=== PATIENT | male | born 1945 | race Caucasian/White ===

== ENCOUNTER → 2017-12-03 17:25 | Outpatient (CLI) | payer MEDICARE, MEDICAID, SELFPAY ==
[2017-12-03 18:01] LABS: Absolute Lymphocyte Count 3.08 X10^3/ul (0.83-4.51); Absolute Neutrophil Count 6.2 X10^3/uL (2.0-7.7); Basophil# 0.03 X10^3/uL; Basophil% 0.3 % (0-1); Eosinophil# 0.33 X10^3/uL; Eosinophils% 3.1 % (0-5); Lymphocyte # 3.08 X10^3/ul (4.0); Lymphocyte % 28.9 % (19-41); Mean Corp Hgb Conc 32.5 g/gl (32-36); Mean Corpuscular Hgb 29.1 pg (27.0-32.0); Mean Corpuscular Volume 89.5 fL (80-94); Mean Platelet Vol. 8.9 fl (6.2-12.0); Monocyte# 0.99 X10^3/uL; Monocyte% 9.3 % (0-10); Neutrophil # 6.19 X10^3/uL (2.7-7.7); Neutrophil % 58.1 % (47-70); Platelet Count 232 K/mm3 (150-450); RBC Distribution Width CV 13.5 % (11.6-14.6); RBC Distribution Width SD 44.1 fl (35.1-43.9); Red Blood Count 4.47 M/mm3 (4.6-6.2); White Blood Count 10.7 K/mm3 (4.4-11.0)
[2017-12-03 18:02] LABS: POSITIVE COUNT NO; POSITIVE DIFFERENTIAL NO; POSITIVE MORPHOLOGY NO
[2017-12-03 18:20] LABS: AST(SGOT) 22 U/L (15-37); Alanine Aminotransfer ALT/SGPT 26 U/L (16-61); Albumin, Serum 3.4 g/dL (3.2-5.0); Alkaline Phosphatase 98 U/L (45-117); Bilirubin, Direct 0.08 mg/dL (0.00-0.30); Globulin 4.1 g/dL (2.2-4.2); Protein, Total 7.5 g/dL (6.4-8.2)
[2017-12-07 03:07] LABS: QNTFERON TB Ag Minus Nil Value 0.02 IU/mL (.); QNTFERON TB Ag Value 0.11 IU/mL (.); QNTFERON TB Mitogen Value > 10.00 IU/mL (.); QNTFERON TB Nil Value 0.09 IU/mL (.)
[2017-12-09 12:16] LABS: QNTIFERON TB Gold Negative (Negative)
== END ==
PROVIDERS: Family Provider Family Medicine; PCP Family Medicine; Visit Provider Dermatology
DX: Z79.899 Other long term (current) drug therapy (principal)
CPT/HCPCS: 36415; 80076; 85025; 86480

== ENCOUNTER → 2018-02-25 11:15 | Outpatient (CLI) | payer MEDICARE, MEDICAID, SELFPAY ==
[2018-02-25 16:02] LABS: Microalbumin,Random Urine 90.1 mg/L (NO RANGE EST.); Microalbumin:Creatinine Ratio 53.3 mg/g CRE (<30 mg/g CRE)
[2018-02-25 16:45] LABS: ALB/GLOB Ratio 0.9 RATIO (0.9-2.4); AST(SGOT) 21 U/L (15-37); Alanine Aminotransfer ALT/SGPT 30 U/L (16-61); Albumin, Serum 3.9 g/dL (3.2-5.0); Alkaline Phosphatase 89 U/L (45-117); Anion Gap 7 (5-15); BUN 17 mg/dL (7-18); BUN/Creat Ratio 11.3 RATIO (10-20); Calcium,Total 9.1 mg/dL (8.5-10.1); Chloride 100 mmol/L (98-107); Cholesterol 135 mg/dL (200); Creatinine, Serum 1.51 mg/dL (0.70-1.30); EST Glomerular Filtration Rate 49 mL/min (>60); Est Glom Filt Rate - Afr Amer 59 mL/min (>60); Globulin 4.4 g/dL (2.2-4.2); Glucose 111 mg/dL (74-106); High Density Lipoprotein 40 mg/dL; Potassium 4.2 mmol/L (3.5-5.1); Protein, Total 8.3 g/dL (6.4-8.2); Sodium Level 138 mmol/L (136-145); Triglycerides 283 mg/dL; Very Low Density Lipoprotein 57 mg/dL (5-40)
== END ==
PROVIDERS: Family Provider Family Medicine; PCP Family Medicine; Visit Provider Family Medicine
DX: E11.9 Type 2 diabetes mellitus without complications (principal)
CPT/HCPCS: 36415; 80053; 80061; 82043; 82570; J7040

== ENCOUNTER 2018-03-25 18:00 | Outpatient (RCR) | payer MEDICARE, MEDICAID, SELFPAY ==
--- NOTE | 2018-03-13 11:22 | HP.PTEVAL_ITS ---
Patient's Visit Information MARYAM GARCIA is a 72 year old M referred to Physical Therapy by Delaney Amaya MD with a diagnosis of thoracic and lumbar spine pain, with need for stretching. Date of Evaluation: 03/07/18 Physical Therapist: Ashkan Parks - Visit Plan Frequency: 2x /Week Duration: 4 Weeks Plan: Start with thoracic mobility, scapular strengthening, HS stretching core stability exercises. May use some manual techniques to reduce muscle tension. - Subjective Subjective: Pt. is here today for his initial evaluation with diagnosis of thoracic and lumbar spine pain, with need for stretching. Pt. reports having increasd thoracic pain after falling a few months ago. Pt. reports nt having an xray at this point in time. Pt. reports increased pain with sitting for too long , extending his back, getting up and down. Pt. reports no radiating pain in all extremities. Pt. denies N/T. Pt. reports changing postions in the only way to alleviate pain. Pt. reports having leg weakness with occassioanl giving out, but has been happening for some time. Pt. lives alone and has stairs to enter home. Pt. reports no issues with entering. Pt. still drives. Pt. is able to sleep with minimal issues. He is hopeful to increase ROM and decrease pain allowing him to complete all household activities without limitatons. - Pain Thoracic spine Pain Intensity (Out of 10): 2 Pain Intensity Range: 1, 4 - Objective POSTURE: Pt. has increased thoracic kyphosis, increased FH posture. Pt. reports increased difficulty correcting posture. Pt. has decreased lumbar lordosis as well. PALPATION: Pt. has increased tenderness throughout scapular region bilaterally, thoracic erector spinea. No pain throughout lumbar spine. No UT pain. NEUROLOGICAL: All intact no issues. Normal sensation. ROM: Thoracic spine- flexion nil loss, ext mod loss increase NW, rotation mod loss bilat NE, LUmbar spine- flexion min loss NE, ext mod loss NE, SB mod loss bilat NE. Shoulder mobility tight with all over head motions. MMT: Pt. has decreased scapular strength, mid trap- 4/5, rhomboids 4/5, lats 4/5, core strength- poor. - Goals Goal 1:: Pt. to be I with HEP. Goal Time Frame: 4-6 Weeks Goal 2:: Pt. to have improved thoracic posture by 25% of motion reducing stress applied to scapular and thoracic musculature. Goal Time Frame: 4-6 Weeks Goal 3:: Pt. to have increased HS length by 25% bilaterally allowing for improved pelvic positioning improving posture. Goal Time Frame: 4-6 Weeks Goal 4:: Pt. to have increased scpaular strength by 1/2 grade throughout allowing for increased postural stability. Goal Time Frame: 4-6 Weeks - Rehabilitation Potential Physical Therapy Diagnosis: Pt. has signs and symptoms of thoracic spine pain, most likely due to chronic improper posture. Pt. would benefit from PT to increase thoracic ROM, postural stability strengthening and general stretching allowing for proper posture wtih all positioning. Rehabilitation Potential: Good - Anticipated Interventions Patient/Client Instruction: Educate patient on: Condition, Plan of Care, Risk Factors, Benefits of Fitness Program For the Purpose of:: To improve safety, To improve health and function, To foster healthy habits, To improve decision making, To facilitate caregiver knowledge, To improve self management, To prevent re-injury, To improve ability to perform tasks related to life management Therapeutic Exercise to Include: Strength training, Power training, Body mechanics, Postural training, Flexibilty training, Passive ROM, Active ROM, Dynamic Lumbar Stabilization, Massiel Exercises, Scapular Strength/ Stabilization For the Purpose of:: To decrease pain, To increase ROM, To improve nutrient delivery to tissue, To increase oxygenation perfusion, To improve muscle performance and motor function, To improve ability to perform ADL's, To increase tolerance to activity/condition/position, To decrease soft tissue restriction, To increase flexibility/ROM Manual Therapy Techniques to Include: Trigger point massage, Mobilization, Functional dry needling, Soft tissue mobilization For the Purpose of:: To decrease pain, To increase ROM, To improve nutrient delivery to tissue, To improve muscle performance and motor function, To improve health of tissue, To decrease soft tissue restriction, To increase flexibility/ROM Thank you for the opportunity to evaluate your patient. For Medicare and Medicare HMO plans, please review the plan of care and approve it. It will need to be FAXED BACK to us at [phone] for Medicare purposes. Please let me know if there are questions or concerns regarding this plan of care. Physician Signature: Date:
--- NOTE | 2018-05-22 11:24 | HP.PT.NRP ---
HP - Discharge Summary (1) - Patient Information MARYAM GARCIA was seen in my office for initial evaluation on 03/07/18. The following Plan of Care was established for this patient: Initial Frequency: 2x /Week Initial Duration: 4 Weeks - Anticipated Interventions Patient/Client Instruction: Educate patient on: Condition, Plan of Care, Risk Factors, Benefits of Fitness Program For the Purpose of:: To improve safety, To improve health and function, To foster healthy habits, To improve decision making, To facilitate caregiver knowledge, To improve self management, To prevent re-injury, To improve ability to perform tasks related to life management Therapeutic Exercise to Include: Strength training, Power training, Body mechanics, Postural training, Flexibilty training, Passive ROM, Active ROM, Dynamic Lumbar Stabilization, Massiel Exercises, Scapular Strength/Stabilization For the Purpose of:: To decrease pain, To increase ROM, To improve nutrient delivery to tissue, To increase oxygenation perfusion, To improve muscle performance and motor function, To improve ability to perform ADL's, To increase tolerance to activity/condition/position, To decrease soft tissue restriction, To increase flexibility/ROM Manual Therapy Techniques to Include: Trigger point massage, Mobilization, Functional dry needling, Soft tissue mobilization For the Purpose of:: To decrease pain, To increase ROM, To improve nutrient delivery to tissue, To improve muscle performance and motor function, To improve health of tissue, To decrease soft tissue restriction, To increase flexibility/ROM This patient was last seen in our office 03/25/18. Pertinent comments regarding their Physical therapy will appear below: Pt. was treated for her thoracic spine pain and hypombility. He was treated with modalities and stretching. Pt. came for 3 visits, but did not attend subsequent visits. He has not been seen in ~ 2 months and will be DC from PT at this point in time. At this point I will be discontinuing this patient from physical therapy. I would be happy to see this patient again in the future if found appropriate by the physician. Thank you! Ashkan Parks
== END 2018-03-25 19:00 | disposition home or self-care (01) ==
LOC: PT 18:00
PROVIDERS: Family Provider Family Medicine; PCP Family Medicine; Visit Provider Family Medicine
DX: M54.6 Pain in thoracic spine (principal)
CPT/HCPCS: 97110; 97162

== ENCOUNTER → 2018-03-28 06:15 | Outpatient (CLI) | payer MEDICARE, MEDICAID, SELFPAY ==
[2018-03-28 13:00] LABS: Hematocrit 42.6 % (40-54); Hemoglobin 13.6 g/dl (13.0-16.5); Mean Corp Hgb Conc 31.9 g/gl (32-36); Mean Corpuscular Hgb 28.8 pg (27.0-32.0); Mean Corpuscular Volume 90.3 fL (80-94); Mean Platelet Vol. 8.8 fl (6.2-12.0); Platelet Count 210 K/mm3 (150-450); RBC Distribution Width CV 13.7 % (11.6-14.6); RBC Distribution Width SD 44.7 fl (35.1-43.9); Red Blood Count 4.72 M/mm3 (4.6-6.2); White Blood Count 11.4 K/mm3 (4.4-11.0)
[2018-03-28 13:01] LABS: Scan Indicated on CBC? Y/N NO
[2018-03-28 14:01] LABS: Anion Gap 4 (5-15); BUN 16 mg/dL (7-18); BUN/Creat Ratio 11.5 RATIO (10-20); Calcium,Total 8.9 mg/dL (8.5-10.1); Chloride 104 mmol/L (98-107); Creatinine, Serum 1.39 mg/dL (0.70-1.30); EST Glomerular Filtration Rate 53 mL/min (>60); Est Glom Filt Rate - Afr Amer 65 mL/min (>60); Glucose 160 mg/dL (74-106); Potassium 4.1 mmol/L (3.5-5.1); Sodium Level 140 mmol/L (136-145)
--- NOTE | 2018-03-28 18:24 | STRESSREP ---
Stress Test Report Pharmacologic myocardial perfusion stress test. 72-year-old man with a history of syncope. Stress protocol: Resting EKG demonstrates normal sinus rhythm with a rate of 77 bpm normal intervals and noted resting blood pressure is 138/90 mmHg. 0.4 mg of regadenoson was infused per usual protocol followed by Intravenous saline flush injection continuous EKG monitoring was performed. The maximum heart rate was 100 bpm which was 67% of maximum predicted heart rate the maximum workload was 1 metabolic equivalent. At rest there were no ST or T-wave changes noted suggest abnormal flow reserve at peak infusion no ST or T-wave changes were noted suggest abnormal flow reserve. Resting blood pressure was 138/90 mmHg with a final blood pressure 130/84 mmHg. Myocardial perfusion protocol. 14.6 mCi of technetium 99m sestamibi was injected at rest. 0.4 mg of regadenoson was infused per usual protocol peak infusion 44.5 mCi of technetium 99m sestamibi was injected stress images were obtained stress and rest images were reconstructed and compared in the short axis vertical long and horizontal long axis. Gated images were also obtained. Perfusion SPECT analysis: Review of the stress images demonstrate normal uptake of tracer noted in the septum anterior wall and lateral wall. There is mildly reduced perfusion noted in the inferior wall. The stress and resting images appear to demonstrate a similar patent and no significant changes are noted to suggest ischemia. No previous infarct is noted. Gated SPECT analysis: The gated ejection fraction is noted to be 49%. Conclusion: Pharmacologic myocardial perfusion stress test with no obvious areas of ischemia. Low normal ejection fraction.
== END ==
PROVIDERS: Family Provider Family Medicine; PCP Family Medicine; Visit Provider Internal Medicine Cardiovascular Disease
DX: I50.32 Chronic diastolic (congestive) heart failure (principal); R55 Syncope and collapse; R29.6 Repeated falls; R42 Dizziness and giddiness; I10 Essential (primary) hypertension; Z98.890 Other specified postprocedural states; Z86.79 Personal history of other diseases of the circulatory system; Z95.828 Presence of other vascular implants and grafts
CPT/HCPCS: 36415; 76706; 78452; 80048; 85027; 93017; 93306; A9500; Q9957; A4216; C8929; J2785

== ENCOUNTER 2018-03-31 07:05 | Day surgery (SDC) | payer MEDICARE, MEDICAID, SELFPAY ==
[2018-03-28 13:24] VITALS: BMI 31.7
== END 2018-03-31 09:38 ==
LOC: CLSP 07:06
PROVIDERS: Family Provider Family Medicine; PCP Family Medicine; Visit Provider Internal Medicine Cardiovascular Disease
DX: R55 Syncope and collapse (principal); I13.0 Hypertensive heart and chronic kidney disease with heart failure and stage 1 through stage 4 chronic kidney disease, or unspecified chronic kidney disease; I50.32 Chronic diastolic (congestive) heart failure; N18.3 Chronic kidney disease, stage 3 (moderate); E78.00 Pure hypercholesterolemia, unspecified; Z86.711 Personal history of pulmonary embolism; Z86.79 Personal history of other diseases of the circulatory system; Z98.890 Other specified postprocedural states; E66.9 Obesity, unspecified; Z68.31 Body mass index [BMI] 31.0-31.9, adult; M32.9 Systemic lupus erythematosus, unspecified; F31.9 Bipolar disorder, unspecified; M10.9 Gout, unspecified; Z86.718 Personal history of other venous thrombosis and embolism; Z79.01 Long term (current) use of anticoagulants; Z79.899 Other long term (current) drug therapy
CPT/HCPCS: 33282; 99152; 99153; J7040

== ENCOUNTER 2018-11-14 14:40 | Emergency (ER) | payer MEDICARE, MEDICAID, SELFPAY ==
[2018-11-14 14:42] VITALS: BP 180/74; PULSE 84; RESP 18; TEMP 36.9; O2SAT 98; BMI 32.5
[2018-11-14 14:49] VITALS: O2SAT 97
--- NOTE | 2018-11-14 14:50 | CT_ITS ---
STUDY: CT BRAIN WITHOUT CONTRAST REASON FOR EXAM: Male, 73 years old. History of fall. History of aneurysm. RADIATION DOSAGE (If Supplied By Facility): CTDIvol = ( 44.99 ) mGy, DLP = ( 745.49 ) mGycm TECHNIQUE: Transaxial CT imaging of the brain was performed without administration of intravenous contrast material. Individualized dose optimization techniques were used for this CT. COMPARISON: Comparison is made with prior study dated October 27, 2013. FINDINGS: Normal soft tissue structures. Normal calvarium. There is mild cerebral atrophy with widening of the extra-axial spaces and ventricular dilatation. There are areas of decreased attenuation within the white matter tracts of the supratentorial brain, consistent with microvascular disease changes. Normal basal ganglia and thalami. Normal brainstem. Normal cerebellum. There is no intracranial hemorrhage. There are no findings of an acute ischemic infarction. Atherosclerotic calcification of the cavernous portions of the internal carotid arteries bilaterally. Mucosal thickening of the maxillary sinuses bilaterally. CT/Brain/Head without Contrast IMPRESSION: Chronic involutional changes of the brain. Electronically Signed: Ward Sauer, at 15:42 EDT , Service support ,
--- NOTE | 2018-11-14 14:51 | CT_ITS ---
STUDY: CT CERVICAL SPINE WITHOUT CONTRAST REASON FOR EXAM: Male, 73 years old. History of fall. RADIATION DOSAGE (If Supplied By Facility): CTDIvol = ( 15.16 ) mGy, DLP = ( 296.58 ) mGycm TECHNIQUE: High resolution transaxial imaging was performed without contrast material. Sagittal and coronal images were reconstructed. Individualized dose optimization techniques were used for this CT. COMPARISON: Comparison is made with prior examination dated October 27, 2013. FINDINGS: Normal craniovertebral junction. There are degenerative changes of the anterior atlantoaxial articulation. Normal odontoid process. There is straightening of the normal cervical lordosis. Normal vertebral bodies and posterior osseous elements. C2-3: Normal endplates. Normal disc height and morphology. Normal central canal and intervertebral neuroforamina. C3-4: Anterior spondylosis. Uncovertebral arthrosis. Bilateral neural foraminal stenosis due to hypertrophy of the facet joints. C4-5: Minimal stable anterolisthesis of C4 on C5 most likely secondary to the facet joint osteoarthritis. Anterior spondylosis. C5-6: Mild degree of this space narrowing with anterior spondylosis. This is worse on the right side. No significant stenosis is seen. C6-7: Moderate degree of disc space narrowing with anterior spondylosis. No significant stenosis is seen. Normal visualized soft tissue structures. CT/Spine Cervical without Contras IMPRESSION: Multilevel degenerative changes, as described above. Electronically Signed: Ward Sauer, at 15:45 EDT , Service support ,
--- NOTE | 2018-11-14 14:51 | CT_ITS ---
STUDY: CT LUMBAR SPINE WITHOUT CONTRAST REASON FOR EXAM: Male, 73 years old. Low back pain. RADIATION DOSAGE (If Supplied By Facility): CTDIvol = ( 31.23 ) mGy, DLP = ( 962.24 ) mGycm TECHNIQUE: The patient was scanned in a multi detector CT scanner. High resolution transaxial imaging was performed. Images were obtained from L1 to S1 level. Sagittal and coronal images were reconstructed. Individualized dose optimization techniques were used for this CT. COMPARISON: None FINDINGS: Normal lumbar lordosis. There is no substantial scoliosis. Normal vertebrae of the lumbar spine. L1-2: Marked degree of anterior spondylosis worse on the right side. No significant stenosis is seen. L2-3: Mild degree of disc space narrowing. Anterior spondylosis. Mild degree of diffuse posterior disc bulge. Mild degree of bilateral neural foraminal stenosis. L3-4: Mild degree of disc space narrowing with anterior spondylosis worse on the left side. Facet joint osteoarthritis and hypertrophy causing bilateral neural foraminal stenosis. L4-5: Moderate degree of disc space narrowing and spondylosis. Facet joint osteoarthritis and hypertrophy. Bilateral neural foraminal stenosis worse on the right side. L5-S1: Normal endplates. Normal disc height and morphology. Normal bilateral facet joints. Normal central canal and bilateral lateral recesses. Normal bilateral intervertebral neural foramina. Normal visualized paraspinous soft tissue structures. CT/Spine Lumbar without Contrast IMPRESSION: Multilevel degenerative changes, as described above. Bilateral neural foraminal stenosis at the L2-L3, L3-L4 and L4-L5 levels. Electronically Signed: Ward Sauer, at 15:41 EDT , Service support ,
--- NOTE | 2018-11-14 15:05 | ED.VISSUMM ---
- ER Visit Summary Date of Service: 11/14/18 Chief Complaint: Mechanical fall History of Present Illness: The patient is a 73 M presents to the emergency department after mechanical fall. Patient states normally, he will ambulate with a cane. He has chronic gait instability and has for the past 4 years. States he was carrying boxes and was unable to use his cane. He came down his concrete stairs on his porch. On the last stair, he lost his balance and fell. He landed on the ground and struck his head. He thinks he may have lost consciousness. The patient is on Xarelto. He suffered a skin abrasion to his elbow. He is also had some pain in his back, but states this is chronic. He denies any other symptoms. He is otherwise been in his normal state of health. Physical Examination: Vital signs reviewed General: Well-nourished, well-developed Head: Normocephalic, superficial contusion over the left parietal area Eyes: Pupils equal and reactive, extraocular muscles intact Neck, supple, no lymphadenopathy Heart: Regular rate and rhythm Respiratory: No distress, clear bilaterally Abdomen: Soft, nontender, nondistended, no peritoneal signs Back: Mild tenderness along the lumbar spine without step-off or deformity Dale Extremities: Nontender, no edema, no cords Skin: Normal color no rash Neuro: Alert and oriented, no focal or lateralizing deficits Test Results: [] Emergency Department Course and Treatment: The patient presents after mechanical fall. He does have a slight skin tear over the left elbow but has full range of motion and no tenderness to palpation. He is also on Xarelto and did strike his head. Head CT was obtained. This is unremarkable. CT of the C-spine shows chronic change, but no acute ab normality. X-ray of the chest, pelvis, and hip are unremarkable. CT of the lumbar spine is also unremarkable. There is significant chronic change, but no acute issues. The patient declined any analgesics. He was ambulated through the emergency department and was steady on his feet. At this time, I do feel it is safe for outpatient therapy. He will be discharged home. Treatment Plan: [] Disposition: Discharge Impression: 1. Mechanical fall 2. Scalp contusion 3. Left elbow skin abrasion 4. Lumbar strain This note was generated with [employer] software. It may contain incorrect words, spelling, and punctuation that were not noted in review of the chart prior to signing ED Disposition - Plan for ED Patient: Instructions: ED Mechanical Fall, ED [facility] Referrals: Delaney Amaya MD [Primary Care Provider] -
--- NOTE | 2018-11-14 15:12 | RAD_ITS ---
STUDY: X-RAY CHEST REASON FOR EXAM: Male, 73 years old. History of fall. TECHNIQUE: Single AP portable view of the chest. COMPARISON: Comparison is made with prior study dated May 17, 2015. FINDINGS: EKG electrodes are seen. A loop recorder device is seen overlying the left lower hemithorax. The lungs are clear and expanded. There is no demonstrated pleural abnormality. Normal size heart. Normal mediastinum and glenna. Normal visualized pulmonary arteries. There is atherosclerotic tortuosity of the aortic arch and descending thoracic aorta. There are diffuse degenerative changes of the visualized thoracic spine. Healed left rib fractures. There is no demonstrated abnormality of the visualized soft tissue structures of the upper abdomen. RAD/Chest 1 View (Portable) IMPRESSION: No acute abnormality is seen. Electronically Signed: Ward Sauer, at 15:46 EDT , Service support ,
--- NOTE | 2018-11-14 15:12 | RAD_ITS ---
STUDY: X-RAY - PELVIS AND RIGHT HIP REASON FOR EXAM: Pain, fall. TECHNIQUE: 2 views of the pelvis and hip. COMPARISON: Radiographs 12/01/2014. FINDINGS: There are pelvic phleboliths. There is vascular calcification. Normal bilateral iliac wings, sacroiliac joints and visualized sacrum. Normal bilateral superior and inferior pubic rami. Normal pubic symphysis. There is mild enthesopathy of the bilateral ischial tuberosities. Normal visualized femoral head. Normal acetabulum. There are small marginal osteophytes and mild joint space narrowing of the right hip joint. RAD/HIP, UNI W/ Pelvis 2-3 Views IMPRESSION: Mild right hip arthrosis. No demonstrated right hip fracture. Electronically Signed: Feng Iglesias MD at 15:48 EDT Tel , Service support ,
[2018-11-14 17:07] VITALS: BP 150/111; PULSE 87; RESP 18; O2SAT 97
--- NOTE | 2018-11-14 17:16 | ED.RN ---
pt calling for taxi. denied wanting beverage at ok.
== END 2018-11-14 17:17 | disposition home or self-care (01) ==
PROVIDERS: Emergency Provider Emergency Medicine; Family Provider Family Medicine; PCP Family Medicine
DX: S00.03XA Contusion of scalp, initial encounter (principal); S39.012A Strain of muscle, fascia and tendon of lower back, initial encounter; S50.312A Abrasion of left elbow, initial encounter; W10.8XXA Fall (on) (from) other stairs and steps, initial encounter; Y93.89 Activity, other specified; Y92.008 Other place in unspecified non-institutional (private) residence as the place of occurrence of the external cause; R26.89 Other abnormalities of gait and mobility; I10 Essential (primary) hypertension; Z79.01 Long term (current) use of anticoagulants; Z79.899 Other long term (current) drug therapy
CPT/HCPCS: 70450; 71045; 72125; 72131; 73502; 99284

== ENCOUNTER → 2019-03-19 11:36 | Outpatient (CLI) | payer MEDICARE, MEDICAID, SELFPAY ==
[2019-03-19 12:50] LABS: Absolute Lymphocyte Count 2.42 X10^3/uL (0.83-4.51); Absolute Neutrophil Count 6.7 X10^3/uL (2.0-7.7); Basophil# 0.06 X10^3/uL; Basophil% 0.6 % (0-1); Eosinophil# 0.27 X10^3/uL; Eosinophils% 2.7 % (0-5); Hematocrit 41.1 % (40-54); Hemoglobin 13.2 g/dL (13.0-16.5); Lymphocyte # 2.42 X10^3/ul (4.0); Lymphocyte % 23.8 % (19-41); Mean Corp Hgb Conc 32.1 g/dL (32-36); Mean Corpuscular Hgb 28.9 pg (27.0-32.0); Mean Corpuscular Volume 90.1 fL (80-94); Mean Platelet Vol. 9.3 fl (6.2-12.0); Monocyte# 0.63 X10^3/uL; Monocyte% 6.2 % (0-10); NRBC Flagged by Analyzer 0 % (0-5); Neutrophil # 6.72 X10^3/uL (2.7-7.7); Neutrophil % 66.2 % (47-70); Platelet Count 217 K/mm3 (150-450); RBC Distribution Width CV 13.1 % (11.6-14.6); RBC Distribution Width SD 42.4 fl (35.1-43.9); Red Blood Count 4.56 M/mm3 (4.6-6.2); White Blood Count 10.2 K/mm3 (4.4-11.0)
[2019-03-19 13:16] LABS: AST(SGOT) 13 U/L (15-37); Alanine Aminotransfer ALT/SGPT 21 U/L (16-61); Albumin, Serum 3.4 g/dL (3.2-5.0); Alkaline Phosphatase 120 U/L (45-117); Bilirubin, Direct 0.09 mg/dL (0.00-0.30); Globulin 4.6 g/dL (2.2-4.2)
[2019-03-24 06:07] LABS: QNTFERON TB Mitogen Value > 10.00 IU/mL (.); QNTFERON TB Nil Value 0.19 IU/mL (.); QNTFERON TB1+ Ag Value 0.13 IU/mL (.); QNTFERON TB2+ Ag Value 0.11 IU/mL (.)
[2019-03-24 08:40] LABS: QNTIFERON TB Positive Criteria Negative (Negative)
== END ==
PROVIDERS: Family Provider Family Medicine; PCP Family Medicine; Referring Provider Dermatology; Visit Provider Dermatology
DX: Z79.899 Other long term (current) drug therapy (principal); L40.8 Other psoriasis; L29.8 Other pruritus
CPT/HCPCS: 36415; 80076; 85025; 86480

== ENCOUNTER → 2019-11-05 12:07 | Outpatient (CLI) | payer MEDICARE, MEDICAID, SELFPAY ==
[2019-06-18 10:13] VITALS: BMI 32.0
[2019-11-05 13:07] LABS: PSA,Total - Annual Screen 0.26 ng/mL (0.00-4.00)
== END ==
PROVIDERS: PCP Family Medicine; Referring Provider Urology; Visit Provider Urology
DX: R35.1 Nocturia (principal)
CPT/HCPCS: 36415; 84153; G0103

== ENCOUNTER 2019-11-10 06:49 | Inpatient (IN) | payer MEDICARE, MEDICAID, SELFPAY ==
[2019-06-18 10:13] VITALS: BMI 32.0
[2019-11-10] VITALS (23 sets, daily range): BP systolic 93–165; BP diastolic 59–95; PULSE 94–136; RESP 16–38; TEMP 37.4–39.8; O2SAT 2–99; BMI 32.3; BMI 32.4
--- NOTE | 2019-11-10 07:16 | RAD_ITS ---
STUDY: X-RAY CHEST REASON FOR EXAM: Male, 74 years old. SOB TECHNIQUE: Single AP portable view of the chest. COMPARISON: Comparison is made with prior examination dated November 14, 2018. FINDINGS: EKG electrodes are seen. A small loop recorder device is seen in the lower left hemithorax. Infiltration in the right lung base. Stable mild increased markings at the left lung base suggestive of scarring. There is no demonstrated pleural abnormality. Normal size heart. Normal mediastinum and glenna. Normal visualized pulmonary arteries. There is atherosclerotic tortuosity of the aortic arch and descending thoracic aorta. There are diffuse degenerative changes of the visualized thoracic spine. Normal visualized ribs, clavicles, and shoulders. There is no demonstrated abnormality of the visualized soft tissue structures of the upper abdomen. RAD/Chest 1 View (Portable) IMPRESSION: Right basilar infiltrate. Stable increased markings at the left lung base suggests scarring. Electronically Signed: Ward Sauer, at 8:48 EDT , Service support ,
--- NOTE | 2019-11-10 07:16 | EKG12_ITS ---
Test Reason : GENERAL ILLNESS Blood Pressure : / mmHG Vent. Rate : 132 BPM Atrial Rate : 132 BPM P-R Int : 126 ms QRS Dur : 116 ms QT Int : 340 ms P-R-T Axes : -16 013 044 degrees QTc Int : 503 ms Sinus tachycardia Nonspecific ST and T wave abnormality Abnormal ECG Confirmed by NOEMI LUND, ROSY ([id number]), assistant film editor CLAUDY THOMAS ([id number] on 11/17/2019 1:57:07 PM Referred By: Sukhi Acevedo Confirmed By:QUAN FRANKLIN MD
--- NOTE | 2019-11-10 07:17 | RAD_ITS ---
STUDY: X-RAY - PELVIS AND LEFT HIP REASON FOR EXAM: Male, 74 years old. FELL X 2 DAYS. PAIN LEFT HIP TECHNIQUE: 3 views of the pelvis and hip. COMPARISON: None. FINDINGS: There is a non-specific bowel gas pattern. Catheter is seen in the pelvis. Normal bilateral iliac wings, sacroiliac joints and visualized sacrum. Normal bilateral superior and inferior pubic rami. Normal pubic symphysis. Normal bilateral ischial tuberosities. Normal visualized femoral head. There is osteoarthritic spur formation of the acetabular rim. There is moderate articular joint space narrowing of the hip. RAD/HIP, UNI W/ Pelvis 2-3 Views IMPRESSION: Degenerative changes. No fracture or dislocation is seen. Electronically Signed: Ward Sauer, at 9:45 EDT , Service support ,
--- NOTE | 2019-11-10 07:18 | ED.DCSUM_ITS ---
History of Present Illness Chief Complaint: General Illness Narrative: Patient is a 74-year-old male who presents due to left hip pain after a fall. History is limited as the patient is a poor informant. He fell 1 week ago getting out of bed. This was due to generalized weakness. He has had left hip pain since that time and called EMS today. Of note he was found to be hypoxic tachypneic and tachycardic. When asked if he has recently been ill he states that he has been sick and does not feel well but is really unable to provide any further specific symptoms. When asked what symptoms he has been having he states I do not know doc. However he denies shortness of breath fever congestion rhinorrhea sore throat. He denies history of underlying lung disease. Past Medical History - Allergies and Home Meds Allergies/Adverse Reactions: Allergies No Known Allergies Allergy (Verified 06/18/19 10:14) Primary Care Physician: Delaney Amaya MD [Primary Care Provider] - Past Medical History: - - Hypertension, hyperlipidemia, gout Surgical History: - - AAA Smoking Status: Former smoker Review of Systems All systems negative except as indicated General: Denies: Fever Eyes: Denies: Visual changes - bilaterally ENT: Denies: Bilateral ear pain Cardiovascular: Denies: Chest pain Respiratory: Denies: Dyspnea, Cough, Sputum Gastrointestinal: Denies: Abdominal pain, Nausea, Vomiting, Diarrhea Musculoskeletal: Reports: Extremity Pain. Denies: Myalgias, Arthralgias Skin: Denies: Rash Neurological: Denies: Headache Physical Exam Vital Signs/Narrative: Vital Signs Temp Pulse Resp BP Pulse Ox 11/10/19 07:01 136 H 38 H 135/78 H 90 11/10/19 06:58 91 11/10/19 06:55 88 11/10/19 06:50 99.5 F H 135 H 26 H 165/95 H 93 Inital Vital Signs reviewed: Yes General: Obese, Acute Distress - Patient is in moderate respiratory distress with increased work of breathing speaking short sentences Head: Normocephalic Eyes: EOMI ENT: Moist mucous membranes Neck: Supple Cardiovascular: - - Heart is regular tachycardia I do not appreciate murmur, gallop, rub Respiratory: - - Tachypnea and patient appears dyspneic, diminished air exchange diffusely, rales on the right Abdomen: Soft, Nontender Back: Nontender Extremities: - - Active full range of motion x4 extremities, patient does have ecchymosis along the left hip and lateral thigh and tenderness of the left hip Skin: Normal color Neurological: Alert Psychological: Normal affect Diagnostic/Tx/Re-eval Impressions Chest X-Ray 11/10/19 07:16 IMPRESSION: Right basilar infiltrate. Stable increased markings at the left lung base suggests scarring. Electronically Signed: Ward Sauer, at 8:48 EDT , Service support , 11/10/19 07:16 Chest 1 View (Portable) [RAD] Stat 11/10/19 07:17 HIP, UNI W/ Pelvis 2-3 Views [RAD] Stat 11/10/19 07:25 Mucosa - Nose Rapid RSV (DFA) - Final 11/10/19 07:25 Mucosa - Nose Influenza Types A,B Direct FA (SONIYA) - Final Laboratory Results 11/10/19 11/10/19 11/10/19 07:00 07:00 07:00 WBC RBC Hgb Hct MCV MCH MCHC RDW Std Deviation RDW Coeff of Luca Plt Count MPV Immature Gran % (Auto) Neut % (Auto) Lymph % (Auto) [place] % (Auto) Eos % (Auto) Baso % (Auto) Absolute Neuts (auto) Absolute Lymphs (auto) Nucleated RBC % PT INR Specimen Type Sample Site pH Bicarbonate Actual POC Total CO2 Base Excess O2 Saturation ABG pCO2 ABG pO2 Alex Test O2 Delivery Device Liter Flow Blood Gas Notified Whom Blood Gas Notified Time Sodium 137 Potassium 3.7 Chloride 101 Carbon Dioxide 25.0 Anion Gap 11 BUN 17 Creatinine 1.56 H Estim Creat Clear Calc 46.29 Est GFR (MDRD) Af Amer 56 L Est GFR (MDRD) Non-Af 47 L BUN/Creatinine Ratio 10.9 Glucose 240 H Lactic Acid 5.3 H* Calcium 8.9 Total Bilirubin 0.50 AST 16 ALT 19 Alkaline Phosphatase 96 Troponin I < 0.015 B-Natriuretic Peptide 58.5 Total Protein 8.1 Albumin 3.6 Globulin 4.5 H Albumin/Globulin Ratio 0.8 L Urine Color Urine Clarity Urine pH Ur Specific [place] Urine Protein Urine Glucose (UA) Urine Ketones Urine Occult Blood Urine Nitrite Urine Bilirubin Urine Urobilinogen Ur Leukocyte Esterase Urine RBC Urine WBC Ur Squamous Epith Cells Urine Bacteria Urine Mucus 11/10/19 11/10/19 11/10/19 07:00 07:00 07:50 WBC 14.1 H RBC 4.31 L Hgb 13.0 Hct 39.9 L MCV 92.6 MCH 30.2 MCHC 32.6 RDW Std Deviation 48.5 H RDW Coeff of Luca 14.9 H Plt Count 234 MPV 8.8 Immature Gran % (Auto) 0.500 Neut % (Auto) 80.8 H Lymph % (Auto) 13.6 L [place] % (Auto) 4.0 Eos % (Auto) 0.8 Baso % (Auto) 0.3 Absolute Neuts (auto) 11.4 H Absolute Lymphs (auto) 1.91 Nucleated RBC % 0 PT 16.8 H INR 1.4 Specimen Type ART Sample Site R Radial pH 7.46 H Bicarbonate Actual 23.9 POC Total CO2 25 Base Excess 0 O2 Saturation 92 L ABG pCO2 33.6 L ABG pO2 59 L Alex Test POS O2 Delivery Device Nasal Can Liter Flow 5.0 Blood Gas Notified Whom ED MD Blood Gas Notified Time 745 Sodium Potassium Chloride Carbon Dioxide Anion Gap BUN Creatinine Estim Creat Clear Calc Est GFR (MDRD) Af Amer Est GFR (MDRD) Non-Af BUN/Creatinine Ratio Glucose Lactic Acid Calcium Total Bilirubin AST ALT Alkaline Phosphatase Troponin I B-Natriuretic Peptide Total Protein Albumin Globulin Albumin/Globulin Ratio Urine Color Urine Clarity Urine pH Ur Specific [place] Urine Protein Urine Glucose (UA) Urine Ketones Urine Occult Blood Urine Nitrite Urine Bilirubin Urine Urobilinogen Ur Leukocyte Esterase Urine RBC Urine WBC Ur Squamous Epith Cells Urine Bacteria Urine Mucus 11/10/19 07:55 WBC RBC Hgb Hct MCV MCH MCHC RDW Std Deviation RDW Coeff of Luca Plt Count MPV Immature Gran % (Auto) Neut % (Auto) Lymph % (Auto) [place] % (Auto) Eos % (Auto) Baso % (Auto) Absolute Neuts (auto) Absolute Lymphs (auto) Nucleated RBC % PT INR Specimen Type Sample Site pH Bicarbonate Actual POC Total CO2 Base Excess O2 Saturation ABG pCO2 ABG pO2 Alex Test O2 Delivery Device Liter Flow Blood Gas Notified Whom Blood Gas Notified Time Sodium Potassium Chloride Carbon Dioxide Anion Gap BUN Creatinine Estim Creat Clear Calc Est GFR (MDRD) Af Amer Est GFR (MDRD) Non-Af BUN/Creatinine Ratio Glucose Lactic Acid Calcium Total Bilirubin AST ALT Alkaline Phosphatase Troponin I B-Natriuretic Peptide Total Protein Albumin Globulin Albumin/Globulin Ratio Urine Color Yellow Urine Clarity Sl. Cloudy Urine pH 6.0 Ur Specific [place] 1.015 Urine Protein 30 H Urine Glucose (UA) 250 H Urine Ketones Negative Urine Occult Blood Negative Urine Nitrite Negative Urine Bilirubin Negative Urine Urobilinogen Normal Ur Leukocyte Esterase Negative Urine RBC 0 SEEN Urine WBC 0 SEEN Ur Squamous Epith Cells 0-5 SEEN Urine Bacteria 0 SEEN Urine Mucus 0 SEEN - Medical Decision Making Although patient does not complain of dyspnea he does appear to be in moderate respiratory distress with increased work of breathing and hypoxia. He was placed on oxygen by nasal cannula. Chest x-ray shows right-sided infiltrate as well as increased markings on the left which likely relates to scarring per radiology. Laboratory studies notable for leukocytosis with a white count of 14,000 and lactic acid is elevated at 5.3. ABG shows normal pH although PO2 is only 59. On reevaluation patient's oxygen saturation is 95 to 96% on 4 L nasal cannula. Urinalysis is normal. Repeat temperature here was 103.6. Patient was given Tylenol. He was treated with IV fluids as well as Rocephin and a zithromycin. Patient does not have a known exposure to coronavirus however his presentation could be consistent with COVID-19. Given that in this disease process aggressive fluid resuscitation may conservative fluid resuscitation is recommended. Given that the patient's blood pressure is stable we deferred on aggressive fluid resuscitation with 30 cc/kg IV fluid bolus. I spoke to Dr. Goodrich who is in agreement with this plan and recommends admission to the intensive care unit with airborne precautions. Patient will be discussed with the hospitalist and admitted. ED Disposition - Plan for ED Patient: Disposition: Acute Care Hospital [facility] Diagnosis: Community acquired pneumonia, Suspected 2019 novel coronavirus infection Referrals: Delaney Amaya MD [Primary Care Provider] -
[2019-11-10 07:22] LABS: Absolute Lymphocyte Count 1.91 X10^3/uL (0.83-4.51); Absolute Neutrophil Count 11.4 X10^3/uL (2.0-7.7); Basophil# 0.04 X10^3/uL; Basophil% 0.3 % (0-1); Eosinophil# 0.11 X10^3/uL; Eosinophils% 0.8 % (0-5); Hematocrit 39.9 % (40-54); Lymphocyte # 1.91 X10^3/ul (4.0); Lymphocyte % 13.6 % (19-41); Mean Corp Hgb Conc 32.6 g/dL (32-36); Mean Corpuscular Hgb 30.2 pg (27.0-32.0); Mean Corpuscular Volume 92.6 fL (80-94); Mean Platelet Vol. 8.8 fl (6.2-12.0); Monocyte# 0.56 X10^3/uL; NRBC Flagged by Analyzer 0 % (0-5); Neutrophil # 11.36 X10^3/uL (2.7-7.7); Neutrophil % 80.8 % (47-70); Platelet Count 234 K/mm3 (150-450); RBC Distribution Width CV 14.9 % (11.6-14.6); RBC Distribution Width SD 48.5 fl (35.1-43.9); Red Blood Count 4.31 M/mm3 (4.6-6.2); White Blood Count 14.1 K/mm3 (4.4-11.0)
[2019-11-10 07:26] LABS: International Normalized Ratio 1.4; Prothrombin Time (Protime)PT. 16.8 SECONDS (11.7-14.9)
[2019-11-10 07:38] LABS: ALB/GLOB Ratio 0.8 RATIO (0.9-2.4); AST(SGOT) 16 U/L (15-37); Alanine Aminotransfer ALT/SGPT 19 U/L (16-61); Albumin, Serum 3.6 g/dL (3.2-5.0); Alkaline Phosphatase 96 U/L (45-117); Anion Gap 11 (5-15); BUN 17 mg/dL (7-18); BUN/Creat Ratio 10.9 RATIO (10-20); Calcium,Total 8.9 mg/dL (8.5-10.1); Chloride 101 mmol/L (98-107); Creatinine, Serum 1.56 mg/dL (0.70-1.30); EST Glomerular Filtration Rate 47 mL/min (>60); Est Glom Filt Rate - Afr Amer 56 mL/min (>60); Estimated Creatinine Clearance 46.29 ml/min; Globulin 4.5 g/dL (2.2-4.2); Glucose 240 mg/dL (74-106); Potassium 3.7 mmol/L (3.5-5.1); Protein, Total 8.1 g/dL (6.4-8.2); Sodium Level 137 mmol/L (136-145)
[2019-11-10 07:41] LABS: BNP,B-Type NATRIURETIC PEPTIDE 58.5 pg/mL (0-100)
[2019-11-10 07:44] LABS: Lactic Acid 5.3 mmol/L (0.4-1.9)
[2019-11-10 07:55] LABS: Allen Test POS; Base Excess 0 mmol/L (-2 to +2); Bicarbonate 23.9 mmol/L (22-26); Blood Gas Specimen Type ART; O2 Delivery Device Nasal Can; PO2 59 mmHG (75-100); SITE R Radial; SO2 92 % (95-99); Time Given 745; Total Carbon Dioxide 25 mmol/L; pCO2 33.6 mmHg (35-45); pH 7.46 (7.35-7.45)
[2019-11-10 08:06] LABS: Bacteria 0 SEEN /hpf (None Seen); Mucous, Urine 0 SEEN /hpf (<or=2+); Red Blood Cells-Urine 0 SEEN /hpf (0-5); White Blood Cells 0 SEEN /hpf (0-5)
[2019-11-10 08:07] LABS: Color, Urine Yellow (Yellow); Glucose, Dipstick 250 mg/dl (Normal); Ketone-Dipstick Negative (Negative); Leukocyte Esterase-Dipstick Negative /ul (Negative); Nitrite-Dipstick Negative (Negative); Occult Blood-Urine Negative /ul (Negative); Protein-Dipstick 30 mg/dl (Negative); Specific Gravity, Urine 1.015 (1.002-1.030); Urine Bilirubin Dipstick Negative (Negative); Urine Clarity Sl. Cloudy (Clear); Urine Urobilinogen Normal (Normal)
[2019-11-10 08:13] LABS: Squamous Epithelial Cells - UA 0-5 SEEN /hpf (0-5)
[2019-11-10] MEDS: Ondansetron 4 MG/2 ML Vial IV ×2 (08:28→17:23)
[2019-11-10] MEDS: Ceftriaxone 1 GM/50 ML BAG IV (08:28)
[2019-11-10] MEDS: 0.9% Normal Saline 1,000 ML 999 ML IV ×2 (08:28→09:09)
[2019-11-10] MEDS: Acetaminophen 500 MG Tablet 1000 MG PO (08:28)
--- NOTE | 2019-11-10 09:08 | NURSING ---
ICU PNEUMONIA, ACUTE HYPOXIC RESP FAILURE, POSSIBLE COVID 19 ASHELFAH
--- NOTE | 2019-11-10 09:17 | NURSING ---
ICU 4
--- NOTE | 2019-11-10 09:27 | HP.PCM_ITS ---
Problem List (1) Septic shock Status: Acute (2) Community acquired pneumonia Status: Acute (3) Abdominal aortic aneurysm (AAA) Status: Chronic Comment: AAA repair (4) Essential (primary) hypertension Status: Chronic (5) Hyperlipidemia Status: Chronic Qualifiers: Hyperlipidemia type: pure hypercholesterolemia Qualified Code(s): E78.00 - Pure hypercholesterolemia, unspecified; E78.0 - Pure hypercholesterolemia (6) History of pulmonary embolism Status: Chronic History of Present Illness Date of Admission: 11/10/19 Chief Complaint: Fall, left hip pain. The patient is a 74 year old M with past medical history as mentioned above presented to the emergency room because of fall and left hip pain. Patient is poor informant and was not able to provide consistent detailed history. He stated that he came in today because he had a fall this morning and he started having left hip pain. Pain is not so severe and he was able to ambulate afterwards. Also, he complained of generalized weakness and fatigue that has been going on for almost 1 week. Upon arrival of the EMS, patient was found to be dyspneic, tachypneic, tachycardic and hypoxic. On further questioning, patient did mention that he had some mild shortness of breath. He denied cough, sputum production, fever or chills. He denied sinus or nasal congestion. For me, patient was alert and treated x3. He lives alone and he stated that he had no sick contacts over the last 2 weeks and no recent travel over the last 14 days. He had a history of pulmonary embolism and he has been on Xarelto. He had a history of benign prostatic hypertrophy and has been on Flomax. He had a history of abdominal aortic aneurysm status post repair and he has been stable. In the emergency department, patient was febrile, tachycardic, dyspneic, tachypneic and hypoxic, pulse ox was 88% on room air which improved to 95% on 4 L. Routine blood work was remarkable for leukocytosis and neutrophilia, creati nine 1.56, blood glucose of 240. Lactic acid was 5.3. LFT was unremarkable. EKG revealed sinus tachycardia, no acute segment changes. Troponin and BNP were normal. Urinalysis revealed cloudy urine, negative for nitrite and leukocyte esterase, no WBCs and no bacteria seen. Chest x-ray revealed right basilar infiltrate. Patient is being admitted for septic shock secondary to right lower lobe community-acquired pneumonia which was complicated by acute hypoxic respiratory failure and also found to have hyperglycemia without history of diabetes. Past Medical History Past Medical History (Chronic Problems): Chronic Problems (Last Updated 11/10/19 @ 09:[address] Sukhi Acevedo MD) Stage III chronic kidney disease (Chronic) History of loop recorder (Chronic) Chronic diastolic (congestive) heart failure (Chronic) Abdominal aortic aneurysm (AAA) (Chronic) AAA repair Essential (primary) hypertension (Chronic) Hyperlipidemia (Chronic) History of pulmonary embolism (Chronic) Medical History: Medical History (Last Updated 11/10/19 @ 09:[address] 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 Z95.828 Systemic lupus erythematosus M32.9 Ventral hernia K43.9 Allergies No Known Allergies Allergy (Verified 06/18/19 10:14) Home Medications: Ambulatory Orders Medication Instructions Recorded Folic Acid 1 mg PO DAILY@0800 12/18/15 Venlafaxine XR [Effexor Xr] 150 mg PO DAILY 12/18/15 quetiapine 300 mg tablet 300 mg PO QHS tab 02/26/18 simvastatin 40 mg tablet 40 mg PO QPM 02/26/18 mirabegron 25 mg tablet,extended 25 mg PO Q24H 03/12/18 release 24 hr Febuxostat [Uloric] 40 mg PO DAILY 11/10/19 Rivaroxaban [Xarelto] 20 mg PO DAILY@0600 11/10/19 Tamsulosin HCl [Flomax] 0.4 mg PO DAILY@1730 11/10/19 Surgical History: Surgical History (Last Reviewed 11/10/19 @ 09:[address] Sukhi Acevedo MD) History of loop recorder (Chronic) Z98.890 History of AAA (abdominal aortic aneurysm) repair Onset Date: 1988 Z98.890 History of cataract surgery Z98.49 History of tonsillectomy Z90.89 History of total left knee replacement Z96.652 Hx of cholecystectomy Z90.49 Surgical History: - - AAA Psychiatric History: Bipolar Lives: Alone Smoking Status: Former smoker Tobacco Use: Cigarettes Alcohol: None Drugs: None - *Family History Maternal Family History: Family History (Last Reviewed 11/10/19 @ 09:[address] Sukhi Acevedo MD) Brother Myocardial infarction Father Sudden cardiac Paternal Family History: Family History (Last Reviewed 11/10/19 @ 09:[address] Sukhi Acevedo MD) Brother Myocardial infarction Father Sudden cardiac Offspring Family History: Family History (Last Reviewed 11/10/19 @ 09:[address] Sukhi Acevedo MD) Brother Myocardial infarction Father Sudden cardiac History Items: - - He has 2 children and they have both been diagnosed with bipolar disorder. Review of Systems Constitutional: Reports: Weakness, Fatigue. Denies: Anorexia, Chills, Fever Eyes: Denies: Blurred vision, Double vision, Drainage, Redness HEENT: Denies: Difficulty Hearing, Ear Pain, Eye Pain, Nasal Congestion, Sore Throat Cardiovascular: Denies: Chest Pain, Chest Pressure, Chest Tightness, Heaviness, Light Headedness, Palpitations, Paroxysmal Noc. Dyspnea, Syncope Respiratory: Reports: Shortness of Breath. Denies: Cough, Pleuritic Pain, Sputum production, Wheezing Gastrointestinal: Reports: Nausea. Denies: Abdominal Pain, Constipation, Diarrhea, Vomiting Genitourinary: Denies: Dysuria, Frequency, Hematuria Musculoskeletal: Reports: Joint Pain. Denies: Arm Pain, Back Pain, Foot Pain Skin: Denies: Dryness, Rash Neurological: Denies: Balance problems, Double vision, Change in Speech, Slurred speech, Confusion, Headaches, Incoordination, Numbness, Tingling Psychiatric: Denies: Anxiety, Depression Endocrine: Denies: Change in Body Habitus, Polydipsia, Polyuria VTE Information - Inpt Only VTE Present on Admission: No VTE Mechan Device Prophylaxis: None VTE Pharm Prophylaxis ordered?: No Patient Problems: Active and Suspected Problems (Last Updated 11/10/19 @ 09:[address] Sukhi Acevedo MD) Septic shock (Acute) Community acquired pneumonia (Acute) - Physical Exam Vitals/I&O's: Vital Signs Temp Pulse Resp BP Pulse Ox 102.5 F H 111 H 20 H 127/79 H 95 11/10/19 09:26 11/10/19 09:26 11/10/19 09:26 11/10/19 09:26 11/10/19 09:26 Oxygen Flow Rate (L/min) 4 Oxygen Delivery Method Nasal Cannula Weight: 238 lb 14.4 oz Body Mass Index (BMI) 32.3 Intake and Output for Last 24 Hours 11/08/19 11/09/19 11/10/19 23:59 23:59 23:59 Intake Total 1999 Balance 1999 General: Alert, Oriented x3, Cooperative, - - Minimally short of breath. HEENT: Atraumatic, PERRLA, EOMI, Normocephalic Oral: Moist Mucosa, No Gingival or Mucosal Lesions/ Ulcerations Neck: Supple, No JVD, Negative Carotid Bruits, Trachea Midline, Thyroid Normal Size and Texture Lungs: No rhonchi, No wheeze, Diminished, Rales, Short of Breath, - - Coarse crackles on the right base. Cardiovascular: Regular rate, Regular Rhythm, Normal S1, Normal S2, PMI Normal, Tachycardic Abdomen: Bowel Sounds Present, Soft, Non Tender, Non-Distended, No Hepato- splenomegaly Extremities: No clubbing, No cyanosis, No edema Skin: No rashes, No breakdown Lymphatic: No Cervical, Supraclavicular, or Inguinal Adenopathy Neurological: Cranial nerves II-XII grossly intact, Motor Exam 5/5 strength throughout Psych/Mental Status: Normal Affect, Appropriate, Alert and oriented to time, place, person, mood and affect Microbiology Past 72 Hours 11/10/19 07:25 Mucosa - Nose Rapid RSV (DFA) - Final 11/10/19 07:25 Mucosa - Nose Influenza Types A,B Direct FA (SONIYA) - Final Laboratory Results 11/10/19 07:00: Sodium 137, Potassium 3.7, Chloride 101, Carbon Dioxide 25.0, Anion Gap 11, BUN 17, Creatinine 1.56 H, Estim Creat Clear Calc 46.29, Est GFR (MDRD) Af Amer 56 L, Est GFR (MDRD) Non-Af 47 L, BUN/Creatinine Ratio 10.9, Glucose 240 H, Calcium 8.9, Total Bilirubin 0.50, AST 16, ALT 19, Alkaline Phosphatase 96, Troponin I < 0.015, Total Protein 8.1, Albumin 3.6, Globulin 4.5 H, Albumin/Globulin Ratio 0.8 L 11/10/19 07:00: Lactic Acid 5.3 H* 11/10/19 07:00: B-Natriuretic Peptide 58.5 11/10/19 07:00: WBC 14.1 H, RBC 4.31 L, Hgb 13.0, Hct 39.9 L, MCV 92.6, MCH 30.2, MCHC 32.6, RDW Std Deviation 48.5 H, RDW Coeff of Luca 14.9 H, Plt Count 234, MPV 8.8, Immature Gran % (Auto) 0.500, Neut % (Auto) 80.8 H, Lymph % (Auto) 13.6 L, [place] % (Auto) 4.0, Eos % (Auto) 0.8, Baso % (Auto) 0.3, Absolute Neuts (auto) 11.4 H, Absolute Lymphs (auto) 1.91, Nucleated RBC % 0 11/10/19 07:00: PT 16.8 H, INR 1.4 11/10/19 07:50: Specimen Type ART, Sample Site R Radial, pH 7.46 H, Bicarbonate Actual 23.9, POC Total CO2 25, Base Excess 0, O2 Saturation 92 L, ABG pCO2 33.6 L, ABG pO2 59 L, Alex Test POS, O2 Delivery Device Nasal Can, Liter Flow 5.0, Blood Gas Notified Whom ED , Blood Gas Notified Time 672 11/10/19 07:55: Urine Color Yellow, Urine Clarity Sl. Cloudy, Urine pH 6.0, Ur Specific [place] 1.015, Urine Protein 30 H, Urine Glucose (UA) 250 H, Urine Ketones Negative, Urine Occult Blood Negative, Urine Nitrite Negative, Urine Bilirubin Negative, Urine Urobilinogen Normal, Ur Leukocyte Esterase Negative, Urine RBC 0 SEEN, Urine WBC 0 SEEN, Ur Squamous Epith Cells 0-5 SEEN, Urine Bacteria 0 SEEN, Urine Mucus 0 SEEN Clinical Impression(s) from Imaging Studies Chest X-Ray 11/10/19 07:16 IMPRESSION: Right basilar infiltrate. Stable increased markings at the left lung base suggests scarring. Electronically Signed: Ward Sauer, at 8:48 EDT , Service support , Current Medications Sodium Chloride () 1,000 mls @ 999 mls/hr IV .Q1H1M ONE Stop: 11/10/19 09:42 Last Infusion: 11/10/19 09:11 Dose: Infused Documented by: Assessment/Plan All Active Problems (Last Updated 11/10/19 @ 09:[address] Sukhi Acevedo MD) Septic shock (Acute) Community acquired pneumonia (Acute) This is a 74 years old male patient presented to the emergency room because of fall and left hip pain, squad noted that the patient was dyspneic, tachypneic, febrile and tachycardic and he was found to have right lower lobe infiltrate with lactic acid of 5.3 consistent with septic shock secondary to right lower lobe community-acquired pneumonia complicated by acute hypoxic respiratory failure and also found to have hypoglycemia. #1 septic shock/right lower lobe community-acquired pneumonia: Chest x-ray reviewed as above. Patient is febrile, tachypneic, tachycardic, blood pressure is 110. His lactic acid is 5.3. He denied any recent sick contacts or recent travel. Nasal swab for flu as a and B was negative. Rapid RSV was negative. Patient received total of 2 L of IV fluids in the emergency department. Based on current recommendations related to COVID-19, conservative IV fluid resuscitation recommended. Plan: Admit to ICU, complete bedrest, blood culture, sputum culture, start IV Rocephin and Zithromax, albuterol nebulizer PRN, no more IV fluids for now, Tylenol PRN, chest physiotherapy, incentive spirometer, critical care consult, repeat CBC and BMP tomorrow morning, repeat lactic acid in 3 hours, PT OT evaluation and treatment when appropriate. #2 acute hypoxic respiratory failure: Secondary to #1. Patient was dyspneic, tachypneic and pulse ox was 88% on room air. Pulse ox improved with oxygen and it has been 95% on 4 L. ABG revealed pH of 7.46, PCO2 of 33 and PO2 of 59. Patient never been on oxygen at home. Plan for IV antibiotics, bronchodilators, chest physiotherapy, incentive spirometer. #3 hyperglycemia: Without history of diabetes. Blood glucose is 240 mg/dL. Plan: Accu-Cheks every 6 hours, insulin sliding scale, check hemoglobin A1c. #4 mechanical fall/generalized weakness: Patient complained of left hip pain. X-ray of the left hip done, reviewed, no acute fractures. Official report is pending. Plan for Tylenol PRN for pain. #5 stage III chronic kidney disease: Baseline creatinine has been around 1.2 to 1.5 mg/dL. Admission creatinine is 1.56, stable at baseline. Plan to monitor. #6 history of pulmonary embolism: Continue Xarelto. #7 hypertension: Blood pressure stable, he is not on any antihypertensive medication at this time. #8 hyperlipidemia: Continue statins. #9 bipolar disorder: Stable, continue quetiapine and Effexor. #10 CODE STATUS: DNR CCA, no intubation. I asked the patient about his wishes in case of his condition deteriorated, has cardiac or respiratory arrest and he clearly mentioned that he does not want any type of life-sustaining measures, no CPR, no chest compressions, no intubation and mechanical ventilation. I repe ated my questions to the patient more than twice and clearly he was understanding and competent to take his decision. He agreed to DNR CCA, no intubation. #11 DVT prophylaxis: Continue Xarelto. This note was generated with [employer] dictation software. It may contain incorrect words, spelling, and punctuation that were not noted in checking the note before signing. Inpatient E&M: 30886 Init Hosp L3
[2019-11-10] MEDS: Acetaminophen 325 MG Tablet 650 MG PO ×2 (11:04→17:25)
[2019-11-10] MEDS: Senna/Docusate Sodium 1 Tablet 2 TABLET PO (11:04)
[2019-11-10 11:18] LABS: Reflex Lactate? Y
[2019-11-10] MEDS: Febuxostat 40 MG TABLET PO (12:04)
[2019-11-10] MEDS: Venlafaxine XR 150 MG Capsule PO (12:05)
[2019-11-10] MEDS: Mirabegron 25 MG TAB.ER.24H PO (12:05)
[2019-11-10] MEDS: guaiFENesin 1,200 MG Tablet 1200 MG PO ×2 (12:05→21:22)
[2019-11-10] MEDS: Famotidine 20 MG Tablet PO ×2 (12:06→21:23)
[2019-11-10] MEDS: Insulin Lispro 100 UNIT/ML INSULN.PEN SC ×2 (12:11→17:26)
[2019-11-10 12:20] LABS: Bedside Glucose 252 mg/dL (70-110)
[2019-11-10 12:24] LABS: Hemoglobin A1c 7.1 % (4.2-6.3)
[2019-11-10 12:35] LABS: Lactic Acid 3.5 mmol/L (0.4-1.9)
--- NOTE | 2019-11-10 12:47 | CON.PCM_ITS ---
Problem List (1) Stage III chronic kidney disease Status: Chronic (2) Septic shock Status: Acute (3) Community acquired pneumonia Status: Acute Qualifiers: Laterality: right Lung location: lower lobe of lung Qualified Code(s): J18.9 - Pneumonia, unspecified organism (4) Chronic diastolic (congestive) heart failure Status: Chronic (5) Abdominal aortic aneurysm (AAA) Status: Chronic Comment: AAA repair (6) Essential (primary) hypertension Status: Chronic (7) Hyperlipidemia Status: Chronic Qualifiers: Hyperlipidemia type: pure hypercholesterolemia Qualified Code(s): E78.00 - Pure hypercholesterolemia, unspecified; E78.0 - Pure hypercholesterolemia (8) History of pulmonary embolism Status: Chronic Reason for Consult Date of Consultation: 11/10/19 Reason for Consultation: Septic shock History of Present Illness: The patient is a 74 year old M, with past medical history listed below, who presented to [facility] on 11/10/2019 secondary to left hip pain after a fall. Patient is a poor historian unable to provide a detailed history. Patient reportedly has had generalized weakness after a fall approximately a week ago from the bed. Given continued left hip pain, patient called EMS. On arrival, patient was hypoxic, tachypneic and tachycardic. Patient had denied any shortness of breath, fever, congestion, rhinorrhea or sore throat. Patient does not believe he has underlying lung disease, but does report a history of smoking. In the ER, patient appeared to be in moderate respiratory distress and hypoxic. Patient does not use oxygen at baseline, but was requiring 4 L to maintain appropriate saturations. Patient was also noted to have leukocytosis and elevated lactate. ABG showed significantly worsening AA gradient. UA was unremarkable, but repeat temperature was 103.6 ?F. Patient reports that he lives in an assisted living type of community, but otherwise has not had any significant exposures to others. Patient was given conservative fluid resuscitation and admitted to the intensive care unit for further evaluation. Since being in the intensive care unit, patient reports significant improvement in symptomatology. Patient is a poor historian and is unable to give an onset of symptoms. Patient denies any cyanosis. Patient does have a cardiac history pacemaker, but denies any other cardiac pathology. Patient is unclear if he has had a cough. Patient does know he carries a diagnosis of diabetes, but has not checked his blood sugar recently that I can tell. Limited review of systems secondary to poor historian. Past Medical History Past Medical History (Chronic Problems): Chronic Problems (Last Updated 11/10/19 @ 09:[address] Sukhi Acevedo MD) Stage III chronic kidney disease (Chronic) History of loop recorder (Chronic) Chronic diastolic (congestive) heart failure (Chronic) Abdominal aortic aneurysm (AAA) (Chronic) AAA repair Essential (primary) hypertension (Chronic) Hyperlipidemia (Chronic) History of pulmonary embolism (Chronic) Medical History: Medical History (Last Updated 11/10/19 @ 09:[address] 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 Z95.828 Systemic lupus erythematosus M32.9 Ventral hernia K43.9 Allergies No Known Allergies Allergy (Verified 06/18/19 10:14) Home Medications: Ambulatory Orders Medication Instructions Recorded Folic Acid 1 mg PO DAILY@0800 12/18/15 Venlafaxine XR [Effexor Xr] 150 mg PO DAILY 12/18/15 quetiapine 300 mg tablet 300 mg PO QHS tab 02/26/18 simvastatin 40 mg tablet 40 mg PO QPM 02/26/18 mirabegron 25 mg tablet,extended 25 mg PO Q24H 03/12/18 release 24 hr Febuxostat [Uloric] 40 mg PO DAILY 11/10/19 Rivaroxaban [Xarelto] 20 mg PO DAILY@0600 11/10/19 Tamsulosin HCl [Flomax] 0.4 mg PO DAILY@1730 11/10/19 Surgical History: Surgical History (Last Reviewed 11/10/19 @ 09:[address] Sukhi Acevedo MD) History of loop recorder (Chronic) Z98.890 History of AAA (abdominal aortic aneurysm) repair Onset Date: 1988 Z98.890 History of cataract surgery Z98.49 History of tonsillectomy Z90.89 History of total left knee replacement Z96.652 Hx of cholecystectomy Z90.49 Surgical History: - - AAA Psychiatric History: Bipolar Lives: Alone Smoking Status: Former smoker Tobacco Use: Cigarettes Alcohol: None Drugs: None - *Family History Offspring Family History: Family History (Last Reviewed 11/10/19 @ 09:[address] Sukhi Acevedo MD) Brother Myocardial infarction Father Sudden cardiac History Items: - - He has 2 children and they have both been diagnosed with bipolar disorder. Maternal Family History: Family History (Last Reviewed 11/10/19 @ 09:[address] Sukhi Acevedo MD) Brother Myocardial infarction Father Sudden cardiac History Items: No pertinent history Paternal Family History: Family History (Last Reviewed 11/10/19 @ 09:[address] Sukhi Acevedo MD) Brother Myocardial infarction Father Sudden cardiac Review of Systems Comment: See HPI Patient Problems: Active and Suspected Problems (Last Updated 11/10/19 @ 09:[address] Sukhi Acevedo MD) Suspected 2019 novel coronavirus infection (Acute) Septic shock (Acute) Community acquired pneumonia (Acute) Objective: Chest x-ray shows a right lower lobe infiltrate. Patient's last echocardiogram on 03/28/2018 showed an EF of 50% with stage I diastolic dysfunction, but no significant valvular abnormalities. No pulmonary function tests have been obtained. - Physical Exam Vitals/I&O's: Vital Signs Temp Pulse Resp BP Pulse Ox 38.8 C H 111 H 25 H 97/59 L 94 11/10/19 10:13 11/10/19 10:28 11/10/19 10:13 11/10/19 10:13 11/10/19 10:13 Oxygen Flow Rate (L/min) 4 Oxygen Delivery Method Nasal Cannula Weight: 108.5 kg Body Mass Index (BMI) 32.4 Intake and Output for Last 24 Hours 11/08/19 11/09/19 11/10/19 23:59 23:59 23:59 Intake Total 1999 Balance 1999 General: Alert, Oriented x3, Cooperative, - - Mild conversational dyspnea. Obese. Appears older than stated age. HEENT: Atraumatic, PERRLA, EOMI, Normocephalic, - - No scleral icterus or injection noted Oral: Moist Mucosa, No Gingival or Mucosal Lesions/ Ulcerations Neck: Supple, No JVD, No Nodes, Trachea Midline Lungs: No wheeze, No rales, Diminished, Rhonchi - Right base, - - Symmetric expansion. No dullness to percussion. Cardiovascular: Regular Rhythm, Normal S1, Normal S2, No murmurs, No rub noted, No Gallop, Tachycardic Abdomen: Bowel Sounds Present, Soft, Non Tender, Non-Distended, Obese Extremities: No clubbing, No cyanosis, No edema Skin: - - Dermal atrophy with multiple bruises at various stages of healing Musculoskeletal: No Tenderness to Palpation of Joints or Extremities Lymphatic: No Cervical, Supraclavicular, or Inguinal Adenopathy Neurological: Cranial nerves II-XII grossly intact, Neuro grossly intact, Motor Exam 5/5 strength throughout Psych/Mental Status: Alert and oriented to time, place, person, mood and affect Microbiology Past 72 Hours 11/10/19 07:25 Mucosa - Nose Rapid RSV (DFA) - Final 11/10/19 07:25 Mucosa - Nose Influenza Types A,B Direct FA (SONIYA) - Final Laboratory Results 11/10/19 07:00: Sodium 137, Potassium 3.7, Chloride 101, Carbon Dioxide 25.0, Anion Gap 11, BUN 17, Creatinine 1.56 H, Estim Creat Clear Calc 46.29, Est GFR (MDRD) Af Amer 56 L, Est GFR (MDRD) Non-Af 47 L, BUN/Creatinine Ratio 10.9, Glucose 240 H, Calcium 8.9, Total Bilirubin 0.50, AST 16, ALT 19, Alkaline Phosphatase 96, Troponin I < 0.015, Total Protein 8.1, Albumin 3.6, Globulin 4.5 H, Albumin/Globulin Ratio 0.8 L 11/10/19 07:00: Lactic Acid 5.3 H* 11/10/19 07:00: B-Natriuretic Peptide 58.5 11/10/19 07:00: WBC 14.1 H, RBC 4.31 L, Hgb 13.0, Hct 39.9 L, MCV 92.6, MCH 30.2, MCHC 32.6, RDW Std Deviation 48.5 H, RDW Coeff of Luca 14.9 H, Plt Count 234, MPV 8.8, Immature Gran % (Auto) 0.500, Neut % (Auto) 80.8 H, Lymph % (Auto) 13.6 L, [place] % (Auto) 4.0, Eos % (Auto) 0.8, Baso % (Auto) 0.3, Absolute Neuts (auto) 11.4 H, Absolute Lymphs (auto) 1.91, Nucleated RBC % 0 11/10/19 07:00: PT 16.8 H, INR 1.4 11/10/19 07:50: Specimen Type ART, Sample Site R Radial, pH 7.46 H, Bicarbonate Actual 23.9, POC Total CO2 25, Base Excess 0, O2 Saturation 92 L, ABG pCO2 33.6 L, ABG pO2 59 L, Alex Test POS, O2 Delivery Device Nasal Can, Liter Flow 5.0, Blood Gas Notified Whom ED MD, Blood Gas Notified Time 745 11/10/19 07:55: Urine Color Yellow, Urine Clarity Sl. Cloudy, Urine pH 6.0, Ur Specific [place] 1.015, Urine Protein 30 H, Urine Glucose (UA) 250 H, Urine Ketones Negative, Urine Occult Blood Negative, Urine Nitrite Negative, Urine Bilirubin Negative, Urine Urobilinogen Normal, Ur Leukocyte Esterase Negative, Urine RBC 0 SEEN, Urine WBC 0 SEEN, Ur Squamous Epith Cells 0-5 SEEN, Urine Bacteria 0 SEEN, Urine Mucus 0 SEEN 11/10/19 10:30: MRSA (PCR) Pending 11/10/19 11:50: Hemoglobin A1c 7.1 H 11/10/19 11:50: Lactic Acid 3.5 H* 11/10/19 12:02: POC Glucose 252 H Current Medications Acetaminophen (Tylenol) 650 mg PO Q6H PRN PRN PRN Reason: Pain Score 1-10/Temp > 100.7 F Last Admin: 11/10/19 11:04 Dose: 650 mg Documented by: Albuterol Sulfate (Ventolin Aerosols) 2.5 mg INHALATION Q4H PRN PRN PRN Reason: SOB/Wheezing Atorvastatin Calcium (Lipitor) 20 mg PO QHS [facility] Famotidine (Pepcid) 20 mg PO BID [facility] Last Admin: 11/10/19 12:06 Dose: 20 mg Documented by: Febuxostat (Uloric) 40 mg PO DAILY [facility] Last Admin: 11/10/19 12:04 Dose: 40 mg Documented by: Folic Acid (Folic Acid) 1 mg PO DAILY@0800 [facility] Guaifenesin (Mucinex) 1,200 mg PO BID [facility] Last Admin: 11/10/19 12:05 Dose: 1,200 mg Documented by: Azithromycin 500 mg/ Dextrose 255 mls @ 250 mls/hr IV Q24 [facility] Stop: 11/15/19 10:01 Ceftriaxone Sodium 2 gm/ (Sodium Chloride) 50 mls @ 100 mls/hr IV Q24 [facility] Stop: 11/17/19 10:01 Sodium Chloride () 250 mls @ 15 mls/hr IV .[id number] PRN PRN Reason: Saline Flush Sodium Chloride () 250 mls @ 15 mls/hr IV .[id number] PRN PRN Reason: Additional IVPB Infusion Insulin Human Lispro (Humalog Kwikpen (Bkc)) 0 unit SC Q6 [facility]; Protocol Last Admin: 11/10/19 12:11 Dose: 3 u Documented by: Mirabegron (Myrbetriq) 25 mg PO DAILY [facility] Last Admin: 11/10/19 12:05 Dose: 25 mg Documented by: Non-Formulary Medication (Quetiapine Fumarate [Seroquel]) 300 mg PO QHS [facility] Ondansetron HCl (Zofran) 4 mg IV Q8H PRN PRN PRN Reason: NAUSEA/VOMITING Rivaroxaban (Xarelto) 20 mg PO DAILY@1700 [facility] Senna/Docusate Sodium (Senokot-S, Leigh-Colace) 2 tablet PO BID PRN PRN PRN Reason: Constipation Last Admin: 11/10/19 11:04 Dose: 2 tablet Documented by: Sodium Chloride () 10 - 40 ml IV UD PRN PRN Reason: SALINE FLUSH Tamsulosin HCl (Flomax) 0.4 mg PO DAILY@1730 [facility] Venlafaxine HCl (Effexor Xr) 150 mg PO DAILY [facility] Last Admin: 11/10/19 12:05 Dose: 150 mg Documented by: Zolpidem Tartrate (Ambien (Generic)) 5 mg PO QHS PRN PRN PRN Reason: INSOMNIA Clinical Impression(s) from Imaging Studies Chest X-Ray 11/10/19 07:16 IMPRESSION: Right basilar infiltrate. Stable increased markings at the left lung base suggests scarring. Electronically Signed: Ward Sauer, at 8:48 EDT , Service support , Hip/Pelvis X-Ray 11/10/19 07:17 IMPRESSION: Degenerative changes. No fracture or dislocation is seen. Electronically Signed: Ward Sauer, at 9:45 EDT , Service support , Assessment/Plan Active and Suspected Problems (Last Updated 11/10/19 @ 09:[address] Sukhi Acevedo MD) Suspected 2019 novel coronavirus infection (Acute) Septic shock (Acute) Community acquired pneumonia (Acute) RECOMMENDATIONS: 1. Obtain a respiratory viral panel 2. Continue advance contact precautions, N95 or equivalent likely not necessary unless aerosolize generating procedures 3. Wean oxygen as tolerated 4. Agree with empiric antibiotics, obtain sputum culture if possible. Send antigens. 5. Agree with conservative fluids. 6. Okay to continue baseline psychiatric medications and Xarelto IMPRESSIONS: 1. Acute hypoxic respiratory failure secondary to right lower lobe pneumonia Patient with significant AA gradient on presentation with right lower lobe pneumonia. Unfortunately, it is unclear how long he was hypoxic, but this may have led to the elevated lactate. Patient is on appropriate antibiotics at this time. No history of obstructive lung disease or wheezing on exam, so would h old on steroids for now. Agree with bronchodilators and pulmonary toileting. We will send a respiratory viral panel. Hold on COVID testing for now. 2. Septic shock secondary to right lower lobe pneumonia Patient is technically septic shock secondary to elevated lactate on presentation. That being said, elevated lactate may also be due to prolonged hypoxemia related to his pneumonia. Given the potential of viral etiology, holding on fluid resuscitation is likely reasonable given adequate blood pressures. No indication for pressor requirements at this time, so likely okay to continue with baseline Xarelto therapy. Presence of Xarelto makes pulmonary embolism unlikely, despite history. 3. Mechanical fall with left hip pain No fracture was noted on x-ray. Clinical suspicion for weakness secondary to hypoxia, but this cannot be confirmed. 4. History of PE/CKD stage III/hypertension/hyperlipidemia/bipolar Complicates care, management, recovery and prognosis. Likely okay to continue with baseline psychiatric medications. Would hold antihypertensives. Will need to watch blood sugars closely given acute infection. Inpatient E&M: 31796 Init Hosp L3
[2019-11-10 14:26] LABS: M R Staph aureus DNA By PCR Negative (Negative); Probe Check PASS; Specimen Processing Control PASS
[2019-11-10 16:30] LABS: Bedside Glucose 184 mg/dL (70-110)
[2019-11-10] MEDS: Tamsulosin HCl 0.4 MG Capsule PO (17:26)
[2019-11-10] MEDS: Rivaroxaban 20 MG Tablet PO (17:26)
[2019-11-10] MEDS: Atorvastatin Calcium 20 MG Tablet PO (21:22)
[2019-11-11] VITALS (19 sets, daily range): BP systolic 104–157; BP diastolic 65–97; PULSE 87–105; RESP 16–24; TEMP 37.2–37.8; O2SAT 93–100
[2019-11-11 00:26] LABS: Bedside Glucose 128 mg/dL (70-110)
[2019-11-11 04:22] LABS: Absolute Lymphocyte Count 1.49 X10^3/uL (0.83-4.51); Absolute Neutrophil Count 21.6 X10^3/uL (2.0-7.7); Basophil# 0.07 X10^3/uL; Basophil% 0.3 % (0-1); Eosinophil# 0.12 X10^3/uL; Eosinophils% 0.5 % (0-5); Hemoglobin 10.8 g/dL (13.0-16.5); Lymphocyte # 1.49 X10^3/ul (4.0); Lymphocyte % 5.9 % (19-41); Mean Corp Hgb Conc 31.8 g/dL (32-36); Mean Corpuscular Hgb 29.4 pg (27.0-32.0); Mean Corpuscular Volume 92.6 fL (80-94); Mean Platelet Vol. 8.8 fl (6.2-12.0); Monocyte# 1.56 X10^3/uL; Monocyte% 6.1 % (0-10); NRBC Flagged by Analyzer 0 % (0-5); Neutrophil # 21.58 X10^3/uL (2.7-7.7); POSITIVE DIFFERENTIAL YES; Platelet Count 214 K/mm3 (150-450); RBC Distribution Width CV 14.7 % (11.6-14.6); RBC Distribution Width SD 49.2 fl (35.1-43.9); Red Blood Count 3.67 M/mm3 (4.6-6.2); White Blood Count 25.4 K/mm3 (4.4-11.0)
[2019-11-11 04:28] LABS: Differential Indicated SCAN CRITERIA MET
[2019-11-11 04:37] LABS: Anion Gap 4 (5-15); BUN 16 mg/dL (7-18); BUN/Creat Ratio 14.2 RATIO (10-20); Chloride 102 mmol/L (98-107); Creatinine, Serum 1.13 mg/dL (0.70-1.30); EST Glomerular Filtration Rate 68 mL/min (>60); Est Glom Filt Rate - Afr Amer 82 mL/min (>60); Glucose 138 mg/dL (74-106); Potassium 4.1 mmol/L (3.5-5.1); Sodium Level 136 mmol/L (136-145)
[2019-11-11 04:52] LABS: Differential Comment SCANNED
[2019-11-11] MEDS: guaiFENesin 1,200 MG Tablet 1200 MG PO ×2 (08:14→21:13)
[2019-11-11] MEDS: Venlafaxine XR 150 MG Capsule PO (08:15)
[2019-11-11] MEDS: Febuxostat 40 MG TABLET PO (08:15)
[2019-11-11] MEDS: Famotidine 20 MG Tablet PO ×2 (08:15→21:12)
[2019-11-11] MEDS: Folic Acid 1 MG Tablet PO (08:15)
[2019-11-11] MEDS: Mirabegron 25 MG TAB.ER.24H PO (08:15)
[2019-11-11] MEDS: Acetaminophen 325 MG Tablet 650 MG PO (08:16)
--- NOTE | 2019-11-11 08:49 | PN_ITS ---
Patient Problems: Active and Suspected Problems (Last Updated 11/10/19 @ 09:[address] Sukhi Acevedo MD) Suspected 2019 novel coronavirus infection (Acute) Septic shock (Acute) Community acquired pneumonia (Acute) Subjective: Chief complaint: Follow-up after admission for septic shock, right lower lobe community-acquired pneumonia, acute hypoxic respiratory failure and suspected COVID- 19. Patient seen and examined. No acute events overnight. Today, he complained of cough with clear sputum, mild shortness of breath. Although he was oriented x3, he mentioned that nobody told him that he has pneumonia yesterday which I did. He has been afebrile, blood pressure and heart rate are stable, pulse ox is 96% on 2 L. - Physical Exam Vitals/I&O's: Vital Signs Temp Pulse Resp BP Pulse Ox 99.3 F H 95 18 155/94 H 96 11/11/19 07:00 11/11/19 07:00 11/11/19 07:00 11/11/19 07:00 11/11/19 07:00 Oxygen Flow Rate (L/min) 2 Oxygen Delivery Method Nasal Cannula Weight: 236 lb 15.951 oz Body Mass Index (BMI) 32.4 Intake and Output for Last 24 Hours 11/09/19 11/10/19 11/11/19 23:59 23:59 23:59 Intake Total 2200 / 2200 480 / 480 Output Total 800 / 1800 2400 / 2400 Balance 1400 / 400 -1920 / -1920 General: Alert, Oriented x3, Cooperative, - - Minimally short of breath. HEENT: Atraumatic, PERRLA, EOMI, Normocephalic Oral: Moist Mucosa, No Gingival or Mucosal Lesions/ Ulcerations Neck: Supple, No JVD, Negative Carotid Bruits, Trachea Midline, Thyroid Normal Size and Texture Lungs: No rhonchi, No wheeze, Diminished, Rales, - - Decreased breath sounds at the right base, coarse crackles at the right base. Cardiovascular: Regular rate, Regular Rhythm, Normal S1, Normal S2, PMI Normal Abdomen: Bowel Sounds Present, Soft, Non Tender, Non-Distended, No Hepato- splenomegaly Extremities: No clubbing, No cyanosis, No edema Skin: No rashes, No breakdown Lymphatic: No Cervical, Supraclavicular, or Inguinal Adenopathy Neurological: Cranial nerves II-XII grossly intact, Neuro grossly intact Psych/Mental Status: Normal Affect, Appropriate, Alert and oriented to time, place, person, mood and affect Microbiology Past 72 Hours 11/10/19 12:40 Mucosa - Nasopharyngeal Respiratory Panel (PCR) - Final 11/10/19 07:55 Urine Catheter - [place] Streptococcus pneumoniae Antigen (M - Final 11/10/19 07:55 Urine Catheter - [place] Legionella Antigen - Final 11/10/19 07:25 Mucosa - Nose Rapid RSV (DFA) - Final 11/10/19 07:25 Mucosa - Nose Influenza Types A,B Direct FA (SONIYA) - Final Laboratory Results 11/10/19 10:30: MRSA (PCR) Negative 11/10/19 11:50: Hemoglobin A1c 7.1 H 11/10/19 11:50: Lactic Acid 3.5 H* 11/10/19 12:02: POC Glucose 252 H 11/10/19 16:23: POC Glucose 184 H 11/10/19 23:55: POC Glucose 128 H 11/11/19 04:10: WBC 25.4 H, RBC 3.67 L, Hgb 10.8 L, Hct 34.0 L, MCV 92.6, MCH 29.4, MCHC 31.8 L, RDW Std Deviation 49.2 H, RDW Coeff of Luca 14.7 H, Plt Count 214, MPV 8.8, Immature Gran % (Auto) 2.200 H, Neut % (Auto) 85.0 H, Lymph % (Auto) 5.9 L, [place] % (Auto) 6.1, Eos % (Auto) 0.5, Baso % (Auto) 0.3, Absolute Neuts (auto) 21.6 H, Absolute Lymphs (auto) 1.49, Nucleated RBC % 0, Differential Comment SCANNED, Diff Path Review December11/11/19 04:10: Sodium 136, Potassium 4.1, Chloride 102, Carbon Dioxide 30.0, Anion Gap 4 L, BUN 16, Creatinine 1.13, Estim Creat Clear Calc 63.90, Est GFR (MDRD) Af Amer 82, Est GFR (MDRD) Non-Af 68, BUN/Creatinine Ratio 14.2, Glucose 138 H, Calcium 8.0 L Current Medications Acetaminophen (Tylenol) 650 mg PO Q6H PRN PRN PRN Reason: Pain Score 1-10/Temp > 100.7 F Last Admin: 11/11/19 08:16 Dose: 650 mg Documented by: Albuterol Sulfate (Ventolin Aerosols) 2.5 mg INHALATION Q4H PRN PRN PRN Reason: SOB/Wheezing Atorvastatin Calcium (Lipitor) 20 mg PO QHS [facility] Last Admin: 11/10/19 21:22 Dose: 20 mg Documented by: Famotidine (Pepcid) 20 mg PO BID [facility] Last Admin: 11/11/19 08:15 Dose: 20 mg Documented by: Febuxostat (Uloric) 40 mg PO DAILY [facility] Last Admin: 11/11/19 08:15 Dose: 40 mg Documented by: Folic Acid (Folic Acid) 1 mg PO DAILY@0800 [facility] Last Admin: 11/11/19 08:15 Dose: 1 mg Documented by: Guaifenesin (Mucinex) 1,200 mg PO BID [facility] Last Admin: 11/11/19 08:14 Dose: 1,200 mg Documented by: Azithromycin 500 mg/ Dextrose 255 mls @ 250 mls/hr IV Q24 [facility] Stop: 11/15/19 10:01 Ceftriaxone Sodium 2 gm/ (Sodium Chloride) 50 mls @ 100 mls/hr IV Q24 [facility] Stop: 11/17/19 10:01 Last Admin: 11/11/19 08:12 Dose: 100 mls/hr Documented by: Sodium Chloride () 250 mls @ 15 mls/hr IV .[id number] PRN PRN Reason: Saline Flush Sodium Chloride () 250 mls @ 15 mls/hr IV .[id number] PRN PRN Reason: Additional IVPB Infusion Insulin Human Lispro (Humalog Kwikpen (Bkc)) 0 unit SC Q6 [facility]; Protocol Last Admin: 11/11/19 08:12 Dose: Not Given Documented by: Mirabegron (Myrbetriq) 25 mg PO DAILY [facility] Last Admin: 11/11/19 08:15 Dose: 25 mg Documented by: Non-Formulary Medication (Quetiapine Fumarate [Seroquel]) 300 mg PO QHS [facility] Ondansetron HCl (Zofran) 4 mg IV Q8H PRN PRN PRN Reason: NAUSEA/VOMITING Last Admin: 11/10/19 17:23 Dose: 4 mg Documented by: Rivaroxaban (Xarelto) 20 mg PO DAILY@1700 [facility] Last Admin: 11/10/19 17:26 Dose: 20 mg Documented by: Senna/Docusate Sodium (Senokot-S, Leigh-Colace) 2 tablet PO BID PRN PRN PRN Reason: Constipation Last Admin: 11/10/19 11:04 Dose: 2 tablet Documented by: Sodium Chloride () 10 - 40 ml IV UD PRN PRN Reason: SALINE FLUSH Tamsulosin HCl (Flomax) 0.4 mg PO DAILY@1730 [facility] Last Admin: 11/10/19 17:26 Dose: 0.4 mg Documented by: Venlafaxine HCl (Effexor Xr) 150 mg PO DAILY [facility] Last Admin: 11/11/19 08:15 Dose: 150 mg Documented by: Zolpidem Tartrate (Ambien (Generic)) 5 mg PO QHS PRN PRN PRN Reason: INSOMNIA Medical Necessity - Tobacco Use Smoking Status: Former smoker Tobacco Use: Cigarettes Assessment/Plan All Active Problems (Last Updated 11/10/19 @ 09:[address] Sukhi Acevedo MD) Suspected 2019 novel coronavirus infection (Acute) Septic shock (Acute) Community acquired pneumonia (Acute) This is a 74 years old male patient presented to the emergency room because of fall and left hip pain, squad noted that the patient was dyspneic, tachypneic, f ebrile and tachycardic and he was found to have right lower lobe infiltrate with lactic acid of 5.3 consistent with septic shock secondary to right lower lobe community-acquired pneumonia complicated by acute hypoxic respiratory failure and also found to have hypoglycemia. #1 septic shock/right lower lobe community-acquired pneumonia: With suspected COVID 19 infection. Patient is on IV Rocephin and Zithromax. His vital signs are stable, afebrile, requiring 2 L of oxygen. WBC is trending up. Lactic acid came down to 3.5. Nasal swab for flu as a and B was negative. Rapid RSV was negative. Pneumococcal and Legionella antigen were negative. Blood cultures pending. Critical care on the case. Plan to continue same treatment, will send testing for COVID 19. #2 acute hypoxic respiratory failure: Secondary to #1. Patient reported minimal improvement of his symptoms, pulse ox is 96% on 2 L. Patient does not look to be dyspneic or tachypneic anymore. ABG revealed pH of 7.46, PCO2 of 33 and PO2 of 59. Plan to continue same treatment as above. #3 Newly diagnosed type 2 diabetes mellitus: Hemoglobin A1c was 7.1%. Blood sugar has been in the range of around 200s. He is on sliding scale, continue Accu-Cheks. #4 mechanical fall/generalized weakness: Patient complained of left hip pain. X-ray of the left hip done, reviewed, no acute fractures. Continue Tylenol PRN for pain. #5 stage III chronic kidney disease: Baseline creatinine has been around 1.2 to 1.5 mg/dL. Admission creatinine is 1.56, today's creatinine is 1.13, stable at baseline. #6 history of pulmonary embolism: Continue Xarelto. #7 hypertension: Blood pressure stable, he is not on any antihypertensive medication at this time. #8 hyperlipidemia: Continue statins. #9 bipolar disorder: Stable, continue quetiapine and Effexor. #10 CODE STATUS: DNR CCA, no intubation. #11 DVT prophylaxis: Continue Xarelto. This note was generated with [employer] dictation software. It may contain incorrect words, spelling, and punctuation that were not noted in checking the note before signing. Inpatient E&M: 01405 Subs Hosp L2
--- NOTE | 2019-11-11 09:55 | CASEMGMT ---
Addendum entered by Surinder Mata 11/11/19 13:11: Respiratory panel is negative. COVID 19 suspected. Test sent. Addendum entered by Surinder Mata 11/11/19 10:37: Called to pt's room again at this time. Pt agreeable to talking with RN MARCUS to complete assessment. PCP: Dr Delaney Amaya Specialists: Dr Lugo-cardiology, Sees a urologist and neurologist in [place] but does not remember their names. [facility] CM is Cisco Spears. GISELA, Christal Powell, made aware. Preferred Pharmacy: [facility] Insurance: [employer], [employer] Prescription Benefit: Yes Living Will/HPOA: States thinks he has completed these, but is not sure and does not know who his POA would be. He was made aware copies of these are not on file @ [facility]. LNOK: As stated previously, states he does have family but does not claim them and does not want anyone listed on demographics Living Arrangements: Lives alone in a handicap-accessible apartment. Has [employer] services and [facility] aide services through [facility] [facility] come one day a week to assist with cleaning and bathing if needed. Pt states he is usually independent in the home otherwise. States since his fall last week, it has been more difficult to get around but that he is doing better now. States receives home delivered meals one time a week in which he receives 5-7 meals at a time. Transportation: Pt states drives self and states no transportation concerns at this time. States Cisco Spears from [facility] could assist him with finding transportation if needed. DME: States has the following DME: quad cane, rollator, tub bench/shower chair, rails/grab bars, hand held shower, Medical Alert button. Pt states no need for further DME at this time. Does not wear Home O2. States does not have preference of HHC/SNF: Hx of TCU in 2014 after total knee and then sent home w/[facility]. States does not remember if he has had other HHC since then. Has been to [facility] in the past as well. Discussed discharge planning with pt at this time. Pt wishes to return home and states has no concerns with going home at time of discharge. Pt does not think he will need HHC for nursing or PT/OT at discharge but is not certain. RN MARCUS informed pt PT/OT would be evaluating him and RN CM will continue to follow his progress and assist with any discharge planning needs as they arise. CM to follow for home oxygen needs and any further discharge planning/needs. Pt voices no further concerns/needs at this time. Advised pt to ask for CM if any further questions/concerns/needs arise. Voices understanding. PLAN: Anticipate home w/continuation of Passport services/aides through [place]. May need C. PT/OT evals pending. Original Note: RN MARCUS ASSESSMENT Pt in contact/resp precautions. RN MARCUS placed phone call to pt's room to do assessment via phone. Introduced self and role of ROSA VELAZQUEZ. Pt agreeable to assessment/talking with ROSA VELAZQUEZ via phone. Pt able to confirm correct address . No contact info on demographics or emergency contact info. Pt states he does not want anyone listed on his contact list and does not want anyone to know he is at the hospital . Asked pt, in the event of an emergency, who he would want contacted. Pt stated he does not want anyone contacted even in the event of an emergency, twice stating, I want the doctors to make those decisions. Pt states he thinks he has completed a Healthcare POA, but I don't know who it would be. Pt stated, I live in a very dysfunctional family and there is no one that I claim. That is why things are the way they are. Things are just fine at home as long as I stay in my apartment. Noted that pt has been in TCU in 2013 and discharged home with [facility]. Also noted pt had Passport services and CM was Helena Alvarez. Asked pt if he is still receiving Passport services and if he has aides coming into the home. Pt initially stated he does not have anyone helping him and that Helena is not his CM and that he does not remember her name. Pt then stated he does have someone coming to help him in the home, but would not elaborate any further. Pt then received a call on his cell phone which he answered and then asked ROSA VELAZQUEZ to call him back later. Christal HIGGINS, made aware of above information re: Passport and CM. Will attempt to contact pt later to complete assessment. Aroldo SARAH RN, CM
--- NOTE | 2019-11-11 10:14 | PCM.PN.PUL ---
Patient Problems: Active and Suspected Problems (Last Updated 11/10/19 @ 09:[address] Sukhi Acevedo MD) Suspected 2019 novel coronavirus infection (Acute) Septic shock (Acute) Community acquired pneumonia (Acute) Subjective: Patient did well overnight. No acute issues were reported. Patient has had significant temperatures, but remained hemodynamically stable. Patient reports subjective improvement in breathing. - Physical Exam Vitals/I&O's: Vital Signs Temp Pulse Resp BP Pulse Ox 37.4 C H 95 18 155/94 H 96 11/11/19 07:00 11/11/19 07:00 11/11/19 07:00 11/11/19 07:00 11/11/19 07:00 Oxygen Flow Rate (L/min) 2 Oxygen Delivery Method Nasal Cannula Weight: 107.5 kg Body Mass Index (BMI) 32.4 Intake and Output for Last 24 Hours 11/09/19 11/10/19 11/11/19 23:59 23:59 23:59 Intake Total 2200 / 2200 480 / 480 Output Total 800 / 1800 2400 / 2400 Balance 1400 / 400 -1920 / -1920 General: Alert, Oriented x3, Cooperative, No apparent distress, - - Speaking in full sentences. Odd affect. HEENT: Atraumatic, PERRLA, EOMI, Normocephalic, - - Slight scleral injection without icterus Oral: Moist Mucosa, No Gingival or Mucosal Lesions/ Ulcerations Neck: Supple, No JVD, No Nodes, Trachea Midline Lungs: No wheeze, No rales, Diminished, Rhonchi - Right base, - - Symmetric expansion. No dullness to percussion. Cardiovascular: Normal S1, Normal S2, No murmurs, No rub noted, No Gallop, Tachycardic Abdomen: Bowel Sounds Present, Soft, Non Tender, Non-Distended, Obese Extremities: No clubbing, No cyanosis, No edema, Capillary Refill Less than 3 Seconds Skin: - - No change compared to previous Musculoskeletal: No Tenderness to Palpation of Joints or Extremities Lymphatic: No Cervical, Supraclavicular, or Inguinal Adenopathy Neurological: Cranial nerves II-XII grossly intact, Neuro grossly intact, Motor Exam 5/5 strength throughout Psych/Mental Status: Flat Affect Microbiology Past 72 Hours 11/10/19 12:40 Mucosa - Nasopharyngeal Respiratory Panel (PCR) - Final 11/10/19 07:55 Urine Catheter - Britton Streptococcus pneumoniae Antigen (M - Final 11/10/19 07:55 Urine Catheter - Britton Legionella Antigen - Final 11/10/19 07:25 Mucosa - Nose Rapid RSV (DFA) - Final 11/10/19 07:25 Mucosa - Nose Influenza Types A,B Direct FA (SONIYA) - Final Laboratory Results 11/10/19 10:30: MRSA (PCR) Negative 11/10/19 11:50: Hemoglobin A1c 7.1 H 11/10/19 11:50: Lactic Acid 3.5 H* 11/10/19 12:02: POC Glucose 252 H 11/10/19 16:23: POC Glucose 184 H 11/10/19 23:55: POC Glucose 128 H 11/11/19 04:10: WBC 25.4 H, RBC 3.67 L, Hgb 10.8 L, Hct 34.0 L, MCV 92.6, MCH 29.4, MCHC 31.8 L, RDW Std Deviation 49.2 H, RDW Coeff of Luca 14.7 H, Plt Count 214, MPV 8.8, Immature Gran % (Auto) 2.200 H, Neut % (Auto) 85.0 H, Lymph % (Auto) 5.9 L, Cottle % (Auto) 6.1, Eos % (Auto) 0.5, Baso % (Auto) 0.3, Absolute Neuts (auto) 21.6 H, Absolute Lymphs (auto) 1.49, Nucleated RBC % 0, Differential Comment SCANNED, Diff Path Review December foll 11/11/19 04:10: Sodium 136, Potassium 4.1, Chloride 102, Carbon Dioxide 30.0, Anion Gap 4 L, BUN 16, Creatinine 1.13, Estim Creat Clear Calc 63.90, Est GFR (MDRD) Af Amer 82, Est GFR (MDRD) Non-Af 68, BUN/Creatinine Ratio 14.2, Glucose 138 H, Calcium 8.0 L 11/11/19 09:01: COVID-19 (PETRONA) Pending Current Medications Acetaminophen (Tylenol) 650 mg PO Q6H PRN PRN PRN Reason: Pain Score 1-10/Temp > 100.7 F Last Admin: 11/11/19 08:16 Dose: 650 mg Documented by: Albuterol Sulfate (Ventolin Aerosols) 2.5 mg INHALATION Q4H PRN PRN PRN Reason: SOB/Wheezing Atorvastatin Calcium (Lipitor) 20 mg PO QHS [facility] Last Admin: 11/10/19 21:22 Dose: 20 mg Documented by: Famotidine (Pepcid) 20 mg PO BID [facility] Last Admin: 11/11/19 08:15 Dose: 20 mg Documented by: Febuxostat (Uloric) 40 mg PO DAILY [facility] Last Admin: 11/11/19 08:15 Dose: 40 mg Documented by: Folic Acid (Folic Acid) 1 mg PO DAILY@0800 [facility] Last Admin: 11/11/19 08:15 Dose: 1 mg Documented by: Guaifenesin (Mucinex) 1,200 mg PO BID [facility] Last Admin: 11/11/19 08:14 Dose: 1,200 mg Documented by: Azithromycin 500 mg/ Dextrose 255 mls @ 250 mls/hr IV Q24 [facility] Stop: 11/15/19 10:01 Ceftriaxone Sodium 2 gm/ (Sodium Chloride) 50 mls @ 100 mls/hr IV Q24 [facility] Stop: 11/17/19 10:01 Last Admin: 11/11/19 08:12 Dose: 100 mls/hr Documented by: Sodium Chloride () 250 mls @ 15 mls/hr IV .[id number] PRN PRN Reason: Saline Flush Sodium Chloride () 250 mls @ 15 mls/hr IV .[id number] PRN PRN Reason: Additional IVPB Infusion Insulin Human Lispro (Humalog Kwikpen (Bkc)) 0 unit SC Q6 [facility]; Protocol Last Admin: 11/11/19 08:12 Dose: Not Given Documented by: Mirabegron (Myrbetriq) 25 mg PO DAILY [facility] Last Admin: 11/11/19 08:15 Dose: 25 mg Documented by: Non-Formulary Medication (Quetiapine Fumarate [Seroquel]) 300 mg PO QHS [facility] Ondansetron HCl (Zofran) 4 mg IV Q8H PRN PRN PRN Reason: NAUSEA/VOMITING Last Admin: 11/10/19 17:23 Dose: 4 mg Documented by: Rivaroxaban (Xarelto) 20 mg PO DAILY@1700 [facility] Last Admin: 11/10/19 17:26 Dose: 20 mg Documented by: Senna/Docusate Sodium (Senokot-S, Leigh-Colace) 2 tablet PO BID PRN PRN PRN Reason: Constipation Last Admin: 11/10/19 11:04 Dose: 2 tablet Documented by: Sodium Chloride () 10 - 40 ml IV UD PRN PRN Reason: SALINE FLUSH Tamsulosin HCl (Flomax) 0.4 mg PO DAILY@1730 [facility] Last Admin: 11/10/19 17:26 Dose: 0.4 mg Documented by: Venlafaxine HCl (Effexor Xr) 150 mg PO DAILY [facility] Last Admin: 11/11/19 08:15 Dose: 150 mg Documented by: Zolpidem Tartrate (Ambien (Generic)) 5 mg PO QHS PRN PRN PRN Reason: INSOMNIA Medical Necessity - Tobacco Use Smoking Status: Former smoker Tobacco Use: Cigarettes Assessment/Plan All Active Problems (Last Updated 11/10/19 @ 09:[address] Sukhi Acevedo MD) Suspected 2019 novel coronavirus infection (Acute) Septic shock (Acute) Community acquired pneumonia (Acute) RECOMMENDATIONS: 1. Await COVID testing per hospitalist 2. Continue advance contact precautions, N95 or equivalent likely not necessary unless aerosolize generating procedures 3. Wean oxygen as tolerated 4. Agree with empiric antibiotics, obtain sputum culture if possible. Send antigens. 5. Agree with conservative fluids. 6. Okay to continue baseline psychiatric medications and Xarelto IMPRESSIONS: 1. Acute hypoxic respiratory failure secondary to right lower lobe pneumonia Patient with significant AA gradient on presentation with right lower lobe pneumonia. Unfortunately, it is unclear how long he was hypoxic, but this may have led to the elevated lactate. Patient is on appropriate antibiotics at this time. No history of obstructive lung disease or wheezing on exam, so would hold on steroids for now. Agree with bronchodilators PRN and pulmonary toileting. Respiratory viral panel was negative. COVID testing sent by hospitalist. 2. Septic shock secondary to right lower lobe pneumonia Patient is technically septic shock secondary to elevated lactate on presentation, but has remained hemodynamically stable while in the intensive care unit. This would be suggestive of protracted hypoxia as the cause of elevated lactate. Given the potential of viral etiology, holding on fluid resuscitation is likely reasonable given adequate blood pressures. No indication for pressor requirements at this time, so likely okay to continue with baseline Xarelto therapy. Presence of Xarelto makes pulmonary embolism unlikely, despite history. 3. Mechanical fall with left hip pain No fracture was noted on x-ray. Pain is controlled at this time. Clinical suspicion for weakness secondary to hypoxia, but this cannot be confirmed. 4. History of PE/CKD stage III/hypertension/hyperlipidemia/bipolar Complicates care, management, recovery and prognosis. Likely okay to continue with baseline psychiatric medications. Would hold antihypertensives. Will need to watch blood sugars closely given acute infection. Inpatient E&M: 15419 [facility] Hosp L3
--- NOTE | 2019-11-11 10:26 | CASEMGMT ---
Social Work Note Per previous visits, pt had CM Helena Guzman Antonio through [facility]. SW placed a call to Helena. Helena states she is no longer pt's CM but pt's CM is Bridgette Chu. SW left message for Bridgette asking what services pt currently has and informing Bridgette that pt is currently at [facility]. SW waiting for call back. Christal Gomez LAUNDRY ATTENDANT, PIPE CLEANING MACHINE OPERATOR
[2019-11-11 11:05] LABS: Bedside Glucose 145 mg/dL (70-110)
[2019-11-11 12:12] LABS: Pathologist Review Reviewed
[2019-11-11] MEDS: Allopurinol 300 MG Tablet PO (12:12)
[2019-11-11] MEDS: lamoTRIgine 100 MG Tablet 200 MG PO ×2 (12:12→21:12)
[2019-11-11] MEDS: QUEtiapine 100 MG Tablet 200 MG PO ×2 (12:12→21:12)
--- NOTE | 2019-11-11 13:31 | NURSING ---
report called to med-surg for transfer to room 206
[2019-11-11] MEDS: 0.9% Saline Lock 10 ML Syringe IV (14:16)
--- NOTE | 2019-11-11 14:37 | NURSING ---
call placed to [facility] to verify home medication list
--- NOTE | 2019-11-11 15:20 | CASEMGMT ---
Social Work Note SW received message from pt's MARCUS Angeles. Bridgette henson pt has emergency response button, [facility] a week) and has 3 hours of aide services every Saturday through [facility]. Bridgette henson pt has requested more days and times for aides but at this time time [facility] doesn't have the staffing for more aides. Christal Gomez DECK MATE, [employer]
[2019-11-11] MEDS: Dicyclomine 10 MG Capsule PO ×2 (17:15→23:22)
[2019-11-11] MEDS: Rivaroxaban 20 MG Tablet PO (17:16)
[2019-11-11] MEDS: Tamsulosin HCl 0.4 MG Capsule PO (17:16)
[2019-11-11 17:41] LABS: Bedside Glucose 145 mg/dL (70-110)
[2019-11-11] MEDS: Atorvastatin Calcium 20 MG Tablet PO (21:12)
[2019-11-11] MEDS: Insulin Lispro 100 UNIT/ML INSULN.PEN SC (21:20)
[2019-11-11 21:31] LABS: Bedside Glucose 161 mg/dL (70-110)
[2019-11-11] MEDS: Albuterol 2.5 MG/3 ML VIAL.NEB. INHALATION (23:50)
[2019-11-12] VITALS (10 sets, daily range): BP systolic 125–137; BP diastolic 68–83; PULSE 91–105; RESP 16–18; TEMP 36.4–38.7; O2SAT 92–95
[2019-11-12] MEDS: Insulin Lispro 100 UNIT/ML INSULN.PEN SC ×3 (06:45→23:13)
[2019-11-12] MEDS: Dicyclomine 10 MG Capsule PO ×3 (06:50→23:13)
[2019-11-12 07:48] LABS: Bedside Glucose 173 mg/dL (70-110)
[2019-11-12] MEDS: Venlafaxine XR 150 MG Capsule PO (09:07)
[2019-11-12] MEDS: Famotidine 20 MG Tablet PO ×2 (09:07→21:10)
[2019-11-12] MEDS: Folic Acid 1 MG Tablet PO (09:07)
[2019-11-12] MEDS: Allopurinol 300 MG Tablet PO (09:07)
[2019-11-12] MEDS: Mirabegron 25 MG TAB.ER.24H PO (09:07)
[2019-11-12] MEDS: lamoTRIgine 100 MG Tablet 200 MG PO ×2 (09:07→21:10)
[2019-11-12] MEDS: QUEtiapine 100 MG Tablet 200 MG PO ×2 (09:07→21:10)
[2019-11-12] MEDS: Tolterodine Tartrate 2 MG CAP.SA PO (09:07)
[2019-11-12] MEDS: guaiFENesin 1,200 MG Tablet 1200 MG PO ×2 (09:08→21:10)
--- NOTE | 2019-11-12 09:40 | NURSING ---
RECHECKED BLOOD SUGAR PRIOR TO EATING BREAKFAST DUE TO BEING DROWSY-
[2019-11-12 09:51] LABS: Bedside Glucose 164 mg/dL (70-110)
[2019-11-12] MEDS: 0.9% Saline Lock 10 ML Syringe IV ×3 (09:58→21:10)
--- NOTE | 2019-11-12 09:59 | PN_ITS ---
Patient Problems: Active and Suspected Problems (Last Updated 11/10/19 @ 09:[address] Sukhi Acevedo MD) Suspected 2019 novel coronavirus infection (Acute) Septic shock (Acute) Community acquired pneumonia (Acute) Subjective: Chief complaint: Follow-up after admission for septic shock, right lower lobe community-acquired pneumonia, acute hypoxic respiratory failure and suspected COVID- 19. Patient seen and examined. No acute events overnight. Shortness of breath continued to improve, still having mild cough, no sputum production. He had a spike of low-grade fever last night, has been afebrile since then, requiring 1 L of oxygen, other vital signs are stable. - Physical Exam Vitals/I&O's: Vital Signs Temp Pulse Resp BP Pulse Ox 97.6 F L 92 16 137/80 H 92 11/12/19 09:10 11/12/19 09:10 11/12/19 09:10 11/12/19 09:10 11/12/19 09:37 Oxygen Flow Rate (L/min) 1 Oxygen Delivery Method Nasal Cannula Weight: 231 lb 0.711 oz Body Mass Index (BMI) 32.4 Intake and Output for Last 24 Hours 11/10/19 11/11/19 11/12/19 23:59 23:59 23:59 Intake Total 2200 / 2200 1750 / 2250 500 / 500 Output Total 800 / 1800 3000 / 3000 Balance 1400 / 400 -1250 / -750 500 / 500 General: Alert, Oriented x3, Cooperative, No apparent distress HEENT: Atraumatic, PERRLA, EOMI, Normocephalic Oral: Moist Mucosa, No Gingival or Mucosal Lesions/ Ulcerations Neck: Supple, No JVD, Negative Carotid Bruits, Trachea Midline, Thyroid Normal Size and Texture Lungs: No rhonchi, No wheeze, Diminished, Rales, - - Decreased breath sounds bilateral, crackles at the right base. Cardiovascular: Regular rate, Regular Rhythm, Normal S1, Normal S2, PMI Normal Abdomen: Bowel Sounds Present, Soft, Non Tender, Non-Distended, No Hepato- splenomegaly Extremities: No clubbing, No cyanosis, No edema Skin: No rashes, No breakdown Lymphatic: No Cervical, Supraclavicular, or Inguinal Adenopathy Neurological: Cranial nerves II-XII grossly intact, Neuro grossly intact Psych/Mental Status: Normal Affect, Appropriate Microbiology Past 72 Hours 11/10/19 07:00 Blood Culture (Wb) - Venous Blood Culture - Preliminary No growth in 48 hours. 11/10/19 07:55 Blood Culture (Wb) - Anticubital Left Blood Culture - Preliminary No growth in 48 hours. 11/10/19 12:40 Mucosa - Nasopharyngeal Respiratory Panel (PCR) - Final 11/10/19 07:55 Urine Catheter - Britton Streptococcus pneumoniae Antigen (M - Final 11/10/19 07:55 Urine Catheter - Britton Legionella Antigen - Final 11/10/19 07:25 Mucosa - Nose Rapid RSV (DFA) - Final 11/10/19 07:25 Mucosa - Nose Influenza Types A,B Direct FA (SONIYA) - Final Laboratory Results 11/11/19 04:10: Diff Path Review Reviewed 11/11/19 09:01: COVID-19 (PETRONA) Pending 11/11/19 10:49: POC Glucose 145 H 11/11/19 17:15: POC Glucose 145 H 11/11/19 21:07: POC Glucose 161 H 11/12/19 05:18: WBC Pending, RBC Pending, Hgb Pending, Hct Pending, MCV Pending, MCH Pending, MCHC Pending, RDW Std Deviation Pending, RDW Coeff of Luca Pending, Plt Count Pending, Neut % (Auto) Pending, Absolute Neuts (auto) Pending 11/12/19 06:41: POC Glucose 173 H 11/12/19 09:02: POC Glucose 164 H Current Medications Acetaminophen (Tylenol) 650 mg PO Q6H PRN PRN PRN Reason: Pain Score 1-10/Temp > 100.7 F Last Admin: 11/11/19 08:16 Dose: 650 mg Documented by: Albuterol Sulfate (Ventolin Aerosols) 2.5 mg INHALATION Q4H PRN PRN PRN Reason: SOB/Wheezing Last Admin: 11/11/19 23:50 Dose: 2.5 mg Documented by: Allopurinol (Zyloprim) 300 mg PO DAILY [facility] Last Admin: 11/12/19 09:07 Dose: 300 mg Documented by: Atorvastatin Calcium (Lipitor) 20 mg PO QHS [facility] Last Admin: 11/11/19 21:12 Dose: 20 mg Documented by: Clonazepam (Klonopin) 0.5 mg PO BID PRN PRN Reason: ANXIETY Dicyclomine HCl (Bentyl) 10 mg PO Q6 [facility] Last Admin: 11/12/19 06:50 Dose: 10 mg Documented by: Famotidine (Pepcid) 20 mg PO BID [facility] Last Admin: 11/12/19 09:07 Dose: 20 mg Documented by: Folic Acid (Folic Acid) 1 mg PO DAILY@0800 [facility] Last Admin: 11/12/19 09:07 Dose: 1 mg Documented by: Guaifenesin (Mucinex) 1,200 mg PO BID [facility] Last Admin: 11/12/19 09:08 Dose: 1,200 mg Documented by: Azithromycin 500 mg/ Dextrose 255 mls @ 250 mls/hr IV Q24 [facility] Stop: 11/15/19 10:01 Last Infusion: 11/11/19 14:10 Dose: Infused Documented by: Ceftriaxone Sodium 2 gm/ (Sodium Chloride) 50 mls @ 100 mls/hr IV Q24 [facility] Stop: 11/17/19 10:01 Last Infusion: 11/11/19 08:52 Dose: Infused Documented by: Sodium Chloride () 250 mls @ 15 mls/hr IV .[id number] PRN PRN Reason: Saline Flush Sodium Chloride () 250 mls @ 15 mls/hr IV .[id number] PRN PRN Reason: Additional IVPB Infusion Insulin Human Lispro (Humalog Kwikpen (Bkc)) 0 unit SC Q6 [facility]; Protocol Last Admin: 11/12/19 06:45 Dose: 1 u Documented by: Lamotrigine (Lamictal) 200 mg PO BID [facility] Last Admin: 11/12/19 09:07 Dose: 200 mg Documented by: Mirabegron (Myrbetriq) 25 mg PO DAILY [facility] Last Admin: 11/12/19 09:07 Dose: 25 mg Documented by: Ondansetron HCl (Zofran) 4 mg IV Q8H PRN PRN PRN Reason: NAUSEA/VOMITING Last Admin: 11/10/19 17:23 Dose: 4 mg Documented by: Quetiapine Fumarate (Seroquel) 200 mg PO BID [facility] Last Admin: 11/12/19 09:07 Dose: 200 mg Documented by: Rivaroxaban (Xarelto) 20 mg PO DAILY@1700 [facility] Last Admin: 11/11/19 17:16 Dose: 20 mg Documented by: Senna/Docusate Sodium (Senokot-S, Leigh-Colace) 2 tablet PO BID PRN PRN PRN Reason: Constipation Last Admin: 11/10/19 11:04 Dose: 2 tablet Documented by: Sodium Chloride () 10 - 40 ml IV UD PRN PRN Reason: SALINE FLUSH Last Admin: 11/11/19 14:16 Dose: 10 ml Documented by: Tamsulosin HCl (Flomax) 0.4 mg PO DAILY@1730 [facility] Last Admin: 11/11/19 17:16 Dose: 0.4 mg Documented by: Tolterodine Tartrate (Detrol La) 2 mg PO DAILY [facility] Last Admin: 11/12/19 09:07 Dose: 2 mg Documented by: Venlafaxine HCl (Effexor Xr) 150 mg PO DAILY [facility] Last Admin: 11/12/19 09:07 Dose: 150 mg Documented by: Zolpidem Tartrate (Ambien (Generic)) 5 mg PO QHS PRN PRN PRN Reason: INSOMNIA Medical Necessity - Tobacco Use Smoking Status: Former smoker Tobacco Use: Cigarettes Assessment/Plan All Active Problems (Last Updated 11/10/19 @ 09:[address] Sukhi Acevedo MD) Suspected 2019 novel coronavirus infection (Acute) Septic shock (Acute) Community acquired pneumonia (Acute) This is a 74 years old male patient presented to the emergency room because of fall and left hip pain, squad noted that the patient was dyspneic, tachypneic, febrile and tachycardic and he was found to have right lower lobe infiltrate with lactic acid of 5.3 consistent with septic shock secondary to right lower lobe community-acquired pneumonia complicated by acute hypoxic respiratory failure and also found to have hypoglycemia. #1 septic shock/right lower lobe community-acquired pneumonia: With suspected COVID 19 infection. Remained on IV Rocephin and Zithromax. Partha of low-grade fever last night, remains on 1 to 2 L of oxygen, other vital signs are stable. CBC from today is pending. Nasal swab for flu as a and B was negative. Rapid RSV was negative. Pneumococcal and Legionella antigen were negative. Blood cultures showed no growth in 48 hours. Plan to continue same treatment, anticipate discharge home in 1 to 2 days. #2 acute hypoxic respiratory failure: Secondary to #1. Patient symptoms has been improving slowly. He is down to 1 L of oxygen and sometimes requires 2 L. Plan to continue same treatment as above, wean off oxygen as tolerated.. #3 Newly diagnosed type 2 diabetes mellitus: Hemoglobin A1c was 7.1%. Blood sugar has been in the range of around 200s. He is on sliding scale, continue Accu-Cheks, will start him on metformin. #4 mechanical fall/generalized weakness: Patient complained of left hip pain. X-ray of the left hip done, reviewed, no acute fractures. Continue Tylenol PRN for pain. #5 stage III chronic kidney disease: Baseline creatinine has been around 1.2 to 1.5 mg/dL. Admission creatinine is 1.56, yesterday's creatinine is 1.13, stable at baseline. #6 history of pulmonary embolism: Continue Xarelto. #7 hypertension: Blood pressure stable, he is not on any antihypertensive medication at this time. #8 hyperlipidemia: Continue statins. #9 bipolar disorder: Stable, continue quetiapine and Effexor. #10 CODE STATUS: DNR CCA, no intubation. #11 DVT prophylaxis: Continue Xarelto. This note was generated with [employer] dictation software. It may contain incorrect words, spelling, and punctuation that were not noted in checking the note before signing. Inpatient E&M: 42265 Subs Hosp L2
[2019-11-12 11:48] LABS: Absolute Lymphocyte Count 1.46 X10^3/uL (0.83-4.51); Absolute Neutrophil Count 18.5 X10^3/uL (2.0-7.7); Basophil# 0.04 X10^3/uL; Basophil% 0.2 % (0-1); Eosinophil# 0.15 X10^3/uL; Eosinophils% 0.7 % (0-5); Hematocrit 32.6 % (40-54); Hemoglobin 10.4 g/dL (13.0-16.5); Lymphocyte # 1.46 X10^3/ul (4.0); Lymphocyte % 6.6 % (19-41); Mean Corp Hgb Conc 31.9 g/dL (32-36); Mean Corpuscular Hgb 29.1 pg (27.0-32.0); Mean Corpuscular Volume 91.3 fL (80-94); Mean Platelet Vol. 9.1 fl (6.2-12.0); Monocyte# 1.53 X10^3/uL; Monocyte% 6.9 % (0-10); NRBC Flagged by Analyzer 0 % (0-5); Neutrophil % 83.7 % (47-70); POSITIVE DIFFERENTIAL YES; Platelet Count 218 K/mm3 (150-450); RBC Distribution Width CV 14.6 % (11.6-14.6); RBC Distribution Width SD 48.6 fl (35.1-43.9); Red Blood Count 3.57 M/mm3 (4.6-6.2); White Blood Count 22.1 K/mm3 (4.4-11.0)
[2019-11-12 12:25] LABS: Bedside Glucose 203 mg/dL (70-110)
[2019-11-12 14:09] LABS: Differential Indicated SCAN CRITERIA MET
[2019-11-12 14:10] LABS: Differential Comment SCANNED
--- NOTE | 2019-11-12 15:21 | CASEMGMT ---
ROSA VELAZQUEZ NOTE: Dr Acevedo states feels pt would benefit from SNF. PT/OT evals have been reviewed. No further therapy is recommended. Call placed to pt's room to discuss discharge planning. Pt states he wants to return home and states he feels fine and feels he is able to safely take care of himself at home. Discussed options of HHC and pt states would like [facility]. Call placed to Miranda @ [facility] and referral made for halfway, PT/OT eval and treat. She was made aware anticipate discharge tomorrow and pt is a new diabetic and COVID 19 testing has been sent and results are still pending. Pt states he is not sure who will be able to take him home @ discharge but states, I will work on that, stating he does know of someone he can ask. Pt also made aware he will be given a script for Glucometer @ discharge and that he will need someone to pick that up for him. Pt states he will also work on that. D/C Plan: Home w/HHC: SN, PT/OT, CM to follow for O2 needs @ discharge, and pt will need script for Glucometer. Pt states will work on finding someone that can take him home @ discharge. Aroldo SARAH RN, CM
--- NOTE | 2019-11-12 16:06 | PCM.PN.INT ---
Subjective: Patient transferred out of the intensive care unit yesterday. Patient continues to report subjective improvement in overall condition. Patient does have a mild cough, but states this is getting better day by day. General: Alert, Oriented x3, Cooperative, No apparent distress, Well developed, Well nourished HEENT: Atraumatic, PERRLA, EOMI, Normocephalic Oral: Moist Mucosa, No Gingival or Mucosal Lesions/ Ulcerations Neck: Supple, No JVD, No Nodes, Trachea Midline Lungs: No rhonchi, No wheeze, No rales, Diminished Cardiovascular: Regular rate, Regular Rhythm, Normal S1, Normal S2, No murmurs, No rub noted, No Gallop Abdomen: Bowel Sounds Present, Soft, Non Tender, Non-Distended Extremities: No clubbing, No cyanosis, Edema Skin: - - No changes Musculoskeletal: No Tenderness to Palpation of Joints or Extremities Lymphatic: No Cervical, Supraclavicular, or Inguinal Adenopathy Neurological: Cranial nerves II-XII grossly intact, Neuro grossly intact, Motor Exam 5/5 strength throughout Psych/Mental Status: Alert and oriented to time, place, person, mood and affect Vital Signs Temp Pulse Resp BP Pulse Ox 36.9 C 95 18 126/68 H 94 11/12/19 15:12 11/12/19 15:49 11/12/19 15:12 11/12/19 15:12 11/12/19 15:12 Oxygen Flow Rate (L/min) 2 Oxygen Delivery Method Nasal Cannula Weight: 104.8 kg Body Mass Index (BMI) 32.4 Intake and Output for Last 24 Hours 11/10/19 11/11/19 11/12/19 23:59 23:59 23:59 Intake Total 2200 / 2200 1750 / 2250 1316.00 / 1316.00 Output Total 800 / 1800 3000 / 3000 Balance 1400 / 400 -1250 / -750 1316.00 / 1316.00 Labs (Last 48 Hours) 11/10/19 11/10/19 11/11/19 16:23 23:55 04:10 WBC 25.4 H RBC 3.67 L Hgb 10.8 L Hct 34.0 L MCV 92.6 MCH 29.4 MCHC 31.8 L RDW Std Deviation 49.2 H RDW Coeff of Luca 14.7 H Plt Count 214 MPV 8.8 Immature Gran % (Auto) 2.200 H Neut % (Auto) 85.0 H Lymph % (Auto) 5.9 L [place] % (Auto) 6.1 Eos % (Auto) 0.5 Baso % (Auto) 0.3 Absolute Neuts (auto) 21.6 H Absolute Lymphs (auto) 1.49 Nucleated RBC % 0 Differential Comment SCANNED Diff Path Review Reviewed Sodium Potassium Chloride Carbon Dioxide Anion Gap BUN Creatinine Estim Creat Clear Calc Est GFR (MDRD) Af Amer Est GFR (MDRD) Non-Af BUN/Creatinine Ratio Glucose Calcium COVID-19 ([facility]) POC Glucose 184 H 128 H 11/11/19 11/11/19 11/11/19 04:10 09:01 10:49 WBC RBC Hgb Hct MCV MCH MCHC RDW Std Deviation RDW Coeff of Luca Plt Count MPV Immature Gran % (Auto) Neut % (Auto) Lymph % (Auto) [place] % (Auto) Eos % (Auto) Baso % (Auto) Absolute Neuts (auto) Absolute Lymphs (auto) Nucleated RBC % Differential Comment Diff Path Review Sodium 136 Potassium 4.1 Chloride 102 Carbon Dioxide 30.0 Anion Gap 4 L BUN 16 Creatinine 1.13 Estim Creat Clear Calc 63.90 Est GFR (MDRD) Af Amer 82 Est GFR (MDRD) Non-Af 68 BUN/Creatinine Ratio 14.2 Glucose 138 H Calcium 8.0 L COVID-19 ([facility]) Pending POC Glucose 145 H 11/11/19 11/11/19 11/12/19 17:15 21:07 05:18 WBC 22.1 H RBC 3.57 L Hgb 10.4 L Hct 32.6 L MCV 91.3 MCH 29.1 MCHC 31.9 L RDW Std Deviation 48.6 H RDW Coeff of Luca 14.6 Plt Count 218 MPV 9.1 Immature Gran % (Auto) 1.900 H Neut % (Auto) 83.7 H Lymph % (Auto) 6.6 L [place] % (Auto) 6.9 Eos % (Auto) 0.7 Baso % (Auto) 0.2 Absolute Neuts (auto) 18.5 H Absolute Lymphs (auto) 1.46 Nucleated RBC % 0 Differential Comment SCANNED Diff Path Review May foll Sodium Potassium Chloride Carbon Dioxide Anion Gap BUN Creatinine Estim Creat Clear Calc Est GFR (MDRD) Af Amer Est GFR (MDRD) Non-Af BUN/Creatinine Ratio Glucose Calcium COVID-19 ([facility]) POC Glucose 145 H 161 H 11/12/19 11/12/19 11/12/19 06:41 09:02 11:46 WBC RBC Hgb Hct MCV MCH MCHC RDW Std Deviation RDW Coeff of Luca Plt Count MPV Immature Gran % (Auto) Neut % (Auto) Lymph % (Auto) [place] % (Auto) Eos % (Auto) Baso % (Auto) Absolute Neuts (auto) Absolute Lymphs (auto) Nucleated RBC % Differential Comment Diff Path Review Sodium Potassium Chloride Carbon Dioxide Anion Gap BUN Creatinine Estim Creat Clear Calc Est GFR (MDRD) Af Amer Est GFR (MDRD) Non-Af BUN/Creatinine Ratio Glucose Calcium COVID-19 ([facility]) POC Glucose 173 H 164 H 203 H Microbiology 11/10/19 07:00 Blood Culture (Wb) - Venous Blood Culture - Preliminary No growth in 48 hours. 11/10/19 07:55 Blood Culture (Wb) - Anticubital Left Blood Culture - Preliminary No growth in 48 hours. 11/10/19 12:40 Mucosa - Nasopharyngeal Respiratory Panel (PCR) - Final 11/10/19 07:55 Urine Catheter - Britton Streptococcus pneumoniae Antigen (M - Final 11/10/19 07:55 Urine Catheter - Britton Legionella Antigen - Final Medical Necessity - Tobacco Use Smoking Status: Former smoker Tobacco Use: Cigarettes Assessment/Plan All Active Problems (Last Updated 11/10/19 @ 09:[address] Sukhi Acevedo MD) Suspected 2019 novel coronavirus infection (Acute) Septic shock (Acute) Community acquired pneumonia (Acute) RECOMMENDATIONS: 1. Await COVID testing per hospitalist 2. Continue advance contact precautions. N95 or equivalent likely not necessary unless aerosolize generating procedures 3. Wean oxygen as tolerated 4. Agree with empiric antibiotics. Antigens negative 5. Agree with conservative fluids. 6. Okay to continue baseline psychiatric medications and Xarelto IMPRESSIONS: 1. Acute hypoxic respiratory failure secondary to right lower lobe pneumonia Patient with significant AA gradient on presentation with right lower lobe pneumonia. Unfortunately, it is unclear how long he was hypoxic, but this may have led to the elevated lactate. Patient is on appropriate antibiotics at this time and improving rapidly. No history of obstructive lung disease or wheezing on exam, so would hold on steroids for now. Agree with bronchodilators PRN and pulmonary toileting. Respiratory viral panel and antigens was negative. COVID testing sent by hospitalist. 2. Septic shock secondary to right lower lobe pneumonia Patient is technically septic shock secondary to elevated lactate on presentation, but has remained hemodynamically stable while in the intensive care unit. This would be suggestive of protracted hypoxia as the cause of elevated lactate. Given the potential of viral etiology, holding on fluid resuscitation is likely reasonable given adequate blood pressures. No indication for pressor requirements at this time, so likely okay to continue with baseline Xarelto therapy. Presence of Xarelto makes pulmonary embolism unlikely, despite history. 3. Mechanical fall with left hip pain No fracture was noted on x-ray. Pain is controlled at this time. Clinical suspicion for weakness secondary to hypoxia, but this cannot be confirmed. 4. History of PE/CKD stage III/hypertension/hyperlipidemia/bipolar Complicates care, management, recovery and prognosis. Continue with baseline psychiatric medications. Would restart antihypertensives. Will need to watch blood sugars closely given acute infection. Inpatient E&M: 14277 Subs Hosp L2
[2019-11-12] MEDS: metFORMIN HCl 500 MG Tablet PO (17:23)
[2019-11-12] MEDS: Rivaroxaban 20 MG Tablet PO (17:23)
[2019-11-12] MEDS: Tamsulosin HCl 0.4 MG Capsule PO (17:23)
[2019-11-12 17:50] LABS: Bedside Glucose 144 mg/dL (70-110)
--- NOTE | 2019-11-12 20:24 | PN_ITS ---
Progress Note Notified by nursing [employer] supervisor that Covid 19 was negative. Also patient has a negative rapid influenza screen. Negative RSV screen. Negative comprehensive respiratory pathogen panel. Discontinue covid 19 precautions. STROKE Vital Signs/Narrative: Vital Signs Pulse 11/12/19 19:53 102 H
[2019-11-12] MEDS: Acetaminophen 325 MG Tablet 650 MG PO (21:10)
[2019-11-12] MEDS: Atorvastatin Calcium 20 MG Tablet PO (21:10)
[2019-11-12] MEDS: clonazePAM 0.5 MG Tablet PO (21:10)
[2019-11-12 23:26] LABS: Bedside Glucose 167 mg/dL (70-110)
[2019-11-13] VITALS (11 sets, daily range): BP systolic 120–152; BP diastolic 68–77; PULSE 86–96; RESP 18; TEMP 36.3–38.5; O2SAT 93–100
[2019-11-13] MEDS: Dicyclomine 10 MG Capsule PO ×3 (05:54→11:32)
[2019-11-13 06:00] LABS: Bedside Glucose 128 mg/dL (70-110)
--- NOTE | 2019-11-13 07:13 | PN_ITS ---
Patient Problems: Active and Suspected Problems (Last Updated 11/10/19 @ 09:[address] Sukhi Acevedo MD) Suspected 2019 novel coronavirus infection (Acute) Septic shock (Acute) Community acquired pneumonia (Acute) Subjective: Patient did okay overnight. Patient with no complaints this morning, but still requiring minimal nasal cannula oxygen to maintain saturations. Patient reportedly did have an isolated fever overnight, but denied any other symptoms associated with this event. Patient is not reporting any productive cough at this time. - Physical Exam Vitals/I&O's: Vital Signs Temp Pulse Resp BP Pulse Ox 36.3 C L 86 18 120/68 95 11/13/19 03:38 11/13/19 04:20 11/13/19 03:38 11/13/19 03:38 11/13/19 06:40 Oxygen Flow Rate (L/min) 2 Oxygen Delivery Method Nasal Cannula Weight: 103.9 kg Body Mass Index (BMI) 32.4 Intake and Output for Last 24 Hours 11/11/19 11/12/19 11/13/19 23:59 23:59 23:59 Intake Total 1750 / 2250 2116.00 / 2116.00 50 / 50 Output Total 3000 / 3000 Balance -1250 / -750 2116.00 / 2116.00 50 / 50 General: Alert, Oriented x3, Cooperative, No apparent distress, Well developed, Well nourished, - - Obese. Speaking in full sentences. HEENT: Atraumatic, PERRLA, EOMI, Normocephalic, - - No scleral icterus or injection noted Oral: Moist Mucosa, No Gingival or Mucosal Lesions/ Ulcerations, - - Crowded posterior pharynx Neck: Supple, No JVD, No Nodes, Trachea Midline Lungs: No wheeze, No rales, Diminished, Rhonchi - Right base, but improved with coughing, - - Symmetric expansion Cardiovascular: Regular rate, Regular Rhythm, Normal S1, Normal S2, No murmurs, No rub noted, No Gallop Abdomen: Bowel Sounds Present, Soft, Non Tender, Non-Distended, Obese Extremities: No clubbing, No cyanosis, Edema - Trace lower extremity Skin: No rashes, No breakdown Musculoskeletal: No Tenderness to Palpation of Joints or Extremities Lymphatic: No Cervical, Supraclavicular, or Inguinal Adenopathy Neurological: Cranial nerves II-XII grossly intact, Neuro grossly intact, Motor Exam 5/5 strength throughout Psych/Mental Status: Alert and oriented to time, place, person, mood and affect Microbiology Past 72 Hours 11/10/19 07:00 Blood Culture (Wb) - Venous Blood Culture - Preliminary No growth in 48 hours. 11/10/19 07:55 Blood Culture (Wb) - Anticubital Left Blood Culture - Preliminary No growth in 48 hours. 11/10/19 12:40 Mucosa - Nasopharyngeal Respiratory Panel (PCR) - Final 11/10/19 07:55 Urine Catheter - Britton Streptococcus pneumoniae Antigen (M - Final 11/10/19 07:55 Urine Catheter - Britton Legionella Antigen - Final 11/10/19 07:25 Mucosa - Nose Rapid RSV (DFA) - Final 11/10/19 07:25 Mucosa - Nose Influenza Types A,B Direct FA (SONIYA) - Final Laboratory Results 11/11/19 09:01: COVID-19 ([facility]) 11/12/19 05:18: WBC 22.1 H, RBC 3.57 L, Hgb 10.4 L, Hct 32.6 L, MCV 91.3, MCH 29.1, MCHC 31.9 L, RDW Std Deviation 48.6 H, RDW Coeff of Luca 14.6, Plt Count 218, MPV 9.1, Immature Gran % (Auto) 1.900 H, Neut % (Auto) 83.7 H, Lymph % (Auto) 6.6 L, [place] % (Auto) 6.9, Eos % (Auto) 0.7, Baso % (Auto) 0.2, Absolute Neuts (auto) 18.5 H, Absolute Lymphs (auto) 1.46, Nucleated RBC % 0, Diffe rential Comment SCANNED, Diff Path Review December11/12/19 06:41: POC Glucose 173 H 11/12/19 09:02: POC Glucose 164 H 11/12/19 11:46: POC Glucose 203 H 11/12/19 17:14: POC Glucose 144 H 11/12/19 23:13: POC Glucose 167 H 11/13/19 05:53: POC Glucose 128 H Current Medications Acetaminophen (Tylenol) 650 mg PO Q6H PRN PRN PRN Reason: Pain Score 1-10/Temp > 100.7 F Last Admin: 11/12/19 21:10 Dose: 650 mg Documented by: Albuterol Sulfate (Ventolin Aerosols) 2.5 mg INHALATION Q4H PRN PRN PRN Reason: SOB/Wheezing Last Admin: 11/11/19 23:50 Dose: 2.5 mg Documented by: Allopurinol (Zyloprim) 300 mg PO DAILY [facility] Last Admin: 11/12/19 09:07 Dose: 300 mg Documented by: Atorvastatin Calcium (Lipitor) 20 mg PO QHS [facility] Last Admin: 11/12/19 21:10 Dose: 20 mg Documented by: Clonazepam (Klonopin) 0.5 mg PO BID PRN PRN Reason: ANXIETY Last Admin: 11/12/19 21:10 Dose: 0.5 mg Documented by: Dicyclomine HCl (Bentyl) 10 mg PO Q6 [facility] Last Admin: 11/13/19 05:54 Dose: 10 mg Documented by: Famotidine (Pepcid) 20 mg PO BID [facility] Last Admin: 11/12/19 21:10 Dose: 20 mg Documented by: Folic Acid (Folic Acid) 1 mg PO DAILY@0800 [facility] Last Admin: 11/12/19 09:07 Dose: 1 mg Documented by: Guaifenesin (Mucinex) 1,200 mg PO BID [facility] Last Admin: 11/12/19 21:10 Dose: 1,200 mg Documented by: Azithromycin 500 mg/ Dextrose 255 mls @ 250 mls/hr IV Q24 [facility] Stop: 11/15/19 10:01 Last Infusion: 11/12/19 11:53 Dose: Infused Documented by: Ceftriaxone Sodium 2 gm/ (Sodium Chloride) 50 mls @ 100 mls/hr IV Q24 [facility] Stop: 11/17/19 10:01 Last Infusion: 11/12/19 10:24 Dose: Infused Documented by: Sodium Chloride () 250 mls @ 15 mls/hr IV .[id number] PRN PRN Reason: Saline Flush Last Infusion: 11/12/19 12:05 Dose: 0 mls/hr Documented by: Sodium Chloride () 250 mls @ 15 mls/hr IV .[id number] PRN PRN Reason: Additional IVPB Infusion Insulin Human Lispro (Humalog Kwikpen (Bkc)) 0 unit SC Q6 [facility]; Protocol Last Admin: 11/13/19 05:54 Dose: Not Given Documented by: Lamotrigine (Lamictal) 200 mg PO BID [facility] Last Admin: 11/12/19 21:10 Dose: 200 mg Documented by: [facility] ([facility]) [facility] Last Admin: 11/12/19 17:23 Dose: 500 mg Documented by: Mirabegron (Myrbetriq) 25 mg PO DAILY [facility] Last Admin: 11/12/19 09:07 Dose: 25 mg Documented by: Ondansetron HCl (Zofran) 4 mg IV Q8H PRN PRN PRN Reason: NAUSEA/VOMITING Last Admin: 11/10/19 17:23 Dose: 4 mg Documented by: Quetiapine Fumarate (Seroquel) 200 mg PO BID [facility] Last Admin: 11/12/19 21:10 Dose: 200 mg Documented by: Rivaroxaban (Xarelto) 20 mg PO DAILY@1700 [facility] Last Admin: 11/12/19 17:23 Dose: 20 mg Documented by: Senna/Docusate Sodium (Senokot-S, Leigh-Colace) 2 tablet PO BID PRN PRN PRN Reason: Constipation Last Admin: 11/10/19 11:04 Dose: 2 tablet Documented by: Sodium Chloride () 10 - 40 ml IV UD PRN PRN Reason: SALINE FLUSH Last Admin: 11/12/19 21:10 Dose: 10 ml Documented by: Tamsulosin HCl (Flomax) 0.4 mg PO DAILY@1730 [facility] Last Admin: 11/12/19 17:23 Dose: 0.4 mg Documented by: Tolterodine Tartrate (Detrol La) 2 mg PO DAILY [facility] Last Admin: 11/12/19 09:07 Dose: 2 mg Documented by: Venlafaxine HCl (Effexor Xr) 150 mg PO DAILY [facility] Last Admin: 11/12/19 09:07 Dose: 150 mg Documented by: Zolpidem Tartrate (Ambien (Generic)) 5 mg PO QHS PRN PRN PRN Reason: INSOMNIA Medical Necessity - Tobacco Use Smoking Status: Former smoker Tobacco Use: Cigarettes Assessment/Plan All Active Problems (Last Updated 11/10/19 @ 09:[address] Sukhi Acevedo MD) Suspected 2019 novel coronavirus infection (Acute) Septic shock (Acute) Community acquired pneumonia (Acute) RECOMMENDATIONS: 1. Walking oximetry prior to discharge 2. Discontinue advance contact precautions. 3. Wean oxygen as tolerated 4. Complete 7 days of empiric antibiotics 5. Likely okay to discharge from a pulmonary perspective. Follow-up with nurse practitioner in 2 weeks if require supplemental oxygen 6. Okay to continue baseline psychiatric medications and Xarelto IMPRESSIONS: 1. Acute hypoxic respiratory failure secondary to right lower lobe pneumonia Patient with significant AA gradient on presentation with right lower lobe pneumonia. Unfortunately, it is unclear how long he was hypoxic, but this may have led to the initial elevated lactate. Patient is on appropriate antibiotics at this time and improving rapidly. No history of obstructive lung disease or wheezing on exam, so would hold on steroids for now. Agree with bronchodilators PRN and pulmonary toileting. Infectious work-up was negative from an antigenic culture standpoint. Okay to transition to p.o. antibiotics and complete a 7-day course. Patient should have a walking oximetry prior to discharge. If patient requires supplemental oxygen, follow-up in pulmonary office with nurse practitioner in 2 weeks would be advisable. 2. Septic shock secondary to right lower lobe pneumonia Patient is technically septic shock secondary to elevated lactate on presentation, but has remained hemodynamically stable while in the intensive care unit. This would be suggestive of protracted hypoxia as the cause of elevated lactate. Continue with baseline Xarelto therapy. Presence of Xarelto on admission makes pulmonary embolism unlikely, despite history. 3. Mechanical fall with left hip pain No fracture was noted on x-ray. Pain is controlled at this time. Clinical suspicion for weakness secondary to hypoxia, but this cannot be confi rmed. 4. History of PE/CKD stage III/hypertension/hyperlipidemia/bipolar Complicates care, management, recovery and prognosis. Continue with baseline psychiatric medications. Inpatient E&M: 84127 Subs Hosp L2
--- NOTE | 2019-11-13 08:44 | PCM.PROGNOTE ---
Patient Problems: Active and Suspected Problems (Last Updated 11/10/19 @ 09:[address] Sukhi Acevedo MD) Septic shock (Acute) Community acquired pneumonia (Acute) Subjective: Chief complaint: Follow-up after admission for septic shock, right lower lobe community-acquired pneumonia, acute hypoxic respiratory failure. Patient seen and examined. No acute events overnight. Today, he reported continued improvement. Denies any more shortness of breath, still having mild cough, no sputum production. Last night, he had a spike of fever of 101.6 Fahrenheit. Remained on 2 L of oxygen, other vital signs are stable. - Physical Exam Vitals/I&O's: Vital Signs Temp Pulse Resp BP Pulse Ox 97.3 F L 86 18 120/68 95 11/13/19 03:38 11/13/19 04:20 11/13/19 03:38 11/13/19 03:38 11/13/19 06:40 Oxygen Flow Rate (L/min) 2 Oxygen Delivery Method Nasal Cannula Weight: 229 lb 0.964 oz Body Mass Index (BMI) 32.4 Intake and Output for Last 24 Hours 11/11/19 11/12/19 11/13/19 23:59 23:59 23:59 Intake Total 1750 / 2250 2116.00 / 2116.00 50 / 50 Output Total 3000 / 3000 Balance -1250 / -750 6.00 / 211.00 50 / 50 General: Alert, Oriented x3, Cooperative, No apparent distress HEENT: Atraumatic, PERRLA, EOMI, Normocephalic Oral: Moist Mucosa, No Gingival or Mucosal Lesions/ Ulcerations Neck: Supple, No JVD, Negative Carotid Bruits, Trachea Midline, Thyroid Normal Size and Texture Lungs: No rhonchi, No wheeze, Diminished, Rales, - - Decreased breath sounds at the right base, crackles at the right base. Cardiovascular: Regular rate, Regular Rhythm, Normal S1, Normal S2, PMI Normal Abdomen: Bowel Sounds Present, Soft, Non Tender, Non-Distended, No Hepato-splenomegaly Extremities: No clubbing, No cyanosis, No edema Skin: No rashes, No breakdown Lymphatic: No Cervical, Supraclavicular, or Inguinal Adenopathy Neurological: Cranial nerves II-XII grossly intact, Neuro grossly intact Psych/Mental Status: Normal Affect, Appropriate Microbiology Past 72 Hours 11/10/19 07:00 Blood Culture (Wb) - Venous Blood Culture - Preliminary No growth in 48 hours. 11/10/19 07:55 Blood Culture (Wb) - Anticubital Left Blood Culture - Preliminary No growth in 48 hours. 11/10/19 12:40 Mucosa - Nasopharyngeal Respiratory Panel (PCR) - Final 11/10/19 07:55 Urine Catheter - Britton Streptococcus pneumoniae Antigen (M - Final 11/10/19 07:55 Urine Catheter - Britton Legionella Antigen - Final 11/10/19 07:25 Mucosa - Nose Rapid RSV (DFA) - Final 11/10/19 07:25 Mucosa - Nose Influenza Types A,B Direct FA (SONIYA) - Final Laboratory Results 11/11/19 09:01: COVID-19 (PETRONA) 11/12/19 05:18: WBC 22.1 H, RBC 3.57 L, Hgb 10.4 L, Hct 32.6 L, MCV 91.3, MCH 29.1, MCHC 31.9 L, RDW Std Deviation 48.6 H, RDW Coeff of Luca 14.6, Plt Count 218, MPV 9.1, Immature Gran % (Auto) 1.900 H, Neut % (Auto) 83.7 H, Lymph % (Auto) 6.6 L, Allen % (Auto) 6.9, Eos % (Auto) 0.7, Baso % (Auto) 0.2, Absolute Neuts (auto) 18.5 H, Absolute Lymphs (auto) 1.46, Nucleated RBC % 0, Differential Comment SCANNED, Diff Path Review December foll 11/12/19 09:02: POC Glucose 164 H 11/12/19 11:46: POC Glucose 203 H 11/12/19 17:14: POC Glucose 144 H 11/12/19 23:13: POC Glucose 167 H 11/13/19 05:53: POC Glucose 128 H Current Medications Acetaminophen (Tylenol) 650 mg PO Q6H PRN PRN PRN Reason: Pain Score 1-10/Temp > 100.7 F Last Admin: 11/12/19 21:10 Dose: 650 mg Documented by: Albuterol Sulfate (Ventolin Aerosols) 2.5 mg INHALATION Q4H PRN PRN PRN Reason: SOB/Wheezing Last Admin: 11/11/19 23:50 Dose: 2.5 mg Documented by: Allopurinol (Zyloprim) 300 mg PO DAILY [facility] Last Admin: 11/12/19 09:07 Dose: 300 mg Documented by: Atorvastatin Calcium (Lipitor) 20 mg PO QHS [facility] Last Admin: 11/12/19 21:10 Dose: 20 mg Documented by: Clonazepam (Klonopin) 0.5 mg PO BID PRN PRN Reason: ANXIETY Last Admin: 11/12/19 21:10 Dose: 0.5 mg Documented by: Dicyclomine HCl (Bentyl) 10 mg PO Q6 [facility] Last Admin: 11/13/19 05:54 Dose: 10 mg Documented by: Famotidine (Pepcid) 20 mg PO BID [facility] Last Admin: 11/12/19 21:10 Dose: 20 mg Documented by: Folic Acid (Folic Acid) 1 mg PO DAILY@0800 [facility] Last Admin: 11/12/19 09:07 Dose: 1 mg Documented by: Guaifenesin (Mucinex) 1,200 mg PO BID [facility] Last Admin: 11/12/19 21:10 Dose: 1,200 mg Documented by: Azithromycin 500 mg/ Dextrose 255 mls @ 250 mls/hr IV Q24 [facility] Stop: 11/15/19 10:01 Last Infusion: 11/12/19 11:53 Dose: Infused Documented by: Ceftriaxone Sodium 2 gm/ (Sodium Chloride) 50 mls @ 100 mls/hr IV Q24 [facility] Stop: 11/17/19 10:01 Last Infusion: 11/12/19 10:24 Dose: Infused Documented by: Sodium Chloride () 250 mls @ 15 mls/hr IV .[id number] PRN PRN Reason: Saline Flush Last Infusion: 11/12/19 12:05 Dose: 0 mls/hr Documented by: Sodium Chloride () 250 mls @ 15 mls/hr IV .[id number] PRN PRN Reason: Additional IVPB Infusion Insulin Human Lispro (Humalog Kwikpen (Bkc)) 0 unit SC Q6 [facility]; Protocol Last Admin: 11/13/19 05:54 Dose: Not Given Documented by: Lamotrigine (Lamictal) 200 mg PO BID [facility] Last Admin: 11/12/19 21:10 Dose: 200 mg Documented by: Metformin HCl (Glucophage) 500 mg PO BIDCM [facility] Last Admin: 11/12/19 17:23 Dose: 500 mg Documented by: Mirabegron (Myrbetriq) 25 mg PO DAILY [facility] Last Admin: 11/12/19 09:07 Dose: 25 mg Documented by: Ondansetron HCl (Zofran) 4 mg IV Q8H PRN PRN PRN Reason: NAUSEA/VOMITING Last Admin: 11/10/19 17:23 Dose: 4 mg Documented by: Quetiapine Fumarate (Seroquel) 200 mg PO BID [facility] Last Admin: 11/12/19 21:10 Dose: 200 mg Documented by: Rivaroxaban (Xarelto) 20 mg PO DAILY@1700 [facility] Last Admin: 11/12/19 17:23 Dose: 20 mg Documented by: Senna/Docusate Sodium (Senokot-S, Leigh-Colace) 2 tablet PO BID PRN PRN PRN Reason: Constipation Last Admin: 11/10/19 11:04 Dose: 2 tablet Documented by: Sodium Chloride () 10 - 40 ml IV UD PRN PRN Reason: SALINE FLUSH Last Admin: 11/12/19 21:10 Dose: 10 ml Documented by: Tamsulosin HCl (Flomax) 0.4 mg PO DAILY@1730 [facility] Last Admin: 11/12/19 17:23 Dose: 0.4 mg Documented by: Tolterodine Tartrate (Detrol La) 2 mg PO DAILY [facility] Last Admin: 11/12/19 09:07 Dose: 2 mg Documented by: Venlafaxine HCl (Effexor Xr) 150 mg PO DAILY [facility] Last Admin: 11/12/19 09:07 Dose: 150 mg Documented by: Zolpidem Tartrate (Ambien (Generic)) 5 mg PO QHS PRN PRN PRN Reason: INSOMNIA Medical Necessity - Tobacco Use Smoking Status: Former smoker Tobacco Use: Cigarettes Assessment/Plan All Active Problems (Last Updated 11/10/19 @ 09:[address] Sukhi Acevedo MD) Septic shock (Acute) Community acquired pneumonia (Acute) This is a 74 years old male patient presented to the emergency room because of fall and left hip pain, squad noted that the patient was dyspneic, tachypneic, febrile and tachycardic and he was found to have right lower lobe infiltrate with lactic acid of 5.3 consistent with septic shock secondary to right lower lobe community-acquired pneumonia complicated by acute hypoxic respiratory failure and also found to have hypoglycemia. #1 septic shock/right lower lobe community-acquired pneumonia: He is on day 4 of IV Rocephin and Zithromax. He had a spike of fever last night, WBC is trending down, other vital signs are stable. Nasal swab for flu as a and B was negative. Rapid RSV was negative. Pneumococcal and Legionella antigen were negative. Blood cultures showed no growth in 48 hours. COVID-19 testing came back negative. Plan to continue same treatment, ambulate, wean off oxygen, repeat CBC and BMP tomorrow morning, anticipate discharge tomorrow. #2 acute hypoxic respiratory failure: Secondary to #1. Respiratory status continue to improve slowly. He is requiring 1 to 2 L of oxygen. Plan to wean him off oxygen, ambulate, encourage incentive spirometer. #3 Newly diagnosed type 2 diabetes mellitus: Hemoglobin A1c was 7.1%. Started on metformin twice daily. Blood sugar has been around 150 mg/dL. Plan to continue same treatment. #4 mechanical fall/generalized weakness: Patient complained of left hip pain. X-ray of the left hip done, reviewed, no acute fractures. Continue Tylenol PRN for pain. #5 stage III chronic kidney disease: Baseline creatinine has been around 1.2 to 1.5 mg/dL. Admission creatinine is 1.56, most recent creatinine is 1.13, stable at baseline. #6 history of pulmonary embolism: Continue Xarelto. #7 hypertension: Blood pressure stable, he is not on any antihypertensive medication at this time. #8 hyperlipidemia: Continue statins. #9 bipolar disorder: Stable, continue quetiapine and Effexor. #10 CODE STATUS: DNR CCA, no intubation. #11 DVT prophylaxis: Continue Xarelto. This note was generated with [employer] dictation software. It may contain incorrect words, spelling, and punctuation that were not noted in checking the note before signing. Inpatient E&M: 72085 Subs Hosp L2
[2019-11-13] MEDS: QUEtiapine 100 MG Tablet 200 MG PO ×2 (09:01→21:33)
[2019-11-13] MEDS: Mirabegron 25 MG TAB.ER.24H PO (09:01)
[2019-11-13] MEDS: Venlafaxine XR 150 MG Capsule PO (09:01)
[2019-11-13] MEDS: 0.9% Saline Lock 10 ML Syringe IV ×2 (09:01→17:04)
[2019-11-13] MEDS: guaiFENesin 1,200 MG Tablet 1200 MG PO ×2 (09:01→21:33)
[2019-11-13] MEDS: Allopurinol 300 MG Tablet PO (09:01)
[2019-11-13] MEDS: metFORMIN HCl 500 MG Tablet PO ×2 (09:02→16:54)
[2019-11-13] MEDS: Folic Acid 1 MG Tablet PO (09:02)
[2019-11-13] MEDS: Famotidine 20 MG Tablet PO ×2 (09:02→21:33)
[2019-11-13] MEDS: Tolterodine Tartrate 2 MG CAP.SA PO (09:03)
[2019-11-13] MEDS: lamoTRIgine 100 MG Tablet 200 MG PO ×2 (09:08→21:33)
--- NOTE | 2019-11-13 10:07 | CASEMGMT ---
Social Work Note Pt is likely discharging home tomorrow with [facility] for SN, PT/OT. GISELA placed a call to pt's MARCUS Angeles at [facility] and updated her that pt's COVID results came back negative and pt will likely be discharged home tomorrow. Bridgette asked that discharge paperwork to be faxed to [phone]. GISELA placed green sheet on chart. Plan: Home with HHC and resumption of aide services. Christal Gomez [employer] WORKER, [employer]
[2019-11-13 10:20] LABS: Pathologist Review Reviewed
[2019-11-13] MEDS: Insulin Lispro 100 UNIT/ML INSULN.PEN SC (11:32)
[2019-11-13 11:41] LABS: Bedside Glucose 192 mg/dL (70-110)
--- NOTE | 2019-11-13 11:54 | CASEMGMT ---
RN MARCUS NOTE: COVID results negative. Pt no longer in isolation precautions. RN CM to room to talk with pt. Pt states he has not found anyone that can take him home at discharge yet, so he anticipates he will need to call a taxi to take him home. Pt aware he will be sent home w/script for a glucometer. Pt states he thinks he may have someone that will be able to pick that up for him some time this weekend, but he is not sure. Pt made aware [facility] able to accept him and that they will contact him on when start of care will be and that nurse from [facility] will do diabetic teaching with him. Pt voices appreciation. Pt's preferred pharmacy was [facility]. Call placed to [facility] at this time. They state they do not deliver to pt's home on the weekend. Pt made aware and requested [facility] for any new meds at discharge. This was updated in [employer]. Call placed to Paz @ [facility]. She was made aware anticipated d/c is tomorrow. She was also made aware COVID results are negative. Hospital to Post-acute COVID 19 transfer communication tool faxed to [facility] at this time. Paz was also made aware pt will be sent home with script for Glucometer. D/C plan: Home w/[facility]: SN and PT/OT Will need home oxygen ambulation testing completed prior to discharge. Will need script for Glucometer. Green sheet placed on chart w/instructions for HHC and Oxygen, if pt qualifies. Aroldo SARAH RN, CM
[2019-11-13] MEDS: Acetaminophen 325 MG Tablet 650 MG PO (15:20)
[2019-11-13] MEDS: Tamsulosin HCl 0.4 MG Capsule PO (16:56)
[2019-11-13] MEDS: Rivaroxaban 20 MG Tablet PO (16:56)
[2019-11-13 17:00] LABS: Bedside Glucose 134 mg/dL (70-110)
[2019-11-13] MEDS: Ondansetron 4 MG/2 ML Vial IV (17:04)
[2019-11-13] MEDS: Atorvastatin Calcium 20 MG Tablet PO (21:33)
[2019-11-14] VITALS (20 sets, daily range): BP systolic 110–154; BP diastolic 62–86; PULSE 82–97; RESP 16–18; TEMP 36.3–38.6; O2SAT 85–97
[2019-11-14] MEDS: Acetaminophen 325 MG Tablet 650 MG PO ×2 (00:31→15:57)
[2019-11-14] MEDS: Dicyclomine 10 MG Capsule PO ×5 (00:31→23:47)
[2019-11-14 00:41] LABS: Bedside Glucose 131 mg/dL (70-110)
[2019-11-14 06:21] LABS: Absolute Lymphocyte Count 2.07 X10^3/uL (0.83-4.51); Basophil# 0.06 X10^3/uL; Basophil% 0.5 % (0-1); Eosinophil# 0.35 X10^3/uL; Eosinophils% 2.8 % (0-5); Hematocrit 33.4 % (40-54); Hemoglobin 10.5 g/dL (13.0-16.5); Lymphocyte # 2.07 X10^3/ul (4.0); Lymphocyte % 16.5 % (19-41); Mean Corp Hgb Conc 31.4 g/dL (32-36); Mean Corpuscular Hgb 28.8 pg (27.0-32.0); Mean Corpuscular Volume 91.8 fL (80-94); Mean Platelet Vol. 8.9 fl (6.2-12.0); Monocyte# 1.96 X10^3/uL; Monocyte% 15.6 % (0-10); NRBC Flagged by Analyzer 0 % (0-5); Neutrophil # 7.97 X10^3/uL (2.7-7.7); Neutrophil % 63.5 % (47-70); POSITIVE DIFFERENTIAL YES; Platelet Count 249 K/mm3 (150-450); RBC Distribution Width CV 14.6 % (11.6-14.6); RBC Distribution Width SD 48.1 fl (35.1-43.9); Red Blood Count 3.64 M/mm3 (4.6-6.2); White Blood Count 12.6 K/mm3 (4.4-11.0)
[2019-11-14 06:32] LABS: Differential Indicated SCAN CRITERIA MET
[2019-11-14 06:33] LABS: Anion Gap 6 (5-15); BUN 15 mg/dL (7-18); BUN/Creat Ratio 14.6 RATIO (10-20); Calcium,Total 8.8 mg/dL (8.5-10.1); Chloride 103 mmol/L (98-107); Creatinine, Serum 1.03 mg/dL (0.70-1.30); EST Glomerular Filtration Rate 75 mL/min (>60); Est Glom Filt Rate - Afr Amer 91 mL/min (>60); Estimated Creatinine Clearance 70.11 ml/min; Glucose 142 mg/dL (74-106); Potassium 3.7 mmol/L (3.5-5.1); Sodium Level 137 mmol/L (136-145)
[2019-11-14 06:36] LABS: Bedside Glucose 134 mg/dL (70-110)
--- NOTE | 2019-11-14 07:50 | PCM.PN.INT ---
Subjective: Patient did okay overnight. Patient did have significant fever and is still requiring a little bit of nasal cannula oxygen. Patient states that he is overall asymptomatic except for dysuria. Patient states he has had issues with urinary retention in the past, but has not had any recent Britton catheters. Patient is supposed to see at the urologist in 2 weeks for possible intervention. General: Alert, Oriented x3, Cooperative, No apparent distress, Well developed, Well nourished, - - Obese. Speaking in full sentences. HEENT: Atraumatic, PERRLA, EOMI, Normocephalic Oral: Moist Mucosa, No Gingival or Mucosal Lesions/ Ulcerations Neck: Supple, No JVD, No Nodes, Trachea Midline Lungs: Clear to auscultation, Normal air movement, No rhonchi, No wheeze, No rales, - - Symmetric expansion. No dullness to percussion. Cardiovascular: Regular rate, Regular Rhythm, Normal S1, Normal S2, No murmurs, No rub noted, No Gallop Abdomen: Bowel Sounds Present, Soft, Non Tender, Non-Distended Extremities: No clubbing, No cyanosis, Edema - Trace lower extremity Skin: No rashes, No breakdown Musculoskeletal: No Tenderness to Palpation of Joints or Extremities Lymphatic: No Cervical, Supraclavicular, or Inguinal Adenopathy Neurological: Cranial nerves II-XII grossly intact, Neuro grossly intact, Motor Exam 5/5 strength throughout Psych/Mental Status: Alert and oriented to time, place, person, mood and affect Vital Signs Temp Pulse Resp BP Pulse Ox 36.3 C L 89 18 137/62 H 94 11/14/19 04:30 11/14/19 04:30 11/14/19 04:30 11/14/19 04:30 11/14/19 04:30 Oxygen Flow Rate (L/min) 3 Oxygen Delivery Method Nasal Cannula Weight: 102.7 kg Body Mass Index (BMI) 32.4 Intake and Output for Last 24 Hours 11/12/19 11/13/19 11/14/19 23:59 23:59 23:59 Intake Total 2115.00 / 2115.00 1555 / 1555 687 / 687 Balance 2115. / 2115.00 1555 / 1555 687 / 687 Labs (Last 48 Hours) 11/11/19 11/12/19 11/12/19 09:01 05:18 09:02 WBC 22.1 H RBC 3.57 L Hgb 10.4 L Hct 32.6 L MCV 91.3 MCH 29.1 MCHC 31.9 L RDW Std Deviation 48.6 H RDW Coeff of Luca 14.6 Plt Count 218 MPV 9.1 Immature Gran % (Auto) 1.900 H Neut % (Auto) 83.7 H Lymph % (Auto) 6.6 L Atlantic % (Auto) 6.9 Eos % (Auto) 0.7 Baso % (Auto) 0.2 Absolute Neuts (auto) 18.5 H Absolute Lymphs (auto) 1.46 Nucleated RBC % 0 Differential Comment SCANNED Diff Path Review Reviewed Sodium Potassium Chloride Carbon Dioxide Anion Gap BUN Creatinine Estim Creat Clear Calc Est GFR (MDRD) Af Amer Est GFR (MDRD) Non-Af BUN/Creatinine Ratio Glucose Calcium COVID-19 ([facility]) POC Glucose 164 H 11/12/19 11/12/19 11/12/19 11:46 17:14 23:13 WBC RBC Hgb Hct MCV MCH MCHC RDW Std Deviation RDW Coeff of Luca Plt Count MPV Immature Gran % (Auto) Neut % (Auto) Lymph % (Auto) Atlantic % (Auto) Eos % (Auto) Baso % (Auto) Absolute Neuts (auto) Absolute Lymphs (auto) Nucleated RBC % Differential Comment Diff Path Review Sodium Potassium Chloride Carbon Dioxide Anion Gap BUN Creatinine Estim Creat Clear Calc Est GFR (MDRD) Af Amer Est GFR (MDRD) Non-Af BUN/Creatinine Ratio Glucose Calcium COVID-19 (PETRONA) POC Glucose 203 H 144 H 167 H 11/13/19 11/13/19 11/13/19 05:53 11:31 16:44 WBC RBC Hgb Hct MCV MCH MCHC RDW Std Deviation RDW Coeff of Luca Plt Count MPV Immature Gran % (Auto) Neut % (Auto) Lymph % (Auto) Atlantic % (Auto) Eos % (Auto) Baso % (Auto) Absolute Neuts (auto) Absolute Lymphs (auto) Nucleated RBC % Differential Comment Diff Path Review Sodium Potassium Chloride Carbon Dioxide Anion Gap BUN Creatinine Estim Creat Clear Calc Est GFR (MDRD) Af Amer Est GFR (MDRD) Non-Af BUN/Creatinine Ratio Glucose Calcium COVID-19 ([facility]RONA) POC Glucose 128 H 192 H 134 H 11/14/19 11/14/19 11/14/19 00:27 06:10 06:10 WBC 12.6 H RBC 3.64 L Hgb 10.5 L Hct 33.4 L MCV 91.8 MCH 28.8 MCHC 31.4 L RDW Std Deviation 48.1 H RDW Coeff of Luca 14.6 Plt Count 249 MPV 8.9 Immature Gran % (Auto) 1.100 H Neut % (Auto) 63.5 Lymph % (Auto) 16.5 L Atlantic % (Auto) 15.6 H Eos % (Auto) 2.8 Baso % (Auto) 0.5 Absolute Neuts (auto) 8.0 H Absolute Lymphs (auto) 2.07 Nucleated RBC % 0 Differential Comment COMMENT Diff Path Review May foll Sodium 137 Potassium 3.7 Chloride 103 Carbon Dioxide 28.0 Anion Gap 6 BUN 15 Creatinine 1.03 Estim Creat Clear Calc 70.11 Est GFR (MDRD) Af Amer 91 Est GFR (MDRD) Non-Af 75 BUN/Creatinine Ratio 14.6 Glucose 142 H Calcium 8.8 COVID-19 ([facility]RONA) POC Glucose 131 H 11/14/19 06:23 WBC RBC Hgb Hct MCV MCH MCHC RDW Std Deviation RDW Coeff of Luca Plt Count MPV Immature Gran % (Auto) Neut % (Auto) Lymph % (Auto) Atlantic % (Auto) Eos % (Auto) Baso % (Auto) Absolute Neuts (auto) Absolute Lymphs (auto) Nucleated RBC % Differential Comment Diff Path Review Sodium Potassium Chloride Carbon Dioxide Anion Gap BUN Creatinine Estim Creat Clear Calc Est GFR (MDRD) Af Amer Est GFR (MDRD) Non-Af BUN/Creatinine Ratio Glucose Calcium COVID-19 ([facility]RONA) POC Glucose 134 H Microbiology 11/10/19 07:00 Blood Culture (Wb) - Venous Blood Culture - Preliminary No growth in 48 hours. 11/10/19 07:55 Blood Culture (Wb) - Anticubital Left Blood Culture - Preliminary No growth in 48 hours. Medical Necessity - Tobacco Use Smoking Status: Former smoker Tobacco Use: Cigarettes Assessment/Plan All Active Problems (Last Updated 11/10/19 @ 09:[address] Sukhi Acevedo MD) Septic shock (Acute) Community acquired pneumonia (Acute) RECOMMENDATIONS: 1. Walking oximetry prior to discharge 2. Recheck urinalysis 3. Wean oxygen as tolerated 4. Complete 7 days of empiric antibiotics 5. Likely okay to discharge from a pulmonary perspective. Follow-up with nurse practitioner in 2 weeks if require supplemental oxygen 6. Okay to continue baseline psychiatric medications and Xarelto IMPRESSIONS: 1. Acute hypoxic respiratory failure secondary to right lower lobe pneumonia Patient with significant AA gradient on presentation with right lower lobe pneumonia. Unfortunately, it is unclear how long he was hypoxic, but this may have led to the initial elevated lactate. Patient is on appropriate antibiotics at this time and improving rapidly. No history of obstructive lung disease or wheezing on exam, so would hold on steroids for now. Agree with bronchodilators PRN and pulmonary toileting. Infectious work-up was negative from an antigenic culture standpoint. Okay to transition to p.o. antibiotics and complete a 7-day course. Patient should have a walking oximetry prior to discharge. If patient requires supplemental oxygen, follow-up in pulmonary office with nurse practitioner in 2 weeks would be advisable. 2. Septic shock secondary to right lower lobe pneumonia Patient is technically septic shock secondary to elevated lactate on presentation, but has remained hemodynamically stable while in the intensive care unit. This would be suggestive of protracted hypoxia as the cause of elevated lactate. Continue with baseline Xarelto therapy. Presence of Xarelto on admission makes pulmonary embolism unlikely, despite history. Patient continues to spike fevers despite 4 days of antibiotics for community-acquired pneumonia. Patient is not having any significant sputum production. Will check urine to make sure there is no resistant organism. Doubt DVT causing fever given Xarelto therapy. 3. Mechanical fall with left hip pain No fracture was noted on x-ray. Pain is controlled at this time. Clinical suspicion for weakness secondary to hypoxia, but this cannot be confirmed. 4. History of PE/CKD stage III/hypertension/hyperlipidemia/bipolar Complicates care, management, recovery and prognosis. Continue with baseline psychiatric medications. Inpatient E&M: 40543 [facility] Hosp L2
--- NOTE | 2019-11-14 09:30 | RAD_ITS ---
STUDY: X-RAY CHEST REASON FOR EXAM: Male, 74 years old. pneumonia, tested negative for covid 19, but now questioning, fever TECHNIQUE: PA and lateral views of the chest. COMPARISON: November 10, 2019 FINDINGS: There is implantable loop recorder. There are monitoring devices. There are worsening groundglass and airspace opacities in the right lung. There is left lower lung scarring or atelectasis. There are granulomatous calcifications. There is no demonstrated pleural abnormality. Normal size heart. Normal mediastinum and glenna. Normal visualized pulmonary arteries. Normal visualized aortic arch and descending thoracic aorta. Normal visualized thoracic spine. There is a healed left rib fractures. There is no demonstrated abnormality of the visualized soft tissue structures of the upper abdomen. RAD/Chest PA and Lateral IMPRESSION: Worsening right pneumonia. Electronically Signed: Jordan Hyde MD at 14:45 EDT , Service support ,
[2019-11-14] MEDS: 0.9% Saline Lock 10 ML Syringe IV ×2 (09:36→12:48)
[2019-11-14] MEDS: Folic Acid 1 MG Tablet PO (09:41)
[2019-11-14] MEDS: Tolterodine Tartrate 2 MG CAP.SA PO (09:41)
[2019-11-14] MEDS: metFORMIN HCl 500 MG Tablet PO ×2 (09:41→17:25)
[2019-11-14] MEDS: QUEtiapine 100 MG Tablet 200 MG PO ×2 (09:42→21:05)
[2019-11-14] MEDS: guaiFENesin 1,200 MG Tablet 1200 MG PO ×2 (09:42→21:05)
[2019-11-14] MEDS: Famotidine 20 MG Tablet PO ×2 (09:42→21:04)
[2019-11-14] MEDS: Venlafaxine XR 150 MG Capsule PO (09:42)
[2019-11-14] MEDS: Allopurinol 300 MG Tablet PO (09:42)
[2019-11-14] MEDS: Mirabegron 25 MG TAB.ER.24H PO (09:42)
[2019-11-14] MEDS: lamoTRIgine 100 MG Tablet 200 MG PO ×2 (09:42→21:04)
[2019-11-14 10:11] LABS: Bacteria 0 SEEN /hpf (None Seen); Mucous, Urine 0 SEEN /hpf (<or=2+); Squamous Epithelial Cells - UA 0 SEEN /hpf (0-5)
[2019-11-14 10:15] LABS: Color, Urine Yellow (Yellow); Glucose, Dipstick Normal (Normal); Ketone-Dipstick Negative (Negative); Leukocyte Esterase-Dipstick 25 /ul (Negative); Nitrite-Dipstick Negative (Negative); Occult Blood-Urine 10 /ul (Negative); Protein-Dipstick 30 mg/dl (Negative); Urine Bilirubin Dipstick Negative (Negative); Urine Clarity Clear (Clear); Urine Urobilinogen 1 mg/dl (Normal); Urine pH 6.5 (5.0 - 8.0)
[2019-11-14 10:36] LABS: Red Blood Cells-Urine 0-5 SEEN /hpf (0-5); White Blood Cells 0-5 SEEN /hpf (0-5)
[2019-11-14] MEDS: Insulin Lispro 100 UNIT/ML INSULN.PEN SC ×2 (11:06→23:47)
--- NOTE | 2019-11-14 11:09 | PCM.PROGNOTE ---
Patient Problems: Active and Suspected Problems (Last Updated 11/10/19 @ 09:[address] Sukhi Acevedo MD) Septic shock (Acute) Community acquired pneumonia (Acute) Subjective: Chief complaint: Follow-up after admission for septic shock, right lower lobe community-acquired pneumonia, acute hypoxic respiratory failure. Patient seen and examined. No acute events overnight. He remained stable, no significant shortness of breath. Still having cough with minimal sputum. He is still having spikes of fever, he had a temp of 101.3 Fahrenheit early this morning. Remains on 2 to 3 L of oxygen, blood pressure and heart rate are stable. Repeat chest x-ray reviewed, revealed worsening infiltrate involving the whole right lung and left lower lobe. - Physical Exam Vitals/I&O's: Vital Signs Temp Pulse Resp BP Pulse Ox 99.7 F H 92 18 146/81 H 93 11/14/19 09:27 11/14/19 09:27 11/14/19 09:27 11/14/19 09:27 11/14/19 09:27 Oxygen Flow Rate (L/min) 3 Oxygen Delivery Method Nasal Cannula Weight: 226 lb 6.636 oz Body Mass Index (BMI) 32.4 Intake and Output for Last 24 Hours 11/12/19 11/13/19 11/14/19 23:59 23:59 23:59 Intake Total 2115.00 / 2115.00 1555 / 1555 687 / 687 Balance 2115. / 2115. 1555 / 1555 687 / 687 General: Alert, Oriented x3, Cooperative, No apparent distress HEENT: Atraumatic, PERRLA, EOMI, Normocephalic Oral: Moist Mucosa, No Gingival or Mucosal Lesions/ Ulcerations Neck: Supple, No JVD, Negative Carotid Bruits, Trachea Midline, Thyroid Normal Size and Texture Lungs: No wheeze, Diminished, Rales, Rhonchi, - - Decreased breath sounds bilateral, more on the right side, crackles. Cardiovascular: Regular rate, Regular Rhythm, Normal S1, Normal S2, PMI Normal Abdomen: Bowel Sounds Present, Soft, Non Tender, Non-Distended, No Hepato-splenomegaly Extremities: No clubbing, No cyanosis, No edema Skin: No rashes, No breakdown Lymphatic: No Cervical, Supraclavicular, or Inguinal Adenopathy Neurological: Cranial nerves II-XII grossly intact, Neuro grossly intact Psych/Mental Status: Normal Affect, Appropriate Microbiology Past 72 Hours 11/10/19 07:00 Blood Culture (Wb) - Venous Blood Culture - Preliminary No growth in 48 hours. 11/10/19 07:55 Blood Culture (Wb) - Anticubital Left Blood Culture - Preliminary No growth in 48 hours. Laboratory Results 11/13/19 11:31: POC Glucose 192 H 11/13/19 16:44: POC Glucose 134 H 11/14/19 00:27: POC Glucose 131 H 11/14/19 06:10: WBC 12.6 H, RBC 3.64 L, Hgb 10.5 L, Hct 33.4 L, MCV 91.8, MCH 28.8, MCHC 31.4 L, RDW Std Deviation 48.1 H, RDW Coeff of Luca 14.6, Plt Count 249, MPV 8.9, Immature Gran % (Auto) 1.100 H, Neut % (Auto) 63.5, Lymph % (Auto) 16.5 L, [place] % (Auto) 15.6 H, Eos % (Auto) 2.8, Baso % (Auto) 0.5, Absolute Neuts (auto) 8.0 H, Absolute Lymphs (auto) 2.07, Nucleated RBC % 0, Differential Comment COMMENT, Diff Path Review December11/14/19 06:10: Sodium 137, Potassium 3.7, Chloride 103, Carbon Dioxide 28.0, Anion Gap 6, BUN 15, Creatinine 1.03, Estim Creat Clear Calc 70.11, Est GFR (MDRD) Af Amer 91, Est GFR (MDRD) Non-Af 75, BUN/Creatinine Ratio 14.6, Glucose 142 H, Calcium 8.8 11/14/19 06:23: POC Glucose 134 H 11/14/19 09:45: Urine Color Yellow, Urine Clarity Clear, Urine pH 6.5, Ur Specific [place] 1.010, Urine Protein 30 H, Urine Glucose (UA) Normal, Urine Ketones Negative, Urine Occult Blood 10 H, Urine Nitrite Negative, Urine Bilirubin Negative, Urine Urobilinogen 1 H, Ur Leukocyte Esterase 25 H, Urine RBC 0-5 SEEN, Urine WBC 0-5 SEEN, Ur Squamous Epith Cells 0 SEEN, Urine Bacteria 0 SEEN, Urine Mucus 0 SEEN Current Medications Acetaminophen (Tylenol) 650 mg PO Q6H PRN PRN PRN Reason: Pain Score 1-10/Temp > 100.7 F Last Admin: 11/14/19 00:31 Dose: 650 mg Documented by: Albuterol Sulfate (Ventolin Aerosols) 2.5 mg INHALATION Q4H PRN PRN PRN Reason: SOB/Wheezing Last Admin: 11/11/19 23:50 Dose: 2.5 mg Documented by: Allopurinol (Zyloprim) 300 mg PO DAILY [facility] Last Admin: 11/14/19 09:42 Dose: 300 mg Documented by: Atorvastatin Calcium (Lipitor) 20 mg PO QHS [facility] Last Admin: 11/13/19 21:33 Dose: 20 mg Documented by: Clonazepam (Klonopin) 0.5 mg PO BID PRN PRN Reason: ANXIETY Last Admin: 11/12/19 21:10 Dose: 0.5 mg Documented by: Dicyclomine HCl (Bentyl) 10 mg PO Q6 [facility] Last Admin: 11/14/19 06:23 Dose: 10 mg Documented by: Famotidine (Pepcid) 20 mg PO BID [facility] Last Admin: 11/14/19 09:42 Dose: 20 mg Documented by: Folic Acid (Folic Acid) 1 mg PO DAILY@0800 [facility] Last Admin: 11/14/19 09:41 Dose: 1 mg Documented by: Guaifenesin (Mucinex) 1,200 mg PO BID [facility] Last Admin: 11/14/19 09:42 Dose: 1,200 mg Documented by: Azithromycin 500 mg/ Dextrose 255 mls @ 250 mls/hr IV Q24 [facility] Stop: 11/15/19 10:01 Last Admin: 11/14/19 10:59 Dose: 250 mls/hr Documented by: Sodium Chloride () 250 mls @ 15 mls/hr IV .[id number] PRN PRN Reason: Saline Flush Last Infusion: 11/12/19 12:05 Dose: 0 mls/hr Documented by: Sodium Chloride () 250 mls @ 15 mls/hr IV .[id number] PRN PRN Reason: Additional IVPB Infusion Piperacillin Sod/Tazobactam (Sod 3.375 gm/ Sodium Chloride) 50 mls @ 12.5 mls/hr IV Q8 [facility] Insulin Human Lispro (Humalog Kwikpen (Bkc)) 0 unit SC Q6 [facility]; Protocol Last Admin: 11/14/19 11:06 Dose: 2 u Documented by: Lamotrigine (Lamictal) 200 mg PO BID [facility] Last Admin: 11/14/19 09:42 Dose: 200 mg Documented by: [facility] Last Admin: 11/14/19 09:41 Dose: 500 mg Documented by: Mirabegron (Myrbetriq) 25 mg PO DAILY [facility] Last Admin: 11/14/19 09:42 Dose: 25 mg Documented by: Ondansetron HCl (Zofran) 4 mg IV Q8H PRN PRN PRN Reason: NAUSEA/VOMITING Last Admin: 11/13/19 17:04 Dose: 4 mg Documented by: Quetiapine Fumarate (Seroquel) 200 mg PO BID [facility] Last Admin: 11/14/19 09:42 Dose: 200 mg Documented by: Rivaroxaban (Xarelto) 20 mg PO DAILY@1700 [facility] Last Admin: 11/13/19 16:56 Dose: 20 mg Documented by: Senna/Docusate Sodium (Senokot-S, Leigh-Colace) 2 tablet PO BID PRN PRN PRN Reason: Constipation Last Admin: 11/10/19 11:04 Dose: 2 tablet Documented by: Sodium Chloride () 10 - 40 ml IV UD PRN PRN Reason: SALINE FLUSH Last Admin: 11/14/19 09:36 Dose: 10 ml Documented by: Tamsulosin HCl (Flomax) 0.4 mg PO DAILY@1730 [facility] Last Admin: 11/13/19 16:56 Dose: 0.4 mg Documented by: Tolterodine Tartrate (Detrol La) 2 mg PO DAILY [facility] Last Admin: 11/14/19 09:41 Dose: 2 mg Documented by: Venlafaxine HCl (Effexor Xr) 150 mg PO DAILY [facility] Last Admin: 11/14/19 09:42 Dose: 150 mg Documented by: Zolpidem Tartrate (Ambien (Generic)) 5 mg PO QHS PRN PRN PRN Reason: INSOMNIA Medical Necessity - Tobacco Use Smoking Status: Former smoker Tobacco Use: Cigarettes Assessment/Plan All Active Problems (Last Updated 11/10/19 @ 09:[address] Sukhi Acevedo MD) Septic shock (Acute) Community acquired pneumonia (Acute) This is a 74 years old male patient presented to the emergency room because of fall and left hip pain, squad noted that the patient was dyspneic, tachypneic, febrile and tachycardic and he was found to have septic shock secondary to right lower lobe community-acquired pneumonia which is complicated by acute hypoxic respiratory failure and he was found to have newly diagnosed type 2 diabetes mellitus. #1 septic shock/right lower lobe community-acquired pneumonia: He is on day 5 of IV Rocephin and Zithromax. He is still having spikes of fever, maximum was 101.3 Fahrenheit last night. His oxygen requirement slightly increased to 3 L. Patient remained stable otherwise, WBC is trending down. Nasal swab for flu as a and B was negative. Rapid RSV was negative. Pneumococcal and Legionella antigen were negative. Blood cultures showed no growth in 48 hours. COVID-19 testing came back negative. Repeat chest x-ray from today revealed worsening infiltrate involving the whole right lung as well as left lower lobe. Urinalysis done today and revealed no evidence of infection. Plan: Discontinue IV Rocephin, continue Zithromax, start IV Zosyn, repeat COVID-19 testing, restart COVID-19 precautions. #2 acute hypoxic respiratory failure: Secondary to #1. Today, he is requiring 3 L of oxygen which is slightly up from yesterday. Patient remained without significant shortness of breath. Chest x-ray reviewed as above. Plan as above. #3 Newly diagnosed type 2 diabetes mellitus: Hemoglobin A1c was 7.1%. Continue metformin twice daily. Blood sugar has been around 150 mg/dL. #4 mechanical fall/generalized weakness: Patient complained of left hip pain. X-ray of the left hip done, reviewed, no acute fractures. Continue Tylenol PRN for pain. #5 stage III chronic kidney disease: Baseline creatinine has been around 1.2 to 1.5 mg/dL. Admission creatinine is 1.56, today's creatinine is 1.03, stable at baseline. #6 history of pulmonary embolism: Continue Xarelto. #7 hypertension: Blood pressure stable, he is not on any antihypertensive medication at this time. #8 hyperlipidemia: Continue statins. #9 bipolar disorder: Stable, continue quetiapine and Effexor. #10 CODE STATUS: DNR CCA, no intubation. #11 DVT prophylaxis: Continue Xarelto. This note was generated with [employer] dictation software. It may contain incorrect words, spelling, and punctuation that were not noted in checking the note before signing. Inpatient E&M: 32753 Subs Hosp L2
[2019-11-14 11:21] LABS: Bedside Glucose 192 mg/dL (70-110)
--- NOTE | 2019-11-14 13:15 | NURSING ---
Denture adhesive applied to dentures by patient prior to meal. Patient had coughing episode while eating lunch. Recovered on own. Pulse ox dropped to 88% on 3L/NC. Increased oxygen to 4L/NC. Pulse ox 93%. Attempted to contact ST, but unavailable. Patient made NPO per nursing measure until able to be reevaluated by ST in am. Patient voices understanding and agrees to same.
[2019-11-14] MEDS: Rivaroxaban 20 MG Tablet PO (17:26)
[2019-11-14] MEDS: Tamsulosin HCl 0.4 MG Capsule PO (17:26)
[2019-11-14 18:25] LABS: Bedside Glucose 142 mg/dL (70-110)
[2019-11-14] MEDS: Atorvastatin Calcium 20 MG Tablet PO (21:05)
[2019-11-15] VITALS (16 sets, daily range): BP systolic 111–156; BP diastolic 58–80; PULSE 85–94; RESP 16–20; TEMP 36.7–38.6; O2SAT 88–96
[2019-11-15 00:01] LABS: Bedside Glucose 162 mg/dL (70-110)
[2019-11-15] MEDS: Acetaminophen 325 MG Tablet 650 MG PO ×2 (03:20→15:22)
[2019-11-15] MEDS: Dicyclomine 10 MG Capsule PO ×4 (05:10→23:36)
[2019-11-15 05:36] LABS: Bedside Glucose 149 mg/dL (70-110)
[2019-11-15 07:19] LABS: Absolute Lymphocyte Count 1.44 X10^3/uL (0.83-4.51); Absolute Neutrophil Count 9.8 X10^3/uL (2.0-7.7); Basophil# 0.04 X10^3/uL; Basophil% 0.3 % (0-1); Eosinophil# 0.32 X10^3/uL; Eosinophils% 2.3 % (0-5); Hematocrit 32.2 % (40-54); Hemoglobin 10.3 g/dL (13.0-16.5); Lymphocyte # 1.44 X10^3/ul (4.0); Lymphocyte % 10.5 % (19-41); Mean Corpuscular Hgb 28.7 pg (27.0-32.0); Mean Corpuscular Volume 89.7 fL (80-94); Mean Platelet Vol. 9.3 fl (6.2-12.0); Monocyte# 1.96 X10^3/uL; Monocyte% 14.3 % (0-10); NRBC Flagged by Analyzer 0 % (0-5); Neutrophil # 9.76 X10^3/uL (2.7-7.7); Neutrophil % 71.3 % (47-70); POSITIVE DIFFERENTIAL YES; Platelet Count 271 K/mm3 (150-450); RBC Distribution Width CV 14.6 % (11.6-14.6); RBC Distribution Width SD 47.5 fl (35.1-43.9); Red Blood Count 3.59 M/mm3 (4.6-6.2); White Blood Count 13.7 K/mm3 (4.4-11.0)
[2019-11-15 07:20] LABS: Differential Indicated SCAN CRITERIA MET
[2019-11-15 07:34] LABS: Anion Gap 4 (5-15); BUN 17 mg/dL (7-18); BUN/Creat Ratio 14.8 RATIO (10-20); Calcium,Total 9.2 mg/dL (8.5-10.1); Chloride 104 mmol/L (98-107); Creatinine, Serum 1.15 mg/dL (0.70-1.30); EST Glomerular Filtration Rate 66 mL/min (>60); Est Glom Filt Rate - Afr Amer 80 mL/min (>60); Estimated Creatinine Clearance 62.79 ml/min; Glucose 160 mg/dL (74-106); Potassium 3.8 mmol/L (3.5-5.1); Sodium Level 136 mmol/L (136-145)
[2019-11-15 07:40] LABS: Differential Comment SCANNED; Platelet Estimate ADEQUATE (ADEQ); Red Cell Morphology NORM C+C NORMAL (NORM C&C)
--- NOTE | 2019-11-15 08:25 | PCM.PN.PUL ---
Patient Problems: Active and Suspected Problems (Last Updated 11/10/19 @ 09:[address] Sukhi Acevedo MD) Septic shock (Acute) Community acquired pneumonia (Acute) Subjective: Patient did okay overnight. Fevers noted, but patient continues to deny any symptoms. Nursing has reported some choking with eating. Objective: Chest x-ray was personally reviewed and shows worsening infiltrates on the right. - Physical Exam Vitals/I&O's: Vital Signs Temp Pulse Resp BP Pulse Ox 37.9 C H 90 17 139/67 H 94 11/15/19 05:06 11/15/19 07:09 11/15/19 05:06 11/15/19 05:06 11/15/19 05:06 Oxygen Flow Rate (L/min) 3 Oxygen Delivery Method Nasal Cannula Weight: 102.512 kg Body Mass Index (BMI) 32.4 Intake and Output for Last 24 Hours 11/13/19 11/14/19 11/15/19 23:59 23:59 23:59 Intake Total 1555 / 1555 2128.25 / 2128.25 124.38 / 124.38 Output Total 150 / 150 250 / 250 Balance 1555 / 1555 / -125.62 / -125.62 General: Alert, Oriented x3, Cooperative, No apparent distress, - - Obese. Speaking in full sentences. HEENT: Atraumatic, PERRLA, EOMI, Normocephalic, - - No scleral icterus or injection noted Oral: Moist Mucosa, No Gingival or Mucosal Lesions/ Ulcerations Neck: Supple, No JVD, No Nodes, Trachea Midline Lungs: No wheeze, No rales, Diminished, Rhonchi - Right greater than left, - - Symmetric expansion. Cardiovascular: Regular rate, Regular Rhythm, Normal S1, Normal S2, No murmurs, No rub noted, No Gallop Abdomen: Bowel Sounds Present, Soft, Non Tender, Non-Distended, Obese Extremities: No clubbing, No cyanosis, No edema Skin: No rashes, No breakdown Musculoskeletal: No Tenderness to Palpation of Joints or Extremities Lymphatic: No Cervical, Supraclavicular, or Inguinal Adenopathy Neurological: Cranial nerves II-XII grossly intact, Neuro grossly intact, Motor Exam 5/5 strength throughout Psych/Mental Status: Alert and oriented to time, place, person, mood and affect Microbiology Past 72 Hours 11/10/19 07:00 Blood Culture (Wb) - Venous Blood Culture - Preliminary No growth in 48 hours. 11/10/19 07:55 Blood Culture (Wb) - Anticubital Left Blood Culture - Preliminary No growth in 48 hours. Laboratory Results 11/14/19 09:45: Urine Color Yellow, Urine Clarity Clear, Urine pH 6.5, Ur Specific [place] 1.010, Urine Protein 30 H, Urine Glucose (UA) Normal, Urine Ketones Negative, Urine Occult Blood 10 H, Urine Nitrite Negative, Urine Bilirubin Negative, Urine Urobilinogen 1 H, Ur Leukocyte Esterase 25 H, Urine RBC 0-5 SEEN, Urine WBC 0-5 SEEN, Ur Squamous Epith Cells 0 SEEN, Urine Bacteria 0 SEEN, Urine Mucus 0 SEEN 11/14/19 10:58: POC Glucose 192 H 11/14/19 12:05: COVID-19 ([place]) Pending 11/14/19 17:22: POC Glucose 142 H 11/14/19 23:42: POC Glucose 162 H 11/15/19 05:08: POC Glucose 149 H 11/15/19 06:45: WBC 13.7 H, RBC 3.59 L, Hgb 10.3 L, Hct 32.2 L, MCV 89.7, MCH 28.7, MCHC 32.0, RDW Std Deviation 47.5 H, RDW Coeff of Luca 14.6, Plt Count 271, MPV 9.3, Immature Gran % (Auto) 1.300 H, Neut % (Auto) 71.3 H, Lymph % (Auto) 10.5 L, [place] % (Auto) 14.3 H, Eos % (Auto) 2.3, Baso % (Auto) 0.3, Absolute Neuts (auto) 9.8 H, Absolute Lymphs (auto) 1.44, Nucleated RBC % 0, Differential Comment SCANNED, Diff Path Review May foll, Platelet Estimate ADEQUATE, RBC Morphology NORM C+C 11/15/19 06:45: Sodium 136, Potassium 3.8, Chloride 104, Carbon Dioxide 28.0, Anion Gap 4 L, BUN 17, Creatinine 1.15, Estim Creat Clear Calc 62.79, Est GFR (MDRD) Af Amer 80, Est GFR (MDRD) Non-Af 66, BUN/Creatinine Ratio 14.8, Glucose 160 H, Calcium 9.2 Current Medications Acetaminophen (Tylenol) 650 mg PO Q6H PRN PRN PRN Reason: Pain Score 1-10/Temp > 100.7 F Last Admin: 11/15/19 03:20 Dose: 650 mg Documented by: Acetaminophen (Tylenol) 650 mg RECTAL Q6H PRN PRN PRN Reason: TEMP > 100.5 F Albuterol Sulfate (Ventolin Aerosols) 2.5 mg INHALATION Q4H PRN PRN PRN Reason: SOB/Wheezing Last Admin: 11/11/19 23:50 Dose: 2.5 mg Documented by: Allopurinol (Zyloprim) 300 mg PO DAILY [facility] Last Admin: 11/14/19 09:42 Dose: 300 mg Documented by: Atorvastatin Calcium (Lipitor) 20 mg PO QHS [facility] Last Admin: 11/14/19 21:05 Dose: 20 mg Documented by: Clonazepam (Klonopin) 0.5 mg PO BID PRN PRN Reason: ANXIETY Last Admin: 11/12/19 21:10 Dose: 0.5 mg Documented by: Dicyclomine HCl (Bentyl) 10 mg PO Q6 [facility] Last Admin: 11/15/19 05:10 Dose: 10 mg Documented by: Famotidine (Pepcid) 20 mg PO BID [facility] Last Admin: 11/14/19 21:04 Dose: 20 mg Documented by: Folic Acid (Folic Acid) 1 mg PO DAILY@0800 [facility] Last Admin: 11/14/19 09:41 Dose: 1 mg Documented by: Guaifenesin (Mucinex) 1,200 mg PO BID [facility] Last Admin: 11/14/19 21:05 Dose: 1,200 mg Documented by: Azithromycin 500 mg/ Dextrose 255 mls @ 250 mls/hr IV Q24 [facility] Stop: 11/15/19 10:01 Last Infusion: 11/14/19 12:30 Dose: Infused Documented by: Sodium Chloride () 250 mls @ 15 mls/hr IV .[id number] PRN PRN Reason: Saline Flush Last Infusion: 11/12/19 12:05 Dose: 0 mls/hr Documented by: Sodium Chloride () 250 mls @ 15 mls/hr IV .[id number] PRN PRN Reason: Additional IVPB Infusion Piperacillin Sod/Tazobactam (Sod 3.375 gm/ Sodium Chloride) 50 mls @ 12.5 mls/hr IV Q8 [facility] Last Infusion: 11/15/19 06:00 Dose: 12.5 mls/hr Documented by: Insulin Human Lispro (Humalog Kwikpen (Bkc)) 0 unit SC Q6 [facility]; Protocol Last Admin: 11/15/19 05:10 Dose: Not Given Documented by: Lamotrigine (Lamictal) 200 mg PO BID [facility] Last Admin: 11/14/19 21:04 Dose: 200 mg Documented by: Metformin HCl (Glucophage) 500 mg PO BIDCM [facility] Last Admin: 11/14/19 17:25 Dose: 500 mg Documented by: Mirabegron (Myrbetriq) 25 mg PO DAILY [facility] Last Admin: 11/14/19 09:42 Dose: 25 mg Documented by: Ondansetron HCl (Zofran) 4 mg IV Q8H PRN PRN PRN Reason: NAUSEA/VOMITING Last Admin: 11/13/19 17:04 Dose: 4 mg Documented by: Quetiapine Fumarate (Seroquel) 200 mg PO BID [facility] Last Admin: 11/14/19 21:05 Dose: 200 mg Documented by: Rivaroxaban (Xarelto) 20 mg PO DAILY@1700 [facility] Last Admin: 11/14/19 17:26 Dose: 20 mg Documented by: Senna/Docusate Sodium (Senokot-S, Leigh-Colace) 2 tablet PO BID PRN PRN PRN Reason: Constipation Last Admin: 11/10/19 11:04 Dose: 2 tablet Documented by: Sodium Chloride () 10 - 40 ml IV UD PRN PRN Reason: SALINE FLUSH Last Admin: 11/14/19 12:48 Dose: 10 ml Documented by: Tamsulosin HCl (Flomax) 0.4 mg PO DAILY@1730 [facility] Last Admin: 11/14/19 17:26 Dose: 0.4 mg Documented by: Tolterodine Tartrate (Detrol La) 2 mg PO DAILY [facility] Last Admin: 11/14/19 09:41 Dose: 2 mg Documented by: Venlafaxine HCl (Effexor Xr) 150 mg PO DAILY [facility] Last Admin: 11/14/19 09:42 Dose: 150 mg Documented by: Zolpidem Tartrate (Ambien (Generic)) 5 mg PO QHS PRN PRN PRN Reason: INSOMNIA Clinical Impression(s) from Imaging Studies Chest X-Ray 11/14/19 09:30 IMPRESSION: Worsening right pneumonia. Electronically Signed: Jordan Hyde MD at 14:45 EDT , Service support , Medical Necessity - Tobacco Use Smoking Status: Former smoker Tobacco Use: Cigarettes Assessment/Plan All Active Problems (Last Updated 11/10/19 @ 09:[address] Sukhi Acevedo MD) Septic shock (Acute) Community acquired pneumonia (Acute) RECOMMENDATIONS: 1. Await repeat COVID testing 2. Swallow evaluation 3. Wean oxygen as tolerated 4. Agree with broadening of antibiotics 5. Okay to continue baseline psychiatric medications and Xarelto IMPRESSIONS: 1. Acute hypoxic respiratory failure secondary to right lower lobe pneumonia Patient with significant AA gradient on presentation with right lower lobe pneumonia. Unfortunately, it is unclear how long he was hypoxic, but this may have led to the initial elevated lactate. Patient continues to spike fevers and has worsening right-sided infiltrates despite negative COVID testing. There is some concern for possible choking episodes during eating by nursing. Other possible etiology would include resistant organism selection versus false-negative COVID testing. No history of obstructive lung disease, so we will hold on steroids for now. Agree with bronchodilators PRN and pulmonary toileting. Infectious work-up was negative from an antigenic culture standpoint. Patient does look relatively well despite worsening chest x-ray. Patient should have a walking oximetry prior to discharge. If patient requires supplemental oxygen, follow-up in pulmonary office with nurse practitioner in 2 weeks would be advisable. 2. Septic shock secondary to right lower lobe pneumonia Patient is technically septic shock secondary to elevated lactate on presentation, but has remained hemodynamically stable while in the intensive care unit. This would be suggestive of protracted hypoxia as the cause of elevated lactate. Continue with baseline Xarelto therapy. Presence of Xarelto on admission makes pulmonary embolism unlikely, despite history. Patient continues to spike fevers despite 4 days of antibiotics for community-acquired pneumonia. Patient is not having any significant sputum production. Will check urine to make sure there is no resistant organism. Doubt DVT causing fever given Xarelto therapy. 3. Mechanical fall with left hip pain No fracture was noted on x-ray. Pain is controlled at this time. Clinical suspicion for weakness secondary to hypoxia, but this cannot be confirmed. 4. History of PE/CKD stage III/hypertension/hyperlipidemia/bipolar Complicates care, management, recovery and prognosis. Continue with baseline psychiatric medications. Inpatient E&M: 59383 [facility] Hosp L3
[2019-11-15] MEDS: metFORMIN HCl 500 MG Tablet PO ×2 (08:54→16:58)
[2019-11-15] MEDS: Folic Acid 1 MG Tablet PO (08:54)
--- NOTE | 2019-11-15 09:11 | PN_ITS ---
Patient Problems: Active and Suspected Problems (Last Updated 11/10/19 @ 09:[address] Sukhi Acevedo MD) Septic shock (Acute) Community acquired pneumonia (Acute) Subjective: Chief complaint: Follow-up after admission for septic shock, right lower lobe community-acquired pneumonia, acute hypoxic respiratory failure. Patient seen and examined. No acute events overnight. He mentioned that his breathing is okay, not any worse than yesterday. Still having minimal cough. He continued to have spikes of low-grade fever. Oxygen requirement has been slightly increasing, now on 3 L with pulse ox of 96%. Blood pressure and heart rate are stable. - Physical Exam Vitals/I&O's: Vital Signs Temp Pulse Resp BP Pulse Ox 99.4 F H 88 17 143/76 H 96 11/15/19 08:30 11/15/19 08:30 11/15/19 08:30 11/15/19 08:30 11/15/19 08:30 Oxygen Flow Rate (L/min) 3 Oxygen Delivery Method Nasal Cannula Weight: 226 lb Body Mass Index (BMI) 32.4 Intake and Output for Last 24 Hours 11/13/19 11/14/19 11/15/19 23:59 23:59 23:59 Intake Total 1555 / 1555 2128.25 / 2128.25 124.38 / 124.38 Output Total 150 / 150 250 / 250 Balance 1555 / 1555 / 25 -125.62 / -125.62 General: Alert, Oriented x3, Cooperative, No apparent distress HEENT: Atraumatic, PERRLA, EOMI, Normocephalic Oral: Moist Mucosa, No Gingival or Mucosal Lesions/ Ulcerations Neck: Supple, No JVD, Negative Carotid Bruits, Trachea Midline, Thyroid Normal Size and Texture Lungs: No wheeze, No rales, Diminished, Rhonchi, - - Decreased breath sounds on the right side as well as left base, rhonchi on the right side. Cardiovascular: Regular rate, Regular Rhythm, Normal S1, Normal S2, PMI Normal Abdomen: Bowel Sounds Present, Soft, Non Tender, Non-Distended, No Hepato- splenomegaly Extremities: No clubbing, No cyanosis, No edema Skin: No rashes, No breakdown Lymphatic: No Cervical, Supraclavicular, or Inguinal Adenopathy Neurological: Cranial nerves II-XII grossly intact, Neuro grossly intact Psych/Mental Status: Normal Affect, Appropriate, Alert and oriented to time, place, person, mood and affect Microbiology Past 72 Hours 11/10/19 07:00 Blood Culture (Wb) - Venous Blood Culture - Final No growth in 5 days. 11/10/19 07:55 Blood Culture (Wb) - Anticubital Left Blood Culture - Final No growth in 5 days. Laboratory Results 11/14/19 09:45: Urine Color Yellow, Urine Clarity Clear, Urine pH 6.5, Ur Specific [place] 1.010, Urine Protein 30 H, Urine Glucose (UA) Normal, Urine Ketones Negative, Urine Occult Blood 10 H, Urine Nitrite Negative, Urine Bilirubin Negative, Urine Urobilinogen 1 H, Ur Leukocyte Esterase 25 H, Urine RBC 0-5 SEEN, Urine WBC 0-5 SEEN, Ur Squamous Epith Cells 0 SEEN, Urine Bacteria 0 SEEN, Urine Mucus 0 SEEN 11/14/19 10:58: POC Glucose 192 H 11/14/19 12:05: COVID-19 ([facility]) Pending 11/14/19 17:22: POC Glucose 142 H 11/14/19 23:42: POC Glucose 162 H 11/15/19 05:08: POC Glucose 149 H 11/15/19 06:45: WBC 13.7 H, RBC 3.59 L, Hgb 10.3 L, Hct 32.2 L, MCV 89.7, MCH 28.7, MCHC 32.0, RDW Std Deviation 47.5 H, RDW Coeff of Luca 14.6, Plt Count 271, MPV 9.3, Immature Gran % (Auto) 1.300 H, Neut % (Auto) 71.3 H, Lymph % (Auto) 10.5 L, Mcnairy % (Auto) 14.3 H, Eos % (Auto) 2.3, Baso % (Auto) 0.3, Absolute Neuts (auto) 9.8 H, Absolute Lymphs (auto) 1.44, Nucleated RBC % 0, Differential Comment SCANNED, Diff Path Review May foll, Platelet Estimate ADEQUATE, RBC Morphology NORM C+C 11/15/19 06:45: Sodium 136, Potassium 3.8, Chloride 104, Carbon Dioxide 28.0, Anion Gap 4 L, BUN 17, Creatinine 1.15, Estim Creat Clear Calc 62.79, Est GFR (MDRD) Af Amer 80, Est GFR (MDRD) Non-Af 66, BUN/Creatinine Ratio 14.8, Glucose 160 H, Calcium 9.2 Clinical Impression(s) from Imaging Studies Chest X-Ray 11/14/19 09:30 IMPRESSION: Worsening right pneumonia. Electronically Signed: Jordan Hyde MD at 14:45 EDT , Service support , Current Medications Acetaminophen (Tylenol) 650 mg PO Q6H PRN PRN PRN Reason: Pain Score 1-10/Temp > 100.7 F Last Admin: 11/15/19 03:20 Dose: 650 mg Documented by: Acetaminophen (Tylenol) 650 mg RECTAL Q6H PRN PRN PRN Reason: TEMP > 100.5 F Albuterol Sulfate (Ventolin Aerosols) 2.5 mg INHALATION Q4H PRN PRN PRN Reason: SOB/Wheezing Last Admin: 11/11/19 23:50 Dose: 2.5 mg Documented by: Allopurinol (Zyloprim) 300 mg PO DAILY [facility] Last Admin: 11/14/19 09:42 Dose: 300 mg Documented by: Atorvastatin Calcium (Lipitor) 20 mg PO QHS [facility] Last Admin: 11/14/19 21:05 Dose: 20 mg Documented by: Clonazepam (Klonopin) 0.5 mg PO BID PRN PRN Reason: ANXIETY Last Admin: 11/12/19 21:10 Dose: 0.5 mg Documented by: Dicyclomine HCl (Bentyl) 10 mg PO Q6 [facility] Last Admin: 11/15/19 05:10 Dose: 10 mg Documented by: Famotidine (Pepcid) 20 mg PO BID [facility] Last Admin: 11/14/19 21:04 Dose: 20 mg Documented by: Folic Acid (Folic Acid) 1 mg PO DAILY@0800 [facility] Last Admin: 11/15/19 08:54 Dose: 1 mg Documented by: Guaifenesin (Mucinex) 1,200 mg PO BID [facility] Last Admin: 11/14/19 21:05 Dose: 1,200 mg Documented by: Azithromycin 500 mg/ Dextrose 255 mls @ 250 mls/hr IV Q24 [facility] Stop: 11/15/19 10:01 Last Infusion: 11/14/19 12:30 Dose: Infused Documented by: Sodium Chloride () 250 mls @ 15 mls/hr IV .[id number] PRN PRN Reason: Saline Flush Last Infusion: 11/12/19 12:05 Dose: 0 mls/hr Documented by: Sodium Chloride () 250 mls @ 15 mls/hr IV .[id number] PRN PRN Reason: Additional IVPB Infusion Piperacillin Sod/Tazobactam (Sod 3.375 gm/ Sodium Chloride) 50 mls @ 12.5 mls/hr IV Q8 [facility] Last Infusion: 11/15/19 06:00 Dose: 12.5 mls/hr Documented by: Insulin Human Lispro (Humalog Kwikpen (Bkc)) 0 unit SC Q6 [facility]; Protocol Last Admin: 11/15/19 05:10 Dose: Not Given Documented by: Lamotrigine (Lamictal) 200 mg PO BID [facility] Last Admin: 11/14/19 21:04 Dose: 200 mg Documented by: [facility] Last Admin: 11/15/19 08:54 Dose: 500 mg Documented by: Mirabegron (Myrbetriq) 25 mg PO DAILY [facility] Last Admin: 11/14/19 09:42 Dose: 25 mg Documented by: Ondansetron HCl (Zofran) 4 mg IV Q8H PRN PRN PRN Reason: NAUSEA/VOMITING Last Admin: 11/13/19 17:04 Dose: 4 mg Documented by: Quetiapine Fumarate (Seroquel) 200 mg PO BID [facility] Last Admin: 11/14/19 21:05 Dose: 200 mg Documented by: Rivaroxaban (Xarelto) 20 mg PO DAILY@1700 [facility] Last Admin: 11/14/19 17:26 Dose: 20 mg Documented by: Senna/Docusate Sodium (Senokot-S, Leigh-Colace) 2 tablet PO BID PRN PRN PRN Reason: Constipation Last Admin: 11/10/19 11:04 Dose: 2 tablet Documented by: Sodium Chloride () 10 - 40 ml IV UD PRN PRN Reason: SALINE FLUSH Last Admin: 11/14/19 12:48 Dose: 10 ml Documented by: Tamsulosin HCl (Flomax) 0.4 mg PO DAILY@1730 [facility] Last Admin: 11/14/19 17:26 Dose: 0.4 mg Documented by: Tolterodine Tartrate (Detrol La) 2 mg PO DAILY [facility] Last Admin: 11/14/19 09:41 Dose: 2 mg Documented by: Venlafaxine HCl (Effexor Xr) 150 mg PO DAILY [facility] Last Admin: 11/14/19 09:42 Dose: 150 mg Documented by: Zolpidem Tartrate (Ambien (Generic)) 5 mg PO QHS PRN PRN PRN Reason: INSOMNIA Medical Necessity - Tobacco Use Smoking Status: Former smoker Tobacco Use: Cigarettes Assessment/Plan All Active Problems (Last Updated 11/10/19 @ 09:[address] Sukhi Acevedo MD) Septic shock (Acute) Community acquired pneumonia (Acute) This is a 74 years old male patient presented to the emergency room because of fall and left hip pain, squad noted that the patient was dyspneic, tachypneic, febrile and tachycardic and he was found to have septic shock secondary to right lower lobe community-acquired pneumonia which is complicated by acute hypoxic respiratory failure and he was found to have newly diagnosed type 2 diabetes mellitus. Later, patient had persistent fever for which chest x-ray repeated and showed worsening right pneumonia and nursing staff reported that patient has been choking. #1 septic shock/right lower lobe community-acquired pneumonia/possible aspiration pneumonia: Additionally, aspiration pneumonia cannot be ruled out as well as COVID-19 infection. He was started on IV Zosyn yesterday, remains on IV Zithromax. IV Rocephin discontinued. Patient continued to have spikes of feve r, WBC started trending up. Patient requiring oxygen of up to 3 L, other vital signs are stable. Nasal swab for flu as a and B was negative. Rapid RSV was negative. Pneumococcal and Legionella antigen were negative. Blood cultures showed no growth in 5 days. COVID-19 testing came back negative. Repeat chest x-ray from today revealed worsening infiltrate involving the whole right lung as well as left lower lobe. Urinalysis done today and revealed no evidence of infection. COVID-19 testing was repeated again. Speech therapy consulted for evaluation for possible aspiration. Plan to continue same treatment, repeat CBC after tomorrow. #2 acute hypoxic respiratory failure: Secondary to #1. Today, he remained on 3 L of oxygen which is slightly up from yesterday. Patient remained without significant shortness of breath. Chest x-ray reviewed as above. Plan as above. #3 Newly diagnosed type 2 diabetes mellitus: Hemoglobin A1c was 7.1%. Continue metformin twice daily. Blood sugar has been around 150 mg/dL. #4 mechanical fall/generalized weakness: Patient complained of left hip pain. X-ray of the left hip done, reviewed, no acute fractures. Continue Tylenol PRN for pain. #5 stage III chronic kidney disease: Baseline creatinine has been around 1.2 to 1.5 mg/dL. Admission creatinine is 1.56, today's creatinine is 1.15, stable at baseline. #6 history of pulmonary embolism: Continue Xarelto. #7 hypertension: Blood pressure stable, he is not on any antihypertensive medication at this time. #8 hyperlipidemia: Continue statins. #9 bipolar disorder: Stable, continue quetiapine and Effexor. #10 CODE STATUS: DNR CCA, no intubation. #11 DVT prophylaxis: Continue Xarelto. This note was generated with [employer] dictation software. It may contain incorrect words, spelling, and punctuation that were not noted in checking the note before signing. Inpatient E&M: 55182 Subs Hosp L2
[2019-11-15] MEDS: Tolterodine Tartrate 2 MG CAP.SA PO (10:22)
[2019-11-15] MEDS: Venlafaxine XR 150 MG Capsule PO (10:23)
[2019-11-15] MEDS: guaiFENesin 1,200 MG Tablet 1200 MG PO ×2 (10:23→21:17)
[2019-11-15] MEDS: lamoTRIgine 100 MG Tablet 200 MG PO ×2 (10:23→21:17)
[2019-11-15] MEDS: Mirabegron 25 MG TAB.ER.24H PO (10:24)
[2019-11-15] MEDS: Famotidine 20 MG Tablet PO ×2 (10:24→21:17)
[2019-11-15] MEDS: QUEtiapine 100 MG Tablet 200 MG PO ×2 (10:24→21:17)
[2019-11-15] MEDS: Allopurinol 300 MG Tablet PO (10:25)
[2019-11-15] MEDS: Insulin Lispro 100 UNIT/ML INSULN.PEN SC (12:30)
[2019-11-15 13:26] LABS: Bedside Glucose 177 mg/dL (70-110)
[2019-11-15] MEDS: clonazePAM 0.5 MG Tablet PO (15:23)
[2019-11-15] MEDS: Tamsulosin HCl 0.4 MG Capsule PO (16:58)
[2019-11-15] MEDS: Rivaroxaban 20 MG Tablet PO (16:58)
[2019-11-15 17:21] LABS: Bedside Glucose 114 mg/dL (70-110)
[2019-11-15] MEDS: Atorvastatin Calcium 20 MG Tablet PO (21:17)
[2019-11-15 23:46] LABS: Bedside Glucose 123 mg/dL (70-110)
[2019-11-16] VITALS (9 sets, daily range): BP systolic 126–148; BP diastolic 53–69; PULSE 78–89; RESP 18; TEMP 36.2–38.2; O2SAT 84–96
[2019-11-16] MEDS: Acetaminophen 325 MG Tablet 650 MG PO (01:16)
[2019-11-16] MEDS: Dicyclomine 10 MG Capsule PO ×2 (05:07→11:42)
[2019-11-16 05:15] LABS: Bedside Glucose 121 mg/dL (70-110)
[2019-11-16] MEDS: QUEtiapine 100 MG Tablet 200 MG PO (08:52)
[2019-11-16] MEDS: Allopurinol 300 MG Tablet PO (08:53)
[2019-11-16] MEDS: Famotidine 20 MG Tablet PO (08:53)
[2019-11-16] MEDS: guaiFENesin 1,200 MG Tablet 1200 MG PO (08:53)
[2019-11-16] MEDS: lamoTRIgine 100 MG Tablet 200 MG PO (08:53)
[2019-11-16] MEDS: Mirabegron 25 MG TAB.ER.24H PO (08:53)
[2019-11-16] MEDS: Tolterodine Tartrate 2 MG CAP.SA PO (08:54)
[2019-11-16] MEDS: Folic Acid 1 MG Tablet PO (08:54)
[2019-11-16] MEDS: metFORMIN HCl 500 MG Tablet PO (08:54)
[2019-11-16] MEDS: Venlafaxine XR 150 MG Capsule PO (08:54)
--- NOTE | 2019-11-16 10:35 | CASEMGMT ---
Addendum entered by Danyel Chambers 11/16/19 15:24: COVID-19 (negative) transfer communication tool faxed to [facility]> Addendum entered by Danyel Chambers 11/16/19 14:54: Paz, [facility] updated that pt will be dc'd today. Also updated that pt has script for glucometer and supplies and pt will ask brother in law, who is picking him up to go to get this filled. Original Note: RN MARCUS Note: Intro role of CM to patient. Reviewed list of DME providers. Pt prefers [facility]. Home oxygen testing completed. Pt was 88% ambulating on 4L NC. Dr. Patton ordered 4L NC with exertion. [place] [facility] to update that referral has been sent. Pt states he has brother in law who will take him home. Pt will need script for blood glucose monitoring equipment, Dr. Patton aware. SW updated to request [employer] CM knows pt may need assist having aides get prescription for Blood Glucose monitor filled. Pt will have his medications through [facility]. Dede KEENN RN ACM
--- NOTE | 2019-11-16 11:02 | CASEMGMT ---
Addendum entered by Christal Gomez 11/16/19 11:20: GISELA faxed discharge paperwork to Bridgette at [facility]. Original Note: Social Work Note Pt is discharging home today. GISELA placed a call to pt's MARCUS Angeles and left message informing her that pt will be discharged home today and informed Brent that pt will need to poultry picker a blood sugar machine and asked if pt's aides would be able to assist pt with picking up the machine. GISELA will fax discharge paperwork once completed. Christal Gomez TRENCH DIGGER HELPER, OFFICE AGENT
--- NOTE | 2019-11-16 11:15 | DCINST_ITS ---
- Discharge Diagnoses Current Active Problems: Current Active and Chronic Problems (Last Updated 11/10/19 @ 09:[address] Sukhi Acevedo MD) Stage III chronic kidney disease (Chronic) Septic shock (Acute) Community acquired pneumonia (Acute) You will use the following diet at home:: Calorie/Carbohydrate Controlled (specify 1200, 1400, etc) Your food should be the consistency of: Puree Your liquids should be the consistency of: Honey Thick Discharge Activity: Return to Normal Activity Call your doctor if you observe: Fever of 101 or Higher, Shortness of breath, Dizziness, Fainting spells, Swelling in the ankles, Chest pain, Increased palpitations (irregular heartbeat) Allergies/Adverse Reactions: Allergies No Known Allergies Allergy (Verified 06/18/19 10:14) Medications to take at Discharge Folic Acid 1 mg PO DAILY@0800 12/18/15 simvastatin 40 mg tablet 40 mg PO QPM 02/26/18 mirabegron 25 mg tablet,extended release 24 hr 25 mg PO Q24H 03/12/18 Rivaroxaban [Xarelto] 20 mg PO 1200 11/10/19 Tamsulosin HCl [Flomax] 0.4 mg PO 1200 11/10/19 Allopurinol [Zyloprim] 300 mg PO DAILY 11/11/19 Clonazepam 0.5 mg PO BID PRN PRN 11/11/19 Dicyclomine HCl 10 mg PO Q6H 11/11/19 Lamotrigine [Lamictal] 200 mg PO BID 11/11/19 Omeprazole 40 mg PO DAILY 11/11/19 Quetiapine Fumarate [Quetiapine Fumarate ER] 400 mg PO QHS 11/11/19 Trospium Chloride 20 mg PO BID 11/11/19 Venlafaxine XR [Effexor Xr] 150 mg PO DAILY 11/11/19 Amoxicillin/Potassium Clav [Augmentin 875-125 Tablet] 1 ea PO BID #8 tab 11/16/19 metFORMIN HCl [Glucophage] 500 mg PO BIDCM #60 tab 11/16/19 The following prescriptions were given: Amoxicillin/Potassium Clav [Augmentin 875-125 Tablet] 1 ea PO BID #8 tab Transmission Status: Pending to [facility] metFORMIN HCl [Glucophage] 500 mg PO BIDCM #60 tab Transmission Status: Pending to [facility] Orders to be completed after discharge: Glucometer Location: None Selected Primary Care Physician: Delaney Amaya MD [Primary Care Provider] - Please follow up with your Primary Care Physician in: Tele-visit Test Results: Test results from this visit will be discussed in further detail at your follow- up appointment, if applicable.
[2019-11-16 11:16] LABS: Pathologist Review Reviewed
[2019-11-16 11:19] LABS: Pathologist Review Reviewed
[2019-11-16] MEDS: Insulin Lispro 100 UNIT/ML INSULN.PEN SC (11:42)
[2019-11-16 11:50] LABS: Bedside Glucose 155 mg/dL (70-110)
--- NOTE | 2019-11-16 13:55 | DS.PCM_ITS ---
Discharge Date and Diagnosis Date of Admission: 11/10/19 Date of Discharge: 11/16/19 - Secondary Discharge Diagnosis Chronic Problems (Last Updated 11/10/19 @ 09:[address] Sukhi Acevedo MD) Stage III chronic kidney disease (Chronic) History of loop recorder (Chronic) Chronic diastolic (congestive) heart failure (Chronic) Abdominal aortic aneurysm (AAA) (Chronic) AAA repair Essential (primary) hypertension (Chronic) Hyperlipidemia (Chronic) History of pulmonary embolism (Chronic) Hospital Course and Treatment Imaging Results: CXR: IMPRESSION: Right basilar infiltrate. Stable increased markings at the left lung base suggests scarring Hip XR: IMPRESSION: Degenerative changes. No fracture or dislocation is seen. CXR: IMPRESSION: Worsening right pneumonia. Consults: Pulmonology Operations: None Procedures: None Summary of Care Provided: Per HPI: The patient is a 74 year old M with past medical history as mentioned above presented to the emergency room because of fall and left hip pain. Patient is poor informant and was not able to provide consistent detailed history. He stated that he came in today because he had a fall this morning and he started having left hip pain. Pain is not so severe and he was able to ambulate afterwards. Also, he complained of generalized weakness and fatigue that has been going on for almost 1 week. Upon arrival of the EMS, patient was found to be dyspneic, tachypneic, tachycardic and hypoxic. On further questioning, patient did mention that he had some mild shortness of breath. He denied cough, sputum production, fever or chills. He denied sinus or nasal congestion. For me, patient was alert and treated x3. He lives alone and he stated that he had no sick contacts over the last 2 weeks and no recent travel over the last 14 days. He had a history of pulmonary embolism and he has been on Xarelto. He had a history of benign prostatic hypertrophy and has been on Flomax. He had a history of abdominal aortic aneurysm status post repair and he has been stable. In the emergency department, patient was febrile, tachycardic, dyspneic, tachypneic and hypoxic, pulse ox was 88% on room air which improved to 95% on 4 L. Routine blood work was remarkable for leukocytosis and neutrophilia, creatinine 1.56, blood glucose of 240. Lactic acid was 5.3. LFT was unremarkable. EKG revealed sinus tachycardia, no acute segment changes. T roponin and BNP were normal. Urinalysis revealed cloudy urine, negative for nitrite and leukocyte esterase, no WBCs and no bacteria seen. Chest x-ray revealed right basilar infiltrate. Patient is being admitted for septic shock secondary to right lower lobe community-acquired pneumonia which was complicated by acute hypoxic respiratory failure and also found to have hyperglycemia without history of diabetes. Hospital Course: 1. Septic shock secondary to right lower lobe community-acquired pneumonia possible aspiration pneumonia leading to acute hypoxic respiratory failure- 74-year-old male who presented from home after a fall was found to be short of breath as well as tachypneic and tachycardic. He has been on Xarelto for history of PE and is been taking it appropriately and was found to have a possible pneumonia. He had an initial coronavirus test which came back negative however his right lung field worsened and so second test was sent which was also negative. It is felt that he is likely silently aspirating and therefore speech evaluated him and placed him on a honey thick liquids, and a pur?ed diet. He was placed on Zosyn and transitioned to Augmentin to complete a course of antibiotics for his likely aspiration pneumonia. This was discussed with him and he expressed understanding of the risk and benefits of going home. Urine cultures and blood cultures were negative as were urine antigens for pneumococcal and Legionella. On the day of discharge she did have an ambulatory pulse ox which demonstrated he needed 4 L of oxygen. 2. New onset DM2-A1c was 7.1 during this admission and he was started on metformin 500 mg p.o. twice daily. He was discharged with a prescription for glucometer as well as lancets. He will need to follow-up with his primary care doctor for a telehealth visit in a few days. 3. It was discussed with him the need to possibly be transferred to a jail facility however he refused and demanded to go home. Therefore he was discharged home with home health. 4. His other medical diagnoses were evaluated and his home medications were co ntinued where appropriate - Physical Exam Vitals/I&O's: Vital Signs Temp Pulse Resp BP Pulse Ox 97.2 F L 88 18 148/53 H 90 11/16/19 08:58 11/16/19 08:58 11/16/19 08:58 11/16/19 08:58 11/16/19 10:13 Oxygen Flow Rate (L/min) [ 4 AMBULATION with Oxygen] Oxygen Flow Rate (L/min) 2 Oxygen Delivery Method Nasal Cannula Weight: 224 lb 6.889 oz Body Mass Index (BMI) 32.4 Intake and Output for Last 24 Hours 11/14/19 11/15/19 11/16/19 23:59 23:59 23:59 Intake Total 2128.25 / 2128.25 1562.33 / 1562.33 416.67 / 416.67 Output Total 150 / 150 1200 / 1200 100 / 100 Balance / 362.33 / 362.33 316.67 / 316.67 General: Alert, Oriented x3, Cooperative, No apparent distress HEENT: Atraumatic, PERRLA, EOMI, Normocephalic Oral: Moist Mucosa, No Gingival or Mucosal Lesions/ Ulcerations, Dry Mucosa, Ulcerations Present Neck: Supple, No JVD Lungs: Clear to auscultation, Normal air movement, No rhonchi, No wheeze, No rales, Diminished Cardiovascular: Regular rate, Regular Rhythm, Normal S1, Normal S2, No murmurs Abdomen: Soft, Non Tender, Non-Distended, No Hepato-splenomegaly Extremities: No edema, Capillary Refill Less than 3 Seconds Skin: - - Psoriatic rash on his face Neurological: Neuro grossly intact, Sensory exam intact to light touch and pain Psych/Mental Status: Normal Affect, Appropriate Microbiology Past 72 Hours 11/14/19 09:45 Urine, Clean Catch Urine Culture - Final Culture exhibits no growth. 11/10/19 07:00 Blood Culture (Wb) - Venous Blood Culture - Final No growth in 5 days. 11/10/19 07:55 Blood Culture (Wb) - Anticubital Left Blood Culture - Final No growth in 5 days. Laboratory Results 11/14/19 06:10: Diff Path Review Reviewed 11/14/19 12:05: COVID-19 ([facility]) 11/15/19 06:45: Diff Path Review Reviewed 11/15/19 16:57: POC Glucose 114 H 11/15/19 23:33: POC Glucose 123 H 11/16/19 05:07: POC Glucose 121 H 11/16/19 11:38: POC Glucose 155 H Discharge Activity: Return to Normal Activity Call your doctor if you observe: Fever of 101 or Higher, Shortness of breath, Dizziness, Fainting spells, Swelling in the ankles, Chest pain, Increased palpitations (irregular heartbeat) Home Medications: Medications to take at Discharge Folic Acid 1 mg PO DAILY@0800 12/18/15 simvastatin 40 mg tablet 40 mg PO QPM 02/26/18 mirabegron 25 mg tablet,extended release 24 hr 25 mg PO Q24H 03/12/18 Rivaroxaban [Xarelto] 20 mg PO 1200 11/10/19 Tamsulosin HCl [Flomax] 0.4 mg PO 1200 11/10/19 Allopurinol [Zyloprim] 300 mg PO DAILY 11/11/19 Clonazepam 0.5 mg PO BID PRN PRN 11/11/19 Dicyclomine HCl 10 mg PO Q6H 11/11/19 Lamotrigine [Lamictal] 200 mg PO BID 11/11/19 Omeprazole 40 mg PO DAILY 11/11/19 Quetiapine Fumarate [Quetiapine Fumarate ER] 400 mg PO QHS 11/11/19 Trospium Chloride 20 mg PO BID 11/11/19 Venlafaxine XR [Effexor Xr] 150 mg PO DAILY 11/11/19 Amoxicillin/Potassium Clav [Augmentin 875-125 Tablet] 1 ea PO BID #8 tab 11/15 metFORMIN HCl [Glucophage] 500 mg PO BIDCM #60 tab 11/16/19 Following Prescrptions Were Given to Patient: Amoxicillin/Potassium Clav [Augmentin 875-125 Tablet] 1 ea PO BID #8 tab Transmission Status: Received by [facility] metFORMIN HCl [Glucophage] 500 mg PO BIDCM #60 tab Transmission Status: Received by [facility] Other Amb Orders: Glucometer Location: None Selected Primary Care Physician: Delaney Amaya MD [Primary Care Provider] - Please follow up with your Primary Care Physician in: Tele-visit Disposition: Home with Home Health Minutes spent on discharge:: 35 Patient Condition:: Stable Medical Necessity - Tobacco Use Smoking Status: Former smoker Tobacco Use: Cigarettes Meaningful Use Info Meaningful Use Diagnoses (Choose all that apply): None applicable Inpatient E&M: 77472 [facility]
--- NOTE | 2019-11-17 12:24 | CASEMGMT ---
ROSA CM Note: DC summary with oxygen face to face information faxed to [facility]. Dede GLASS DC Phone Call. Deferred- dc home with [facility]. Dede SARAH RN AC
== END 2019-11-16 12:35 | disposition home health service (06) | DRG 871 ==
LOC: ED 09:13 → ICU 09:43 → MS2 11-11 13:52
PROVIDERS: Internal Medicine Critical Care Medicine; Admitting Provider Hospitalist; Emergency Provider Emergency Medicine; PCP Family Medicine; Referring Provider Hospitalist; Visit Provider Family Medicine
DX: A41.9 Sepsis, unspecified organism (principal); J69.0 Pneumonitis due to inhalation of food and vomit; R65.21 Severe sepsis with septic shock; J96.01 Acute respiratory failure with hypoxia; I13.0 Hypertensive heart and chronic kidney disease with heart failure and stage 1 through stage 4 chronic kidney disease, or unspecified chronic kidney disease; I50.32 Chronic diastolic (congestive) heart failure; N18.3 Chronic kidney disease, stage 3 (moderate); E11.22 Type 2 diabetes mellitus with diabetic chronic kidney disease; E11.65 Type 2 diabetes mellitus with hyperglycemia; E78.5 Hyperlipidemia, unspecified; I71.4 Abdominal aortic aneurysm, without rupture; M16.12 Unilateral primary osteoarthritis, left hip; W06.XXXA Fall from bed, initial encounter; F31.9 Bipolar disorder, unspecified; N40.0 Benign prostatic hyperplasia without lower urinary tract symptoms; E66.9 Obesity, unspecified; Z68.32 Body mass index [BMI] 32.0-32.9, adult; Z95.818 Presence of other cardiac implants and grafts; Z86.711 Personal history of pulmonary embolism; Z79.01 Long term (current) use of anticoagulants; Z79.84 Long term (current) use of oral hypoglycemic drugs; Z87.891 Personal history of nicotine dependence; Z66 Do not resuscitate
CPT/HCPCS: 36415; 36600; 51702; 71045; 71046; 73502; 80048; 80053; 81001; 82803; 82962; 83036; 83605; 83880; 84484; 85025; 85610; 87040; 87086; 87449; 87633; 87635; 87641; 87804; 87807; 92507; 92526; 92610; 93005; 94640; 97166; 99251; 99285; J7030; J7050; A4216; G0463; J0696; J2405; U0004

== ENCOUNTER → 2020-03-28 | Outpatient (CLI) | payer MEDICARE, MEDICAID, SELFPAY ==
[2019-12-24 13:20] VITALS: BMI 32.4
[2020-03-28 13:20] LABS: PSA,Total- Diagnostic 0.27 ng/mL (0.0-4.0)
== END | disposition home or self-care (01) ==
LOC: LAB 12:39
PROVIDERS: PCP Family Medicine; Referring Provider Urology; Visit Provider Urology
DX: R35.1 Nocturia (principal)
CPT/HCPCS: 36415; 84153

== ENCOUNTER 2020-06-03 07:31 | Inpatient (IN) | payer MEDICARE, MEDICAID, SELFPAY ==
[2019-12-24 13:20] VITALS: BMI 32.4
[2020-06-03] VITALS (23 sets, daily range): BP systolic 86–154; BP diastolic 62–90; PULSE 85–113; RESP 16–22; TEMP 37.1–39.8; O2SAT 85–98; BMI 32.2; BMI 31.4
--- NOTE | 2020-06-03 07:40 | EKG12_ITS ---
Test Reason : SOB Blood Pressure : / mmHG Vent. Rate : 092 BPM Atrial Rate : 092 BPM P-R Int : 174 ms QRS Dur : 130 ms QT Int : 386 ms P-R-T Axes : 014 -17 079 degrees QTc Int : 477 ms Normal sinus rhythm Left ventricular hypertrophy with QRS widening and repolarization abnormality Nonspecific ST and T wave abnormality Abnormal ECG Confirmed by VENTURA LUND, LOBITO ([id number]), photography editor BRITTANEY LARSEN ([id number]) on 06/06/2020 11:27:24 AM Referred By: TADEO Confirmed By:LOBITO WHITEHEAD MD
--- NOTE | 2020-06-03 07:42 | ED.VIS.GEN ---
History of Present Illness Chief Complaint: Fatigue Informant: Patient Narrative: 75-year-old male with past medical history of diabetes presents with concern for weakness and fever. States that he has had a fever over the past 2 weeks. States it has been since he received his influenza vaccine. That he feels very tired. Not profoundly short of breath. States he does have a slight cough. Denies any chest pain, nausea, vomiting, diarrhea, diaphoresis. Patient states that one of the aides that help some at home is currently being tested for coronavirus. Was going to drive himself to urgent care this morning became weak and had to be lowered to the ground by one of his aides. Past Medical History - Allergies and Home Meds Allergies/Adverse Reactions: Allergies No Known Allergies Allergy (Verified 06/03/20 07:36) Prior records reviewed: Yes Past Medical History: - - HLD, DMII, History of PE, AAA with repair Surgical History: - - AAA Lives: Alone Smoking Status: Former smoker Alcohol: None Drugs: None Review of Systems General: Reports: Fever, Malaise. Denies: Chills, Sweats Eyes: Denies: Visual changes - bilaterally, Diplopia ENT: Denies: Rhinorrhea, Sore throat Cardiovascular: Denies: Chest pain, Palpitations Respiratory: Denies: Dyspnea, Cough, Dyspnea on exertion Gastrointestinal: Denies: Abdominal pain, Nausea, Vomiting, Diarrhea, Melena, Hematochezia Genitourinary: Denies: Dysuria, Hematuria, Frequency Musculoskeletal: Denies: Back pain, Extremity Pain Skin: Denies: Rash, Wounds Neurological: Denies: Headache, Weakness, Numbness Physical Exam Vital Signs/Narrative: Vital Signs Temp Pulse Resp BP Pulse Ox 06/03/20 07:32 99.8 F H 96 22 H 120/86 H 88 Inital Vital Signs reviewed: Yes General: Well nourished, Well developed, No Acute Distress Head: Normocephalic, Atraumatic Eyes: Perrl, EOMI ENT: Moist mucous membranes, No rhinorrhea Neck: Supple, Nontender Cardiovascular: Regular rate, Regular rhythm, No murmurs Respiratory: No distress, CTA bilaterally, Chest nontender Abdomen: Soft, Nontender, Nondistended, Normal bowel sounds Back: Nontender, Normal Inspection Extremities: Nontender, No edema Skin: Normal color, No rash Neurological: Alert, Oriented x3, Cranial nerves II-XII grossly intact, Normal Strength, Normal Sensation Psychological: Normal affect, Normal Mood Diagnostic/Tx/Re-eval Chest X-Ray - ED: 1 View, Read by ED Physician, Right Infiltrate, Left Infiltrate Clinical Impression(s) from Imaging Studies Chest X-Ray 06/03/20 08:00 IMPRESSION: Patchy infiltrate in the medial aspect of the right lower lobe as well as the lateral aspect of the left lower. Follow-up is recommended. Electronically Signed: Ward Sauer, at 8:39 EDT , Service support , Laboratory Data 06/03/20 06/03/20 06/03/20 07:40 07:40 07:40 WBC 5.4 RBC 4.33 L Hgb 12.1 L Hct 38.8 L MCV 89.6 MCH 27.9 MCHC 31.2 L RDW Std Deviation 45.9 H RDW Coeff of Luca 14.0 Plt Count 197 MPV 9.2 Immature Gran % (Auto) 0.600 Neut % (Auto) 68.6 Lymph % (Auto) 21.9 [place] % (Auto) 8.7 Eos % (Auto) 0.0 Baso % (Auto) 0.2 Absolute Neuts (auto) 3.7 Absolute Lymphs (auto) 1.19 Nucleated RBC % 0 PT 14.1 INR 1.1 APTT 38.5 H Sodium 132 L Potassium 3.6 Chloride 98 Carbon Dioxide 24.0 Anion Gap 10 BUN 23 H Creatinine 1.66 H Estim Creat Clear Calc 42.85 Est GFR (MDRD) Af Amer 52 L Est GFR (MDRD) Non-Af 43 L BUN/Creatinine Ratio 13.9 Glucose 152 H Lactic Acid Calcium 8.2 L Total Bilirubin 0.30 AST 60 H ALT 31 Alkaline Phosphatase 71 Troponin I 0.215 H Total Protein 7.7 Albumin 3.1 L Globulin 4.6 H Albumin/Globulin Ratio 0.7 L Urine Color Urine Clarity Urine pH Ur Specific [place] Urine Protein Urine Glucose (UA) Urine Ketones Urine Occult Blood Urine Nitrite Urine Bilirubin Urine Urobilinogen Ur Leukocyte Esterase Urine RBC Urine WBC Ur Squamous Epith Cells Urine Bacteria Fine Granular Casts Urine Mucus COVID-19 (PETRONA) 06/03/20 06/03/20 06/03/20 07:40 08:05 09:50 WBC RBC Hgb Hct MCV MCH MCHC RDW Std Deviation RDW Coeff of [place] Plt Count MPV Immature Gran % (Auto) Neut % (Auto) Lymph % (Auto) [place] % (Auto) Eos % (Auto) Baso % (Auto) Absolute Neuts (auto) Absolute Lymphs (auto) Nucleated RBC % PT INR APTT Sodium Potassium Chloride Carbon Dioxide Anion Gap BUN Creatinine Estim Creat Clear Calc Est GFR (MDRD) Af Amer Est GFR (MDRD) Non-Af BUN/Creatinine Ratio Glucose Lactic Acid 3.3 H* Calcium Total Bilirubin AST ALT Alkaline Phosphatase Troponin I Total Protein Albumin Globulin Albumin/Globulin Ratio Urine Color Yellow Urine Clarity Clear Urine pH 6.0 Ur Specific [place] 1.020 Urine Protein 100 H Urine Glucose (UA) Normal Urine Ketones 5 H Urine Occult Blood 25 H Urine Nitrite Negative Urine Bilirubin Negative Urine Urobilinogen Normal Ur Leukocyte Esterase 100 H Urine RBC 0-5 SEEN Urine WBC 5-10 SEEN Ur Squamous Epith Cells 0 SEEN Urine Bacteria 2+ Fine Granular Casts 0-5 SEEN Urine Mucus 0 SEEN COVID-19 (PETRONA) Detected - Rhythm Strip Rhythm Strip: Sinus Rhythm Rate: 92 Ectopy: None - EKG Initial EKG Interpretation: Sinus Rhythm - Normal sinus rhythm at 92 bpm. FL interval of 174 ms. QRS widening of 130 ms. QTC of 477 ms. Interventricular conduction delay. LVH. Not significantly changed from previously done EKG. - Medical Decision Making Patient appears ill but nontoxic. Patient hypoxemic upon arrival and placed on 4 L nasal cannula. Chest x-ray shows bilateral opacities concerning for coronavirus. Given Tylenol for his myalgias as well as fever. Lab work reveals a lactic acidosis of 3.4. Blood cultures pending. Patient did become briefly hypotensive at 89 systolic. Patient was given 500 mL. Judicious fluid resuscitation given concern for coronavirus. Patient also has an indeterminate troponin at 0.2. Patient has no chest pain. Likely secondary to his viral sepsis. Positive for coronavirus. Patient will be admitted for his hypoxemia. Patient admitted in stable condition. Impression: 1. COVID pneumonia 2. Lactic acidosis 3. Elevated troponin ED Disposition - Plan for ED Patient: Disposition: Acute Care Hospital [facility]
[2020-06-03] MEDS: Acetaminophen 500 MG Tablet 1000 MG PO (07:47)
[2020-06-03 07:52] LABS: Absolute Lymphocyte Count 1.19 X10^3/uL (0.83-4.51); Absolute Neutrophil Count 3.7 X10^3/uL (2.0-7.7); Basophil# 0.01 X10^3/uL; Basophil% 0.2 % (0-1); Hematocrit 38.8 % (40-54); Hemoglobin 12.1 g/dL (13.0-16.5); Lymphocyte # 1.19 X10^3/ul (4.0); Lymphocyte % 21.9 % (19-41); Mean Corp Hgb Conc 31.2 g/dL (32-36); Mean Corpuscular Hgb 27.9 pg (27.0-32.0); Mean Corpuscular Volume 89.6 fL (80-94); Mean Platelet Vol. 9.2 fl (6.2-12.0); Monocyte# 0.47 X10^3/uL; Monocyte% 8.7 % (0-10); NRBC Flagged by Analyzer 0 % (0-5); Neutrophil # 3.73 X10^3/uL (2.7-7.7); Neutrophil % 68.6 % (47-70); Platelet Count 197 K/mm3 (150-450); RBC Distribution Width SD 45.9 fl (35.1-43.9); Red Blood Count 4.33 M/mm3 (4.6-6.2); White Blood Count 5.4 K/mm3 (4.4-11.0)
--- NOTE | 2020-06-03 08:00 | RAD_ITS ---
STUDY: X-RAY CHEST REASON FOR EXAM: Male, 75 years old. FATIGUE -- SOB -- FEVER -- GENERAL ILLNESS TECHNIQUE: Single AP portable view of the chest. COMPARISON: Comparison is made with prior study dated 11/14/2019. FINDINGS: EKG electrodes are seen. Patchy infiltrate is seen in the medial aspect of the right lower lobe as well as in the lateral aspect of the left lower lobe. There is no demonstrated pleural abnormality. Normal size heart. Normal mediastinum and glenna. Normal visualized pulmonary arteries. There is atherosclerotic calcification of the aortic arch with tortuosity. There are diffuse degenerative changes of the visualized thoracic spine. Normal visualized ribs, clavicles, and shoulders. There is no demonstrated abnormality of the visualized soft tissue structures of the upper abdomen. RAD/Chest 1 View (Portable) IMPRESSION: Patchy infiltrate in the medial aspect of the right lower lobe as well as the lateral aspect of the left lower. Follow-up is recommended. Electronically Signed: Ward Sauer, at 8:39 EDT , Service support ,
[2020-06-03 08:02] LABS: International Normalized Ratio 1.1; Prothrombin Time (Protime)PT. 14.1 SECONDS (11.7-14.9)
[2020-06-03 08:03] LABS: Partial Thromboplast Time 38.5 Seconds (24.1-36.2)
[2020-06-03 08:13] LABS: ALB/GLOB Ratio 0.7 RATIO (0.9-2.4); AST(SGOT) 60 U/L (15-37); Alanine Aminotransfer ALT/SGPT 31 U/L (16-61); Albumin, Serum 3.1 g/dL (3.2-5.0); Alkaline Phosphatase 71 U/L (45-117); Anion Gap 10 (5-15); BUN 23 mg/dL (7-18); BUN/Creat Ratio 13.9 RATIO (10-20); Calcium,Total 8.2 mg/dL (8.5-10.1); Chloride 98 mmol/L (98-107); Creatinine, Serum 1.66 mg/dL (0.70-1.30); EST Glomerular Filtration Rate 43 mL/min (>60); Est Glom Filt Rate - Afr Amer 52 mL/min (>60); Estimated Creatinine Clearance 42.85 ml/min; Globulin 4.6 g/dL (2.2-4.2); Glucose 152 mg/dL (74-106); Potassium 3.6 mmol/L (3.5-5.1); Protein, Total 7.7 g/dL (6.4-8.2); Sodium Level 132 mmol/L (136-145)
[2020-06-03 08:21] LABS: Lactic Acid 3.3 mmol/L (0.4-1.9)
[2020-06-03 09:57] LABS: Mucous, Urine 0 SEEN /hpf (<or=2+); Squamous Epithelial Cells - UA 0 SEEN /hpf (0-5)
[2020-06-03 10:19] LABS: Color, Urine Yellow (Yellow); Glucose, Dipstick Normal (Normal); Ketone-Dipstick 5 mg/dl (Negative); Leukocyte Esterase-Dipstick 100 /ul (Negative); Nitrite-Dipstick Negative (Negative); Occult Blood-Urine 25 /ul (Negative); Protein-Dipstick 100 mg/dl (Negative); Urine Bilirubin Dipstick Negative (Negative); Urine Clarity Clear (Clear); Urine Urobilinogen Normal (Normal)
[2020-06-03 10:25] LABS: Bacteria 2+ /hpf (None Seen); Fine Granular Cast- Urine 0-5 SEEN /lpf (0-5); Red Blood Cells-Urine 0-5 SEEN /hpf (0-5); White Blood Cells 5-10 SEEN /hpf (0-5)
--- NOTE | 2020-06-03 10:27 | ED.RN ---
lab called positive covid. dr meng
--- NOTE | 2020-06-03 11:01 | HP.PCM_ITS ---
Problem List (1) Stage III chronic kidney disease Status: Chronic (2) Septic shock Status: Resolved (3) Community acquired pneumonia Status: Resolved Qualifiers: Laterality: right Lung location: lower lobe of lung Qualified Code(s): J18.9 - Pneumonia, unspecified organism (4) History of loop recorder Status: Chronic (5) Chronic diastolic (congestive) heart failure Status: Chronic (6) Abdominal aortic aneurysm (AAA) Status: Chronic Qualifiers: Presence of rupture: without rupture Qualified Code(s): I71.4 - Abdominal aortic aneurysm, without rupture Comment: AAA repair (7) Essential (primary) hypertension Status: Chronic (8) Hyperlipidemia Status: Chronic Qualifiers: Hyperlipidemia type: unspecified Qualified Code(s): E78.5 - Hyperlipidemia, unspecified (9) History of pulmonary embolism Status: Chronic (10) COVID-19 Status: Acute History of Present Illness Date of Admission: 06/03/20 Chief Complaint: Generalized weakness. The patient is a 75 year old M with past medical history segment for diabetes mellitus type 2, dyslipidemia hypertension, history of PE on systemic anticoagulation with Xarelto who presented to the emergency department with progressive generalized weakness. Patient reports progressive generalized weakness since getting the flu shot couple of days prior to his admission. He also did admit to shortness of breath as well as nonproductive cough. Patient presented to the urgent care center on the day of his admission. He apparently slid to the ground was walking to the center. Squad was called patient was brought to the emergency department. In the ED patient underwent extensive work-up: X-ray of the chest which demonstrated Patchy infiltrate in the medial aspect of the right lower lobe as well as the lateral aspect of the left lower.. Subsequent COVID-19 also came back positive. Patient was apparently hy potensive in the ED with systolic blood pressure in the 90s resuscitated with IV fluids. Patient was placed in contact and droplet precautions and admitted to the [place] to Covid unit Past Medical History Past Medical History (Chronic Problems): Chronic Problems (Last Reviewed 06/03/20 @ 11:[address] Peña Jay MD) Stage III chronic kidney disease (Chronic) History of loop recorder (Chronic) Chronic diastolic (congestive) heart failure (Chronic) Abdominal aortic aneurysm (AAA) (Chronic) AAA repair Essential (primary) hypertension (Chronic) Hyperlipidemia (Chronic) History of pulmonary embolism (Chronic) Medical History: Medical History (Last Reviewed 06/03/20 @ 11:[address] 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 Z95.828 Systemic lupus erythematosus M32.9 Ventral hernia K43.9 Allergies No Known Allergies Allergy (Verified 06/03/20 07:36) Home Medications: Ambulatory Orders Medication Instructions Recorded Folic Acid 1 mg PO DAILY@0800 /03/27 simvastatin 40 mg tablet 40 mg PO QPM 02/26/18 mirabegron 25 mg tablet,extended 25 mg PO Q24H 03/12/18 release 24 hr Rivaroxaban [Xarelto] 20 mg PO 1200 11/10/19 Tamsulosin HCl [Flomax] 0.4 mg PO 1200 11/10/19 Allopurinol [Zyloprim] 300 mg PO DAILY 11/11/19 Clonazepam 0.5 mg PO BID PRN PRN 11/11/19 Dicyclomine HCl 10 mg PO Q6H 11/11/19 Lamotrigine [Lamictal] 200 mg PO BID 11/11/19 Omeprazole 40 mg PO DAILY 11/11/19 Quetiapine Fumarate [Quetiapine 400 mg PO QHS 11/11/19 Fumarate ER] Trospium Chloride 20 mg PO BID 11/11/19 Venlafaxine XR [Effexor Xr] 150 mg PO DAILY 11/11/19 Amoxicillin/Potassium Clav 1 ea PO BID #8 tab 11/16/19 [Augmentin 875-125 Tablet] metFORMIN HCl [Glucophage] 500 mg PO BIDCM #60 tab 11/16/19 Surgical History: Surgical History (Last Reviewed 06/03/20 @ 11:[address] Peña Jay MD) History of loop recorder (Chronic) Z98.890 History of AAA (abdominal aortic aneurysm) repair Onset Date: 1988 Z98.890 History of cataract surgery Z98.49 History of tonsillectomy Z90.89 History of total left knee replacement Z96.652 Hx of cholecystectomy Z90.49 Surgical History: - - AAA Psychiatric History: Bipolar Lives: Alone Smoking Status: Former smoker Alcohol: None Drugs: None - *Family History Maternal Family History: Family History (Last Reviewed 06/03/20 @ 11:[address] Peña Jay MD) Brother Myocardial infarction Father Sudden cardiac Review of Systems Constitutional: Reports: Weakness, Fatigue. Denies: Anorexia, Chills, Fever, Night Sweats, Weight Change HEENT: Denies: Head Aches, Sinus Congestion, Sinus Drainage Cardiovascular: Denies: Chest Pain, Orthopnea, Palpitations, Paroxysmal Noc. Dyspnea Respiratory: Reports: Cough, Shortness of Breath Gastrointestinal: Denies: Abdominal Pain, Hematemesis, Hematochezia, Nausea, Melena, Vomiting Genitourinary: Denies: Dysuria, Frequency, Hematuria, Urgency Musculoskeletal: Denies: Joint Pain, Joint Tenderness Skin: Denies: Rash Neurological: Denies: Focal weakness, Numbness, Tingling Psychiatric: Denies: Homicidal Ideations, Suicidal Ideations Hematologic/ Lymphatic: Denies: Easy Bruising, Easy Bleeding VTE Information - Inpt Only VTE Present on Admission: No VTE Mechan Device Prophylaxis: None VTE Pharm Prophylaxis ordered?: Yes Patient Problems: Active and Suspected Problems (Last Reviewed 06/03/20 @ 11:[address] Peña Jay MD) COVID-19 (Acute) Objective: GENERAL: cooperative HEENT: Atraumatic; EYES; Anicteric, Normal Conjunctiva NECK; supple, normal thyroid, RESPIRATORY: Diminished to auscultation CARDIOVASCULAR: Regular S1 S2, GI: soft, normoactive bowel sounds, : No Renal angle tenderness; EXTREMITIES: No edema, no clubbing, MUSCULOSKELETAL: no muscle waisting NEURO: Awake; no lateralizing signs. SKIN: No Rash PSYCH; Flat affect - Physical Exam Vitals/I&O's: Vital Signs Temp Pulse Resp BP Pulse Ox 98.8 F 85 20 H 101/66 98 06/03/20 10:00 06/03/20 10:00 06/03/20 10:00 06/03/20 10:00 06/03/20 10:00 Oxygen Flow Rate (L/min) 4 Oxygen Delivery Method Nasal Cannula Weight: 107.8 kg Body Mass Index (BMI) 32.2 Intake and Output for Last 24 Hours 06/01/20 06/02/20 06/03/20 23:59 23:59 23:59 Intake Total 500 / 500 Balance 500 / 500 Microbiology Past 72 Hours 06/03/20 08:05 Mucosa - Nose Respiratory Panel (PCR) - Final Laboratory Results 06/03/20 07:40: WBC 5.4, RBC 4.33 L, Hgb 12.1 L, Hct 38.8 L, MCV 89.6, MCH 27.9, MCHC 31.2 L, RDW Std Deviation 45.9 H, RDW Coeff of Luca 14.0, Plt Count 197, MPV 9.2, Immature Gran % (Auto) 0.600, Neut % (Auto) 68.6, Lymph % (Auto) 21.9, [place] % (Auto) 8.7, Eos % (Auto) 0.0, Baso % (Auto) 0.2, Absolute Neuts (auto) 3.7, Absolute Lymphs (auto) 1.19, Nucleated RBC % 0 06/03/20 07:40: PT 14.1, INR 1.1, APTT 38.5 H 06/03/20 07:40: Sodium 132 L, Potassium 3.6, Chloride 98, Carbon Dioxide 24.0, Anion Gap 10, BUN 23 H, Creatinine 1.66 H, Estim Creat Clear Calc 42.85, Est GFR (MDRD) Af Amer 52 L, Est GFR (MDRD) Non-Af 43 L, BUN/Creatinine Ratio 13.9, Glucose 152 H, Calcium 8.2 L, Total Bilirubin 0.30, AST 60 H, ALT 31, Alkaline Phosphatase 71, Troponin I 0.215 H, Total Protein 7.7, Albumin 3.1 L, Globulin 4.6 H, Albumin/Globulin Ratio 0.7 L 06/03/20 07:40: Lactic Acid 3.3 H* 06/03/20 08:05: COVID-19 (PETRONA) Detected 06/03/20 09:50: Urine Color Yellow, Urine Clarity Clear, Urine pH 6.0, Ur Specific [place] 1.020, Urine Protein 100 H, Urine Glucose (UA) Normal, Urine Ketones 5 H, Urine Occult Blood 25 H, Urine Nitrite Negative, Urine Bilirubin Negative, Urine Urobilinogen Normal, Ur Leukocyte Esterase 100 H, Urine RBC 0-5 SEEN, Urine WBC 5-10 SEEN, Ur Squamous Epith Cells 0 SEEN, Urine Bacteria 2+, Fine Granular Casts 0-5 SEEN, Urine Mucus 0 SEEN Assessment/Plan All Active Problems (Last Reviewed 06/03/20 @ 11:[address] Peña Jay MD) COVID-19 (Acute) Septic shock (Resolved) Community acquired pneumonia (Resolved) Patient is a 74-year-old gentleman with multiple comorbidities presents with progressive generalized weakness. Imaging studies on admission demonstrated Patchy infiltrate in the medial aspect of the right lower lobe as well as the lateral aspect of the left lower. His COVID-19 assay came back positive 1. Acute COVID-19 infection with superimposed pneumonia ?Patient admitted to the cohort unit. Started on supplemental oxygen titrated to keep oxygen saturation greater than 92. Patient was also started on Decadron. Patient already on systemic anticoagulation with Xarelto due to previous PE. Subsequently started on azithromycin as well as Rocephin and consult placed to pulmonary medicine and infectious disease. Decision to start remdesivir and convalescent plasma deferred 2. Sepsis ?Secondary to acute COVID-19 infection with superimposed pneumonia. Management as discussed above 3. Previous history of pulmonary embolism ?Patient is on Xarelto did continue 4. Essential hypertension ?Patient antihypertensives held in view of patient presented with relatively low blood pressure 5. Bipolar disorder 6. Dyslipidemia -Patient is on statin therapy, continued at home dose 7. Diabetes mellitus type 2 ?Patient oral agents Metformin held in view of patient lactic acidosis. He is on Accu-Cheks before meals and at bedtime with sliding scale coverage 8. Bipolar disorder -patient is on quetiapine and Lamictal did continue 9. Depression with anxiety ?Patient is on SSRI 9. Chronic kidney disease stage III ?Kidney function at baseline 11. DVT prophylaxis ?Patient on Xarelto Advance planning; did discuss with the patient and family regarding advanced directives as well as CODE STATUS. Did explain the various scenarios involved ( FULL CODE, DNR CCA, DNR CCA with no intubation, and DNR CC and what each meant) patient elected to be DNR CCA no intubation. Order was placed. Time spent on discussion 18 minutes. Inpatient E&M: 62104 Init Hosp L3 Procedures: 81426 Advncd Care Plan 30 Min
[2020-06-03 11:49] LABS: Reflex Lactate? Y
[2020-06-03 13:13] LABS: Fibrinogen 499 mg/dl (203-444)
[2020-06-03 13:19] LABS: BNP,B-Type NATRIURETIC PEPTIDE 58.5 pg/mL (0-100)
[2020-06-03 13:22] LABS: CPK Total, Creatine Kinase 806 U/L (39-308); LDH 290 U/L (87-241)
[2020-06-03 13:27] LABS: Procalcitonin 1.29 ng/mL (0.00-0.09)
[2020-06-03 13:29] LABS: Lactic Acid 2.5 mmol/L (0.4-1.9)
--- NOTE | 2020-06-03 13:49 | CASEMGMT ---
Social Work Pt has services through [facility]. Addis Duongbhupendra is his CM and pt receives 14 meals per week and has a medical alert system. Pt also receives 3 hours of aid services on Tuesdays, Wednesdays, through [place]. Coverage staff at [facility] notified of pt admission. RIZWAN Carter
[2020-06-03] MEDS: Ceftriaxone 1 GM/50 ML BAG IV (13:53)
[2020-06-03] MEDS: Mirabegron 25 MG TAB.ER.24H PO (13:55)
[2020-06-03] MEDS: Tamsulosin HCl 0.4 MG Capsule PO (13:55)
[2020-06-03] MEDS: Rivaroxaban 20 MG Tablet PO (13:55)
[2020-06-03] MEDS: Insulin Lispro 100 UNIT/ML INSULN.PEN SC ×2 (15:00→20:17)
[2020-06-03 15:15] LABS: Bedside Glucose 164 mg/dL (70-110)
--- NOTE | 2020-06-03 15:50 | CON.PCM_ITS ---
Problem List (1) COVID-19 Status: Acute Reason for Consult: covid Consulted by: Dr. Jay History of Present Illness: The patient is a 75 year old M with CKD, presented overnight with 2 weeks of fatigue, mild dyspnea. Lives alone. No change in taste/smell, no cough, no n/v/d. Came to ED, started on O2, given dex, azithro/ceftriaxone. Full ROS performed and neg except as noted above. - Medical History Past Medical History (Chronic Problems): Chronic Problems (Last Reviewed 06/03/20 @ 11:[address] Peña Jay MD) Stage III chronic kidney disease (Chronic) History of loop recorder (Chronic) Chronic diastolic (congestive) heart failure (Chronic) Abdominal aortic aneurysm (AAA) (Chronic) AAA repair Essential (primary) hypertension (Chronic) Hyperlipidemia (Chronic) History of pulmonary embolism (Chronic) Allergies/Adverse Reactions: Allergies No Known Allergies Allergy (Verified 06/03/20 07:36) Home Medications: Ambulatory Orders Medication Instructions Recorded Folic Acid 1 mg PO DAILY@0800 12/18/15 simvastatin 40 mg tablet 40 mg PO QPM 02/26/18 mirabegron 25 mg tablet,extended 25 mg PO Q24H 03/12/18 release 24 hr Rivaroxaban [Xarelto] 20 mg PO 1200 11/10/19 Tamsulosin HCl [Flomax] 0.4 mg PO 1200 11/10/19 Allopurinol [Zyloprim] 300 mg PO DAILY 11/11/19 Clonazepam 0.5 mg PO BID PRN PRN 11/11/19 Dicyclomine HCl 10 mg PO Q6H 11/11/19 Lamotrigine [Lamictal] 200 mg PO BID 11/11/19 Omeprazole 40 mg PO DAILY 11/11/19 Quetiapine Fumarate [Quetiapine 400 mg PO QHS 11/11/19 Fumarate ER] Trospium Chloride 20 mg PO BID 11/11/19 Venlafaxine XR [Effexor Xr] 150 mg PO DAILY 11/11/19 Amoxicillin/Potassium Clav 1 ea PO BID #8 tab 11/16/19 [Augmentin 875-125 Tablet] metFORMIN HCl [Glucophage] 500 mg PO BIDCM #60 tab 11/16/19 - Social History SMOKING STATUS:: Former smoker Vital Signs Temp Pulse Resp BP Pulse Ox 98.7 F 85 16 100/68 95 06/03/20 12:24 06/03/20 13:00 06/03/20 12:24 06/03/20 12:24 06/03/20 13:35 Oxygen Flow Rate (L/min) 4 Oxygen Delivery Method Nasal Cannula Weight: 105.324 kg Body Mass Index (BMI) 31.4 Microbiology Past 72 Hours 06/03/20 08:05 Respiratory Panel (PCR) - Final Mucosa - Nose Laboratory Tests Past 24 Hrs 06/03/20 06/03/20 06/03/20 07:40 07:40 07:40 WBC 5.4 RBC 4.33 L Hgb 12.1 L Hct 38.8 L MCV 89.6 MCH 27.9 MCHC 31.2 L RDW Std Deviation 45.9 H RDW Coeff of Luca 14.0 Plt Count 197 MPV 9.2 Immature Gran % (Auto) 0.600 Neut % (Auto) 68.6 Lymph % (Auto) 21.9 [place] % (Auto) 8.7 Eos % (Auto) 0.0 Baso % (Auto) 0.2 Absolute Neuts (auto) 3.7 Absolute Lymphs (auto) 1.19 Nucleated RBC % 0 PT 14.1 INR 1.1 APTT 38.5 H Fibrinogen Sodium 132 L Potassium 3.6 Chloride 98 Carbon Dioxide 24.0 Anion Gap 10 BUN 23 H Creatinine 1.66 H Estim Creat Clear Calc 42.85 Est GFR (MDRD) Af Amer 52 L Est GFR (MDRD) Non-Af 43 L BUN/Creatinine Ratio 13.9 Glucose 152 H Lactic Acid Calcium 8.2 L Total Bilirubin 0.30 AST 60 H ALT 31 Alkaline Phosphatase 71 Lactate Dehydrogenase Total Creatine Kinase Troponin I 0.215 H C-React Prot Ext Range B-Natriuretic Peptide Total Protein 7.7 Albumin 3.1 L Globulin 4.6 H Albumin/Globulin Ratio 0.7 L Procalcitonin Urine Color Urine Clarity Urine pH Ur Specific [place] Urine Protein Urine Glucose (UA) Urine Ketones Urine Occult Blood Urine Nitrite Urine Bilirubin Urine Urobilinogen Ur Leukocyte Esterase Urine RBC Urine WBC Ur Squamous Epith Cells Urine Bacteria Fine Granular Casts Urine Mucus COVID-19 ([facility]) 06/03/20 06/03/20 06/03/20 07:40 08:05 09:50 WBC RBC Hgb Hct MCV MCH MCHC RDW Std Deviation RDW Coeff of [place] Plt Count MPV Immature Gran % (Auto) Neut % (Auto) Lymph % (Auto) [place] % (Auto) Eos % (Auto) Baso % (Auto) Absolute Neuts (auto) Absolute Lymphs (auto) Nucleated RBC % PT INR APTT Fibrinogen Sodium Potassium Chloride Carbon Dioxide Anion Gap BUN Creatinine Estim Creat Clear Calc Est GFR (MDRD) Af Amer Est GFR (MDRD) Non-Af BUN/Creatinine Ratio Glucose Lactic Acid 3.3 H* Calcium Total Bilirubin AST ALT Alkaline Phosphatase Lactate Dehydrogenase Total Creatine Kinase Troponin I C-React Prot Ext Range B-Natriuretic Peptide Total Protein Albumin Globulin Albumin/Globulin Ratio Procalcitonin Urine Color Yellow Urine Clarity Clear Urine pH 6.0 Ur Specific [place] 1.020 Urine Protein 100 H Urine Glucose (UA) Normal Urine Ketones 5 H Urine Occult Blood 25 H Urine Nitrite Negative Urine Bilirubin Negative Urine Urobilinogen Normal Ur Leukocyte Esterase 100 H Urine RBC 0-5 SEEN Urine WBC 5-10 SEEN Ur Squamous Epith Cells 0 SEEN Urine Bacteria 2+ Fine Granular Casts 0-5 SEEN Urine Mucus 0 SEEN COVID-19 ([facility]) Detected 06/03/20 06/03/20 06/03/20 12:46 12:46 12:46 WBC RBC Hgb Hct MCV MCH MCHC RDW Std Deviation RDW Coeff of [place]a Plt Count MPV Immature Gran % (Auto) Neut % (Auto) Lymph % (Auto) [place] % (Auto) Eos % (Auto) Baso % (Auto) Absolute Neuts (auto) Absolute Lymphs (auto) Nucleated RBC % PT INR APTT Fibrinogen 499 H Sodium Potassium Chloride Carbon Dioxide Anion Gap BUN Creatinine Estim Creat Clear Calc Est GFR (MDRD) Af Amer Est GFR (MDRD) Non-Af BUN/Creatinine Ratio Glucose Lactic Acid 2.5 H* Calcium Total Bilirubin AST ALT Alkaline Phosphatase Lactate Dehydrogenase 290 H Total Creatine Kinase 806 H Troponin I C-React Prot Ext Range 97.50 H B-Natriuretic Peptide Total Protein Albumin Globulin Albumin/Globulin Ratio Procalcitonin Urine Color Urine Clarity Urine pH Ur Specific [place] Urine Protein Urine Glucose (UA) Urine Ketones Urine Occult Blood Urine Nitrite Urine Bilirubin Urine Urobilinogen Ur Leukocyte Esterase Urine RBC Urine WBC Ur Squamous Epith Cells Urine Bacteria Fine Granular Casts Urine Mucus COVID-19 ([facility]) 06/03/20 06/03/20 06/03/20 12:46 12:46 12:46 WBC RBC Hgb Hct MCV MCH MCHC RDW Std Deviation RDW Coeff of [place] Plt Count MPV Immature Gran % (Auto) Neut % (Auto) Lymph % (Auto) [place] % (Auto) Eos % (Auto) Baso % (Auto) Absolute Neuts (auto) Absolute Lymphs (auto) Nucleated RBC % PT INR APTT Fibrinogen Sodium Potassium Chloride Carbon Dioxide Anion Gap BUN Creatinine Estim Creat Clear Calc Est GFR (MDRD) Af Amer Est GFR (MDRD) Non-Af BUN/Creatinine Ratio Glucose Lactic Acid Calcium Total Bilirubin AST ALT Alkaline Phosphatase Lactate Dehydrogenase Total Creatine Kinase Troponin I 0.170 H C-React Prot Ext Range B-Natriuretic Peptide 58.5 Total Protein Albumin Globulin Albumin/Globulin Ratio Procalcitonin 1.29 H Urine Color Urine Clarity Urine pH Ur Specific [place] Urine Protein Urine Glucose (UA) Urine Ketones Urine Occult Blood Urine Nitrite Urine Bilirubin Urine Urobilinogen Ur Leukocyte Esterase Urine RBC Urine WBC Ur Squamous Epith Cells Urine Bacteria Fine Granular Casts Urine Mucus COVID-19 ([facility]) 06/03/20 15:09 WBC RBC Hgb Hct MCV MCH MCHC RDW Std Deviation RDW Coeff of [place] Plt Count MPV Immature Gran % (Auto) Neut % (Auto) Lymph % (Auto) [place] % (Auto) Eos % (Auto) Baso % (Auto) Absolute Neuts (auto) Absolute Lymphs (auto) Nucleated RBC % PT INR APTT Fibrinogen Sodium Potassium Chloride Carbon Dioxide Anion Gap BUN Creatinine Estim Creat Clear Calc Est GFR (MDRD) Af Amer Est GFR (MDRD) Non-Af BUN/Creatinine Ratio Glucose Lactic Acid Calcium Total Bilirubin AST ALT Alkaline Phosphatase Lactate Dehydrogenase Total Creatine Kinase Troponin I 0.162 H C-React Prot Ext Range B-Natriuretic Peptide Total Protein Albumin Globulin Albumin/Globulin Ratio Procalcitonin Urine Color Urine Clarity Urine pH Ur Specific [place] Urine Protein Urine Glucose (UA) Urine Ketones Urine Occult Blood Urine Nitrite Urine Bilirubin Urine Urobilinogen Ur Leukocyte Esterase Urine RBC Urine WBC Ur Squamous Epith Cells Urine Bacteria Fine Granular Casts Urine Mucus COVID-19 ([facility]) - Other Studies Radiology: [] reviewed Other Studies: [] Route of nutrition/ use of supplements: [] Nutritional Intake: [] IV Site: [] Britton Catheter: [] - Physical Exam General: Alert, Oriented x3, Cooperative, No apparent distress HEENT: Atraumatic, PERRLA, EOMI Neck: Supple, No Nodes Lungs: Clear to auscultation, Diminished Cardiovascular: Regular rate, Regular Rhythm Abdomen: Soft, Non Tender, Non-Distended Extremities: No edema Skin: No rashes IV Site: Peripheral, without redness Musculoskeletal: No Tenderness to Palpation of Joints or Extremities Neurological: Cranial nerves II-XII grossly intact - Assessment/Plan Antibiotics: [] Assessment/Plan: [] Active and Suspected Problems (Last Reviewed 06/03/20 @ 11:[address] Peña Jay MD) COVID-19 (Acute) covid with acute hypoxic resp failure - elevated lactate. On 4L. On dex. Will change to po. Sx for 2 weeks, so likely not benefit from remdesivir. Will stop azithro/ceftriaxone. On Xarelto. Will follow, thank you
[2020-06-03] MEDS: Acetaminophen 325 MG Tablet 650 MG PO ×2 (18:08→22:40)
[2020-06-03] MEDS: QUEtiapine 100 MG Tablet 400 MG PO (20:18)
[2020-06-03] MEDS: lamoTRIgine 100 MG Tablet 200 MG PO (20:18)
[2020-06-03] MEDS: Atorvastatin Calcium 20 MG Tablet PO (20:18)
[2020-06-03 20:36] LABS: Bedside Glucose 157 mg/dL (70-110)
[2020-06-04] VITALS (24 sets, daily range): BP systolic 112–166; BP diastolic 70–97; PULSE 86–105; RESP 12–28; TEMP 37–39.3; O2SAT 81–99
[2020-06-04] MEDS: 0.9% Saline Lock 10 ML Syringe IV (03:32)
[2020-06-04] MEDS: Acetaminophen 325 MG Tablet 650 MG PO ×2 (06:53→17:04)
[2020-06-04 07:05] LABS: Bedside Glucose 108 mg/dL (70-110)
[2020-06-04 08:06] LABS: Absolute Lymphocyte Count 1.29 X10^3/uL (0.83-4.51); Absolute Neutrophil Count 3.2 X10^3/uL (2.0-7.7); Basophil# 0.01 X10^3/uL; Basophil% 0.2 % (0-1); Hematocrit 37.5 % (40-54); Hemoglobin 11.6 g/dL (13.0-16.5); Lymphocyte # 1.29 X10^3/ul (4.0); Lymphocyte % 26.2 % (19-41); Mean Corp Hgb Conc 30.9 g/dL (32-36); Mean Corpuscular Hgb 28.2 pg (27.0-32.0); Mean Corpuscular Volume 91.2 fL (80-94); Mean Platelet Vol. 9.5 fl (6.2-12.0); Monocyte% 8.1 % (0-10); NRBC Flagged by Analyzer 0 % (0-5); Neutrophil # 3.19 X10^3/uL (2.7-7.7); Neutrophil % 64.7 % (47-70); POSITIVE MORPHOLOGY YES; Platelet Count 177 K/mm3 (150-450); RBC Distribution Width CV 14.4 % (11.6-14.6); RBC Distribution Width SD 47.9 fl (35.1-43.9); Red Blood Count 4.11 M/mm3 (4.6-6.2); White Blood Count 4.9 K/mm3 (4.4-11.0)
[2020-06-04 08:31] LABS: Differential Comment SCANNED; Differential Indicated SCAN CRITERIA MET
[2020-06-04 08:33] LABS: Anion Gap 8 (5-15); BUN 19 mg/dL (7-18); BUN/Creat Ratio 13.2 RATIO (10-20); Calcium,Total 7.6 mg/dL (8.5-10.1); Chloride 100 mmol/L (98-107); Creatinine, Serum 1.44 mg/dL (0.70-1.30); EST Glomerular Filtration Rate 51 mL/min (>60); Est Glom Filt Rate - Afr Amer 62 mL/min (>60); Glucose 125 mg/dL (74-106); Potassium 3.5 mmol/L (3.5-5.1); Sodium Level 134 mmol/L (136-145)
[2020-06-04] MEDS: Tolterodine Tartrate 2 MG CAP.SA PO (08:37)
[2020-06-04] MEDS: Venlafaxine XR 150 MG Capsule PO (08:37)
[2020-06-04] MEDS: lamoTRIgine 100 MG Tablet 200 MG PO ×2 (08:37→20:59)
[2020-06-04] MEDS: dexAMETHasone 4 MG Tablet 6 MG PO (08:37)
[2020-06-04] MEDS: Allopurinol 300 MG Tablet PO (08:38)
[2020-06-04] MEDS: Mirabegron 25 MG TAB.ER.24H PO (08:38)
[2020-06-04] MEDS: Folic Acid 1 MG Tablet PO (08:38)
[2020-06-04] MEDS: Pantoprazole Sodium 40 MG Tablet PO (08:38)
[2020-06-04] MEDS: guaiFENesin 10 ML UDC (200MG/10ML) 20 ML PO ×2 (08:38→16:54)
--- NOTE | 2020-06-04 10:22 | PCM.CONS.PUL ---
Reason for Consult Date of Consultation: 06/04/20 Reason for Consultation: Covid pneumonia History of Present Illness: The patient is a 75-year-old male, with a history as outlined below, who presented to the emergency department on June 03 with weakness, fever, fatigue, shortness of breath and recent fall. The patient reported to me that his symptoms have been present now for approximately 2 to 3 weeks. He denies any known coronavirus exposures. On presentation to the emergency department, the patient was noted to be afebrile and hemodynamically stable. He was initially saturating 88% on room air. Laboratory evaluation revealed a normal white blood cell count. Chemistry profile was notable for a sodium of 132 and creatinine of 1.66. Lactate was elevated to 3.3. Troponin was increased to 0.215. Coronavirus PCR was positive. Chest x-ray revealed patchy bilateral infiltrates. The patient was placed on antimicrobials and Decadron. He was subsequently admitted to the Covid cohort unit for further management. The patient was subsequently evaluated by infectious diseases, who did not feel that remdesivir was indicated given the duration of his symptoms. The patient was already previously anticoagulated on Xarelto. Past Medical History Past Medical History (Chronic Problems): Chronic Problems (Last Reviewed 06/03/20 @ 11:[address] Peña Jay MD) Stage III chronic kidney disease (Chronic) History of loop recorder (Chronic) Chronic diastolic (congestive) heart failure (Chronic) Abdominal aortic aneurysm (AAA) (Chronic) AAA repair Essential (primary) hypertension (Chronic) Hyperlipidemia (Chronic) History of pulmonary embolism (Chronic) Medical History: Medical History (Last Reviewed 06/03/20 @ 11:[address] 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 Z95.828 Systemic lupus erythematosus M32.9 Ventral hernia K43.9 Allergies No Known Allergies Allergy (Verified 06/03/20 07:36) Home Medications: Ambulatory Orders Medication Instructions Recorded Folic Acid 1 mg PO DAILY@0800 12/18/15 simvastatin 40 mg tablet 40 mg PO QPM 02/26/18 mirabegron 25 mg tablet,extended 25 mg PO Q24H 03/12/18 release 24 hr Rivaroxaban [Xarelto] 20 mg PO 1200 11/10/19 Tamsulosin HCl [Flomax] 0.4 mg PO 1200 11/10/19 Allopurinol [Zyloprim] 300 mg PO DAILY 11/11/19 Clonazepam 0.5 mg PO BID PRN PRN 11/11/19 Dicyclomine HCl 10 mg PO Q6H 11/11/19 Lamotrigine [Lamictal] 200 mg PO BID 11/11/19 Omeprazole 40 mg PO DAILY 11/11/19 Quetiapine Fumarate [Quetiapine 400 mg PO QHS 11/11/19 Fumarate ER] Trospium Chloride 20 mg PO BID 11/11/19 Venlafaxine XR [Effexor Xr] 150 mg PO DAILY 11/11/19 Amoxicillin/Potassium Clav 1 ea PO BID #8 tab 11/16/19 [Augmentin 875-125 Tablet] metFORMIN HCl [Glucophage] 500 mg PO BIDCM #60 tab 11/16/19 Surgical History: Surgical History (Last Reviewed 06/03/20 @ 11:[address] Peña Jay MD) History of loop recorder (Chronic) Z98.890 History of AAA (abdominal aortic aneurysm) repair Onset Date: 1988 Z98.890 History of cataract surgery Z98.49 History of tonsillectomy Z90.89 History of total left knee replacement Z96.652 Hx of cholecystectomy Z90.49 Surgical History: - - AAA Psychiatric History: Bipolar Lives: Alone Smoking Status: Former smoker Alcohol: None Drugs: None - *Family History Maternal Family History: Family History (Last Reviewed 06/03/20 @ 11:[address] Peña Jay MD) Brother Myocardial infarction Father Sudden cardiac Offspring Family History: Family History (Last Reviewed 06/03/20 @ 11:[address] Peña Jay MD) Brother Myocardial infarction Father Sudden cardiac History Items: - - He has 2 children and they have both been diagnosed with bipolar disorder. Review of Systems Constitutional: Reports: Malaise, Weakness, Fatigue Eyes: Denies: Blurred vision, Double vision HEENT: Denies: Head Aches, Sinus Congestion, Sinus Drainage Cardiovascular: Denies: Chest Pain, Palpitations Respiratory: Reports: Cough, Shortness of Breath Gastrointestinal: Denies: Abdominal Pain, Nausea, Vomiting Genitourinary: Denies: Dysuria Musculoskeletal: Denies: Joint Pain, Joint Tenderness Skin: Denies: Rash, Wounds Neurological: Denies: Numbness, Tingling, Focal weakness Psychiatric: Denies: Anxiety, Depression, Homicidal Ideations, Suicidal Ideations Hematologic/ Lymphatic: Denies: Easy Bruising, Easy Bleeding Patient Problems: Active and Suspected Problems (Last Reviewed 06/03/20 @ 11:[address] Peña Jay MD) COVID-19 (Acute) Objective: The patient's most recent lab work, culture data and imaging studies have all been personally reviewed. Coronavirus PCR was positive on June 03. Strep and urine Legionella antigens were negative. Respiratory viral panel was negative. Blood and urine cultures are pending. - Physical Exam Vitals/I&O's: Vital Signs Temp Pulse Resp BP Pulse Ox 99.9 F H 91 20 H 139/80 H 93 06/04/20 09:54 06/04/20 09:54 06/04/20 09:54 06/04/20 09:54 06/04/20 09:54 Oxygen Flow Rate (L/min) 4 Oxygen Delivery Method Nasal Cannula Weight: 232 lb 3.2 oz Body Mass Index (BMI) 31.4 Intake and Output for Last 24 Hours 06/02/20 06/03/20 06/04/20 23:59 23:59 23:59 Intake Total 1550.0 / 1550.0 1999 / 1999 Output Total 800 / 800 Balance 1550.0 / 1550.0 1200 / 1200 General: Alert, Cooperative HEENT: Atraumatic, Normocephalic Oral: No Gingival or Mucosal Lesions/ Ulcerations Neck: Supple, No Nodes, Trachea Midline Lungs: Diminished, Tachypneic Cardiovascular: Regular rate, Regular Rhythm Abdomen: Bowel Sounds Present, Soft Extremities: No clubbing, No cyanosis, No edema Skin: No breakdown Musculoskeletal: No Muscle Wasting Lymphatic: No Cervical, Supraclavicular, or Inguinal Adenopathy Neurological: Neuro grossly intact Psych/Mental Status: Normal Affect Labs (Last 48 Hours) 06/03/20 06/03/20 06/03/20 07:40 07:40 07:40 WBC 5.4 RBC 4.33 L Hgb 12.1 L Hct 38.8 L MCV 89.6 MCH 27.9 MCHC 31.2 L RDW Std Deviation 45.9 H RDW Coeff of Luca 14.0 Plt Count 197 MPV 9.2 Immature Gran % (Auto) 0.600 Neut % (Auto) 68.6 Lymph % (Auto) 21.9 [place] % (Auto) 8.7 Eos % (Auto) 0.0 Baso % (Auto) 0.2 Absolute Neuts (auto) 3.7 Absolute Lymphs (auto) 1.19 Nucleated RBC % 0 Differential Comment PT 14.1 INR 1.1 APTT 38.5 H Fibrinogen Sodium 132 L Potassium 3.6 Chloride 98 Carbon Dioxide 24.0 Anion Gap 10 BUN 23 H Creatinine 1.66 H Estim Creat Clear Calc 42.85 Est GFR (MDRD) Af Amer 52 L Est GFR (MDRD) Non-Af 43 L BUN/Creatinine Ratio 13.9 Glucose 152 H Lactic Acid Calcium 8.2 L Magnesium Total Bilirubin 0.30 AST 60 H ALT 31 Alkaline Phosphatase 71 Lactate Dehydrogenase Total Creatine Kinase Troponin I 0.215 H C-React Prot Ext Range B-Natriuretic Peptide Total Protein 7.7 Albumin 3.1 L Globulin 4.6 H Albumin/Globulin Ratio 0.7 L Procalcitonin Urine Color Urine Clarity Urine pH Ur Specific [place] Urine Protein Urine Glucose (UA) Urine Ketones Urine Occult Blood Urine Nitrite Urine Bilirubin Urine Urobilinogen Ur Leukocyte Esterase Urine RBC Urine WBC Ur Squamous Epith Cells Urine Bacteria Fine Granular Casts Urine Mucus COVID-19 ([place]) POC Glucose 06/03/20 06/03/20 06/03/20 07:40 08:05 09:50 WBC RBC Hgb Hct MCV MCH MCHC RDW Std Deviation RDW Coeff of Luc[place] Plt Count MPV Immature Gran % (Auto) Neut % (Auto) Lymph % (Auto) [place] % (Auto) Eos % (Auto) Baso % (Auto) Absolute Neuts (auto) Absolute Lymphs (auto) Nucleated RBC % Differential Comment PT INR APTT Fibrinogen Sodium Potassium Chloride Carbon Dioxide Anion Gap BUN Creatinine Estim Creat Clear Calc Est GFR (MDRD) Af Amer Est GFR (MDRD) Non-Af BUN/Creatinine Ratio Glucose Lactic Acid 3.3 H* Calcium Magnesium Total Bilirubin AST ALT Alkaline Phosphatase Lactate Dehydrogenase Total Creatine Kinase Troponin I C-React Prot Ext Range B-Natriuretic Peptide Total Protein Albumin Globulin Albumin/Globulin Ratio Procalcitonin Urine Color Yellow Urine Clarity Clear Urine pH 6.0 Ur Specific [place] 1.020 Urine Protein 100 H Urine Glucose (UA) Normal Urine Ketones 5 H Urine Occult Blood 25 H Urine Nitrite Negative Urine Bilirubin Negative Urine Urobilinogen Normal Ur Leukocyte Esterase 100 H Urine RBC 0-5 SEEN Urine WBC 5-10 SEEN Ur Squamous Epith Cells 0 SEEN Urine Bacteria 2+ Fine Granular Casts 0-5 SEEN Urine Mucus 0 SEEN COVID-19 ([place]) Detected POC Glucose 06/03/20 06/03/20 06/03/20 12:46 12:46 12:46 WBC RBC Hgb Hct MCV MCH MCHC RDW Std Deviation RDW Coeff of [place] Plt Count MPV Immature Gran % (Auto) Neut % (Auto) Lymph % (Auto) [place] % (Auto) Eos % (Auto) Baso % (Auto) Absolute Neuts (auto) Absolute Lymphs (auto) Nucleated RBC % Differential Comment PT INR APTT Fibrinogen 499 H Sodium Potassium Chloride Carbon Dioxide Anion Gap BUN Creatinine Estim Creat Clear Calc Est GFR (MDRD) Af Amer Est GFR (MDRD) Non-Af BUN/Creatinine Ratio Glucose Lactic Acid 2.5 H* Calcium Magnesium Total Bilirubin AST ALT Alkaline Phosphatase Lactate Dehydrogenase 290 H Total Creatine Kinase 806 H Troponin I C-React Prot Ext Range 97.50 H B-Natriuretic Peptide Total Protein Albumin Globulin Albumin/Globulin Ratio Procalcitonin Urine Color Urine Clarity Urine pH Ur Specific [place] Urine Protein Urine Glucose (UA) Urine Ketones Urine Occult Blood Urine Nitrite Urine Bilirubin Urine Urobilinogen Ur Leukocyte Esterase Urine RBC Urine WBC Ur Squamous Epith Cells Urine Bacteria Fine Granular Casts Urine Mucus COVID-19 ([place]) POC Glucose 06/03/20 06/03/20 06/03/20 12:46 12:46 12:46 WBC RBC Hgb Hct MCV MCH MCHC RDW Std Deviation RDW Coeff of [place] Plt Count MPV Immature Gran % (Auto) Neut % (Auto) Lymph % (Auto) [place] % (Auto) Eos % (Auto) Baso % (Auto) Absolute Neuts (auto) Absolute Lymphs (auto) Nucleated RBC % Differential Comment PT INR APTT Fibrinogen Sodium Potassium Chloride Carbon Dioxide Anion Gap BUN Creatinine Estim Creat Clear Calc Est GFR (MDRD) Af Amer Est GFR (MDRD) Non-Af BUN/Creatinine Ratio Glucose Lactic Acid Calcium Magnesium Total Bilirubin AST ALT Alkaline Phosphatase Lactate Dehydrogenase Total Creatine Kinase Troponin I 0.170 H C-React Prot Ext Range B-Natriuretic Peptide 58.5 Total Protein Albumin Globulin Albumin/Globulin Ratio Procalcitonin 1.29 H Urine Color Urine Clarity Urine pH Ur Specific [place] Urine Protein Urine Glucose (UA) Urine Ketones Urine Occult Blood Urine Nitrite Urine Bilirubin Urine Urobilinogen Ur Leukocyte Esterase Urine RBC Urine WBC Ur Squamous Epith Cells Urine Bacteria Fine Granular Casts Urine Mucus COVID-19 ([place]) POC Glucose 06/03/20 06/03/20 06/03/20 14:58 15:09 18:37 WBC RBC Hgb Hct MCV MCH MCHC RDW Std Deviation RDW Coeff of Luc[place] Plt Count MPV Immature Gran % (Auto) Neut % (Auto) Lymph % (Auto) [place] % (Auto) Eos % (Auto) Baso % (Auto) Absolute Neuts (auto) Absolute Lymphs (auto) Nucleated RBC % Differential Comment PT INR APTT Fibrinogen Sodium Potassium Chloride Carbon Dioxide Anion Gap BUN Creatinine Estim Creat Clear Calc Est GFR (MDRD) Af Amer Est GFR (MDRD) Non-Af BUN/Creatinine Ratio Glucose Lactic Acid Calcium Magnesium Total Bilirubin AST ALT Alkaline Phosphatase Lactate Dehydrogenase Total Creatine Kinase Troponin I 0.162 H 0.198 H C-React Prot Ext Range B-Natriuretic Peptide Total Protein Albumin Globulin Albumin/Globulin Ratio Procalcitonin Urine Color Urine Clarity Urine pH Ur Specific [place] Urine Protein Urine Glucose (UA) Urine Ketones Urine Occult Blood Urine Nitrite Urine Bilirubin Urine Urobilinogen Ur Leukocyte Esterase Urine RBC Urine WBC Ur Squamous Epith Cells Urine Bacteria Fine Granular Casts Urine Mucus COVID-19 ([place]) POC Glucose 164 H 06/03/20 06/04/20 06/04/20 20:15 06:52 07:20 WBC 4.9 RBC 4.11 L Hgb 11.6 L Hct 37.5 L MCV 91.2 MCH 28.2 MCHC 30.9 L RDW Std Deviation 47.9 H RDW Coeff of Luca 14.4 Plt Count 177 MPV 9.5 Immature Gran % (Auto) 0.800 Neut % (Auto) 64.7 Lymph % (Auto) 26.2 [place] % (Auto) 8.1 Eos % (Auto) 0.0 Baso % (Auto) 0.2 Absolute Neuts (auto) 3.2 Absolute Lymphs (auto) 1.29 Nucleated RBC % 0 Differential Comment SCANNED PT INR APTT Fibrinogen Sodium Potassium Chloride Carbon Dioxide Anion Gap BUN Creatinine Estim Creat Clear Calc Est GFR (MDRD) Af Amer Est GFR (MDRD) Non-Af BUN/Creatinine Ratio Glucose Lactic Acid Calcium Magnesium Total Bilirubin AST ALT Alkaline Phosphatase Lactate Dehydrogenase Total Creatine Kinase Troponin I C-React Prot Ext Range B-Natriuretic Peptide Total Protein Albumin Globulin Albumin/Globulin Ratio Procalcitonin Urine Color Urine Clarity Urine pH Ur Specific [place] Urine Protein Urine Glucose (UA) Urine Ketones Urine Occult Blood Urine Nitrite Urine Bilirubin Urine Urobilinogen Ur Leukocyte Esterase Urine RBC Urine WBC Ur Squamous Epith Cells Urine Bacteria Fine Granular Casts Urine Mucus COVID-19 ([place]) POC Glucose 157 H 108 06/04/20 07:20 WBC RBC Hgb Hct MCV MCH MCHC RDW Std Deviation RDW Coeff of [place] Plt Count MPV Immature Gran % (Auto) Neut % (Auto) Lymph % (Auto) [place] % (Auto) Eos % (Auto) Baso % (Auto) Absolute Neuts (auto) Absolute Lymphs (auto) Nucleated RBC % Differential Comment PT INR APTT Fibrinogen Sodium 134 L Potassium 3.5 Chloride 100 Carbon Dioxide 26.0 Anion Gap 8 BUN 19 H Creatinine 1.44 H Estim Creat Clear Calc 49.40 Est GFR (MDRD) Af Amer 62 Est GFR (MDRD) Non-Af 51 L BUN/Creatinine Ratio 13.2 Glucose 125 H Lactic Acid Calcium 7.6 L Magnesium 2.0 Total Bilirubin AST ALT Alkaline Phosphatase Lactate Dehydrogenase Total Creatine Kinase Troponin I C-React Prot Ext Range B-Natriuretic Peptide Total Protein Albumin Globulin Albumin/Globulin Ratio Procalcitonin Urine Color Urine Clarity Urine pH Ur Specific [place] Urine Protein Urine Glucose (UA) Urine Ketones Urine Occult Blood Urine Nitrite Urine Bilirubin Urine Urobilinogen Ur Leukocyte Esterase Urine RBC Urine WBC Ur Squamous Epith Cells Urine Bacteria Fine Granular Casts Urine Mucus COVID-19 ([place]) POC Glucose Microbiology 06/03/20 18:00 Urine, Clean Catch Legionella Antigen - Final 06/03/20 18:00 Urine, Clean Catch Streptococcus pneumoniae Antigen (M - Final 06/03/20 08:05 Mucosa - Nose Respiratory Panel (PCR) - Final Clinical Impression(s) from Imaging Studies Chest X-Ray 06/03/20 08:00 IMPRESSION: Patchy infiltrate in the medial aspect of the right lower lobe as well as the lateral aspect of the left lower. Follow-up is recommended. Electronically Signed: Ward Sauer, at 8:39 EDT , Service support , Current Medications Acetaminophen (Acetaminophen 325 Mg Tablet) 650 mg PO Q4H PRN PRN PRN Reason: Pain Score 1-10/Temp > 100.7 F Last Admin: 06/04/20 06:53 Dose: 650 mg Documented by: Al Hydroxide/Mg Hydroxide (Mag Hydrox/Al Hydrox/Simeth 30 Ml Udc) 30 ml PO Q6H PRN PRN PRN Reason: Gastric Burning Albuterol Sulfate (Albuterol 2.5 Mg/3 Ml Vial.Neb.) 2.5 mg INHALATION Q2H PRN PRN PRN Reason: SOB/Wheezing Allopurinol (Allopurinol 300 Mg Tablet) 300 mg PO DAILY [facility] Last Admin: 06/04/20 08:38 Dose: 300 mg Documented by: Atorvastatin Calcium (Atorvastatin Calcium 20 Mg Tablet) 20 mg PO QHS [facility] Last Admin: 06/03/20 20:18 Dose: 20 mg Documented by: Clonazepam (Clonazepam 0.5 Mg Tablet) 0.5 mg PO BID PRN PRN PRN Reason: ANXIETY Dexamethasone (Dexamethasone 4 Mg Tablet) 6 mg PO DAILY@0800 [facility] Stop: 06/12/20 08:01 Last Admin: 06/04/20 08:37 Dose: 6 mg Documented by: Dextrose (Dextrose 50%-Water 25 Gm/50 Ml Disp.Syrin) 0 gm IV X1 PRN; Protocol PRN Reason: Hypoglycemia Folic Acid (Folic Acid 1 Mg Tablet) 1 mg PO DAILY@0800 [facility] Last Admin: 06/04/20 08:38 Dose: 1 mg Documented by: Glucagon (Glucagon 1 Mg/Ml Syringe) 1 mg IM .X1 PRN PRN Reason: Hypoglycemia Guaifenesin (Guaifenesin 10 Ml Udc (200mg/10ml)) 20 ml PO Q4H PRN PRN PRN Reason: COUGH Last Admin: 06/04/20 08:38 Dose: 20 ml Documented by: Sodium Chloride () 250 mls @ 15 mls/hr IV .[id number] PRN PRN Reason: Saline Flush Sodium Chloride () 250 mls @ 15 mls/hr IV .[id number] PRN PRN Reason: Additional IVPB Infusion Insulin Glargine (Insulin Glargine 100 Units/Ml Pen) 10 units SC BREAKFAST [facility] Last Admin: 06/04/20 08:39 Dose: 10 units Documented by: Insulin Glargine (Insulin Glargine 100 Units/Ml Pen) 10 units SC QHS [facility] Last Admin: 06/03/20 20:17 Dose: 10 u Documented by: Insulin Human Lispro (Insulin Lispro 100 Unit/Ml Insuln.Pen) 0 unit SC ACHS [facility]; Protocol Last Admin: 06/04/20 06:52 Dose: Not Given Documented by: Lamotrigine (Lamotrigine 100 Mg Tablet) 200 mg PO BID [facility] Last Admin: 06/04/20 08:37 Dose: 200 mg Documented by: Melatonin (Melatonin 3 Mg Tablet) 3 mg PO QHS PRN PRN PRN Reason: INSOMNIA Mirabegron (Mirabegron 25 Mg Tab.Er.24h) 25 mg PO DAILY [facility] Last Admin: 06/04/20 08:38 Dose: 25 mg Documented by: Nitroglycerin (Nitroglycerin (Inpatient Use) 0.4 Mg Tab.Subl) 0.4 mg SUBLINGUAL Q5M PRN PRN Reason: CARDIAC/CHEST PAIN Ondansetron HCl (Ondansetron 4 Mg/2 Ml Vial) 4 mg IV Q8H PRN PRN PRN Reason: NAUSEA/VOMITING Oxycodone HCl (Oxycodone 5 Mg Tablet) 5 mg PO Q4H PRN PRN PRN Reason: Pain Score 4-5 Oxycodone HCl (Oxycodone 5 Mg Tablet) 10 mg PO Q4H PRN PRN PRN Reason: Pain Score 6-10 Pantoprazole Sodium (Pantoprazole Sodium 40 Mg Tablet) 40 mg PO DAILY [facility] Last Admin: 06/04/20 08:38 Dose: 40 mg Documented by: Quetiapine Fumarate (Quetiapine 100 Mg Tablet) 400 mg PO QHS [facility] Last Admin: 06/03/20 20:18 Dose: 400 mg Documented by: Rivaroxaban (Rivaroxaban 20 Mg Tablet) 20 mg PO 1200 [facility] Last Admin: 06/03/20 13:55 Dose: 20 mg Documented by: Sodium Chloride (0.9% Saline Lock 10 Ml Syringe) 10 - 40 ml IV UD PRN PRN Reason: SALINE FLUSH Last Admin: 06/04/20 03:32 Dose: 10 ml Documented by: Tamsulosin HCl (Tamsulosin Hcl 0.4 Mg Capsule) 0.4 mg PO 1200 [facility] Last Admin: 06/03/20 13:55 Dose: 0.4 mg Documented by: Tolterodine Tartrate (Tolterodine Tartrate 2 Mg Cap.Sa) 2 mg PO DAILY [facility] Last Admin: 06/04/20 08:37 Dose: 2 mg Documented by: Venlafaxine HCl (Venlafaxine Xr 150 Mg Capsule) 150 mg PO DAILY [facility] Last Admin: 06/04/20 08:37 Dose: 150 mg Documented by: Assessment/Plan All Active Problems (Last Reviewed 06/03/20 @ 11:[address] Peña Jay MD) COVID-19 (Acute) Septic shock (Resolved) Community acquired pneumonia (Resolved) RECOMMENDATIONS: 1. Continue current supportive measures with supplemental oxygen to maintain saturations at or above 90%. 2. Continue Xarelto per outpatient regimen. 3. Continue Decadron 6 mg daily x10 days. 4. Antimicrobial management per infectious diseases. 5. Encourage incentive spirometer use and mobilize patient as tolerated. IMPRESSIONS: 1. Acute hypoxemic respiratory failure secondary to COVID-19 pneumonia The patient initially presented to the hospital with Covid-like symptoms of 2 to 3 weeks duration. At this time, I would recommend that we continue current supportive measures with supplemental oxygen to maintain saturations at or above 90%. Continue Decadron 6 mg daily x10 days. The patient was already anticoagulated on Xarelto previously, which will be continued without change. Given the duration of his symptoms, the patient is unlikely to benefit from remdesivir or convalescent plasma. This note was generated with [employer] software. It may contain incorrect words, spelling, and punctuation that were not noted in checking the note before signing. Inpatient E&M: 66381 Init Hosp L3
[2020-06-04] MEDS: Tamsulosin HCl 0.4 MG Capsule PO ×2 (12:10→21:02)
[2020-06-04] MEDS: Insulin Lispro 100 UNIT/ML INSULN.PEN SC ×3 (12:10→21:01)
[2020-06-04] MEDS: Rivaroxaban 20 MG Tablet PO (12:10)
[2020-06-04 12:20] LABS: Bedside Glucose 174 mg/dL (70-110)
--- NOTE | 2020-06-04 13:02 | PCM.PN.HOSP ---
Patient Problems: Active and Suspected Problems (Last Reviewed 06/03/20 @ 11:[address] Peña Jay MD) COVID-19 (Acute) Subjective: Doing well, no issues overnight, feels better than when he came in Vitals/I&O's: Vital Signs Temp Pulse Resp BP Pulse Ox 98.6 F 89 20 H 127/70 H 94 06/04/20 12:00 06/04/20 12:00 06/04/20 12:00 06/04/20 12:00 06/04/20 12:00 Oxygen Flow Rate (L/min) 6 Oxygen Delivery Method Nasal Cannula Weight: 232 lb 3.2 oz Body Mass Index (BMI) 31.4 Intake and Output for Last 24 Hours 06/02/20 06/03/20 06/04/20 23:59 23:59 23:59 Intake Total 1550.0 / 1550.0 1999 / 1999 Output Total 800 / 800 Balance 1550.0 / 1550.0 1200 / 1200 General: Alert, Oriented x3, Cooperative, No apparent distress HEENT: Atraumatic, PERRLA, EOMI, Normocephalic, - - Slight skin irritation to his forehead he says it has been picking at some scabs there. Neck: Supple, No JVD Lungs: Normal air movement, No rhonchi, No wheeze, No rales, Diminished Cardiovascular: Regular rate, Regular Rhythm, Normal S1, Normal S2, No murmurs Abdomen: Soft, Non Tender, Non-Distended, No Hepato-splenomegaly Extremities: No edema, Capillary Refill Less than 3 Seconds Skin: No rashes, No breakdown Neurological: Neuro grossly intact, Sensory exam intact to light touch and pain Psych/Mental Status: Normal Affect, Appropriate Microbiology Past 72 Hours 06/03/20 09:50 Urine, Clean Catch Urine Culture - Preliminary Culture exhibits no growth. 06/03/20 18:00 Urine, Clean Catch Legionella Antigen - Final 06/03/20 18:00 Urine, Clean Catch Streptococcus pneumoniae Antigen (M - Final 06/03/20 08:05 Mucosa - Nose Respiratory Panel (PCR) - Final Laboratory Results 06/03/20 12:46: Lactic Acid 2.5 H* 06/03/20 12:46: Fibrinogen 499 H 06/03/20 12:46: Lactate Dehydrogenase 290 H, Total Creatine Kinase 806 H, C-React Prot Ext Range 97.50 H 06/03/20 12:46: B-Natriuretic Peptide 58.5 06/03/20 12:46: Procalcitonin 1.29 H 06/03/20 12:46: Troponin I 0.170 H 06/03/20 14:58: POC Glucose 164 H 06/03/20 15:09: Troponin I 0.162 H 06/03/20 18:37: Troponin I 0.198 H 06/03/20 20:15: POC Glucose 157 H 06/04/20 06:52: POC Glucose 108 06/04/20 07:20: WBC 4.9, RBC 4.11 L, Hgb 11.6 L, Hct 37.5 L, MCV 91.2, MCH 28.2, MCHC 30.9 L, RDW Std Deviation 47.9 H, RDW Coeff of Luca 14.4, Plt Count 177, MPV 9.5, Immature Gran % (Auto) 0.800, Neut % (Auto) 64.7, Lymph % (Auto) 26.2, [place] % (Auto) 8.1, Eos % (Auto) 0.0, Baso % (Auto) 0.2, Absolute Neuts (auto) 3.2, Absolute Lymphs (auto) 1.29, Nucleated RBC % 0, Differential Comment SCANNED 06/04/20 07:20: Sodium 134 L, Potassium 3.5, Chloride 100, Carbon Dioxide 26.0, Anion Gap 8, BUN 19 H, Creatinine 1.44 H, Estim Creat Clear Calc 49.40, Est GFR (MDRD) Af Amer 62, Est GFR (MDRD) Non-Af 51 L, BUN/Creatinine Ratio 13.2, Glucose 125 H, Calcium 7.6 L, Magnesium 2.0 06/04/20 11:57: POC Glucose 174 H Current Medications Acetaminophen (Acetaminophen 325 Mg Tablet) 650 mg PO Q4H PRN PRN PRN Reason: Pain Score 1-10/Temp > 100.7 F Last Admin: 06/04/20 06:53 Dose: 650 mg Documented by: Al Hydroxide/Mg Hydroxide (Mag Hydrox/Al Hydrox/Simeth 30 Ml Udc) 30 ml PO Q6H PRN PRN PRN Reason: Gastric Burning Albuterol Sulfate (Albuterol 2.5 Mg/3 Ml Vial.Neb.) 2.5 mg INHALATION Q2H PRN PRN PRN Reason: SOB/Wheezing Allopurinol (Allopurinol 300 Mg Tablet) 300 mg PO DAILY [facility] Last Admin: 06/04/20 08:38 Dose: 300 mg Documented by: Atorvastatin Calcium (Atorvastatin Calcium 20 Mg Tablet) 20 mg PO QHS [facility] Last Admin: 06/03/20 20:18 Dose: 20 mg Documented by: Clonazepam (Clonazepam 0.5 Mg Tablet) 0.5 mg PO BID PRN PRN PRN Reason: ANXIETY Dexamethasone (Dexamethasone 4 Mg Tablet) 6 mg PO DAILY@0800 [facility] Stop: 06/12/20 08:01 Last Admin: 06/04/20 08:37 Dose: 6 mg Documented by: Dextrose (Dextrose 50%-Water 25 Gm/50 Ml Disp.Syrin) 0 gm IV X1 PRN; Protocol PRN Reason: Hypoglycemia Folic Acid (Folic Acid 1 Mg Tablet) 1 mg PO DAILY@0800 [facility] Last Admin: 06/04/20 08:38 Dose: 1 mg Documented by: Glucagon (Glucagon 1 Mg/Ml Syringe) 1 mg IM .X1 PRN PRN Reason: Hypoglycemia Guaifenesin (Guaifenesin 10 Ml Udc (200mg/10ml)) 20 ml PO Q4H PRN PRN PRN Reason: COUGH Last Admin: 06/04/20 08:38 Dose: 20 ml Documented by: Sodium Chloride () 250 mls @ 15 mls/hr IV .[id number] PRN PRN Reason: Saline Flush Sodium Chloride () 250 mls @ 15 mls/hr IV .[id number] PRN PRN Reason: Additional IVPB Infusion Insulin Glargine (Insulin Glargine 100 Units/Ml Pen) 10 units SC BREAKFAST [facility] Last Admin: 06/04/20 08:39 Dose: 10 units Documented by: Insulin Glargine (Insulin Glargine 100 Units/Ml Pen) 10 units SC QHS [facility] Last Admin: 06/03/20 20:17 Dose: 10 u Documented by: Insulin Human Lispro (Insulin Lispro 100 Unit/Ml Insuln.Pen) 0 unit SC ACHS [facility]; Protocol Last Admin: 06/04/20 12:10 Dose: 2 units Documented by: Lamotrigine (Lamotrigine 100 Mg Tablet) 200 mg PO BID [facility] Last Admin: 06/04/20 08:37 Dose: 200 mg Documented by: Melatonin (Melatonin 3 Mg Tablet) 3 mg PO QHS PRN PRN PRN Reason: INSOMNIA Mirabegron (Mirabegron 25 Mg Tab.Er.24h) 25 mg PO DAILY [facility] Last Admin: 06/04/20 08:38 Dose: 25 mg Documented by: Nitroglycerin (Nitroglycerin (Inpatient Use) 0.4 Mg Tab.Subl) 0.4 mg SUBLINGUAL Q5M PRN PRN Reason: CARDIAC/CHEST PAIN Ondansetron HCl (Ondansetron 4 Mg/2 Ml Vial) 4 mg IV Q8H PRN PRN PRN Reason: NAUSEA/VOMITING Oxycodone HCl (Oxycodone 5 Mg Tablet) 5 mg PO Q4H PRN PRN PRN Reason: Pain Score 4-5 Oxycodone HCl (Oxycodone 5 Mg Tablet) 10 mg PO Q4H PRN PRN PRN Reason: Pain Score 6-10 Pantoprazole Sodium (Pantoprazole Sodium 40 Mg Tablet) 40 mg PO DAILY [facility] Last Admin: 06/04/20 08:38 Dose: 40 mg Documented by: Quetiapine Fumarate (Quetiapine 100 Mg Tablet) 400 mg PO QHS [facility] Last Admin: 06/03/20 20:18 Dose: 400 mg Documented by: Rivaroxaban (Rivaroxaban 20 Mg Tablet) 20 mg PO 1200 [facility] Last Admin: 06/04/20 12:10 Dose: 20 mg Documented by: Sodium Chloride (0.9% Saline Lock 10 Ml Syringe) 10 - 40 ml IV UD PRN PRN Reason: SALINE FLUSH Last Admin: 06/04/20 03:32 Dose: 10 ml Documented by: Tamsulosin HCl (Tamsulosin Hcl 0.4 Mg Capsule) 0.4 mg PO 1200 [facility] Last Admin: 06/04/20 12:10 Dose: 0.4 mg Documented by: Tolterodine Tartrate (Tolterodine Tartrate 2 Mg Cap.Sa) 2 mg PO DAILY [facility] Last Admin: 06/04/20 08:37 Dose: 2 mg Documented by: Venlafaxine HCl (Venlafaxine Xr 150 Mg Capsule) 150 mg PO DAILY [facility] Last Admin: 06/04/20 08:37 Dose: 150 mg Documented by: STROKE Vital Signs/Narrative: Vital Signs Temp Pulse Resp BP Pulse Ox 06/04/20 12:00 98.6 F 89 20 H 127/70 H 94 06/04/20 09:54 99.9 F H 91 20 H 139/80 H 93 06/04/20 09:04 90 Medical Necessity - Tobacco Use Smoking Status: Former smoker Assessment/Plan All Active Problems (Last Reviewed 06/03/20 @ 11:[address] Peña Jay MD) COVID-19 (Acute) Septic shock (Resolved) Community acquired pneumonia (Resolved) 1. Sepsis secondary to acute Covid infection with pneumonia -Continue with Decadron as well as systemic anticoagulation with Xarelto secondary to previous history of a PE. -Appreciate pulmonology and ID assistance, azithromycin and Rocephin were discontinued and he has been having symptoms for about 2 to 3 weeks therefore he is outside the window of convalescent plasma and remdesivir -Requiring 4 to 6 L via nasal cannula to maintain oxygen sats 2. HTN/HLD -Blood pressure is stable with systolics in the 120s to 130s -Can resume his home blood pressure medications 3. History of PE -Continue with his home Xarelto 4. DM 2/CKD 3 -We will hold his metformin and place him on a sliding scale insulin -Accu-Cheks AC at bedtime -Creatinine is at baseline 5. Bipolar disorder -Stable -Continue with Seroquel, Lamictal, and SSRI PT: Xarelto Inpatient E&M: [id number] Subs Hosp L2
--- NOTE | 2020-06-04 13:13 | CM.UR ---
Attempted to call patient to perform RN CM assessment however no answer. Cole [place]oria RN, [facility] [place]
--- NOTE | 2020-06-04 16:53 | NURSING ---
CPS AT BEDSIDE, STATES OUT OF HIGHFLO O2 AND AIRVO ALL IN USE. RECOMMENDATION OF INCREASING OXYGEN TO 10l nc AND CPS WILL BE BACK TO SEE PT
[2020-06-04] MEDS: clonazePAM 0.5 MG Tablet PO (17:13)
[2020-06-04] MEDS: QUEtiapine 100 MG Tablet 400 MG PO (20:58)
[2020-06-04] MEDS: Atorvastatin Calcium 20 MG Tablet PO (20:59)
[2020-06-04 21:46] LABS: Bedside Glucose 230 mg/dL (70-110)
[2020-06-04 21:50] LABS: Bedside Glucose 180 mg/dL (70-110)
--- NOTE | 2020-06-04 23:37 | CPS ---
BiPAP pressures increased to 18/10 for low tidal volumes observed on previous settings 25/04. Mask leak was observed to be good before change was made. RN aware of changes. Tidal volumes improved after change made. Patient tolerating BiPAP well.
[2020-06-05] VITALS (33 sets, daily range): BP systolic 113–157; BP diastolic 73–95; PULSE 89–123; RESP 12–35; TEMP 36.6–38.8; O2SAT 85–97
--- NOTE | 2020-06-05 06:11 | PCM.PN.PUL ---
Patient Problems: Active and Suspected Problems (Last Reviewed 06/03/20 @ 11:[address] Peña Jay MD) COVID-19 (Acute) Subjective: The patient was seen and examined at the bedside this morning. Events from the last 24 hours have been reviewed. The patient is currently afebrile, hemodynamically stable and maintaining appropriate oxygen saturations on BiPAP with an FiO2 requirement of 85%. The patient remains anticoagulated on Xarelto and remains on Decadron. He is currently documented to be overall net +2.9 L for the hospital admission. Objective: The patient's most recent lab work, culture data and imaging studies have all been personally reviewed. Surface echocardiogram from 2018 revealed normal LV size with an ejection fraction of 50% and stage I diastolic dysfunction. Coronavirus PCR was positive on June 03. Strep and urine Legionella antigens were negative. Respiratory viral panel was negative. Blood and urine cultures are pending. - Physical Exam Vitals/I&O's: Vital Signs Temp Pulse Resp BP Pulse Ox 98.6 F 97 23 H 157/89 H 97 06/05/20 04:00 06/05/20 04:00 06/05/20 04:00 06/05/20 04:00 06/05/20 04:00 Oxygen Flow Rate (L/min) 10 Oxygen Delivery Method Bi-pap Weight: 232 lb 3.2 oz Body Mass Index (BMI) 31.4 Intake and Output for Last 24 Hours 06/03/20 06/04/20 06/05/20 23:59 23:59 23:59 Intake Total 1550.0 / 1550.0 2240 / 2240 Output Total 800 / 800 Balance 1550.0 / 1550.0 1440 / 1440 General: Alert, Cooperative, - - Tolerating BiPAP currently HEENT: Atraumatic, Normocephalic Oral: No Gingival or Mucosal Lesions/ Ulcerations Neck: Supple, No Nodes, Trachea Midline Lungs: Diminished, Tachypneic Cardiovascular: Normal S1, Normal S2, No murmurs, Tachycardic Abdomen: Bowel Sounds Present, Soft, Non Tender Extremities: No clubbing, No cyanosis, No edema Skin: No breakdown Musculoskeletal: No Muscle Wasting Lymphatic: No Cervical, Supraclavicular, or Inguinal Adenopathy Neurological: Neuro grossly intact Psych/Mental Status: Normal Affect Labs (Last 48 Hours) 06/03/20 06/03/20 06/03/20 07:40 07:40 07:40 WBC 5.4 RBC 4.33 L Hgb 12.1 L Hct 38.8 L MCV 89.6 MCH 27.9 MCHC 31.2 L RDW Std Deviation 45.9 H RDW Coeff of Luca 14.0 Plt Count 197 MPV 9.2 Immature Gran % (Auto) 0.600 Neut % (Auto) 68.6 Lymph % (Auto) 21.9 Hawkins % (Auto) 8.7 Eos % (Auto) 0.0 Baso % (Auto) 0.2 Absolute Neuts (auto) 3.7 Absolute Lymphs (auto) 1.19 Nucleated RBC % 0 Differential Comment PT 14.1 INR 1.1 APTT 38.5 H Fibrinogen Sodium 132 L Potassium 3.6 Chloride 98 Carbon Dioxide 24.0 Anion Gap 10 BUN 23 H Creatinine 1.66 H Estim Creat Clear Calc 42.85 Est GFR (MDRD) Af Amer 52 L Est GFR (MDRD) Non-Af 43 L BUN/Creatinine Ratio 13.9 Glucose 152 H Lactic Acid Calcium 8.2 L Magnesium Total Bilirubin 0.30 AST 60 H ALT 31 Alkaline Phosphatase 71 Lactate Dehydrogenase Total Creatine Kinase Troponin I 0.215 H C-React Prot Ext Range B-Natriuretic Peptide Total Protein 7.7 Albumin 3.1 L Globulin 4.6 H Albumin/Globulin Ratio 0.7 L Procalcitonin Urine Color Urine Clarity Urine pH Ur Specific [place] Urine Protein Urine Glucose (UA) Urine Ketones Urine Occult Blood Urine Nitrite Urine Bilirubin Urine Urobilinogen Ur Leukocyte Esterase Urine RBC Urine WBC Ur Squamous Epith Cells Urine Bacteria Fine Granular Casts Urine Mucus COVID-19 ([place]) POC Glucose 06/03/20 06/03/20 06/03/20 07:40 08:05 09:50 WBC RBC Hgb Hct MCV MCH MCHC RDW Std Deviation RDW Coeff of Luca Plt Count MPV Immature Gran % (Auto) Neut % (Auto) Lymph % (Auto) Hawkins % (Auto) Eos % (Auto) Baso % (Auto) Absolute Neuts (auto) Absolute Lymphs (auto) Nucleated RBC % Differential Comment PT INR APTT Fibrinogen Sodium Potassium Chloride Carbon Dioxide Anion Gap BUN Creatinine Estim Creat Clear Calc Est GFR (MDRD) Af Amer Est GFR (MDRD) Non-Af BUN/Creatinine Ratio Glucose Lactic Acid 3.3 H* Calcium Magnesium Total Bilirubin AST ALT Alkaline Phosphatase Lactate Dehydrogenase Total Creatine Kinase Troponin I C-React Prot Ext Range B-Natriuretic Peptide Total Protein Albumin Globulin Albumin/Globulin Ratio Procalcitonin Urine Color Yellow Urine Clarity Clear Urine pH 6.0 Ur Specific [place] 1.020 Urine Protein 100 H Urine Glucose (UA) Normal Urine Ketones 5 H Urine Occult Blood 25 H Urine Nitrite Negative Urine Bilirubin Negative Urine Urobilinogen Normal Ur Leukocyte Esterase 100 H Urine RBC 0-5 SEEN Urine WBC 5-10 SEEN Ur Squamous Epith Cells 0 SEEN Urine Bacteria 2+ Fine Granular Casts 0-5 SEEN Urine Mucus 0 SEEN COVID-19 ([place]) Detected POC Glucose 06/03/20 06/03/20 06/03/20 12:46 12:46 12:46 WBC RBC Hgb Hct MCV MCH MCHC RDW Std Deviation RDW Coeff of Luca Plt Count MPV Immature Gran % (Auto) Neut % (Auto) Lymph % (Auto) [place] % (Auto) Eos % (Auto) Baso % (Auto) Absolute Neuts (auto) Absolute Lymphs (auto) Nucleated RBC % Differential Comment PT INR APTT Fibrinogen 499 H Sodium Potassium Chloride Carbon Dioxide Anion Gap BUN Creatinine Estim Creat Clear Calc Est GFR (MDRD) Af Amer Est GFR (MDRD) Non-Af BUN/Creatinine Ratio Glucose Lactic Acid 2.5 H* Calcium Magnesium Total Bilirubin AST ALT Alkaline Phosphatase Lactate Dehydrogenase 290 H Total Creatine Kinase 806 H Troponin I C-React Prot Ext Range 97.50 H B-Natriuretic Peptide Total Protein Albumin Globulin Albumin/Globulin Ratio Procalcitonin Urine Color Urine Clarity Urine pH Ur Specific [place] Urine Protein Urine Glucose (UA) Urine Ketones Urine Occult Blood Urine Nitrite Urine Bilirubin Urine Urobilinogen Ur Leukocyte Esterase Urine RBC Urine WBC Ur Squamous Epith Cells Urine Bacteria Fine Granular Casts Urine Mucus COVID-19 ([place]) POC Glucose 06/03/20 06/03/20 06/03/20 12:46 12:46 12:46 WBC RBC Hgb Hct MCV MCH MCHC RDW Std Deviation RDW Coeff of Luca Plt Count MPV Immature Gran % (Auto) Neut % (Auto) Lymph % (Auto) [place] % (Auto) Eos % (Auto) Baso % (Auto) Absolute Neuts (auto) Absolute Lymphs (auto) Nucleated RBC % Differential Comment PT INR APTT Fibrinogen Sodium Potassium Chloride Carbon Dioxide Anion Gap BUN Creatinine Estim Creat Clear Calc Est GFR (MDRD) Af Amer Est GFR (MDRD) Non-Af BUN/Creatinine Ratio Glucose Lactic Acid Calcium Magnesium Total Bilirubin AST ALT Alkaline Phosphatase Lactate Dehydrogenase Total Creatine Kinase Troponin I 0.170 H C-React Prot Ext Range B-Natriuretic Peptide 58.5 Total Protein Albumin Globulin Albumin/Globulin Ratio Procalcitonin 1.29 H Urine Color Urine Clarity Urine pH Ur Specific [place] Urine Protein Urine Glucose (UA) Urine Ketones Urine Occult Blood Urine Nitrite Urine Bilirubin Urine Urobilinogen Ur Leukocyte Esterase Urine RBC Urine WBC Ur Squamous Epith Cells Urine Bacteria Fine Granular Casts Urine Mucus COVID-19 ([place]) POC Glucose 06/03/20 06/03/20 06/03/20 14:58 15:09 18:37 WBC RBC Hgb Hct MCV MCH MCHC RDW Std Deviation RDW Coeff of Luca Plt Count MPV Immature Gran % (Auto) Neut % (Auto) Lymph % (Auto) Hawkins % (Auto) Eos % (Auto) Baso % (Auto) Absolute Neuts (auto) Absolute Lymphs (auto) Nucleated RBC % Differential Comment PT INR APTT Fibrinogen Sodium Potassium Chloride Carbon Dioxide Anion Gap BUN Creatinine Estim Creat Clear Calc Est GFR (MDRD) Af Amer Est GFR (MDRD) Non-Af BUN/Creatinine Ratio Glucose Lactic Acid Calcium Magnesium Total Bilirubin AST ALT Alkaline Phosphatase Lactate Dehydrogenase Total Creatine Kinase Troponin I 0.162 H 0.198 H C-React Prot Ext Range B-Natriuretic Peptide Total Protein Albumin Globulin Albumin/Globulin Ratio Procalcitonin Urine Color Urine Clarity Urine pH Ur Specific [place] Urine Protein Urine Glucose (UA) Urine Ketones Urine Occult Blood Urine Nitrite Urine Bilirubin Urine Urobilinogen Ur Leukocyte Esterase Urine RBC Urine WBC Ur Squamous Epith Cells Urine Bacteria Fine Granular Casts Urine Mucus COVID-19 ([place]) POC Glucose 164 H 06/03/20 06/04/20 06/04/20 20:15 06:52 07:20 WBC 4.9 RBC 4.11 L Hgb 11.6 L Hct 37.5 L MCV 91.2 MCH 28.2 MCHC 30.9 L RDW Std Deviation 47.9 H RDW Coeff of Luca 14.4 Plt Count 177 MPV 9.5 Immature Gran % (Auto) 0.800 Neut % (Auto) 64.7 Lymph % (Auto) 26.2 Hawkins % (Auto) 8.1 Eos % (Auto) 0.0 Baso % (Auto) 0.2 Absolute Neuts (auto) 3.2 Absolute Lymphs (auto) 1.29 Nucleated RBC % 0 Differential Comment SCANNED PT INR APTT Fibrinogen Sodium Potassium Chloride Carbon Dioxide Anion Gap BUN Creatinine Estim Creat Clear Calc Est GFR (MDRD) Af Amer Est GFR (MDRD) Non-Af BUN/Creatinine Ratio Glucose Lactic Acid Calcium Magnesium Total Bilirubin AST ALT Alkaline Phosphatase Lactate Dehydrogenase Total Creatine Kinase Troponin I C-React Prot Ext Range B-Natriuretic Peptide Total Protein Albumin Globulin Albumin/Globulin Ratio Procalcitonin Urine Color Urine Clarity Urine pH Ur Specific [place] Urine Protein Urine Glucose (UA) Urine Ketones Urine Occult Blood Urine Nitrite Urine Bilirubin Urine Urobilinogen Ur Leukocyte Esterase Urine RBC Urine WBC Ur Squamous Epith Cells Urine Bacteria Fine Granular Casts Urine Mucus COVID-19 ([place]) POC Glucose 157 H 108 06/04/20 06/04/20 06/04/20 07:20 11:57 16:43 WBC RBC Hgb Hct MCV MCH MCHC RDW Std Deviation RDW Coeff of Luc[place] Plt Count MPV Immature Gran % (Auto) Neut % (Auto) Lymph % (Auto) [place] % (Auto) Eos % (Auto) Baso % (Auto) Absolute Neuts (auto) Absolute Lymphs (auto) Nucleated RBC % Differential Comment PT INR APTT Fibrinogen Sodium 134 L Potassium 3.5 Chloride 100 Carbon Dioxide 26.0 Anion Gap 8 BUN 19 H Creatinine 1.44 H Estim Creat Clear Calc 49.40 Est GFR (MDRD) Af Amer 62 Est GFR (MDRD) Non-Af 51 L BUN/Creatinine Ratio 13.2 Glucose 125 H Lactic Acid Calcium 7.6 L Magnesium 2.0 Total Bilirubin AST ALT Alkaline Phosphatase Lactate Dehydrogenase Total Creatine Kinase Troponin I C-React Prot Ext Range B-Natriuretic Peptide Total Protein Albumin Globulin Albumin/Globulin Ratio Procalcitonin Urine Color Urine Clarity Urine pH Ur Specific [place] Urine Protein Urine Glucose (UA) Urine Ketones Urine Occult Blood Urine Nitrite Urine Bilirubin Urine Urobilinogen Ur Leukocyte Esterase Urine RBC Urine WBC Ur Squamous Epith Cells Urine Bacteria Fine Granular Casts Urine Mucus COVID-19 ([place]) POC Glucose 174 H 230 H 06/04/20 20:57 WBC RBC Hgb Hct MCV MCH MCHC RDW Std Deviation RDW Coeff of Luca Plt Count MPV Immature Gran % (Auto) Neut % (Auto) Lymph % (Auto) [place] % (Auto) Eos % (Auto) Baso % (Auto) Absolute Neuts (auto) Absolute Lymphs (auto) Nucleated RBC % Differential Comment PT INR APTT Fibrinogen Sodium Potassium Chloride Carbon Dioxide Anion Gap BUN Creatinine Estim Creat Clear Calc Est GFR (MDRD) Af Amer Est GFR (MDRD) Non-Af BUN/Creatinine Ratio Glucose Lactic Acid Calcium Magnesium Total Bilirubin AST ALT Alkaline Phosphatase Lactate Dehydrogenase Total Creatine Kinase Troponin I C-React Prot Ext Range B-Natriuretic Peptide Total Protein Albumin Globulin Albumin/Globulin Ratio Procalcitonin Urine Color Urine Clarity Urine pH Ur Specific [place] Urine Protein Urine Glucose (UA) Urine Ketones Urine Occult Blood Urine Nitrite Urine Bilirubin Urine Urobilinogen Ur Leukocyte Esterase Urine RBC Urine WBC Ur Squamous Epith Cells Urine Bacteria Fine Granular Casts Urine Mucus COVID-19 ([place]) POC Glucose 180 H Microbiology 06/03/20 09:50 Urine, Clean Catch Urine Culture - Preliminary Culture exhibits no growth. 06/03/20 18:00 Urine, Clean Catch Legionella Antigen - Final 06/03/20 18:00 Urine, Clean Catch Streptococcus pneumoniae Antigen (M - Final 06/03/20 08:05 Mucosa - Nose Respiratory Panel (PCR) - Final Clinical Impression(s) from Imaging Studies Chest X-Ray 06/03/20 08:00 IMPRESSION: Patchy infiltrate in the medial aspect of the right lower lobe as well as the lateral aspect of the left lower. Follow-up is recommended. Electronically Signed: Ward Camacho, at 8:39 EDT , Service support , Current Medications Acetaminophen (Acetaminophen 325 Mg Tablet) 650 mg PO Q4H PRN PRN PRN Reason: Pain Score 1-10/Temp > 100.7 F Last Admin: 06/04/20 17:04 Dose: 650 mg Documented by: Al Hydroxide/Mg Hydroxide (Mag Hydrox/Al Hydrox/Simeth 30 Ml Udc) 30 ml PO Q6H PRN PRN PRN Reason: Gastric Burning Albuterol Sulfate (Albuterol 2.5 Mg/3 Ml Vial.Neb.) 2.5 mg INHALATION Q2H PRN PRN PRN Reason: SOB/Wheezing Allopurinol (Allopurinol 300 Mg Tablet) 300 mg PO DAILY [facility] Last Admin: 06/04/20 08:38 Dose: 300 mg Documented by: Atorvastatin Calcium (Atorvastatin Calcium 20 Mg Tablet) 20 mg PO QHS [facility] Last Admin: 06/04/20 20:59 Dose: 20 mg Documented by: Clonazepam (Clonazepam 0.5 Mg Tablet) 0.5 mg PO BID PRN PRN PRN Reason: ANXIETY Last Admin: 06/04/20 17:13 Dose: 0.5 mg Documented by: Dexamethasone (Dexamethasone 4 Mg Tablet) 6 mg PO DAILY [facility] Stop: 06/12/20 10:01 Dextrose (Dextrose 50%-Water 25 Gm/50 Ml Disp.Syrin) 0 gm IV X1 PRN; Protocol PRN Reason: Hypoglycemia Folic Acid (Folic Acid 1 Mg Tablet) 1 mg PO DAILY [facility] Glucagon (Glucagon 1 Mg/Ml Syringe) 1 mg IM .X1 PRN PRN Reason: Hypoglycemia Guaifenesin (Guaifenesin 10 Ml Udc (200mg/10ml)) 20 ml PO Q4H PRN PRN PRN Reason: COUGH Last Admin: 06/04/20 16:54 Dose: 20 ml Documented by: Sodium Chloride () 250 mls @ 15 mls/hr IV .[id number] PRN PRN Reason: Saline Flush Sodium Chloride () 250 mls @ 15 mls/hr IV .[id number] PRN PRN Reason: Additional IVPB Infusion Insulin Glargine (Insulin Glargine 100 Units/Ml Pen) 10 units SC BREAKFAST [facility] Last Admin: 06/04/20 08:39 Dose: 10 units Documented by: Insulin Glargine (Insulin Glargine 100 Units/Ml Pen) 10 units SC QHS [facility] Last Admin: 06/04/20 21:06 Dose: 10 u Documented by: Insulin Human Lispro (Insulin Lispro 100 Unit/Ml Insuln.Pen) 0 unit SC ACHS [facility]; Protocol Last Admin: 06/04/20 21:01 Dose: 2 units Documented by: Lamotrigine (Lamotrigine 100 Mg Tablet) 200 mg PO BID [facility] Last Admin: 06/04/20 20:59 Dose: 200 mg Documented by: Melatonin (Melatonin 3 Mg Tablet) 3 mg PO QHS PRN PRN PRN Reason: INSOMNIA Mirabegron (Mirabegron 25 Mg Tab.Er.24h) 25 mg PO DAILY [facility] Last Admin: 06/04/20 08:38 Dose: 25 mg Documented by: Nitroglycerin (Nitroglycerin (Inpatient Use) 0.4 Mg Tab.Subl) 0.4 mg SUBLINGUAL Q5M PRN PRN Reason: CARDIAC/CHEST PAIN Ondansetron HCl (Ondansetron 4 Mg/2 Ml Vial) 4 mg IV Q8H PRN PRN PRN Reason: NAUSEA/VOMITING Oxycodone HCl (Oxycodone 5 Mg Tablet) 5 mg PO Q4H PRN PRN PRN Reason: Pain Score 4-5 Oxycodone HCl (Oxycodone 5 Mg Tablet) 10 mg PO Q4H PRN PRN PRN Reason: Pain Score 6-10 Pantoprazole Sodium (Pantoprazole Sodium 40 Mg Tablet) 40 mg PO DAILY [facility] Last Admin: 06/04/20 08:38 Dose: 40 mg Documented by: Quetiapine Fumarate (Quetiapine 100 Mg Tablet) 400 mg PO QHS [facility] Last Admin: 06/04/20 20:58 Dose: 400 mg Documented by: Rivaroxaban (Rivaroxaban 20 Mg Tablet) 20 mg PO DAILY [facility] Sodium Chloride (0.9% Saline Lock 10 Ml Syringe) 10 - 40 ml IV UD PRN PRN Reason: SALINE FLUSH Last Admin: 06/04/20 03:32 Dose: 10 ml Documented by: Tamsulosin HCl (Tamsulosin Hcl 0.4 Mg Capsule) 0.4 mg PO QHS [facility] Last Admin: 06/04/20 21:02 Dose: 0.4 mg Documented by: Tolterodine Tartrate (Tolterodine Tartrate 2 Mg Cap.Sa) 2 mg PO DAILY [facility] Last Admin: 06/04/20 08:37 Dose: 2 mg Documented by: Venlafaxine HCl (Venlafaxine Xr 150 Mg Capsule) 150 mg PO DAILY [facility] Last Admin: 06/04/20 08:37 Dose: 150 mg Documented by: Medical Necessity - Tobacco Use Smoking Status: Former smoker Assessment/Plan All Active Problems (Last Reviewed 06/03/20 @ 11:[address] Peña Jay MD) COVID-19 (Acute) Septic shock (Resolved) Community acquired pneumonia (Resolved) RECOMMENDATIONS: 1. Continue current supportive measures and wean FiO2 to maintain saturations at or above 90%. 2. Continue Xarelto per outpatient regimen. 3. Continue Decadron 6 mg daily x10 days. 4. Antimicrobial management per infectious diseases. 5. Encourage incentive spirometer use and mobilize patient as tolerated. 6. Will attempt gentle diuresis today. IMPRESSIONS: 1. Acute hypoxemic respiratory failure secondary to COVID-19 pneumonia The patient initially presented to the hospital with Covid-like symptoms of 2 to 3 weeks duration. At this time, I would recommend that we continue current supportive measures with BiPAP therapy to maintain saturations at or above 90%. Continue Decadron 6 mg daily x10 days. The patient was already anticoagulated on Xarelto previously, which will be continued without change. Given the duration of his symptoms, the patient is unlikely to benefit from remdesivir or convalescent plasma. Given that the patient has a history of heart failure with preserved ejection fraction, will attempt gentle diuresis today to help with oxygenation status. This note was generated with [employer] dictation software. It may contain incorrect words, spelling, and punctuation that were not noted in checking the note before signing. Inpatient E&M: [id number] [facility] L3
--- NOTE | 2020-06-05 06:12 | RAD_ITS ---
STUDY: X-RAY CHEST REASON FOR EXAM: Male, 75 years old. Respiratory failure. TECHNIQUE: Single AP portable view of the chest. COMPARISON: 06/03/2020 FINDINGS: Insertable site monitor. Increase in the patchy alveolar opacities throughout both lungs consistent with bilateral pneumonia, pulmonary edema, or ARDS per There is no demonstrated pleural abnormality. There is moderate cardiac enlargement. Normal mediastinum and glenna. Normal visualized pulmonary arteries. Normal visualized aortic arch and descending thoracic aorta. Normal visualized thoracic spine. Normal visualized ribs, clavicles, and shoulders. There is no demonstrated abnormality of the visualized soft tissue structures of the upper abdomen. RAD/Chest 1 View (Portable) IMPRESSION: Worsening bilateral pneumonia, pulmonary edema, or ARDS. Electronically Signed: Munir Pina MD at 7:52 EDT Tel , Service support ,
[2020-06-05] MEDS: guaiFENesin 10 ML UDC (200MG/10ML) 20 ML PO (06:21)
[2020-06-05 07:45] LABS: Absolute Lymphocyte Count 0.78 X10^3/uL (0.83-4.51); Basophil# 0.01 X10^3/uL; Basophil% 0.2 % (0-1); Hematocrit 37.5 % (40-54); Lymphocyte # 0.78 X10^3/ul (4.0); Lymphocyte % 12.5 % (19-41); Mean Corpuscular Hgb 28.2 pg (27.0-32.0); Mean Corpuscular Volume 88.2 fL (80-94); Mean Platelet Vol. 9.5 fl (6.2-12.0); Monocyte# 0.41 X10^3/uL; Monocyte% 6.6 % (0-10); NRBC Flagged by Analyzer 0 % (0-5); Neutrophil # 5.01 X10^3/uL (2.7-7.7); Neutrophil % 80.2 % (47-70); Platelet Count 200 K/mm3 (150-450); RBC Distribution Width SD 44.9 fl (35.1-43.9); Red Blood Count 4.25 M/mm3 (4.6-6.2); White Blood Count 6.2 K/mm3 (4.4-11.0)
[2020-06-05 08:06] LABS: Anion Gap 8 (5-15); BUN 16 mg/dL (7-18); Calcium,Total 8.2 mg/dL (8.5-10.1); Chloride 102 mmol/L (98-107); Creatinine, Serum 1.33 mg/dL (0.70-1.30); EST Glomerular Filtration Rate 56 mL/min (>60); Est Glom Filt Rate - Afr Amer 68 mL/min (>60); Estimated Creatinine Clearance 53.48 ml/min; Glucose 146 mg/dL (74-106); Potassium 3.9 mmol/L (3.5-5.1); Sodium Level 136 mmol/L (136-145)
--- NOTE | 2020-06-05 08:31 | NURSING ---
RT, this RN, and Dr. Patton in room. Pt off bipap and currently on 15 L NC at 85%. RT and Dr Patton explaining options regarding NC vs BiPAP. This RN and Dr Patton assisted pt into recliner to encourage ultilization of different lung areas, instead of pt laying in bed semi-fowlers. With ambulation of 5 feet, pt SpO2 dropped to 75% and took a few minutes to recover to 85%. Per Dr Patton, pt can take BiPAP off for meals and breaks but encourage use when resting/napping and at night, also encourage IS.
[2020-06-05] MEDS: clonazePAM 0.5 MG Tablet PO ×2 (08:56→22:19)
[2020-06-05] MEDS: Acetaminophen 325 MG Tablet 650 MG PO ×2 (08:57→14:07)
--- NOTE | 2020-06-05 09:00 | NURSING ---
This RN stepped out of room to get PRN tylenol and Clonopin. When entering back into room, observed pt had taken O2 off and gotten self back into bed. Obsered pt labored breathing and SpO2 78% RA. On 15L pt only up to 83%. Placed back on BiPAP. After 5 minutes, SpO2 now at 91% on BiPAP.
--- NOTE | 2020-06-05 09:36 | PN_ITS ---
Patient Problems: Active and Suspected Problems (Last Reviewed 06/03/20 @ 11:[address] Peña Jay MD) COVID-19 (Acute) Subjective: Yesterday evening he had to be placed on BiPAP because of worsening oxygen saturations. This morning he wanted take his BiPAP off and he was placed on 15 L high flow nasal cannula he is saturating in the mid to low 80s. I discussed with him if he would like to stay is a DNR CCA with no intubation he stated yes and he is deciding whether or not he wants to continue with BiPAP or if he wants to take his chances on his high flow nasal cannula possibly proceed with hospice, he is taking some time to think over his options. He states he does not have any family that he would like to discuss this with at this time. Vitals/I&O's: Vital Signs Temp Pulse Resp BP Pulse Ox 101.0 F H 112 H 32 H 157/78 H 85 06/05/20 09:00 06/05/20 09:00 06/05/20 09:00 06/05/20 09:00 06/05/20 09:00 Oxygen Flow Rate (L/min) 15 Oxygen Delivery Method Bi-pap Weight: 232 lb 3.2 oz Body Mass Index (BMI) 31.4 Intake and Output for Last 24 Hours 06/03/20 06/04/20 06/05/20 23:59 23:59 23:59 Intake Total 1550.0 / 1550.0 2240 / 2240 240 / 240 Output Total 800 / 800 Balance 1550.0 / 1550.0 1440 / 1440 240 / 240 General: Alert, Oriented x3, Cooperative, No apparent distress HEENT: Atraumatic, PERRLA, EOMI, Normocephalic, - - Slight skin irritation to his forehead he says it has been picking at some scabs there, he does have psoriasis Neck: Supple, No JVD Lungs: Normal air movement, No rhonchi, No wheeze, No rales, Diminished Cardiovascular: Regular rate, Regular Rhythm, Normal S1, Normal S2, No murmurs Abdomen: Soft, Non Tender, Non-Distended, No Hepato-splenomegaly Extremities: No edema, Capillary Refill Less than 3 Seconds Skin: No rashes, No breakdown Neurological: Neuro grossly intact, Sensory exam intact to light touch and pain Psych/Mental Status: Normal Affect, Appropriate Microbiology Past 72 Hours 06/03/20 09:50 Urine, Clean Catch Urine Culture - Final Culture exhibits no growth. 06/03/20 07:40 Blood Culture (Wb) - Left Forearm Blood Culture - Preliminary No growth in 48 hours. 06/03/20 07:40 Blood Culture (Wb) - Anticubital Left Blood Culture - Preliminary No growth in 48 hours. 06/03/20 18:00 Urine, Clean Catch Legionella Antigen - Final 06/03/20 18:00 Urine, Clean Catch Streptococcus pneumoniae Antigen (M - Final 06/03/20 08:05 Mucosa - Nose Respiratory Panel (PCR) - Final Laboratory Results 06/04/20 11:57: POC Glucose 174 H 06/04/20 16:43: POC Glucose 230 H 06/04/20 20:57: POC Glucose 180 H 06/05/20 07:27: WBC 6.2, RBC 4.25 L, Hgb 12.0 L, Hct 37.5 L, MCV 88.2, MCH 28.2, MCHC 32.0, RDW Std Deviation 44.9 H, RDW Coeff of Luca 14.0, Plt Count 200, MPV 9.5, Immature Gran % (Auto) 0.500, Neut % (Auto) 80.2 H, Lymph % (Auto) 12.5 L, [place] % (Auto) 6.6, Eos % (Auto) 0.0, Baso % (Auto) 0.2, Absolute Neuts (auto) 5.0, Absolute Lymphs (auto) 0.78 L, Nucleated RBC % 0 06/05/20 07:27: Sodium 136, Potassium 3.9, Chloride 102, Carbon Dioxide 26.0, Anion Gap 8, BUN 16, Creatinine 1.33 H, Estim Creat Clear Calc 53.48, Est GFR (MDRD) Af Amer 68, Est GFR (MDRD) Non-Af 56 L, BUN/Creatinine Ratio 12.0, Glucose 146 H, Calcium 8.2 L Current Medications Acetaminophen (Acetaminophen 325 Mg Tablet) 650 mg PO Q4H PRN PRN PRN Reason: Pain Score 1-10/Temp > 100.7 F Last Admin: 06/05/20 08:57 Dose: 650 mg Documented by: Al Hydroxide/Mg Hydroxide (Mag Hydrox/Al Hydrox/Simeth 30 Ml Udc) 30 ml PO Q6H PRN PRN PRN Reason: Gastric Burning Albuterol Sulfate (Albuterol 2.5 Mg/3 Ml Vial.Neb.) 2.5 mg INHALATION Q2H PRN PRN PRN Reason: SOB/Wheezing Allopurinol (Allopurinol 300 Mg Tablet) 300 mg PO DAILY [facility] Last Admin: 06/04/20 08:38 Dose: 300 mg Documented by: Atorvastatin Calcium (Atorvastatin Calcium 20 Mg Tablet) 20 mg PO QHS [facility] Last Admin: 06/04/20 20:59 Dose: 20 mg Documented by: Clonazepam (Clonazepam 0.5 Mg Tablet) 0.5 mg PO BID PRN PRN PRN Reason: ANXIETY Last Admin: 06/05/20 08:56 Dose: 0.5 mg Documented by: Dexamethasone (Dexamethasone 4 Mg Tablet) 6 mg PO DAILY [facility] Stop: 06/12/20 10:01 Dextrose (Dextrose 50%-Water 25 Gm/50 Ml Disp.Syrin) 0 gm IV X1 PRN; Protocol PRN Reason: Hypoglycemia Folic Acid (Folic Acid 1 Mg Tablet) 1 mg PO DAILY [facility] Glucagon (Glucagon 1 Mg/Ml Syringe) 1 mg IM .X1 PRN PRN Reason: Hypoglycemia Guaifenesin (Guaifenesin 10 Ml Udc (200mg/10ml)) 20 ml PO Q4H PRN PRN PRN Reason: COUGH Last Admin: 06/05/20 06:21 Dose: 20 ml Documented by: Sodium Chloride () 250 mls @ 15 mls/hr IV .[id number] PRN PRN Reason: Saline Flush Sodium Chloride () 250 mls @ 15 mls/hr IV .[id number] PRN PRN Reason: Additional IVPB Infusion Insulin Glargine (Insulin Glargine 100 Units/Ml Pen) 10 units SC BREAKFAST [facility] Last Admin: 06/05/20 09:06 Dose: Not Given Documented by: Insulin Glargine (Insulin Glargine 100 Units/Ml Pen) 10 units SC QHS [facility] Last Admin: 06/04/20 21:06 Dose: 10 u Documented by: Insulin Human Lispro (Insulin Lispro 100 Unit/Ml Insuln.Pen) 0 unit SC ACHS [facility]; Protocol Last Admin: 06/05/20 09:07 Dose: Not Given Documented by: Lamotrigine (Lamotrigine 100 Mg Tablet) 200 mg PO BID [facility] Last Admin: 06/04/20 20:59 Dose: 200 mg Documented by: Melatonin (Melatonin 3 Mg Tablet) 3 mg PO QHS PRN PRN PRN Reason: INSOMNIA Mirabegron (Mirabegron 25 Mg Tab.Er.24h) 25 mg PO DAILY [facility] Last Admin: 06/04/20 08:38 Dose: 25 mg Documented by: Nitroglycerin (Nitroglycerin (Inpatient Use) 0.4 Mg Tab.Subl) 0.4 mg SUBLINGUAL Q5M PRN PRN Reason: CARDIAC/CHEST PAIN Ondansetron HCl (Ondansetron 4 Mg/2 Ml Vial) 4 mg IV Q8H PRN PRN PRN Reason: NAUSEA/VOMITING Oxycodone HCl (Oxycodone 5 Mg Tablet) 5 mg PO Q4H PRN PRN PRN Reason: Pain Score 4-5 Oxycodone HCl (Oxycodone 5 Mg Tablet) 10 mg PO Q4H PRN PRN PRN Reason: Pain Score 6-10 Pantoprazole Sodium (Pantoprazole Sodium 40 Mg Tablet) 40 mg PO DAILY [facility] Last Admin: 06/04/20 08:38 Dose: 40 mg Documented by: Quetiapine Fumarate (Quetiapine 100 Mg Tablet) 400 mg PO QHS [facility] Last Admin: 06/04/20 20:58 Dose: 400 mg Documented by: Rivaroxaban (Rivaroxaban 20 Mg Tablet) 20 mg PO DAILY [facility] Sodium Chloride (0.9% Saline Lock 10 Ml Syringe) 10 - 40 ml IV UD PRN PRN Reason: SALINE FLUSH Last Admin: 06/04/20 03:32 Dose: 10 ml Documented by: Tamsulosin HCl (Tamsulosin Hcl 0.4 Mg Capsule) 0.4 mg PO QHS [facility] Last Admin: 06/04/20 21:02 Dose: 0.4 mg Documented by: Tolterodine Tartrate (Tolterodine Tartrate 2 Mg Cap.Sa) 2 mg PO DAILY [facility] Last Admin: 06/04/20 08:37 Dose: 2 mg Documented by: Venlafaxine HCl (Venlafaxine Xr 150 Mg Capsule) 150 mg PO DAILY [facility] Last Admin: 06/04/20 08:37 Dose: 150 mg Documented by: STROKE Vital Signs/Narrative: Vital Signs Temp Pulse Resp BP Pulse Ox 10/25/20 09:00 101.0 F H 112 H 32 H 157/78 H 85 06/05/20 08:00 100.7 F H 108 H 19 H 148/88 H 86 06/05/20 07:00 123 H 06/05/20 06:00 98.9 F 103 H 24 H 154/89 H 95 06/05/20 05:45 108 H 22 H 96 Medical Necessity - Tobacco Use Smoking Status: Former smoker Assessment/Plan All Active Problems (Last Reviewed 06/03/20 @ 11:[address] Peña Jay MD) COVID-19 (Acute) Septic shock (Resolved) Community acquired pneumonia (Resolved) 1. Sepsis secondary to acute Covid infection with pneumonia -Continue with Decadron as well as systemic anticoagulation with Xarelto secondary to previous history of a PE. -Appreciate pulmonology and ID assistance, azithromycin and Rocephin were discontinued and he has been having symptoms for about 2 to 3 weeks therefore he is outside the window of convalescent plasma and remdesivir -Was requiring 4 to 6 L via nasal cannula to maintain oxygen sats, however yesterday he climbed up to needing BiPAP. Currently he is off BiPAP on high flow nasal cannula and is deciding whether or not he wants to continue with BiPAP or proceed with hospice as he is still not wanting to proceed with intubation. Discussed with him the risks and benefits of intubation however he would still not want to be intubated 2. HTN/HLD -Blood pressure is stable with systolics in the 120s to 130s -Can resume his home blood pressure medications 3. History of PE -Continue with his home Xarelto 4. DM 2/CKD 3 -We will hold his metformin and place him on a sliding scale insulin -Accu-Cheks AC at bedtime -Creatinine is at baseline 5. Bipolar disorder -Stable -Continue with Seroquel, Lamictal, and SSRI PT: Xarelto Inpatient E&M: 87745 Subs Hosp L2
[2020-06-05 10:06] LABS: Bedside Glucose 165 mg/dL (70-110)
[2020-06-05] MEDS: dexAMETHasone 4 MG Tablet 6 MG PO (11:18)
[2020-06-05] MEDS: Folic Acid 1 MG Tablet PO (11:19)
[2020-06-05] MEDS: Tolterodine Tartrate 2 MG CAP.SA PO (11:19)
[2020-06-05] MEDS: Venlafaxine XR 150 MG Capsule PO (11:19)
[2020-06-05] MEDS: lamoTRIgine 100 MG Tablet 200 MG PO ×2 (11:19→22:19)
[2020-06-05] MEDS: Mirabegron 25 MG TAB.ER.24H PO (11:19)
[2020-06-05] MEDS: Pantoprazole Sodium 40 MG Tablet PO (11:20)
[2020-06-05] MEDS: Rivaroxaban 20 MG Tablet PO (11:20)
[2020-06-05] MEDS: Allopurinol 300 MG Tablet PO (11:20)
[2020-06-05] MEDS: Insulin Lispro 100 UNIT/ML INSULN.PEN SC ×3 (11:23→22:19)
[2020-06-05 11:35] LABS: Bedside Glucose 171 mg/dL (70-110)
[2020-06-05] MEDS: 0.9% Saline Lock 10 ML Syringe IV (12:27)
[2020-06-05] MEDS: Furosemide 40 MG/4 ML Vial IV (12:27)
[2020-06-05 18:40] LABS: Bedside Glucose 244 mg/dL (70-110)
[2020-06-05] MEDS: Tamsulosin HCl 0.4 MG Capsule PO (22:18)
[2020-06-05] MEDS: QUEtiapine 100 MG Tablet 400 MG PO (22:18)
[2020-06-05] MEDS: Atorvastatin Calcium 20 MG Tablet PO (22:20)
[2020-06-06] VITALS (33 sets, daily range): BP systolic 97–157; BP diastolic 68–103; PULSE 85–106; RESP 16–36; TEMP 36.6–37.4; O2SAT 87–95
[2020-06-06 00:21] LABS: Bedside Glucose 222 mg/dL (70-110)
--- NOTE | 2020-06-06 00:25 | CPS ---
Pt. changed over to AVAPS. Pt.'s oxygenation demands have increased. Pt. was getting uncomfortable on BiPAP as well. Pt. is much more comfortable on AVAPS at this time.
--- NOTE | 2020-06-06 00:29 | CPS ---
Pt.'s EPAP increased to 15; alveolar recruitment for pt.'s desaturation
[2020-06-06] MEDS: Tolterodine Tartrate 2 MG CAP.SA PO (08:54)
[2020-06-06] MEDS: Rivaroxaban 20 MG Tablet PO (08:55)
[2020-06-06] MEDS: Pantoprazole Sodium 40 MG Tablet PO (08:55)
[2020-06-06] MEDS: Folic Acid 1 MG Tablet PO (08:55)
[2020-06-06] MEDS: dexAMETHasone 4 MG Tablet 6 MG PO (08:56)
[2020-06-06] MEDS: Mirabegron 25 MG TAB.ER.24H PO (08:56)
[2020-06-06] MEDS: lamoTRIgine 100 MG Tablet 200 MG PO ×2 (08:57→21:38)
[2020-06-06] MEDS: Venlafaxine XR 150 MG Capsule PO (08:57)
[2020-06-06] MEDS: Allopurinol 300 MG Tablet PO (08:58)
[2020-06-06 09:36] LABS: Bedside Glucose 137 mg/dL (70-110)
--- NOTE | 2020-06-06 10:03 | PN_ITS ---
Patient Problems: Active and Suspected Problems (Last Reviewed 06/03/20 @ 11:[address] Peña Jay MD) COVID-19 (Acute) Subjective: Back on BiPAP, he is tolerating it well. Breathing is improved Vitals/I&O's: Vital Signs Temp Pulse Resp BP Pulse Ox 97.9 F 102 H 22 H 133/79 H 95 06/06/20 08:00 06/06/20 08:04 06/06/20 08:00 06/06/20 08:04 06/06/20 08:00 Oxygen Flow Rate (L/min) 15 Oxygen Delivery Method Bi-pap Weight: 232 lb 3.2 oz Body Mass Index (BMI) 31.4 Intake and Output for Last 24 Hours 06/04/20 06/05/20 06/06/20 23:59 23:59 23:59 Intake Total 2240 / 2240 1030 / 1030 120 / 120 Output Total 800 / 800 1450 / 1450 300 / 300 Balance 1440 / 1440 -420 / -420 -180 / -180 General: Alert, Oriented x3, Cooperative, No apparent distress HEENT: Atraumatic, PERRLA, EOMI, Normocephalic, - - Slight skin irritation to his forehead he says it has been picking at some scabs there, he does have psoriasis Neck: Supple, No JVD Lungs: Normal air movement, No rhonchi, No wheeze, No rales, Diminished Cardiovascular: Regular rate, Regular Rhythm, Normal S1, Normal S2, No murmurs Abdomen: Soft, Non Tender, Non-Distended, No Hepato-splenomegaly Extremities: No edema, Capillary Refill Less than 3 Seconds Skin: No rashes, No breakdown Neurological: Neuro grossly intact, Sensory exam intact to light touch and pain Psych/Mental Status: Normal Affect, Appropriate Microbiology Past 72 Hours 06/03/20 09:50 Urine, Clean Catch Urine Culture - Final Culture exhibits no growth. 06/03/20 07:40 Blood Culture (Wb) - Left Forearm Blood Culture - Preliminary No growth in 48 hours. 06/03/20 07:40 Blood Culture (Wb) - Anticubital Left Blood Culture - Preliminary No growth in 48 hours. 06/03/20 18:00 Urine, Clean Catch Legionella Antigen - Final 06/03/20 18:00 Urine, Clean Catch Streptococcus pneumoniae Antigen (M - Final 06/03/20 08:05 Mucosa - Nose Respiratory Panel (PCR) - Final Laboratory Results 06/05/20 08:17: POC Glucose 165 H 06/05/20 11:14: POC Glucose 171 H 06/05/20 16:40: POC Glucose 244 H 06/05/20 21:48: POC Glucose 222 H 06/06/20 08:42: POC Glucose 137 H Current Medications Acetaminophen (Acetaminophen 325 Mg Tablet) 650 mg PO Q4H PRN PRN PRN Reason: Pain Score 1-10/Temp > 100.7 F Last Admin: 06/05/20 14:07 Dose: 650 mg Documented by: Al Hydroxide/Mg Hydroxide (Mag Hydrox/Al Hydrox/Simeth 30 Ml Udc) 30 ml PO Q6H PRN PRN PRN Reason: Gastric Burning Albuterol Sulfate (Albuterol 2.5 Mg/3 Ml Vial.Neb.) 2.5 mg INHALATION Q2H PRN PRN PRN Reason: SOB/Wheezing Allopurinol (Allopurinol 300 Mg Tablet) 300 mg PO DAILY [facility] Last Admin: 06/06/20 08:58 Dose: 300 mg Documented by: Atorvastatin Calcium (Atorvastatin Calcium 20 Mg Tablet) 20 mg PO QHS [facility] Last Admin: 06/05/20 22:20 Dose: 20 mg Documented by: Clonazepam (Clonazepam 0.5 Mg Tablet) 0.5 mg PO BID PRN PRN PRN Reason: ANXIETY Last Admin: 06/05/20 22:19 Dose: 0.5 mg Documented by: Dexamethasone (Dexamethasone 4 Mg Tablet) 6 mg PO DAILY [facility] Stop: 06/12/20 10:01 Last Admin: 06/06/20 08:56 Dose: 6 mg Documented by: Dextrose (Dextrose 50%-Water 25 Gm/50 Ml Disp.Syrin) 0 gm IV X1 PRN; Protocol PRN Reason: Hypoglycemia Folic Acid (Folic Acid 1 Mg Tablet) 1 mg PO DAILY [facility] Last Admin: 06/06/20 08:55 Dose: 1 mg Documented by: Glucagon (Glucagon 1 Mg/Ml Syringe) 1 mg IM .X1 PRN PRN Reason: Hypoglycemia Guaifenesin (Guaifenesin 10 Ml Udc (200mg/10ml)) 20 ml PO Q4H PRN PRN PRN Reason: COUGH Last Admin: 06/05/20 06:21 Dose: 20 ml Documented by: Sodium Chloride () 250 mls @ 15 mls/hr IV .[id number] PRN PRN Reason: Saline Flush Sodium Chloride () 250 mls @ 15 mls/hr IV .[id number] PRN PRN Reason: Additional IVPB Infusion Insulin Glargine (Insulin Glargine 100 Units/Ml Pen) 10 units SC BREAKFAST [facility] Last Admin: 06/06/20 09:02 Dose: Not Given Documented by: Insulin Glargine (Insulin Glargine 100 Units/Ml Pen) 10 units SC QHS [facility] Last Admin: 06/05/20 22:19 Dose: 10 u Documented by: Insulin Human Lispro (Insulin Lispro 100 Unit/Ml Insuln.Pen) 0 unit SC ACHS [facility]; Protocol Last Admin: 06/06/20 08:57 Dose: Not Given Documented by: Lamotrigine (Lamotrigine 100 Mg Tablet) 200 mg PO BID [facility] Last Admin: 06/06/20 08:57 Dose: 200 mg Documented by: Melatonin (Melatonin 3 Mg Tablet) 3 mg PO QHS PRN PRN PRN Reason: INSOMNIA Mirabegron (Mirabegron 25 Mg Tab.Er.24h) 25 mg PO DAILY [facility] Last Admin: 06/06/20 08:56 Dose: 25 mg Documented by: Nitroglycerin (Nitroglycerin (Inpatient Use) 0.4 Mg Tab.Subl) 0.4 mg SUBLINGUAL Q5M PRN PRN Reason: CARDIAC/CHEST PAIN Ondansetron HCl (Ondansetron 4 Mg/2 Ml Vial) 4 mg IV Q8H PRN PRN PRN Reason: NAUSEA/VOMITING Oxycodone HCl (Oxycodone 5 Mg Tablet) 5 mg PO Q4H PRN PRN PRN Reason: Pain Score 4-5 Oxycodone HCl (Oxycodone 5 Mg Tablet) 10 mg PO Q4H PRN PRN PRN Reason: Pain Score 6-10 Pantoprazole Sodium (Pantoprazole Sodium 40 Mg Tablet) 40 mg PO DAILY [facility] Last Admin: 06/06/20 08:55 Dose: 40 mg Documented by: Quetiapine Fumarate (Quetiapine 100 Mg Tablet) 400 mg PO QHS [facility] Last Admin: 06/05/20 22:18 Dose: 400 mg Documented by: Rivaroxaban (Rivaroxaban 20 Mg Tablet) 20 mg PO DAILY [facility] Last Admin: 06/06/20 08:55 Dose: 20 mg Documented by: Sodium Chloride (0.9% Saline Lock 10 Ml Syringe) 10 - 40 ml IV UD PRN PRN Reason: SALINE FLUSH Last Admin: 06/05/20 12:27 Dose: 10 ml Documented by: Tamsulosin HCl (Tamsulosin Hcl 0.4 Mg Capsule) 0.4 mg PO QHS [facility] Last Admin: 06/05/20 22:18 Dose: 0.4 mg Documented by: Tolterodine Tartrate (Tolterodine Tartrate 2 Mg Cap.Sa) 2 mg PO DAILY [facility] Last Admin: 06/06/20 08:54 Dose: 2 mg Documented by: Venlafaxine HCl (Venlafaxine Xr 150 Mg Capsule) 150 mg PO DAILY [facility] Last Admin: 06/06/20 08:57 Dose: 150 mg Documented by: STROKE Vital Signs/Narrative: Vital Signs Temp Pulse Resp BP BP Pulse Ox 06/06/20 08:04 102 H 133/79 H 06/06/20 08:00 97.9 F 95 22 H 133/79 H 95 06/06/20 07:00 99.1 F 90 26 H 117/75 92 Medical Necessity - Tobacco Use Smoking Status: Former smoker Assessment/Plan All Active Problems (Last Reviewed 06/03/20 @ 11:[address] Peña Jay MD) COVID-19 (Acute) Septic shock (Resolved) Community acquired pneumonia (Resolved) 1. Sepsis secondary to acute Covid infection with pneumonia with acute hypoxic respiratory failure -Continue with Decadron as well as systemic anticoagulation with Xarelto secondary to previous history of a PE. -Appreciate pulmonology and ID assistance, azithromycin and Rocephin were discontinued and he has been having symptoms for about 2 to 3 weeks therefore he is outside the window of convalescent plasma and remdesivir -He is back on BiPAP and he will likely transition between high flow and BiPAP 2. HTN/HLD -Blood pressure is stable with systolics in the 120s to 130s -Can resume his home blood pressure medications 3. History of PE -Continue with his home Xarelto 4. DM 2/CKD 3 -We will hold his metformin and place him on a sliding scale insulin -Accu-Cheks AC at bedtime -Creatinine is at baseline 5. Bipolar disorder -Stable -Continue with Seroquel, Lamictal, and SSRI DVT: Xarelto Inpatient E&M: [id number] Subs Hosp L2
--- NOTE | 2020-06-06 10:39 | CASEMGMT ---
Addendum entered by Sruinder Mata 06/06/20 11:55: Per Yong, he has spoken w/pt and pt states does not have anyone and he does not want anyone listed on contact/emergency info. Original Note: RN CM NOTE: Call received from Addis Milner ([phone]), CM from [facility]. Per Addis, pt has aides thru [employer] 3 days a week (3 hrs on , Sat, and ), Home delivered meals (14/wk) and has a life alert. There are no emergency contacts listed for pt at this time. Per Addis, she states she does not think pt has any family and she does not have any family/emergency contacts listed for pt either. She states she will reach out to [employer] to inquire if they have any contact info. Addis states pt does have a Mental Health CM, Cisco Spears ([phone]) [facility]. Pt on BIPAP at this time and RN CM unable to talk to pt at this time to inquire about family/emergency contacts or to complete initial RN CM assessment. Pt's RN, Yong, did state to this RN CM at this time that he was informed that pt does have a sister, but that she is on Hospice. Yong states he will talk with pt re: above and inquire if pt would be able/willing to provide any family/emerg contact info. Per Dr Patton note 06/05, pt considering hospice and that pt stated does not have any family that he would like to talk to about this. RN CM to follow. Aroldo SARAH RN CM
[2020-06-06] MEDS: Insulin Lispro 100 UNIT/ML INSULN.PEN SC ×3 (11:18→21:39)
[2020-06-06] MEDS: clonazePAM 0.5 MG Tablet PO ×2 (11:18→21:38)
[2020-06-06 13:20] LABS: Bedside Glucose 184 mg/dL (70-110)
--- NOTE | 2020-06-06 14:15 | PN_ITS ---
Patient Problems: Active and Suspected Problems (Last Reviewed 06/03/20 @ 11:[address] Peña Jay MD) COVID-19 (Acute) Subjective: Patient did okay overnight. Patient continues to require high FiO2 to maintain appropriate saturations. Patient overall feels subjectively unchanged compared to previous. Patient was complaining of difficulty with BiPAP mask leak leading to decreased sleep. - Physical Exam Vitals/I&O's: Vital Signs Temp Pulse Resp BP Pulse Ox 36.9 C 105 H 24 H 149/84 H 91 06/06/20 13:00 06/06/20 13:00 06/06/20 13:00 06/06/20 13:00 06/06/20 13:00 Oxygen Flow Rate (L/min) 15 Oxygen Delivery Method Bi-pap Weight: 105.324 kg Body Mass Index (BMI) 31.4 Intake and Output for Last 24 Hours 06/04/20 06/05/20 06/06/20 23:59 23:59 23:59 Intake Total 2240 / 2240 1030 / 1030 360 / 360 Output Total 800 / 800 1450 / 1450 425 / 425 Balance 1440 / 1440 -420 / -420 -65 / -65 General: Alert, Oriented x3, Cooperative, No apparent distress - On BiPAP therapy, - - Obese. Appears stated age HEENT: PERRLA, EOMI, Normocephalic Oral: Moist Mucosa, No Gingival or Mucosal Lesions/ Ulcerations Neck: Supple, No JVD, No Nodes, Trachea Midline Lungs: No rhonchi, No wheeze, No rales, Diminished, Tachypneic, - - Symmetric expansion. Cardiovascular: Regular rate, Regular Rhythm, Normal S1, Normal S2, No murmurs, No rub noted, No Gallop Abdomen: Bowel Sounds Present, Soft, Non Tender, Non-Distended, Obese Extremities: No clubbing, No cyanosis, No edema Skin: No breakdown, - - Eczematous rash on the face Musculoskeletal: No Tenderness to Palpation of Joints or Extremities Lymphatic: No Cervical, Supraclavicular, or Inguinal Adenopathy Neurological: Cranial nerves II-XII grossly intact, Neuro grossly intact, Motor Exam 5/5 strength throughout Psych/Mental Status: Alert and oriented to time, place, person, mood and affect Microbiology Past 72 Hours 06/03/20 09:50 Urine, Clean Catch Urine Culture - Final Culture exhibits no growth. 06/03/20 07:40 Blood Culture (Wb) - Left Forearm Blood Culture - Preliminary No growth in 48 hours. 06/03/20 07:40 Blood Culture (Wb) - Anticubital Left Blood Culture - Preliminary No growth in 48 hours. 06/03/20 18:00 Urine, Clean Catch Legionella Antigen - Final 06/03/20 18:00 Urine, Clean Catch Streptococcus pneumoniae Antigen (M - Final 06/03/20 08:05 Mucosa - Nose Respiratory Panel (PCR) - Final Laboratory Results 06/05/20 16:40: POC Glucose 244 H 06/05/20 21:48: POC Glucose 222 H 06/06/20 08:42: POC Glucose 137 H 06/06/20 11:16: POC Glucose 184 H Current Medications Acetaminophen (Acetaminophen 325 Mg Tablet) 650 mg PO Q4H PRN PRN PRN Reason: Pain Score 1-10/Temp > 100.7 F Last Admin: 06/05/20 14:07 Dose: 650 mg Documented by: Al Hydroxide/Mg Hydroxide (Mag Hydrox/Al Hydrox/Simeth 30 Ml Udc) 30 ml PO Q6H PRN PRN PRN Reason: Gastric Burning Albuterol Sulfate (Albuterol 2.5 Mg/3 Ml Vial.Neb.) 2.5 mg INHALATION Q2H PRN PRN PRN Reason: SOB/Wheezing Allopurinol (Allopurinol 300 Mg Tablet) 300 mg PO DAILY [facility] Last Admin: 06/06/20 08:58 Dose: 300 mg Documented by: Atorvastatin Calcium (Atorvastatin Calcium 20 Mg Tablet) 20 mg PO QHS [facility] Last Admin: 06/05/20 22:20 Dose: 20 mg Documented by: Clonazepam (Clonazepam 0.5 Mg Tablet) 0.5 mg PO BID PRN PRN PRN Reason: ANXIETY Last Admin: 06/06/20 11:18 Dose: 0.5 mg Documented by: Dexamethasone (Dexamethasone 4 Mg Tablet) 6 mg PO DAILY [facility] Stop: 06/12/20 10:01 Last Admin: 06/06/20 08:56 Dose: 6 mg Documented by: Dextrose (Dextrose 50%-Water 25 Gm/50 Ml Disp.Syrin) 0 gm IV X1 PRN; Protocol PRN Reason: Hypoglycemia Folic Acid (Folic Acid 1 Mg Tablet) 1 mg PO DAILY [facility] Last Admin: 06/06/20 08:55 Dose: 1 mg Documented by: Glucagon (Glucagon 1 Mg/Ml Syringe) 1 mg IM .X1 PRN PRN Reason: Hypoglycemia Guaifenesin (Guaifenesin 10 Ml Udc (200mg/10ml)) 20 ml PO Q4H PRN PRN PRN Reason: COUGH Last Admin: 06/05/20 06:21 Dose: 20 ml Documented by: Sodium Chloride () 250 mls @ 15 mls/hr IV .[id number] PRN PRN Reason: Saline Flush Sodium Chloride () 250 mls @ 15 mls/hr IV .[id number] PRN PRN Reason: Additional IVPB Infusion Insulin Glargine (Insulin Glargine 100 Units/Ml Pen) 10 units SC BREAKFAST [facility] Last Admin: 06/06/20 09:02 Dose: Not Given Documented by: Insulin Glargine (Insulin Glargine 100 Units/Ml Pen) 10 units SC QHS [facility] Last Admin: 06/05/20 22:19 Dose: 10 u Documented by: Insulin Human Lispro (Insulin Lispro 100 Unit/Ml Insuln.Pen) 0 unit SC [facility]; Protocol Last Admin: 06/06/20 11:18 Dose: 2 units Documented by: Lamotrigine (Lamotrigine 100 Mg Tablet) 200 mg PO BID [facility] Last Admin: 06/06/20 08:57 Dose: 200 mg Documented by: Melatonin (Melatonin 3 Mg Tablet) 3 mg PO QHS PRN PRN PRN Reason: INSOMNIA Mirabegron (Mirabegron 25 Mg Tab.Er.24h) 25 mg PO DAILY [facility] Last Admin: 06/06/20 08:56 Dose: 25 mg Documented by: Nitroglycerin (Nitroglycerin (Inpatient Use) 0.4 Mg Tab.Subl) 0.4 mg SUBLINGUAL Q5M PRN PRN Reason: CARDIAC/CHEST PAIN Ondansetron HCl (Ondansetron 4 Mg/2 Ml Vial) 4 mg IV Q8H PRN PRN PRN Reason: NAUSEA/VOMITING Oxycodone HCl (Oxycodone 5 Mg Tablet) 5 mg PO Q4H PRN PRN PRN Reason: Pain Score 4-5 Oxycodone HCl (Oxycodone 5 Mg Tablet) 10 mg PO Q4H PRN PRN PRN Reason: Pain Score 6-10 Pantoprazole Sodium (Pantoprazole Sodium 40 Mg Tablet) 40 mg PO DAILY [facility] Last Admin: 06/06/20 08:55 Dose: 40 mg Documented by: Quetiapine Fumarate (Quetiapine 100 Mg Tablet) 400 mg PO QHS [facility] Last Admin: 06/05/20 22:18 Dose: 400 mg Documented by: Rivaroxaban (Rivaroxaban 20 Mg Tablet) 20 mg PO DAILY [facility] Last Admin: 06/06/20 08:55 Dose: 20 mg Documented by: Sodium Chloride (0.9% Saline Lock 10 Ml Syringe) 10 - 40 ml IV UD PRN PRN Reason: SALINE FLUSH Last Admin: 06/05/20 12:27 Dose: 10 ml Documented by: Tamsulosin HCl (Tamsulosin Hcl 0.4 Mg Capsule) 0.4 mg PO QHS [facility] Last Admin: 06/05/20 22:18 Dose: 0.4 mg Documented by: Tolterodine Tartrate (Tolterodine Tartrate 2 Mg Cap.Sa) 2 mg PO DAILY [facility] Last Admin: 06/06/20 08:54 Dose: 2 mg Documented by: Venlafaxine HCl (Venlafaxine Xr 150 Mg Capsule) 150 mg PO DAILY [facility] Last Admin: 06/06/20 08:57 Dose: 150 mg Documented by: Medical Necessity - Tobacco Use Smoking Status: Former smoker Assessment/Plan All Active Problems (Last Reviewed 06/03/20 @ 11:[address] Peña Jay MD) COVID-19 (Acute) Septic shock (Resolved) Community acquired pneumonia (Resolved) RECOMMENDATIONS: 1. Continue current supportive measures and wean FiO2 to maintain saturations at or above 90%. 2. Continue Xarelto per outpatient regimen. 3. Continue Decadron 6 mg daily x10 days. 4. Antimicrobial management per infectious diseases. 5. Encourage incentive spirometer use and mobilize patient as tolerated. 6. Will attempt gentle diuresis today. IMPRESSIONS: 1. Acute hypoxemic respiratory failure secondary to COVID-19 pneumonia The patient initially presented to the hospital with Covid-like symptoms of 2 to 3 weeks duration. At this time, I would recommend that we continue current supportive measures with BiPAP therapy to maintain saturations at or above 90%. Continue Decadron 6 mg daily x10 days. The patient was already anticoagulated on Xarelto previously, which will be continued without change. Given the duration of his symptoms, the patient is unlikely to benefit from remdesivir or convalescent plasma. Patient appears to have responded well to diuresis. Would continue as renal function permits. Check BMP tomorrow morning. 2. CKD stage III Patient appears to be doing okay from a renal standpoint. Good urine output has been noted, but inaccurate. Will attempt daily weights as a measure of diuresis. Repeat chemistry tomorrow. Electrolyte repletion as indicated. 3. Probable acute on chronic diastolic CHF Clinical suspicion for an element of acute on chronic diastolic CHF. Patient's heart rate is better controlled today, which should help. Would recommend continue diuresis as tolerated. We will need to check electrolytes closely given patient's history of chronic kidney disease. 4. Advanced age/history of PE/hyperlipidemia/hypertension/AAA status post repair Complicates care, management, recovery and prognosis. Okay to continue with anticoagulation from my perspective. Blood pressure appears to be co ntrolled at this time. Inpatient E&M: 13419 [facility] L3
--- NOTE | 2020-06-06 16:57 | PN.ID_ITS ---
Patient Problems: Active and Suspected Problems (Last Reviewed 06/03/20 @ 11:[address] Peña Jay MD) COVID-19 (Acute) Subjective: Feeling better, still high O2 requirement. No fever. - Physical Exam Vitals/I&O's: Vital Signs Temp Pulse Resp BP Pulse Ox 98.6 F 102 H 26 H 144/88 H 95 06/06/20 16:00 06/06/20 16:00 06/06/20 16:00 06/06/20 16:00 06/06/20 16:00 Oxygen Flow Rate (L/min) 15 Oxygen Delivery Method Bi-pap Weight: 105.324 kg Body Mass Index (BMI) 31.4 Intake and Output for Last 24 Hours 06/04/20 06/05/20 06/06/20 23:59 23:59 23:59 Intake Total 2240 / 2240 1030 / 1030 360 / 360 Output Total 800 / 800 1450 / 1450 425 / 425 Balance 1440 / 1440 -420 / -420 -65 / -65 General: Alert, Cooperative, No apparent distress Lungs: Diminished Cardiovascular: Regular rate, Regular Rhythm Abdomen: Soft, Non Tender, Non-Distended Skin: No rashes Microbiology Past 72 Hours 06/03/20 09:50 Urine, Clean Catch Urine Culture - Final Culture exhibits no growth. 06/03/20 07:40 Blood Culture (Wb) - Left Forearm Blood Culture - Preliminary No growth in 48 hours. 06/03/20 07:40 Blood Culture (Wb) - Anticubital Left Blood Culture - Preliminary No growth in 48 hours. 06/03/20 18:00 Urine, Clean Catch Legionella Antigen - Final 06/03/20 18:00 Urine, Clean Catch Streptococcus pneumoniae Antigen (M - Final Laboratory Results 06/05/20 16:40: POC Glucose 244 H 06/05/20 21:48: POC Glucose 222 H 06/06/20 08:42: POC Glucose 137 H 06/06/20 11:16: POC Glucose 184 H Current Medications Acetaminophen (Acetaminophen 325 Mg Tablet) 650 mg PO Q4H PRN PRN PRN Reason: Pain Score 1-10/Temp > 100.7 F Last Admin: 06/05/20 14:07 Dose: 650 mg Documented by: Al Hydroxide/Mg Hydroxide (Mag Hydrox/Al Hydrox/Simeth 30 Ml Udc) 30 ml PO Q6H PRN PRN PRN Reason: Gastric Burning Albuterol Sulfate (Albuterol 2.5 Mg/3 Ml Vial.Neb.) 2.5 mg INHALATION Q2H PRN PRN PRN Reason: SOB/Wheezing Allopurinol (Allopurinol 300 Mg Tablet) 300 mg PO DAILY [facility] Last Admin: 06/06/20 08:58 Dose: 300 mg Documented by: Atorvastatin Calcium (Atorvastatin Calcium 20 Mg Tablet) 20 mg PO QHS [facility] Last Admin: 06/05/20 22:20 Dose: 20 mg Documented by: Clonazepam (Clonazepam 0.5 Mg Tablet) 0.5 mg PO BID PRN PRN PRN Reason: ANXIETY Last Admin: 06/06/20 11:18 Dose: 0.5 mg Documented by: Dexamethasone (Dexamethasone 4 Mg Tablet) 6 mg PO DAILY [facility] Stop: 06/12/20 10:01 Last Admin: 06/06/20 08:56 Dose: 6 mg Documented by: Dextrose (Dextrose 50%-Water 25 Gm/50 Ml Disp.Syrin) 0 gm IV X1 PRN; Protocol PRN Reason: Hypoglycemia Folic Acid (Folic Acid 1 Mg Tablet) 1 mg PO DAILY [facility] Last Admin: 06/06/20 08:55 Dose: 1 mg Documented by: Glucagon (Glucagon 1 Mg/Ml Syringe) 1 mg IM .X1 PRN PRN Reason: Hypoglycemia Guaifenesin (Guaifenesin 10 Ml Udc (200mg/10ml)) 20 ml PO Q4H PRN PRN PRN Reason: COUGH Last Admin: 06/05/20 06:21 Dose: 20 ml Documented by: Sodium Chloride () 250 mls @ 15 mls/hr IV .[id number] PRN PRN Reason: Saline Flush Sodium Chloride () 250 mls @ 15 mls/hr IV .[id number] PRN PRN Reason: Additional IVPB Infusion Insulin Glargine (Insulin Glargine 100 Units/Ml Pen) 10 units SC BREAKFAST [facility] Last Admin: 06/06/20 09:02 Dose: Not Given Documented by: Insulin Glargine (Insulin Glargine 100 Units/Ml Pen) 10 units SC QHS [facility] Last Admin: 06/05/20 22:19 Dose: 10 u Documented by: Insulin Human Lispro (Insulin Lispro 100 Unit/Ml Insuln.Pen) 0 unit SC ACHS [facility]; Protocol Last Admin: 06/06/20 11:18 Dose: 2 units Documented by: Lamotrigine (Lamotrigine 100 Mg Tablet) 200 mg PO BID [facility] Last Admin: 06/06/20 08:57 Dose: 200 mg Documented by: Melatonin (Melatonin 3 Mg Tablet) 3 mg PO QHS PRN PRN PRN Reason: INSOMNIA Mirabegron (Mirabegron 25 Mg Tab.Er.24h) 25 mg PO DAILY [facility] Last Admin: 06/06/20 08:56 Dose: 25 mg Documented by: Nitroglycerin (Nitroglycerin (Inpatient Use) 0.4 Mg Tab.Subl) 0.4 mg SUBLINGUAL Q5M PRN PRN Reason: CARDIAC/CHEST PAIN Ondansetron HCl (Ondansetron 4 Mg/2 Ml Vial) 4 mg IV Q8H PRN PRN PRN Reason: NAUSEA/VOMITING Oxycodone HCl (Oxycodone 5 Mg Tablet) 5 mg PO Q4H PRN PRN PRN Reason: Pain Score 4-5 Oxycodone HCl (Oxycodone 5 Mg Tablet) 10 mg PO Q4H PRN PRN PRN Reason: Pain Score 6-10 Pantoprazole Sodium (Pantoprazole Sodium 40 Mg Tablet) 40 mg PO DAILY [facility] Last Admin: 06/06/20 08:55 Dose: 40 mg Documented by: Quetiapine Fumarate (Quetiapine 100 Mg Tablet) 400 mg PO QHS [facility] Last Admin: 06/05/20 22:18 Dose: 400 mg Documented by: Rivaroxaban (Rivaroxaban 20 Mg Tablet) 20 mg PO DAILY [facility] Last Admin: 06/06/20 08:55 Dose: 20 mg Documented by: Sodium Chloride (0.9% Saline Lock 10 Ml Syringe) 10 - 40 ml IV UD PRN PRN Reason: SALINE FLUSH Last Admin: 06/05/20 12:27 Dose: 10 ml Documented by: Tamsulosin HCl (Tamsulosin Hcl 0.4 Mg Capsule) 0.4 mg PO QHS [facility] Last Admin: 06/05/20 22:18 Dose: 0.4 mg Documented by: Tolterodine Tartrate (Tolterodine Tartrate 2 Mg Cap.Sa) 2 mg PO DAILY [facility] Last Admin: 06/06/20 08:54 Dose: 2 mg Documented by: Venlafaxine HCl (Venlafaxine Xr 150 Mg Capsule) 150 mg PO DAILY [facility] Last Admin: 06/06/20 08:57 Dose: 150 mg Documented by: Medical Necessity - Tobacco Use Smoking Status: Former smoker Route of nutrition/ use of supplements: [] Nutritional Intake: [] IV Site: [] Britton Catheter: [] - Assessment/Plan Antibiotics: [] Assessment/Plan: [] Active and Suspected Problems (Last Reviewed 06/03/20 @ 11:[address] Peña Jay MD) COVID-19 (Acute) covid with acute hypoxic resp failure - elevated lactate. On dex. On Xarelto. Worsened O2 reqs, will check labs in AM. Will follow
[2020-06-06 17:21] LABS: Bedside Glucose 213 mg/dL (70-110)
[2020-06-06] MEDS: Tamsulosin HCl 0.4 MG Capsule PO (21:38)
[2020-06-06] MEDS: QUEtiapine 100 MG Tablet 400 MG PO (21:38)
[2020-06-06] MEDS: Atorvastatin Calcium 20 MG Tablet PO (21:38)
[2020-06-06 22:26] LABS: Bedside Glucose 192 mg/dL (70-110)
[2020-06-07] VITALS (28 sets, daily range): BP systolic 94–145; BP diastolic 61–100; PULSE 81–95; RESP 16–27; TEMP 36.4–37.2; O2SAT 84–100
--- NOTE | 2020-06-07 06:07 | CPS ---
Pt's respiratory status declining, SpO2 84% on AVAPS with aggressive settings. Dr. Michelle aware of pt status
[2020-06-07 06:49] LABS: Absolute Lymphocyte Count 0.94 X10^3/uL (0.83-4.51); Basophil# 0.02 X10^3/uL; Basophil% 0.3 % (0-1); Hematocrit 34.5 % (40-54); Lymphocyte # 0.94 X10^3/ul (4.0); Lymphocyte % 11.9 % (19-41); Mean Corp Hgb Conc 31.9 g/dL (32-36); Mean Corpuscular Hgb 27.8 pg (27.0-32.0); Mean Corpuscular Volume 87.3 fL (80-94); Mean Platelet Vol. 9.3 fl (6.2-12.0); Monocyte# 0.85 X10^3/uL; Monocyte% 10.8 % (0-10); NRBC Flagged by Analyzer 0 % (0-5); Neutrophil # 5.99 X10^3/uL (2.7-7.7); Neutrophil % 75.7 % (47-70); POSITIVE MORPHOLOGY YES; Platelet Count 228 K/mm3 (150-450); RBC Distribution Width CV 13.9 % (11.6-14.6); RBC Distribution Width SD 44.6 fl (35.1-43.9); Red Blood Count 3.95 M/mm3 (4.6-6.2); White Blood Count 7.9 K/mm3 (4.4-11.0)
[2020-06-07 06:52] LABS: Differential Indicated SCAN CRITERIA MET
[2020-06-07 07:17] LABS: Anion Gap 6 (5-15); BUN 27 mg/dL (7-18); BUN/Creat Ratio 20.3 RATIO (10-20); Calcium,Total 8.5 mg/dL (8.5-10.1); Chloride 101 mmol/L (98-107); Creatinine, Serum 1.33 mg/dL (0.70-1.30); EST Glomerular Filtration Rate 56 mL/min (>60); Est Glom Filt Rate - Afr Amer 68 mL/min (>60); Estimated Creatinine Clearance 53.48 ml/min; Glucose 155 mg/dL (74-106); Potassium 3.6 mmol/L (3.5-5.1); Sodium Level 136 mmol/L (136-145)
[2020-06-07 08:20] LABS: Bedside Glucose 155 mg/dL (70-110)
[2020-06-07 09:12] LABS: BNP,B-Type NATRIURETIC PEPTIDE 116.3 pg/mL (0-100)
[2020-06-07 09:22] LABS: Procalcitonin 0.35 ng/mL (0.00-0.09)
--- NOTE | 2020-06-07 10:13 | PCM.PN.HOSP ---
Patient Problems: Active and Suspected Problems (Last Reviewed 06/03/20 @ 11:[address] Peña Jay MD) COVID-19 (Acute) Subjective: Breathing better with BiPAP in place., No issues overnight Vitals/I&O's: Vital Signs Temp Pulse Resp BP Pulse Ox 97.6 F L 88 22 H 145/90 H 92 06/07/20 08:00 06/07/20 08:00 06/07/20 08:00 06/07/20 08:00 06/07/20 08:00 Oxygen Flow Rate (L/min) 15 Oxygen Delivery Method Bi-pap Weight: 227 lb 1.218 oz Body Mass Index (BMI) 31.4 Intake and Output for Last 24 Hours 06/05/20 06/06/20 06/07/20 23:59 23:59 23:59 Intake Total 1030 / 1030 600 / 600 Output Total 1450 / 1450 975 / 975 300 / 300 Balance -420 / -420 -375 / -375 -300 / -300 General: Alert, Oriented x3, Cooperative, No apparent distress HEENT: Atraumatic, PERRLA, EOMI, Normocephalic, - - Slight skin irritation to his forehead he says it has been picking at some scabs there, he does have psoriasis Neck: Supple, No JVD Lungs: Normal air movement, No rhonchi, No wheeze, No rales, Diminished Cardiovascular: Regular rate, Regular Rhythm, Normal S1, Normal S2, No murmurs Abdomen: Soft, Non Tender, Non-Distended, No Hepato-splenomegaly Extremities: No edema, Capillary Refill Less than 3 Seconds Skin: No rashes, No breakdown Neurological: Neuro grossly intact, Sensory exam intact to light touch and pain Psych/Mental Status: Normal Affect, Appropriate Microbiology Past 72 Hours 06/03/20 09:50 Urine, Clean Catch Urine Culture - Final Culture exhibits no growth. 06/03/20 07:40 Blood Culture (Wb) - Left Forearm Blood Culture - Preliminary No growth in 48 hours. 06/03/20 07:40 Blood Culture (Wb) - Anticubital Left Blood Culture - Preliminary No growth in 48 hours. Laboratory Results 06/06/20 11:16: POC Glucose 184 H 06/06/20 17:03: POC Glucose 213 H 06/06/20 21:33: POC Glucose 192 H 06/07/20 06:18: Sodium 136, Potassium 3.6, Chloride 101, Carbon Dioxide 29.0, Anion Gap 6, BUN 27 H, Creatinine 1.33 H, Estim Creat Clear Calc 53.48, Est GFR (MDRD) Af Amer 68, Est GFR (MDRD) Non-Af 56 L, BUN/Creatinine Ratio 20.3 H, Glucose 155 H, Calcium 8.5, Troponin I 0.034 06/07/20 06:18: WBC 7.9, RBC 3.95 L, Hgb 11.0 L, Hct 34.5 L, MCV 87.3, MCH 27.8, MCHC 31.9 L, RDW Std Deviation 44.6 H, RDW Coeff of Luca 13.9, Plt Count 228, MPV 9.3, Immature Gran % (Auto) 1.300 H, Neut % (Auto) 75.7 H, Lymph % (Auto) 11.9 L, Amador % (Auto) 10.8 H, Eos % (Auto) 0.0, Baso % (Auto) 0.3, Absolute Neuts (auto) 6.0, Absolute Lymphs (auto) 0.94, Nucleated RBC % 0 06/07/20 06:18: B-Natriuretic Peptide 116.3 H 06/07/20 06:18: Procalcitonin 0.35 H 06/07/20 08:01: POC Glucose 155 H Current Medications Acetaminophen (Acetaminophen 325 Mg Tablet) 650 mg PO Q4H PRN PRN PRN Reason: Pain Score 1-10/Temp > 100.7 F Last Admin: 06/05/20 14:07 Dose: 650 mg Documented by: Al Hydroxide/Mg Hydroxide (Mag Hydrox/Al Hydrox/Simeth 30 Ml Udc) 30 ml PO Q6H PRN PRN PRN Reason: Gastric Burning Albuterol Sulfate (Albuterol 2.5 Mg/3 Ml Vial.Neb.) 2.5 mg INHALATION Q2H PRN PRN PRN Reason: SOB/Wheezing Allopurinol (Allopurinol 300 Mg Tablet) 300 mg PO DAILY [facility] Last Admin: 06/07/20 08:12 Dose: Not Given Documented by: Atorvastatin Calcium (Atorvastatin Calcium 20 Mg Tablet) 20 mg PO QHS [facility] Last Admin: 06/06/20 21:38 Dose: 20 mg Documented by: Clonazepam (Clonazepam 0.5 Mg Tablet) 0.5 mg PO BID PRN PRN PRN Reason: ANXIETY Last Admin: 06/06/20 21:38 Dose: 0.5 mg Documented by: Dexamethasone (Dexamethasone 4 Mg Tablet) 6 mg PO DAILY [facility] Stop: 06/12/20 10:01 Last Admin: 06/07/20 08:11 Dose: Not Given Documented by: Dextrose (Dextrose 50%-Water 25 Gm/50 Ml Disp.Syrin) 0 gm IV X1 PRN; Protocol PRN Reason: Hypoglycemia Folic Acid (Folic Acid 1 Mg Tablet) 1 mg PO DAILY [facility] Last Admin: 06/07/20 08:12 Dose: Not Given Documented by: Glucagon (Glucagon 1 Mg/Ml Syringe) 1 mg IM .X1 PRN PRN Reason: Hypoglycemia Guaifenesin (Guaifenesin 10 Ml Udc (200mg/10ml)) 20 ml PO Q4H PRN PRN PRN Reason: COUGH Last Admin: 06/05/20 06:21 Dose: 20 ml Documented by: Sodium Chloride () 250 mls @ 15 mls/hr IV .[id number] PRN PRN Reason: Saline Flush Sodium Chloride () 250 mls @ 15 mls/hr IV .[id number] PRN PRN Reason: Additional IVPB Infusion Insulin Glargine (Insulin Glargine 100 Units/Ml Pen) 10 units SC BREAKFAST [facility] Last Admin: 06/07/20 08:10 Dose: Not Given Documented by: Insulin Glargine (Insulin Glargine 100 Units/Ml Pen) 10 units SC QHS [facility] Last Admin: 06/06/20 21:38 Dose: 10 u Documented by: Insulin Human Lispro (Insulin Lispro 100 Unit/Ml Insuln.Pen) 0 unit SC ACHS [facility]; Protocol Last Admin: 06/07/20 08:10 Dose: Not Given Documented by: Lamotrigine (Lamotrigine 100 Mg Tablet) 200 mg PO BID [facility] Last Admin: 06/07/20 08:12 Dose: Not Given Documented by: Melatonin (Melatonin 3 Mg Tablet) 3 mg PO QHS PRN PRN PRN Reason: INSOMNIA Mirabegron (Mirabegron 25 Mg Tab.Er.24h) 25 mg PO DAILY [facility] Last Admin: 06/07/20 08:12 Dose: Not Given Documented by: Nitroglycerin (Nitroglycerin (Inpatient Use) 0.4 Mg Tab.Subl) 0.4 mg SUBLINGUAL Q5M PRN PRN Reason: CARDIAC/CHEST PAIN Ondansetron HCl (Ondansetron 4 Mg/2 Ml Vial) 4 mg IV Q8H PRN PRN PRN Reason: NAUSEA/VOMITING Oxycodone HCl (Oxycodone 5 Mg Tablet) 5 mg PO Q4H PRN PRN PRN Reason: Pain Score 4-5 Oxycodone HCl (Oxycodone 5 Mg Tablet) 10 mg PO Q4H PRN PRN PRN Reason: Pain Score 6-10 Pantoprazole Sodium (Pantoprazole Sodium 40 Mg Tablet) 40 mg PO DAILY [facility] Last Admin: 06/07/20 08:12 Dose: Not Given Documented by: Quetiapine Fumarate (Quetiapine 100 Mg Tablet) 400 mg PO QHS [facility] Last Admin: 06/06/20 21:38 Dose: 400 mg Documented by: Rivaroxaban (Rivaroxaban 20 Mg Tablet) 20 mg PO DAILY [facility] Last Admin: 06/07/20 08:12 Dose: Not Given Documented by: Sodium Chloride (0.9% Saline Lock 10 Ml Syringe) 10 - 40 ml IV UD PRN PRN Reason: SALINE FLUSH Last Admin: 06/05/20 12:27 Dose: 10 ml Documented by: Tamsulosin HCl (Tamsulosin Hcl 0.4 Mg Capsule) 0.4 mg PO QHS [facility] Last Admin: 06/06/20 21:38 Dose: 0.4 mg Documented by: Tolterodine Tartrate (Tolterodine Tartrate 2 Mg Cap.Sa) 2 mg PO DAILY [facility] Last Admin: 06/07/20 08:11 Dose: Not Given Documented by: Venlafaxine HCl (Venlafaxine Xr 150 Mg Capsule) 150 mg PO DAILY [facility] Last Admin: 06/07/20 08:11 Dose: Not Given Documented by: STROKE Vital Signs/Narrative: Vital Signs Temp Pulse Resp BP Pulse Ox 06/07/20 08:00 97.6 F L 88 22 H 145/90 H 92 06/07/20 07:50 86 22 H 90 06/07/20 07:00 98.1 F 86 22 H 136/87 H 91 Medical Necessity - Tobacco Use Smoking Status: Former smoker Assessment/Plan All Active Problems (Last Reviewed 06/03/20 @ 11:[address] Peña Jay MD) COVID-19 (Acute) Septic shock (Resolved) Community acquired pneumonia (Resolved) 1. Sepsis secondary to acute Covid infection with pneumonia with acute hypoxic respiratory failure -Continue with Decadron as well as systemic anticoagulation with Xarelto secondary to previous history of a PE. -Appreciate pulmonology and ID assistance, azithromycin and Rocephin were discontinued and he has been having symptoms for about 2 to 3 weeks therefore he is outside the window of convalescent plasma and remdesivir -He is back on BiPAP and he will likely transition between high flow and BiPAP 2. HTN/HLD -Blood pressure is stable with systolics in the 120s to 130s -Can resume his home blood pressure medications 3. History of PE -Continue with his home Xarelto 4. DM 2/CKD 3 -We will hold his metformin and place him on a sliding scale insulin -Accu-Cheks AC at bedtime -Creatinine is at baseline 5. Bipolar disorder -Stable -Continue with Seroquel, Lamictal, and SSRI DVT: Xarelto Inpatient E&M: 36688 Subs Hosp L2
[2020-06-07] MEDS: dexAMETHasone 4 MG Tablet 6 MG PO (11:04)
[2020-06-07] MEDS: Rivaroxaban 20 MG Tablet PO (11:04)
[2020-06-07] MEDS: Insulin Lispro 100 UNIT/ML INSULN.PEN SC ×3 (11:07→21:13)
[2020-06-07 11:45] LABS: Bedside Glucose 168 mg/dL (70-110)
--- NOTE | 2020-06-07 13:25 | PN_ITS ---
Patient Problems: Active and Suspected Problems (Last Reviewed 06/03/20 @ 11:[address] Peña Jay MD) COVID-19 (Acute) Subjective: Patient did okay overnight. Patient is still requiring significant amounts of FiO2 to maintain saturations. Patient overall feels subjectively improved compared to previous. Patient feels that he is tolerating the mask better. Patient has been diuresing and tolerating okay. - Physical Exam Vitals/I&O's: Vital Signs Temp Pulse Resp BP Pulse Ox 36.4 C L 85 26 H 136/84 H 97 06/07/20 12:00 06/07/20 12:00 06/07/20 12:00 06/07/20 12:00 06/07/20 12:00 Oxygen Flow Rate (L/min) 15 Oxygen Delivery Method Bi-pap Weight: 103 kg Body Mass Index (BMI) 31.4 Intake and Output for Last 24 Hours 06/05/20 06/06/20 06/07/20 23:59 23:59 23:59 Intake Total 1030 / 1030 600 / 600 60 / 60 Output Total 1450 / 1450 975 / 975 600 / 600 Balance -420 / -420 -375 / -375 -540 / -540 General: Alert, Oriented x3, Cooperative, No apparent distress, - - Obese. Speaking in full sentences. HEENT: Atraumatic, PERRLA, EOMI, Normocephalic, - - No breakdown at the mask interface Oral: Moist Mucosa, No Gingival or Mucosal Lesions/ Ulcerations Neck: Supple, No JVD, No Nodes, Trachea Midline Lungs: No rhonchi, No wheeze, No rales, Diminished, Tachypneic, - - Symmetric expansion. Cardiovascular: Regular rate, Regular Rhythm, Normal S1, Normal S2, No murmurs, No rub noted, No Gallop Abdomen: Bowel Sounds Present, Soft, Non Tender, Non-Distended, Obese Extremities: No clubbing, No cyanosis, No edema Skin: No breakdown Musculoskeletal: No Tenderness to Palpation of Joints or Extremities Lymphatic: No Cervical, Supraclavicular, or Inguinal Adenopathy Neurological: Cranial nerves II-XII grossly intact, Neuro grossly intact, Motor Exam 5/5 strength throughout Psych/Mental Status: Alert and oriented to time, place, person, mood and affect Microbiology Past 72 Hours 06/03/20 09:50 Urine, Clean Catch Urine Culture - Final Culture exhibits no growth. 06/03/20 07:40 Blood Culture (Wb) - Left Forearm Blood Culture - Preliminary No growth in 48 hours. 06/03/20 07:40 Blood Culture (Wb) - Anticubital Left Blood Culture - Preliminary No growth in 48 hours. Laboratory Results 06/06/20 17:03: POC Glucose 213 H 06/06/20 21:33: POC Glucose 192 H 06/07/20 06:18: Sodium 136, Potassium 3.6, Chloride 101, Carbon Dioxide 29.0, Anion Gap 6, BUN 27 H, Creatinine 1.33 H, Estim Creat Clear Calc 53.48, Est GFR (MDRD) Af Amer 68, Est GFR (MDRD) Non-Af 56 L, BUN/Creatinine Ratio 20.3 H, Glucose 155 H, Calcium 8.5, Troponin I 0.034 06/07/20 06:18: WBC 7.9, RBC 3.95 L, Hgb 11.0 L, Hct 34.5 L, MCV 87.3, MCH 27.8, MCHC 31.9 L, RDW Std Deviation 44.6 H, RDW Coeff of Luca 13.9, Plt Count 228, MPV 9.3, Immature Gran % (Auto) 1.300 H, Neut % (Auto) 75.7 H, Lymph % (Auto) 11.9 L , [place] % (Auto) 10.8 H, Eos % (Auto) 0.0, Baso % (Auto) 0.3, Absolute Neuts (auto) 6.0, Absolute Lymphs (auto) 0.94, Nucleated RBC % 0 06/07/20 06:18: B-Natriuretic Peptide 116.3 H 06/07/20 06:18: Procalcitonin 0.35 H 06/07/20 08:01: POC Glucose 155 H 06/07/20 11:01: POC Glucose 168 H Current Medications Acetaminophen (Acetaminophen 325 Mg Tablet) 650 mg PO Q4H PRN PRN PRN Reason: Pain Score 1-10/Temp > 100.7 F Last Admin: 06/05/20 14:07 Dose: 650 mg Documented by: Al Hydroxide/Mg Hydroxide (Mag Hydrox/Al Hydrox/Simeth 30 Ml Udc) 30 ml PO Q6H PRN PRN PRN Reason: Gastric Burning Albuterol Sulfate (Albuterol 2.5 Mg/3 Ml Vial.Neb.) 2.5 mg INHALATION Q2H PRN PRN PRN Reason: SOB/Wheezing Allopurinol (Allopurinol 300 Mg Tablet) 300 mg PO DAILY [facility] Last Admin: 06/07/20 08:12 Dose: Not Given Documented by: Atorvastatin Calcium (Atorvastatin Calcium 20 Mg Tablet) 20 mg PO QHS [facility] Last Admin: 06/06/20 21:38 Dose: 20 mg Documented by: Clonazepam (Clonazepam 0.5 Mg Tablet) 0.5 mg PO BID PRN PRN PRN Reason: ANXIETY Last Admin: 06/06/20 21:38 Dose: 0.5 mg Documented by: Dexamethasone (Dexamethasone 4 Mg Tablet) 6 mg PO DAILY [facility] Stop: 06/12/20 10:01 Last Admin: 06/07/20 11:04 Dose: 6 mg Documented by: Dextrose (Dextrose 50%-Water 25 Gm/50 Ml Disp.Syrin) 0 gm IV X1 PRN; Protocol PRN Reason: Hypoglycemia Folic Acid (Folic Acid 1 Mg Tablet) 1 mg PO DAILY [facility] Last Admin: 06/07/20 08:12 Dose: Not Given Documented by: Glucagon (Glucagon 1 Mg/Ml Syringe) 1 mg IM .X1 PRN PRN Reason: Hypoglycemia Guaifenesin (Guaifenesin 10 Ml Udc (200mg/10ml)) 20 ml PO Q4H PRN PRN PRN Reason: COUGH Last Admin: 06/05/20 06:21 Dose: 20 ml Documented by: Sodium Chloride () 250 mls @ 15 mls/hr IV .[id number] PRN PRN Reason: Saline Flush Sodium Chloride () 250 mls @ 15 mls/hr IV .[id number] PRN PRN Reason: Additional IVPB Infusion Insulin Glargine (Insulin Glargine 100 Units/Ml Pen) 10 units SC BREAKFAST [facility] Last Admin: 06/07/20 08:10 Dose: Not Given Documented by: Insulin Glargine (Insulin Glargine 100 Units/Ml Pen) 10 units SC QHS [facility] Last Admin: 06/06/20 21:38 Dose: 10 u Documented by: Insulin Human Lispro (Insulin Lispro 100 Unit/Ml Insuln.Pen) 0 unit SC ACHS [facility]; Protocol Last Admin: 06/07/20 11:07 Dose: 2 units Documented by: Lamotrigine (Lamotrigine 100 Mg Tablet) 200 mg PO BID [facility] Last Admin: 06/07/20 08:12 Dose: Not Given Documented by: Melatonin (Melatonin 3 Mg Tablet) 3 mg PO QHS PRN PRN PRN Reason: INSOMNIA Mirabegron (Mirabegron 25 Mg Tab.Er.24h) 25 mg PO DAILY [facility] Last Admin: 06/07/20 08:12 Dose: Not Given Documented by: Nitroglycerin (Nitroglycerin (Inpatient Use) 0.4 Mg Tab.Subl) 0.4 mg SUBLINGUAL Q5M PRN PRN Reason: CARDIAC/CHEST PAIN Ondansetron HCl (Ondansetron 4 Mg/2 Ml Vial) 4 mg IV Q8H PRN PRN PRN Reason: NAUSEA/VOMITING Oxycodone HCl (Oxycodone 5 Mg Tablet) 5 mg PO Q4H PRN PRN PRN Reason: Pain Score 4-5 Oxycodone HCl (Oxycodone 5 Mg Tablet) 10 mg PO Q4H PRN PRN PRN Reason: Pain Score 6-10 Pantoprazole Sodium (Pantoprazole Sodium 40 Mg Tablet) 40 mg PO DAILY [facility] Last Admin: 06/07/20 08:12 Dose: Not Given Documented by: Quetiapine Fumarate (Quetiapine 100 Mg Tablet) 400 mg PO QHS [facility] Last Admin: 06/06/20 21:38 Dose: 400 mg Documented by: Rivaroxaban (Rivaroxaban 20 Mg Tablet) 20 mg PO DAILY [facility] Last Admin: 06/07/20 11:04 Dose: 20 mg Documented by: Sodium Chloride (0.9% Saline Lock 10 Ml Syringe) 10 - 40 ml IV UD PRN PRN Reason: SALINE FLUSH Last Admin: 06/05/20 12:27 Dose: 10 ml Documented by: Tamsulosin HCl (Tamsulosin Hcl 0.4 Mg Capsule) 0.4 mg PO QHS [facility] Last Admin: 06/06/20 21:38 Dose: 0.4 mg Documented by: Tolterodine Tartrate (Tolterodine Tartrate 2 Mg Cap.Sa) 2 mg PO DAILY [facility] Last Admin: 06/07/20 08:11 Dose: Not Given Documented by: Venlafaxine HCl (Venlafaxine Xr 150 Mg Capsule) 150 mg PO DAILY [facility] Last Admin: 06/07/20 08:11 Dose: Not Given Documented by: Medical Necessity - Tobacco Use Smoking Status: Former smoker Assessment/Plan All Active Problems (Last Reviewed 06/03/20 @ 11:[address] Peña Jay MD) COVID-19 (Acute) Septic shock (Resolved) Community acquired pneumonia (Resolved) RECOMMENDATIONS: 1. Continue current supportive measures and wean FiO2 to maintain saturations at or above 90%. 2. Continue Xarelto per outpatient regimen. 3. Continue Decadron 6 mg daily x10 days. 4. Antimicrobial management per infectious diseases. 5. Encourage incentive spirometer use and mobilize patient as tolerated. 6. Will continue gentle diuresis today. IMPRESSIONS: 1. Acute hypoxemic respiratory failure secondary to COVID-19 pneumonia The patient initially presented to the hospital with Covid-like symptoms of 2 to 3 weeks duration. At this time, I would recommend that we continue current supportive measures with BiPAP therapy to maintain saturations at or above 90%. Continue Decadron 6 mg daily x10 days. The patient was already anticoagulated on Xarelto previously, which will be continued without change. Given the duration of his symptoms, the patient is unlikely to benefit from remdesivir or convalescent plasma. Patient is still with marginal saturations. Patient clear that he does not want to be intubated. If patient is not improving in the next 24 to 48 hours, may need to have a discussion about goals of therapy. 2. CKD stage III Patient appears to be doing okay from a renal standpoint. Good urine output has been noted, but inaccurate. Daily weights suggest appropriate diuresis. Will need to follow renal function closely. Repeat chemistry tomorrow. Electrolyte repletion as indicated. 3. Probable acute on chronic diastolic CHF Clinical suspicion for an element of acute on chronic diastolic CHF. Patient's heart rate is better controlled today, which should help. Would recommend continue diuresis as tolerated. We will need to check electrolytes closely given patient's history of chronic kidney disease. 4. Advanced age/history of PE/hyperlipidemia/hypertension/AAA status post repair Complicates care, management, recovery and prognosis. Okay to continue with anticoagulation from my perspective. Blood pressure appears to be controlled at this time. Inpatient E&M: [id number] [facility] L3
[2020-06-07] MEDS: Acetaminophen 325 MG Tablet 650 MG PO (14:32)
[2020-06-07] MEDS: clonazePAM 0.5 MG Tablet PO ×2 (14:33→21:13)
--- NOTE | 2020-06-07 15:45 | PCM.PN.ID ---
Patient Problems: Active and Suspected Problems (Last Reviewed 06/03/20 @ 11:[address] Peña Jay MD) COVID-19 (Acute) Subjective: Feeling better today, but still high O2 reqs. Getting diuresis. - Physical Exam Vitals/I&O's: Vital Signs Temp Pulse Resp BP Pulse Ox 98.4 F 91 26 H 142/92 H 98 06/07/20 15:00 06/07/20 15:00 06/07/20 15:00 06/07/20 15:00 06/07/20 15:00 Oxygen Flow Rate (L/min) 15 Oxygen Delivery Method Bi-pap Weight: 103 kg Body Mass Index (BMI) 31.4 Intake and Output for Last 24 Hours 06/05/20 06/06/20 06/07/20 23:59 23:59 23:59 Intake Total 1030 / 1030 600 / 600 60 / 60 Output Total 1450 / 1450 975 / 975 600 / 600 Balance -420 / -420 -375 / -375 -540 / -540 General: Alert, Cooperative, No apparent distress Lungs: Diminished Cardiovascular: Regular rate, Regular Rhythm Abdomen: Soft, Non Tender, Non-Distended Skin: No rashes Microbiology Past 72 Hours 06/03/20 09:50 Urine, Clean Catch Urine Culture - Final Culture exhibits no growth. 06/03/20 07:40 Blood Culture (Wb) - Left Forearm Blood Culture - Preliminary No growth in 48 hours. 06/03/20 07:40 Blood Culture (Wb) - Anticubital Left Blood Culture - Preliminary No growth in 48 hours. Laboratory Results 06/06/20 17:03: POC Glucose 213 H 06/06/20 21:33: POC Glucose 192 H 06/07/20 06:18: Sodium 136, Potassium 3.6, Chloride 101, Carbon Dioxide 29.0, Anion Gap 6, BUN 27 H, Creatinine 1.33 H, Estim Creat Clear Calc 53.48, Est GFR (MDRD) Af Amer 68, Est GFR (MDRD) Non-Af 56 L, BUN/Creatinine Ratio 20.3 H, Glucose 155 H, Calcium 8.5, Troponin I 0.034 06/07/20 06:18: WBC 7.9, RBC 3.95 L, Hgb 11.0 L, Hct 34.5 L, MCV 87.3, MCH 27.8, MCHC 31.9 L, RDW Std Deviation 44.6 H, RDW Coeff of Luca 13.9, Plt Count 228, MPV 9.3, Immature Gran % (Auto) 1.300 H, Neut % (Auto) 75.7 H, Lymph % (Auto) 11.9 L, [place] % (Auto) 10.8 H, Eos % (Auto) 0.0, Baso % (Auto) 0.3, Absolute Neuts (auto) 6.0, Absolute Lymphs (auto) 0.94, Nucleated RBC % 0 06/07/20 06:18: B-Natriuretic Peptide 116.3 H 06/07/20 06:18: Procalcitonin 0.35 H 06/07/20 08:01: POC Glucose 155 H 06/07/20 11:01: POC Glucose 168 H Current Medications Acetaminophen (Acetaminophen 325 Mg Tablet) 650 mg PO Q4H PRN PRN PRN Reason: Pain Score 1-10/Temp > 100.7 F Last Admin: 06/07/20 14:32 Dose: 650 mg Documented by: Al Hydroxide/Mg Hydroxide (Mag Hydrox/Al Hydrox/Simeth 30 Ml Udc) 30 ml PO Q6H PRN PRN PRN Reason: Gastric Burning Albuterol Sulfate (Albuterol 2.5 Mg/3 Ml Vial.Neb.) 2.5 mg INHALATION Q2H PRN PRN PRN Reason: SOB/Wheezing Allopurinol (Allopurinol 300 Mg Tablet) 300 mg PO DAILY [facility] Last Admin: 06/07/20 08:12 Dose: Not Given Documented by: Atorvastatin Calcium (Atorvastatin Calcium 20 Mg Tablet) 20 mg PO QHS [facility] Last Admin: 06/06/20 21:38 Dose: 20 mg Documented by: Clonazepam (Clonazepam 0.5 Mg Tablet) 0.5 mg PO BID PRN PRN PRN Reason: ANXIETY Last Admin: 06/07/20 14:33 Dose: 0.5 mg Documented by: Dexamethasone (Dexamethasone 4 Mg Tablet) 6 mg PO DAILY [facility] Stop: 06/12/20 10:01 Last Admin: 06/07/20 11:04 Dose: 6 mg Documented by: Dextrose (Dextrose 50%-Water 25 Gm/50 Ml Disp.Syrin) 0 gm IV X1 PRN; Protocol PRN Reason: Hypoglycemia Folic Acid (Folic Acid 1 Mg Tablet) 1 mg PO DAILY [facility] Last Admin: 06/07/20 08:12 Dose: Not Given Documented by: Glucagon (Glucagon 1 Mg/Ml Syringe) 1 mg IM .X1 PRN PRN Reason: Hypoglycemia Guaifenesin (Guaifenesin 10 Ml Udc (200mg/10ml)) 20 ml PO Q4H PRN PRN PRN Reason: COUGH Last Admin: 06/05/20 06:21 Dose: 20 ml Documented by: Sodium Chloride () 250 mls @ 15 mls/hr IV .[id number] PRN PRN Reason: Saline Flush Sodium Chloride () 250 mls @ 15 mls/hr IV .[id number] PRN PRN Reason: Additional IVPB Infusion Insulin Glargine (Insulin Glargine 100 Units/Ml Pen) 10 units SC BREAKFAST [facility] Last Admin: 06/07/20 08:10 Dose: Not Given Documented by: Insulin Glargine (Insulin Glargine 100 Units/Ml Pen) 10 units SC QHS [facility] Last Admin: 06/06/20 21:38 Dose: 10 u Documented by: Insulin Human Lispro (Insulin Lispro 100 Unit/Ml Insuln.Pen) 0 unit SC [facility]; Protocol Last Admin: 06/07/20 11:07 Dose: 2 units Documented by: Lamotrigine (Lamotrigine 100 Mg Tablet) 200 mg PO BID [facility] Last Admin: 06/07/20 08:12 Dose: Not Given Documented by: Melatonin (Melatonin 3 Mg Tablet) 3 mg PO QHS PRN PRN PRN Reason: INSOMNIA Mirabegron (Mirabegron 25 Mg Tab.Er.24h) 25 mg PO DAILY [facility] Last Admin: 06/07/20 08:12 Dose: Not Given Documented by: Nitroglycerin (Nitroglycerin (Inpatient Use) 0.4 Mg Tab.Subl) 0.4 mg SUBLINGUAL Q5M PRN PRN Reason: CARDIAC/CHEST PAIN Ondansetron HCl (Ondansetron 4 Mg/2 Ml Vial) 4 mg IV Q8H PRN PRN PRN Reason: NAUSEA/VOMITING Oxycodone HCl (Oxycodone 5 Mg Tablet) 5 mg PO Q4H PRN PRN PRN Reason: Pain Score 4-5 Oxycodone HCl (Oxycodone 5 Mg Tablet) 10 mg PO Q4H PRN PRN PRN Reason: Pain Score 6-10 Pantoprazole Sodium (Pantoprazole Sodium 40 Mg Tablet) 40 mg PO DAILY [facility] Last Admin: 06/07/20 08:12 Dose: Not Given Documented by: Quetiapine Fumarate (Quetiapine 100 Mg Tablet) 400 mg PO QHS [facility] Last Admin: 06/06/20 21:38 Dose: 400 mg Documented by: Rivaroxaban (Rivaroxaban 20 Mg Tablet) 20 mg PO DAILY [facility] Last Admin: 06/07/20 11:04 Dose: 20 mg Documented by: Sodium Chloride (0.9% Saline Lock 10 Ml Syringe) 10 - 40 ml IV UD PRN PRN Reason: SALINE FLUSH Last Admin: 06/05/20 12:27 Dose: 10 ml Documented by: Tamsulosin HCl (Tamsulosin Hcl 0.4 Mg Capsule) 0.4 mg PO QHS [facility] Last Admin: 06/06/20 21:38 Dose: 0.4 mg Documented by: Tolterodine Tartrate (Tolterodine Tartrate 2 Mg Cap.Sa) 2 mg PO DAILY [facility] Last Admin: 06/07/20 08:11 Dose: Not Given Documented by: Venlafaxine HCl (Venlafaxine Xr 150 Mg Capsule) 150 mg PO DAILY [facility] Last Admin: 06/07/20 08:11 Dose: Not Given Documented by: Medical Necessity - Tobacco Use Smoking Status: Former smoker Route of nutrition/ use of supplements: [] Nutritional Intake: [] IV Site: [] Britton Catheter: [] - Assessment/Plan Antibiotics: [] Assessment/Plan: [] Active and Suspected Problems (Last Reviewed 06/03/20 @ 11:[address] Peña Jay MD) COVID-19 (Acute) covid with acute hypoxic resp failure - elevated lactate. On dex. On Xarelto. On 100% high flow this AM. Feeling a little better today. Will follow
[2020-06-07 17:20] LABS: Bedside Glucose 215 mg/dL (70-110)
--- NOTE | 2020-06-07 20:51 | CPS ---
Pt.'s FiO2 decreased to 85%
[2020-06-07] MEDS: lamoTRIgine 100 MG Tablet 200 MG PO (21:13)
[2020-06-07] MEDS: QUEtiapine 100 MG Tablet 400 MG PO (21:13)
[2020-06-07] MEDS: Tamsulosin HCl 0.4 MG Capsule PO (21:13)
[2020-06-07] MEDS: Atorvastatin Calcium 20 MG Tablet PO (21:13)
[2020-06-08] VITALS (22 sets, daily range): BP systolic 110–155; BP diastolic 72–97; PULSE 79–91; RESP 11–29; TEMP 36.3–36.8; O2SAT 87–100
[2020-06-08 00:16] LABS: Bedside Glucose 188 mg/dL (70-110)
--- NOTE | 2020-06-08 05:53 | RAD_ITS ---
STUDY: X-RAY CHEST REASON FOR EXAM: Male, 75 years old. HYPOXIA W/ COVID 19 TECHNIQUE: Single AP portable view of the chest. COMPARISON: Comparison is made with prior study dated 06/05/2020. FINDINGS: EKG electrodes are seen. Since prior study, there has been improved aeration of both lungs with a residual increased interstitial markings and areas of confluence. There is no demonstrated pleural abnormality. Normal size heart. A loop recording device is seen overlying the left heart border. Normal mediastinum and glenna. Normal visualized pulmonary arteries. There is atherosclerotic tortuosity of the aortic arch and descending thoracic aorta. There are diffuse degenerative changes of the visualized thoracic spine. Normal visualized ribs, clavicles, and shoulders. There is no demonstrated abnormality of the visualized soft tissue structures of the upper abdomen. RAD/Chest 1 View (Portable) IMPRESSION: Since prior study, there has been improved aeration in both lungs. Electronically Signed: Ward Sauer, at 11:10 EDT , Service support ,
[2020-06-08 07:31] LABS: Bedside Glucose 147 mg/dL (70-110)
[2020-06-08] MEDS: Folic Acid 1 MG Tablet PO (08:39)
[2020-06-08] MEDS: Rivaroxaban 20 MG Tablet PO (08:40)
[2020-06-08] MEDS: Tolterodine Tartrate 2 MG CAP.SA PO (08:40)
[2020-06-08] MEDS: Venlafaxine XR 150 MG Capsule PO (08:40)
[2020-06-08] MEDS: lamoTRIgine 100 MG Tablet 200 MG PO ×2 (08:40→20:03)
[2020-06-08] MEDS: Pantoprazole Sodium 40 MG Tablet PO (08:40)
[2020-06-08] MEDS: Allopurinol 300 MG Tablet PO (08:40)
[2020-06-08] MEDS: dexAMETHasone 4 MG Tablet 6 MG PO (08:40)
[2020-06-08] MEDS: Mirabegron 25 MG TAB.ER.24H PO (08:49)
[2020-06-08] MEDS: Insulin Lispro 100 UNIT/ML INSULN.PEN SC ×3 (11:36→20:04)
--- NOTE | 2020-06-08 11:40 | PCM.PN.HOSP ---
Patient Problems: Active and Suspected Problems (Last Reviewed 06/03/20 @ 11:[address] Peña Jay MD) COVID-19 (Acute) Subjective: Feels stable today. Continues on BiPAP. No issues overnight. Vitals/I&O's: Vital Signs Temp Pulse Resp BP Pulse Ox 97.9 F 88 21 H 150/92 H 88 06/08/20 10:00 06/08/20 11:00 06/08/20 10:00 06/08/20 10:00 06/08/20 10:00 Oxygen Flow Rate (L/min) 15 Oxygen Delivery Method Bi-pap Weight: 226 lb 3.108 oz Body Mass Index (BMI) 31.4 Intake and Output for Last 24 Hours 06/06/20 06/07/20 06/08/20 23:59 23:59 23:59 Intake Total 600 / 600 220 / 220 Output Total 975 / 975 930 / 930 Balance -375 / -375 -710 / -710 General: Alert, Oriented x3, Cooperative, No apparent distress HEENT: Atraumatic, PERRLA, EOMI, Normocephalic, - - Slight skin irritation to his forehead he says it has been picking at some scabs there, he does have psoriasis Neck: Supple, No JVD Lungs: Normal air movement, No rhonchi, No wheeze, No rales, Diminished Cardiovascular: Regular rate, Regular Rhythm, Normal S1, Normal S2, No murmurs Abdomen: Soft, Non Tender, Non-Distended, No Hepato-splenomegaly Extremities: No edema, Capillary Refill Less than 3 Seconds Skin: No rashes, No breakdown Neurological: Neuro grossly intact, Sensory exam intact to light touch and pain Psych/Mental Status: Normal Affect, Appropriate Microbiology Past 72 Hours 06/03/20 07:40 Blood Culture (Wb) - Left Forearm Blood Culture - Final No growth in 5 days. 06/03/20 07:40 Blood Culture (Wb) - Anticubital Left Blood Culture - Final No growth in 5 days. 06/03/20 09:50 Urine, Clean Catch Urine Culture - Final Culture exhibits no growth. Laboratory Results 06/07/20 11:01: POC Glucose 168 H 06/07/20 17:10: POC Glucose 215 H 06/07/20 21:12: POC Glucose 188 H 06/08/20 06:36: POC Glucose 147 H Current Medications Acetaminophen (Acetaminophen 325 Mg Tablet) 650 mg PO Q4H PRN PRN PRN Reason: Pain Score 1-10/Temp > 100.7 F Last Admin: 06/07/20 14:32 Dose: 650 mg Documented by: Al Hydroxide/Mg Hydroxide (Mag Hydrox/Al Hydrox/Simeth 30 Ml Udc) 30 ml PO Q6H PRN PRN PRN Reason: Gastric Burning Albuterol Sulfate (Albuterol 2.5 Mg/3 Ml Vial.Neb.) 2.5 mg INHALATION Q2H PRN PRN PRN Reason: SOB/Wheezing Allopurinol (Allopurinol 300 Mg Tablet) 300 mg PO DAILY [facility] Last Admin: 06/08/20 08:40 Dose: 300 mg Documented by: Atorvastatin Calcium (Atorvastatin Calcium 20 Mg Tablet) 20 mg PO QHS [facility] Last Admin: 06/07/20 21:13 Dose: 20 mg Documented by: Clonazepam (Clonazepam 0.5 Mg Tablet) 0.5 mg PO BID PRN PRN PRN Reason: ANXIETY Last Admin: 06/07/20 21:13 Dose: 0.5 mg Documented by: Dexamethasone (Dexamethasone 4 Mg Tablet) 6 mg PO DAILY [facility] Stop: 06/12/20 10:01 Last Admin: 06/08/20 08:40 Dose: 6 mg Documented by: Dextrose (Dextrose 50%-Water 25 Gm/50 Ml Disp.Syrin) 0 gm IV X1 PRN; Protocol PRN Reason: Hypoglycemia Folic Acid (Folic Acid 1 Mg Tablet) 1 mg PO DAILY [facility] Last Admin: 06/08/20 08:39 Dose: 1 mg Documented by: Glucagon (Glucagon 1 Mg/Ml Syringe) 1 mg IM .X1 PRN PRN Reason: Hypoglycemia Guaifenesin (Guaifenesin 10 Ml Udc (200mg/10ml)) 20 ml PO Q4H PRN PRN PRN Reason: COUGH Last Admin: 06/05/20 06:21 Dose: 20 ml Documented by: Sodium Chloride () 250 mls @ 15 mls/hr IV .[id number] PRN PRN Reason: Saline Flush Sodium Chloride () 250 mls @ 15 mls/hr IV .[id number] PRN PRN Reason: Additional IVPB Infusion Insulin Glargine (Insulin Glargine 100 Units/Ml Pen) 10 units SC BREAKFAST [facility] Last Admin: 06/08/20 08:39 Dose: Not Given Documented by: Insulin Glargine (Insulin Glargine 100 Units/Ml Pen) 10 units SC QHS [facility] Last Admin: 06/07/20 21:14 Dose: 10 u Documented by: Insulin Human Lispro (Insulin Lispro 100 Unit/Ml Insuln.Pen) 0 unit SC ACHS [facility]; Protocol Last Admin: 06/08/20 11:36 Dose: 2 units Documented by: Lamotrigine (Lamotrigine 100 Mg Tablet) 200 mg PO BID [facility] Last Admin: 06/08/20 08:40 Dose: 200 mg Documented by: Melatonin (Melatonin 3 Mg Tablet) 3 mg PO QHS PRN PRN PRN Reason: INSOMNIA Mirabegron (Mirabegron 25 Mg Tab.Er.24h) 25 mg PO DAILY [facility] Last Admin: 06/08/20 08:49 Dose: 25 mg Documented by: Nitroglycerin (Nitroglycerin (Inpatient Use) 0.4 Mg Tab.Subl) 0.4 mg SUBLINGUAL Q5M PRN PRN Reason: CARDIAC/CHEST PAIN Ondansetron HCl (Ondansetron 4 Mg/2 Ml Vial) 4 mg IV Q8H PRN PRN PRN Reason: NAUSEA/VOMITING Oxycodone HCl (Oxycodone 5 Mg Tablet) 5 mg PO Q4H PRN PRN PRN Reason: Pain Score 4-5 Oxycodone HCl (Oxycodone 5 Mg Tablet) 10 mg PO Q4H PRN PRN PRN Reason: Pain Score 6-10 Pantoprazole Sodium (Pantoprazole Sodium 40 Mg Tablet) 40 mg PO DAILY [facility] Last Admin: 06/08/20 08:40 Dose: 40 mg Documented by: Quetiapine Fumarate (Quetiapine 100 Mg Tablet) 400 mg PO QHS [facility] Last Admin: 06/07/20 21:13 Dose: 400 mg Documented by: Rivaroxaban (Rivaroxaban 20 Mg Tablet) 20 mg PO DAILY [facility] Last Admin: 06/08/20 08:40 Dose: 20 mg Documented by: Sodium Chloride (0.9% Saline Lock 10 Ml Syringe) 10 - 40 ml IV UD PRN PRN Reason: SALINE FLUSH Last Admin: 06/05/20 12:27 Dose: 10 ml Documented by: Tamsulosin HCl (Tamsulosin Hcl 0.4 Mg Capsule) 0.4 mg PO QHS [facility] Last Admin: 06/07/20 21:13 Dose: 0.4 mg Documented by: Tolterodine Tartrate (Tolterodine Tartrate 2 Mg Cap.Sa) 2 mg PO DAILY [facility] Last Admin: 06/08/20 08:40 Dose: 2 mg Documented by: Venlafaxine HCl (Venlafaxine Xr 150 Mg Capsule) 150 mg PO DAILY [facility] Last Admin: 06/08/20 08:40 Dose: 150 mg Documented by: STROKE Vital Signs/Narrative: Vital Signs Temp Pulse Resp BP Pulse Ox 06/08/20 11:00 88 06/08/20 10:00 97.9 F 89 21 H 150/92 H 88 06/08/20 08:00 98.2 F 91 24 H 133/81 H 100 Medical Necessity - Tobacco Use Smoking Status: Former smoker Assessment/Plan All Active Problems (Last Reviewed 06/03/20 @ 11:[address] Peña Jay MD) COVID-19 (Acute) Septic shock (Resolved) Community acquired pneumonia (Resolved) 1. Sepsis secondary to acute Covid infection with pneumonia with acute hypoxic respiratory failure -Continue with Decadron as well as systemic anticoagulation with Xarelto secondary to previous history of a PE. -Appreciate pulmonology and ID assistance, azithromycin and Rocephin were discontinued and he has been having symptoms for about 2 to 3 weeks therefore he is outside the window of convalescent plasma and remdesivir -He is back on BiPAP and he will likely transition between high flow and BiPAP 2. HTN/HLD -Blood pressure is stable with systolics in the 120s to 130s -Can resume his home blood pressure medications 3. History of PE -Continue with his home Xarelto 4. DM 2/CKD 3 -We will hold his metformin and place him on a sliding scale insulin -Accu-Cheks AC at bedtime -Creatinine is at baseline 5. Bipolar disorder -Stable -Continue with Seroquel, Lamictal, and SSRI DVT: Xarelto Inpatient E&M: 17076 Subs Hosp L2
[2020-06-08 12:31] LABS: Bedside Glucose 166 mg/dL (70-110)
--- NOTE | 2020-06-08 15:15 | CASEMGMT ---
ROSA VELAZQUEZ NOTE: Call received from Addis Wiggins @ [facility], to inquire about pt's progress. She was given update. Per Addis, she does not have any contacts listed for pt except for Armond collins ([phone]) @ [facility]. Aroldo SARAH RN CM
--- NOTE | 2020-06-08 15:51 | PN.ID_ITS ---
Patient Problems: Active and Suspected Problems (Last Reviewed 06/03/20 @ 11:[address] Peña Jay MD) COVID-19 (Acute) Subjective: Feeling a little better, but still high O2 reqs. No fever, no n/v/d. - Physical Exam Vitals/I&O's: Vital Signs Temp Pulse Resp BP Pulse Ox 97.3 F L 89 23 H 140/97 H 98 06/08/20 14:00 06/08/20 15:00 06/08/20 14:00 06/08/20 14:00 06/08/20 14:00 Oxygen Flow Rate (L/min) 15 Oxygen Delivery Method Bi-pap Weight: 102.6 kg Body Mass Index (BMI) 31.4 Intake and Output for Last 24 Hours 06/06/20 06/07/20 06/08/20 23:59 23:59 23:59 Intake Total 600 / 600 220 / 220 240 / 240 Output Total 975 / 975 930 / 930 450 / 450 Balance -375 / -375 -710 / -710 -210 / -210 General: Alert, Cooperative, No apparent distress Lungs: Diminished Cardiovascular: Regular rate, Regular Rhythm Abdomen: Soft, Non Tender, Non-Distended Skin: No rashes Microbiology Past 72 Hours 06/03/20 07:40 Blood Culture (Wb) - Left Forearm Blood Culture - Final No growth in 5 days. 06/03/20 07:40 Blood Culture (Wb) - Anticubital Left Blood Culture - Final No growth in 5 days. Laboratory Results 06/07/20 17:10: POC Glucose 215 H 06/07/20 21:12: POC Glucose 188 H 06/08/20 06:36: POC Glucose 147 H 06/08/20 11:34: POC Glucose 166 H Current Medications Acetaminophen (Acetaminophen 325 Mg Tablet) 650 mg PO Q4H PRN PRN PRN Reason: Pain Score 1-10/Temp > 100.7 F Last Admin: 06/07/20 14:32 Dose: 650 mg Documented by: Al Hydroxide/Mg Hydroxide (Mag Hydrox/Al Hydrox/Simeth 30 Ml Udc) 30 ml PO Q6H PRN PRN PRN Reason: Gastric Burning Albuterol Sulfate (Albuterol 2.5 Mg/3 Ml Vial.Neb.) 2.5 mg INHALATION Q2H PRN PRN PRN Reason: SOB/Wheezing Allopurinol (Allopurinol 300 Mg Tablet) 300 mg PO DAILY [facility] Last Admin: 06/08/20 08:40 Dose: 300 mg Documented by: Atorvastatin Calcium (Atorvastatin Calcium 20 Mg Tablet) 20 mg PO QHS [facility] Last Admin: 06/07/20 21:13 Dose: 20 mg Documented by: Clonazepam (Clonazepam 0.5 Mg Tablet) 0.5 mg PO BID PRN PRN PRN Reason: ANXIETY Last Admin: 06/07/20 21:13 Dose: 0.5 mg Documented by: Dexamethasone (Dexamethasone 4 Mg Tablet) 6 mg PO DAILY [facility] Stop: 06/12/20 10:01 Last Admin: 06/08/20 08:40 Dose: 6 mg Documented by: Dextrose (Dextrose 50%-Water 25 Gm/50 Ml Disp.Syrin) 0 gm IV X1 PRN; Protocol PRN Reason: Hypoglycemia Folic Acid (Folic Acid 1 Mg Tablet) 1 mg PO DAILY [facility] Last Admin: 06/08/20 08:39 Dose: 1 mg Documented by: Glucagon (Glucagon 1 Mg/Ml Syringe) 1 mg IM .X1 PRN PRN Reason: Hypoglycemia Guaifenesin (Guaifenesin 10 Ml Udc (200mg/10ml)) 20 ml PO Q4H PRN PRN PRN Reason: COUGH Last Admin: 06/05/20 06:21 Dose: 20 ml Documented by: Sodium Chloride () 250 mls @ 15 mls/hr IV .[id number] PRN PRN Reason: Saline Flush Sodium Chloride () 250 mls @ 15 mls/hr IV .[id number] PRN PRN Reason: Additional IVPB Infusion Insulin Glargine (Insulin Glargine 100 Units/Ml Pen) 10 units SC BREAKFAST [facility] Last Admin: 06/08/20 08:39 Dose: Not Given Documented by: Insulin Glargine (Insulin Glargine 100 Units/Ml Pen) 10 units SC QHS [facility] Last Admin: 06/07/20 21:14 Dose: 10 u Documented by: Insulin Human Lispro (Insulin Lispro 100 Unit/Ml Insuln.Pen) 0 unit SC ACHS [facility]; Protocol Last Admin: 06/08/20 11:36 Dose: 2 units Documented by: Lamotrigine (Lamotrigine 100 Mg Tablet) 200 mg PO BID [facility] Last Admin: 06/08/20 08:40 Dose: 200 mg Documented by: Melatonin (Melatonin 3 Mg Tablet) 3 mg PO QHS PRN PRN PRN Reason: INSOMNIA Mirabegron (Mirabegron 25 Mg Tab.Er.24h) 25 mg PO DAILY [facility] Last Admin: 06/08/20 08:49 Dose: 25 mg Documented by: Nitroglycerin (Nitroglycerin (Inpatient Use) 0.4 Mg Tab.Subl) 0.4 mg SUBLINGUAL Q5M PRN PRN Reason: CARDIAC/CHEST PAIN Ondansetron HCl (Ondansetron 4 Mg/2 Ml Vial) 4 mg IV Q8H PRN PRN PRN Reason: NAUSEA/VOMITING Oxycodone HCl (Oxycodone 5 Mg Tablet) 5 mg PO Q4H PRN PRN PRN Reason: Pain Score 4-5 Oxycodone HCl (Oxycodone 5 Mg Tablet) 10 mg PO Q4H PRN PRN PRN Reason: Pain Score 6-10 Pantoprazole Sodium (Pantoprazole Sodium 40 Mg Tablet) 40 mg PO DAILY [facility] Last Admin: 06/08/20 08:40 Dose: 40 mg Documented by: Quetiapine Fumarate (Quetiapine 100 Mg Tablet) 400 mg PO QHS [facility] Last Admin: 06/07/20 21:13 Dose: 400 mg Documented by: Rivaroxaban (Rivaroxaban 20 Mg Tablet) 20 mg PO DAILY [facility] Last Admin: 06/08/20 08:40 Dose: 20 mg Documented by: Sodium Chloride (0.9% Saline Lock 10 Ml Syringe) 10 - 40 ml IV UD PRN PRN Reason: SALINE FLUSH Last Admin: 06/05/20 12:27 Dose: 10 ml Documented by: Tamsulosin HCl (Tamsulosin Hcl 0.4 Mg Capsule) 0.4 mg PO QHS [facility] Last Admin: 06/07/20 21:13 Dose: 0.4 mg Documented by: Tolterodine Tartrate (Tolterodine Tartrate 2 Mg Cap.Sa) 2 mg PO DAILY [facility] Last Admin: 06/08/20 08:40 Dose: 2 mg Documented by: Venlafaxine HCl (Venlafaxine Xr 150 Mg Capsule) 150 mg PO DAILY [facility] Last Admin: 06/08/20 08:40 Dose: 150 mg Documented by: Medical Necessity - Tobacco Use Smoking Status: Former smoker Route of nutrition/ use of supplements: [] Nutritional Intake: [] IV Site: [] Britton Catheter: [] - Assessment/Plan Antibiotics: [] Assessment/Plan: [] Active and Suspected Problems (Last Reviewed 06/03/20 @ 11:[address] Peña Jay MD) COVID-19 (Acute) covid with acute hypoxic resp failure - elevated lactate. On dex. On Xarelto. On 100% high flow this afternoon. Feeling a little better today. Will follow
--- NOTE | 2020-06-08 16:20 | PN_ITS ---
Patient Problems: Active and Suspected Problems (Last Reviewed 06/03/20 @ 11:[address] Peña Jay MD) COVID-19 (Acute) Subjective: Patient remains on very high FiO2, but feels much improved compared to previous. Patient is in good spirits and feel that he is is turning the corner. Patient is denying any bowel issues. - Physical Exam Vitals/I&O's: Vital Signs Temp Pulse Resp BP Pulse Ox 36.3 C L 89 23 H 140/97 H 98 06/08/20 14:00 06/08/20 15:00 06/08/20 14:00 06/08/20 14:00 06/08/20 14:00 Oxygen Flow Rate (L/min) 15 Oxygen Delivery Method Bi-pap Weight: 102.6 kg Body Mass Index (BMI) 31.4 Intake and Output for Last 24 Hours 06/06/20 06/07/20 06/08/20 23:59 23:59 23:59 Intake Total 600 / 600 220 / 220 240 / 240 Output Total 975 / 975 930 / 930 450 / 450 Balance -375 / -375 -710 / -710 -210 / -210 General: Alert, Oriented x3, Cooperative, No apparent distress - On BiPAP therapy, - - Good BiPAP synchrony HEENT: Atraumatic, PERRLA, EOMI, Normocephalic, - - Continues with facial rash. No signs of breakdown at the interface site Oral: Moist Mucosa, No Gingival or Mucosal Lesions/ Ulcerations Neck: Supple, No JVD, No Nodes, Trachea Midline Lungs: No rhonchi, No wheeze, No rales, Diminished - Better air exchange today, - - Symmetric expansion Cardiovascular: Regular rate, Regular Rhythm, Normal S1, Normal S2, No murmurs, No rub noted, No Gallop Abdomen: Bowel Sounds Present, Soft, Non Tender, Non-Distended Extremities: No clubbing, No cyanosis, Edema - Trace Skin: - - No change from previous Musculoskeletal: No Tenderness to Palpation of Joints or Extremities Lymphatic: No Cervical, Supraclavicular, or Inguinal Adenopathy Neurological: Cranial nerves II-XII grossly intact, Neuro grossly intact, Motor Exam 5/5 strength throughout Psych/Mental Status: Alert and oriented to time, place, person, mood and affect Microbiology Past 72 Hours 06/03/20 07:40 Blood Culture (Wb) - Left Forearm Blood Culture - Final No growth in 5 days. 06/03/20 07:40 Blood Culture (Wb) - Anticubital Left Blood Culture - Final No growth in 5 days. Laboratory Results 06/07/20 17:10: POC Glucose 215 H 06/07/20 21:12: POC Glucose 188 H 06/08/20 06:36: POC Glucose 147 H 06/08/20 11:34: POC Glucose 166 H Current Medications Acetaminophen (Acetaminophen 325 Mg Tablet) 650 mg PO Q4H PRN PRN PRN Reason: Pain Score 1-10/Temp > 100.7 F Last Admin: 06/07/20 14:32 Dose: 650 mg Documented by: Al Hydroxide/Mg Hydroxide (Mag Hydrox/Al Hydrox/Simeth 30 Ml Udc) 30 ml PO Q6H PRN PRN PRN Reason: Gastric Burning Albuterol Sulfate (Albuterol 2.5 Mg/3 Ml Vial.Neb.) 2.5 mg INHALATION Q2H PRN PRN PRN Reason: SOB/Wheezing Allopurinol (Allopurinol 300 Mg Tablet) 300 mg PO DAILY [facility] Last Admin: 06/08/20 08:40 Dose: 300 mg Documented by: Atorvastatin Calcium (Atorvastatin Calcium 20 Mg Tablet) 20 mg PO QHS [facility] Last Admin: 06/07/20 21:13 Dose: 20 mg Documented by: Clonazepam (Clonazepam 0.5 Mg Tablet) 0.5 mg PO BID PRN PRN PRN Reason: ANXIETY Last Admin: 06/07/20 21:13 Dose: 0.5 mg Documented by: Dexamethasone (Dexamethasone 4 Mg Tablet) 6 mg PO DAILY [facility] Stop: 06/12/20 10:01 Last Admin: 06/08/20 08:40 Dose: 6 mg Documented by: Dextrose (Dextrose 50%-Water 25 Gm/50 Ml Disp.Syrin) 0 gm IV X1 PRN; Protocol PRN Reason: Hypoglycemia Folic Acid (Folic Acid 1 Mg Tablet) 1 mg PO DAILY [facility] Last Admin: 06/08/20 08:39 Dose: 1 mg Documented by: Glucagon (Glucagon 1 Mg/Ml Syringe) 1 mg IM .X1 PRN PRN Reason: Hypoglycemia Guaifenesin (Guaifenesin 10 Ml Udc (200mg/10ml)) 20 ml PO Q4H PRN PRN PRN Reason: COUGH Last Admin: 06/05/20 06:21 Dose: 20 ml Documented by: Sodium Chloride () 250 mls @ 15 mls/hr IV .[id number] PRN PRN Reason: Saline Flush Sodium Chloride () 250 mls @ 15 mls/hr IV .[id number] PRN PRN Reason: Additional IVPB Infusion Insulin Glargine (Insulin Glargine 100 Units/Ml Pen) 10 units SC BREAKFAST [facility] Last Admin: 06/08/20 08:39 Dose: Not Given Documented by: Insulin Glargine (Insulin Glargine 100 Units/Ml Pen) 10 units SC QHS [facility] Last Admin: 06/07/20 21:14 Dose: 10 u Documented by: Insulin Human Lispro (Insulin Lispro 100 Unit/Ml Insuln.Pen) 0 unit SC ACHS [facility]; Protocol Last Admin: 06/08/20 11:36 Dose: 2 units Documented by: Lamotrigine (Lamotrigine 100 Mg Tablet) 200 mg PO BID [facility] Last Admin: 06/08/20 08:40 Dose: 200 mg Documented by: Melatonin (Melatonin 3 Mg Tablet) 3 mg PO QHS PRN PRN PRN Reason: INSOMNIA Mirabegron (Mirabegron 25 Mg Tab.Er.24h) 25 mg PO DAILY [facility] Last Admin: 06/08/20 08:49 Dose: 25 mg Documented by: Nitroglycerin (Nitroglycerin (Inpatient Use) 0.4 Mg Tab.Subl) 0.4 mg SUBLINGUAL Q5M PRN PRN Reason: CARDIAC/CHEST PAIN Ondansetron HCl (Ondansetron 4 Mg/2 Ml Vial) 4 mg IV Q8H PRN PRN PRN Reason: NAUSEA/VOMITING Oxycodone HCl (Oxycodone 5 Mg Tablet) 5 mg PO Q4H PRN PRN PRN Reason: Pain Score 4-5 Oxycodone HCl (Oxycodone 5 Mg Tablet) 10 mg PO Q4H PRN PRN PRN Reason: Pain Score 6-10 Pantoprazole Sodium (Pantoprazole Sodium 40 Mg Tablet) 40 mg PO DAILY [facility] Last Admin: 06/08/20 08:40 Dose: 40 mg Documented by: Quetiapine Fumarate (Quetiapine 100 Mg Tablet) 400 mg PO QHS [facility] Last Admin: 06/07/20 21:13 Dose: 400 mg Documented by: Rivaroxaban (Rivaroxaban 20 Mg Tablet) 20 mg PO DAILY [facility] Last Admin: 06/08/20 08:40 Dose: 20 mg Documented by: Sodium Chloride (0.9% Saline Lock 10 Ml Syringe) 10 - 40 ml IV UD PRN PRN Reason: SALINE FLUSH Last Admin: 06/05/20 12:27 Dose: 10 ml Documented by: Tamsulosin HCl (Tamsulosin Hcl 0.4 Mg Capsule) 0.4 mg PO QHS [facility] Last Admin: 06/07/20 21:13 Dose: 0.4 mg Documented by: Tolterodine Tartrate (Tolterodine Tartrate 2 Mg Cap.Sa) 2 mg PO DAILY [facility] Last Admin: 06/08/20 08:40 Dose: 2 mg Documented by: Venlafaxine HCl (Venlafaxine Xr 150 Mg Capsule) 150 mg PO DAILY [facility] Last Admin: 06/08/20 08:40 Dose: 150 mg Documented by: Clinical Impression(s) from Imaging Studies Chest X-Ray 06/08/20 05:53 IMPRESSION: Since prior study, there has been improved aeration in both lungs. Electronically Signed: Ward Sauer, at 11:10 EDT , Service support , Medical Necessity - Tobacco Use Smoking Status: Former smoker Assessment/Plan All Active Problems (Last Reviewed 06/03/20 @ 11:[address] Peña Jay MD) COVID-19 (Acute) Septic shock (Resolved) Community acquired pneumonia (Resolved) RECOMMENDATIONS: 1. Continue current supportive measures and wean FiO2 to maintain saturations at or above 90%. 2. Continue Xarelto per outpatient regimen. 3. Continue Decadron 6 mg daily x10 days. 4. Antimicrobial management per infectious diseases. 5. Encourage incentive spirometer use and mobilize patient as tolerated. 6. Consider gentle diuresis as kidneys allow. IMPRESSIONS: 1. Acute hypoxemic respiratory failure secondary to COVID-19 pneumonia The patient initially presented to the hospital with Covid-like symptoms of 2 to 3 weeks duration. At this time, I would recommend that we continue current supportive measures with BiPAP therapy to maintain saturations at or above 90%. Continue Decadron 6 mg daily x10 days. The patient was already anticoagulated on Xarelto previously, which will be continued without change. Given the duration of his symptoms, the patient is unlikely to benefit from remdesivir or convalescent plasma. Patient is still with marginal saturations. Patient clear that he does not want to be intubated. Chest x-ray shows improved aeration compared to previous. Patient was able to be weaned to 80% FiO2. Anticipate patient could try Airvo if BiPAP weaned to 70%. This may facilitate improved nutrition 2. CKD stage III Patient appears to be doing okay from a renal standpoint. Good urine output has been noted, but inaccurate. Daily weights suggest appropriate diuresis. Will need to follow renal function closely. Repeat chemistry tomorrow. Electrolyte repletion as indicated. 3. Probable acute on chronic diastolic CHF Clinical suspicion for an element of acute on chronic diastolic CHF. Patient's heart rate is better controlled today, which should help. Would recommend continue diuresis as tolerated. We will obtain a BMP in the morning to see if this is an option we will need to check electrolytes closely given patient's history of chronic kidney disease. 4. Advanced age/history of PE/hyperlipidemia/hypertension/AAA status post repair Complicates care, management, recovery and prognosis. Okay to continue with anticoagulation from my perspective. Blood pressure appears to be controlled at this time. Inpatient E&M: [id number] [facility] L3
[2020-06-08 17:20] LABS: Bedside Glucose 208 mg/dL (70-110)
[2020-06-08] MEDS: QUEtiapine 100 MG Tablet 400 MG PO (20:03)
[2020-06-08] MEDS: Tamsulosin HCl 0.4 MG Capsule PO (20:04)
[2020-06-08] MEDS: clonazePAM 0.5 MG Tablet PO (20:04)
[2020-06-08] MEDS: Atorvastatin Calcium 20 MG Tablet PO (20:04)
[2020-06-08 21:40] LABS: Bedside Glucose 168 mg/dL (70-110)
[2020-06-09] VITALS (28 sets, daily range): BP systolic 110–171; BP diastolic 73–105; PULSE 83–116; RESP 14–28; TEMP 36.2–37.8; O2SAT 86–100; BMI 29.5
[2020-06-09 06:08] LABS: Absolute Lymphocyte Count 2.15 X10^3/uL (0.83-4.51); Absolute Neutrophil Count 9.7 X10^3/uL (2.0-7.7); Basophil# 0.04 X10^3/uL; Basophil% 0.3 % (0-1); Eosinophil# 0.11 X10^3/uL; Eosinophils% 0.8 % (0-5); Hematocrit 36.4 % (40-54); Hemoglobin 11.3 g/dL (13.0-16.5); Lymphocyte # 2.15 X10^3/ul (4.0); Lymphocyte % 15.9 % (19-41); Mean Corpuscular Hgb 27.8 pg (27.0-32.0); Mean Corpuscular Volume 89.7 fL (80-94); Mean Platelet Vol. 9.4 fl (6.2-12.0); Monocyte# 0.97 X10^3/uL; Monocyte% 7.2 % (0-10); NRBC Flagged by Analyzer 0 % (0-5); Neutrophil # 9.67 X10^3/uL (2.7-7.7); Neutrophil % 71.7 % (47-70); POSITIVE MORPHOLOGY YES; Platelet Count 191 K/mm3 (150-450); RBC Distribution Width CV 14.4 % (11.6-14.6); RBC Distribution Width SD 47.4 fl (35.1-43.9); Red Blood Count 4.06 M/mm3 (4.6-6.2); White Blood Count 13.5 K/mm3 (4.4-11.0)
[2020-06-09 06:19] LABS: Differential Indicated SCAN CRITERIA MET
[2020-06-09 06:42] LABS: Anion Gap 13 (5-15); BUN 43 mg/dL (7-18); BUN/Creat Ratio 26.7 RATIO (10-20); Calcium,Total 8.2 mg/dL (8.5-10.1); Chloride 98 mmol/L (98-107); Creatinine, Serum 1.61 mg/dL (0.70-1.30); EST Glomerular Filtration Rate 45 mL/min (>60); Est Glom Filt Rate - Afr Amer 54 mL/min (>60); Estimated Creatinine Clearance 44.18 ml/min; Glucose 114 mg/dL (74-106); Potassium 3.4 mmol/L (3.5-5.1); Sodium Level 139 mmol/L (136-145)
[2020-06-09 06:45] LABS: Differential Comment SCANNED
[2020-06-09] MEDS: Insulin Lispro 100 UNIT/ML INSULN.PEN SC ×4 (06:46→20:44)
[2020-06-09 07:25] LABS: Bedside Glucose 170 mg/dL (70-110)
[2020-06-09] MEDS: Venlafaxine XR 150 MG Capsule PO (09:14)
[2020-06-09] MEDS: lamoTRIgine 100 MG Tablet 200 MG PO ×2 (09:14→20:46)
[2020-06-09] MEDS: Tolterodine Tartrate 2 MG CAP.SA PO (09:14)
[2020-06-09] MEDS: Pantoprazole Sodium 40 MG Tablet PO (09:14)
[2020-06-09] MEDS: Folic Acid 1 MG Tablet PO (09:14)
[2020-06-09] MEDS: Rivaroxaban 20 MG Tablet PO (09:14)
[2020-06-09] MEDS: Allopurinol 300 MG Tablet PO (09:14)
[2020-06-09] MEDS: dexAMETHasone 4 MG Tablet 6 MG PO (09:15)
[2020-06-09] MEDS: Mirabegron 25 MG TAB.ER.24H PO (09:16)
[2020-06-09] MEDS: 0.9% Saline Lock 10 ML Syringe IV (09:17)
--- NOTE | 2020-06-09 11:31 | PN.ID_ITS ---
Patient Problems: Active and Suspected Problems (Last Reviewed 06/03/20 @ 11:[address] Peña Jay MD) COVID-19 (Acute) Subjective: Sleeping this AM, no fever overnight - Physical Exam Vitals/I&O's: Vital Signs Temp Pulse Resp BP Pulse Ox 97.9 F 106 H 24 H 121/78 H 97 06/09/20 10:00 06/09/20 10:00 06/09/20 10:00 06/09/20 10:00 06/09/20 10:00 Oxygen Flow Rate (L/min) 15 Oxygen Delivery Method Bi-pap Weight: 98.9 kg Body Mass Index (BMI) 31.4 Intake and Output for Last 24 Hours 06/07/20 06/08/20 06/09/20 23:59 23:59 23:59 Intake Total 220 / 220 480 / 580 100 / 100 Output Total 930 / 930 675 / 675 100 / 100 Balance -710 / -710 -195 / -95 0 / 0 General: No apparent distress Lungs: Diminished Cardiovascular: Regular rate, Regular Rhythm Abdomen: Soft, Non Tender, Non-Distended Skin: No rashes Microbiology Past 72 Hours 06/03/20 07:40 Blood Culture (Wb) - Left Forearm Blood Culture - Final No growth in 5 days. 06/03/20 07:40 Blood Culture (Wb) - Anticubital Left Blood Culture - Final No growth in 5 days. Laboratory Results 06/08/20 11:34: POC Glucose 166 H 06/08/20 17:13: POC Glucose 208 H 06/08/20 20:02: POC Glucose 168 H 06/09/20 05:16: WBC 13.5 H, RBC 4.06 L, Hgb 11.3 L, Hct 36.4 L, MCV 89.7, MCH 27.8, MCHC 31.0 L, RDW Std Deviation 47.4 H, RDW Coeff of Luca 14.4, Plt Count 191, MPV 9.4, Immature Gran % (Auto) 4.100 H, Neut % (Auto) 71.7 H, Lymph % (Auto) 15.9 L, [place] % (Auto) 7.2, Eos % (Auto) 0.8, Baso % (Auto) 0.3, Absolute Neuts (auto) 9.7 H, Absolute Lymphs (auto) 2.15, Nucleated RBC % 0, Differential Comment SCANNED 06/09/20 05:16: Sodium 139, Potassium 3.4 L, Chloride 98, Carbon Dioxide 28.0, Anion Gap 13, BUN 43 H, Creatinine 1.61 H, Estim Creat Clear Calc 44.18, Est GFR (MDRD) Af Amer 54 L, Est GFR (MDRD) Non-Af 45 L, BUN/Creatinine Ratio 26.7 H, Glucose 114 H, Calcium 8.2 L 06/09/20 06:42: POC Glucose 170 H Current Medications Acetaminophen (Acetaminophen 325 Mg Tablet) 650 mg PO Q4H PRN PRN PRN Reason: Pain Score 1-10/Temp > 100.7 F Last Admin: 06/07/20 14:32 Dose: 650 mg Documented by: Al Hydroxide/Mg Hydroxide (Mag Hydrox/Al Hydrox/Simeth 30 Ml Udc) 30 ml PO Q6H PRN PRN PRN Reason: Gastric Burning Albuterol Sulfate (Albuterol 2.5 Mg/3 Ml Vial.Neb.) 2.5 mg INHALATION Q2H PRN PRN PRN Reason: SOB/Wheezing Allopurinol (Allopurinol 300 Mg Tablet) 300 mg PO DAILY [facility] Last Admin: 06/09/20 09:14 Dose: 300 mg Documented by: Atorvastatin Calcium (Atorvastatin Calcium 20 Mg Tablet) 20 mg PO QHS [facility] Last Admin: 06/08/20 20:04 Dose: 20 mg Documented by: Clonazepam (Clonazepam 0.5 Mg Tablet) 0.5 mg PO BID PRN PRN PRN Reason: ANXIETY Last Admin: 06/08/20 20:04 Dose: 0.5 mg Documented by: Dexamethasone (Dexamethasone 4 Mg Tablet) 6 mg PO DAILY [facility] Stop: 06/12/20 10:01 Last Admin: 06/09/20 09:15 Dose: 6 mg Documented by: Dextrose (Dextrose 50%-Water 25 Gm/50 Ml Disp.Syrin) 0 gm IV X1 PRN; Protocol PRN Reason: Hypoglycemia Folic Acid (Folic Acid 1 Mg Tablet) 1 mg PO DAILY [facility] Last Admin: 06/09/20 09:14 Dose: 1 mg Documented by: Glucagon (Glucagon 1 Mg/Ml Syringe) 1 mg IM .X1 PRN PRN Reason: Hypoglycemia Guaifenesin (Guaifenesin 10 Ml Udc (200mg/10ml)) 20 ml PO Q4H PRN PRN PRN Reason: COUGH Last Admin: 06/05/20 06:21 Dose: 20 ml Documented by: Sodium Chloride () 250 mls @ 15 mls/hr IV .[id number] PRN PRN Reason: Saline Flush Sodium Chloride () 250 mls @ 15 mls/hr IV .[id number] PRN PRN Reason: Additional IVPB Infusion Insulin Glargine (Insulin Glargine 100 Units/Ml Pen) 10 units SC BREAKFAST [facility] Last Admin: 06/09/20 09:13 Dose: Not Given Documented by: Insulin Glargine (Insulin Glargine 100 Units/Ml Pen) 10 units SC QHS [facility] Last Admin: 06/08/20 20:04 Dose: 10 u Documented by: Insulin Human Lispro (Insulin Lispro 100 Unit/Ml Insuln.Pen) 0 unit SC ACHS [facility]; Protocol Last Admin: 06/09/20 06:46 Dose: 2 units Documented by: Lamotrigine (Lamotrigine 100 Mg Tablet) 200 mg PO BID [facility] Last Admin: 06/09/20 09:14 Dose: 200 mg Documented by: Melatonin (Melatonin 3 Mg Tablet) 3 mg PO QHS PRN PRN PRN Reason: INSOMNIA Mirabegron (Mirabegron 25 Mg Tab.Er.24h) 25 mg PO DAILY [facility] Last Admin: 06/09/20 09:16 Dose: 25 mg Documented by: Nitroglycerin (Nitroglycerin (Inpatient Use) 0.4 Mg Tab.Subl) 0.4 mg SUBLINGUAL Q5M PRN PRN Reason: CARDIAC/CHEST PAIN Ondansetron HCl (Ondansetron 4 Mg/2 Ml Vial) 4 mg IV Q8H PRN PRN PRN Reason: NAUSEA/VOMITING Oxycodone HCl (Oxycodone 5 Mg Tablet) 5 mg PO Q4H PRN PRN PRN Reason: Pain Score 4-5 Oxycodone HCl (Oxycodone 5 Mg Tablet) 10 mg PO Q4H PRN PRN PRN Reason: Pain Score 6-10 Pantoprazole Sodium (Pantoprazole Sodium 40 Mg Tablet) 40 mg PO DAILY [facility] Last Admin: 06/09/20 09:14 Dose: 40 mg Documented by: Quetiapine Fumarate (Quetiapine 100 Mg Tablet) 400 mg PO QHS [facility] Last Admin: 06/08/20 20:03 Dose: 400 mg Documented by: Rivaroxaban (Rivaroxaban 20 Mg Tablet) 20 mg PO DAILY [facility] Last Admin: 06/09/20 09:14 Dose: 20 mg Documented by: Sodium Chloride (0.9% Saline Lock 10 Ml Syringe) 10 - 40 ml IV UD PRN PRN Reason: SALINE FLUSH Last Admin: 06/09/20 09:17 Dose: 10 ml Documented by: Tamsulosin HCl (Tamsulosin Hcl 0.4 Mg Capsule) 0.4 mg PO QHS [facility] Last Admin: 06/08/20 20:04 Dose: 0.4 mg Documented by: Tolterodine Tartrate (Tolterodine Tartrate 2 Mg Cap.Sa) 2 mg PO DAILY [facility] Last Admin: 06/09/20 09:14 Dose: 2 mg Documented by: Venlafaxine HCl (Venlafaxine Xr 150 Mg Capsule) 150 mg PO DAILY [facility] Last Admin: 06/09/20 09:14 Dose: 150 mg Documented by: Medical Necessity - Tobacco Use Smoking Status: Former smoker Route of nutrition/ use of supplements: [] Nutritional Intake: [] IV Site: [] Britton Catheter: [] - Assessment/Plan Antibiotics: [] Assessment/Plan: [] Active and Suspected Problems (Last Reviewed 06/03/20 @ 11:[address] Peña Jay MD) COVID-19 (Acute) covid with acute hypoxic resp failure - elevated lactate. On dex. On Xarelto. On 15L this AM. No fever. Will follow
--- NOTE | 2020-06-09 12:07 | PN_ITS ---
Patient Problems: Active and Suspected Problems (Last Reviewed 06/03/20 @ 11:[address] Peña Jay MD) COVID-19 (Acute) Subjective: Is about the same as he has been. He took off his BiPAP this morning is on high flow nasal cannula satting in the mid to low 80s. Eating breakfast Vitals/I&O's: Vital Signs Temp Pulse Resp BP Pulse Ox 97.9 F 106 H 24 H 121/78 H 97 06/09/20 10:00 06/09/20 10:00 06/09/20 10:00 06/09/20 10:00 06/09/20 10:00 Oxygen Flow Rate (L/min) 15 Oxygen Delivery Method Bi-pap Weight: 218 lb 0.595 oz Body Mass Index (BMI) 31.4 Intake and Output for Last 24 Hours 06/07/20 06/08/20 06/09/20 23:59 23:59 23:59 Intake Total 220 / 220 480 / 580 100 / 100 Output Total 930 / 930 675 / 675 100 / 100 Balance -710 / -710 -195 / -95 0 / 0 General: Alert, Oriented x3, Cooperative, No apparent distress HEENT: Atraumatic, PERRLA, EOMI, Normocephalic, - - Slight skin irritation to his forehead he says it has been picking at some scabs there, he does have psoriasis Neck: Supple, No JVD Lungs: Normal air movement, No rhonchi, No wheeze, No rales, Diminished Cardiovascular: Regular rate, Regular Rhythm, Normal S1, Normal S2, No murmurs Abdomen: Soft, Non Tender, Non-Distended, No Hepato-splenomegaly Extremities: No edema, Capillary Refill Less than 3 Seconds Skin: No rashes, No breakdown Neurological: Neuro grossly intact, Sensory exam intact to light touch and pain Psych/Mental Status: Normal Affect, Appropriate Microbiology Past 72 Hours 06/03/20 07:40 Blood Culture (Wb) - Left Forearm Blood Culture - Final No growth in 5 days. 06/03/20 07:40 Blood Culture (Wb) - Anticubital Left Blood Culture - Final No growth in 5 days. Laboratory Results 06/08/20 11:34: POC Glucose 166 H 06/08/20 17:13: POC Glucose 208 H 06/08/20 20:02: POC Glucose 168 H 06/09/20 05:16: WBC 13.5 H, RBC 4.06 L, Hgb 11.3 L, Hct 36.4 L, MCV 89.7, MCH 27.8, MCHC 31.0 L, RDW Std Deviation 47.4 H, RDW Coeff of Luca 14.4, Plt Count 191, MPV 9.4, Immature Gran % (Auto) 4.100 H, Neut % (Auto) 71.7 H, Lymph % (Auto) 15.9 L, [place] % (Auto) 7.2, Eos % (Auto) 0.8, Baso % (Auto) 0.3, Absolute Neuts (auto) 9.7 H, Absolute Lymphs (auto) 2.15, Nucleated RBC % 0, Differential Comment SCANNED 06/09/20 05:16: Sodium 139, Potassium 3.4 L, Chloride 98, Carbon Dioxide 28.0, Anion Gap 13, BUN 43 H, Creatinine 1.61 H, Estim Creat Clear Calc 44.18, Est GFR (MDRD) Af Amer 54 L, Est GFR (MDRD) Non-Af 45 L, BUN/Creatinine Ratio 26.7 H, Glucose 114 H, Calcium 8.2 L 06/09/20 06:42: POC Glucose 170 H Current Medications Acetaminophen (Acetaminophen 325 Mg Tablet) 650 mg PO Q4H PRN PRN PRN Reason: Pain Score 1-10/Temp > 100.7 F Last Admin: 06/07/20 14:32 Dose: 650 mg Documented by: Al Hydroxide/Mg Hydroxide (Mag Hydrox/Al Hydrox/Simeth 30 Ml Udc) 30 ml PO Q6H PRN PRN PRN Reason: Gastric Burning Albuterol Sulfate (Albuterol 2.5 Mg/3 Ml Vial.Neb.) 2.5 mg INHALATION Q2H PRN PRN PRN Reason: SOB/Wheezing Allopurinol (Allopurinol 300 Mg Tablet) 300 mg PO DAILY [facility] Last Admin: 06/09/20 09:14 Dose: 300 mg Documented by: Atorvastatin Calcium (Atorvastatin Calcium 20 Mg Tablet) 20 mg PO QHS [facility] Last Admin: 06/08/20 20:04 Dose: 20 mg Documented by: Clonazepam (Clonazepam 0.5 Mg Tablet) 0.5 mg PO BID PRN PRN PRN Reason: ANXIETY Last Admin: 06/08/20 20:04 Dose: 0.5 mg Documented by: Dexamethasone (Dexamethasone 4 Mg Tablet) 6 mg PO DAILY [facility] Stop: 06/12/20 10:01 Last Admin: 06/09/20 09:15 Dose: 6 mg Documented by: Dextrose (Dextrose 50%-Water 25 Gm/50 Ml Disp.Syrin) 0 gm IV X1 PRN; Protocol PRN Reason: Hypoglycemia Folic Acid (Folic Acid 1 Mg Tablet) 1 mg PO DAILY [facility] Last Admin: 06/09/20 09:14 Dose: 1 mg Documented by: Glucagon (Glucagon 1 Mg/Ml Syringe) 1 mg IM .X1 PRN PRN Reason: Hypoglycemia Guaifenesin (Guaifenesin 10 Ml Udc (200mg/10ml)) 20 ml PO Q4H PRN PRN PRN Reason: COUGH Last Admin: 06/05/20 06:21 Dose: 20 ml Documented by: Sodium Chloride () 250 mls @ 15 mls/hr IV .[id number] PRN PRN Reason: Saline Flush Sodium Chloride () 250 mls @ 15 mls/hr IV .[id number] PRN PRN Reason: Additional IVPB Infusion Insulin Glargine (Insulin Glargine 100 Units/Ml Pen) 10 units SC BREAKFAST [facility] Last Admin: 06/09/20 09:13 Dose: Not Given Documented by: Insulin Glargine (Insulin Glargine 100 Units/Ml Pen) 10 units SC QHS [facility] Last Admin: 06/08/20 20:04 Dose: 10 u Documented by: Insulin Human Lispro (Insulin Lispro 100 Unit/Ml Insuln.Pen) 0 unit SC ACHS [facility] ; Protocol Last Admin: 06/09/20 06:46 Dose: 2 units Documented by: Lamotrigine (Lamotrigine 100 Mg Tablet) 200 mg PO BID [facility] Last Admin: 06/09/20 09:14 Dose: 200 mg Documented by: Melatonin (Melatonin 3 Mg Tablet) 3 mg PO QHS PRN PRN PRN Reason: INSOMNIA Mirabegron (Mirabegron 25 Mg Tab.Er.24h) 25 mg PO DAILY [facility] Last Admin: 06/09/20 09:16 Dose: 25 mg Documented by: Nitroglycerin (Nitroglycerin (Inpatient Use) 0.4 Mg Tab.Subl) 0.4 mg SUBLINGUAL Q5M PRN PRN Reason: CARDIAC/CHEST PAIN Ondansetron HCl (Ondansetron 4 Mg/2 Ml Vial) 4 mg IV Q8H PRN PRN PRN Reason: NAUSEA/VOMITING Oxycodone HCl (Oxycodone 5 Mg Tablet) 5 mg PO Q4H PRN PRN PRN Reason: Pain Score 4-5 Oxycodone HCl (Oxycodone 5 Mg Tablet) 10 mg PO Q4H PRN PRN PRN Reason: Pain Score 6-10 Pantoprazole Sodium (Pantoprazole Sodium 40 Mg Tablet) 40 mg PO DAILY [facility] Last Admin: 06/09/20 09:14 Dose: 40 mg Documented by: Quetiapine Fumarate (Quetiapine 100 Mg Tablet) 400 mg PO QHS [facility] Last Admin: 06/08/20 20:03 Dose: 400 mg Documented by: Rivaroxaban (Rivaroxaban 20 Mg Tablet) 20 mg PO DAILY [facility] Last Admin: 06/09/20 09:14 Dose: 20 mg Documented by: Sodium Chloride (0.9% Saline Lock 10 Ml Syringe) 10 - 40 ml IV UD PRN PRN Reason: SALINE FLUSH Last Admin: 06/09/20 09:17 Dose: 10 ml Documented by: Tamsulosin HCl (Tamsulosin Hcl 0.4 Mg Capsule) 0.4 mg PO QHS [facility] Last Admin: 06/08/20 20:04 Dose: 0.4 mg Documented by: Tolterodine Tartrate (Tolterodine Tartrate 2 Mg Cap.Sa) 2 mg PO DAILY [facility] Last Admin: 06/09/20 09:14 Dose: 2 mg Documented by: Venlafaxine HCl (Venlafaxine Xr 150 Mg Capsule) 150 mg PO DAILY [facility] Last Admin: 06/09/20 09:14 Dose: 150 mg Documented by: STROKE Vital Signs/Narrative: Vital Signs Temp Pulse Resp BP Pulse Ox 06/09/20 10:00 97.9 F 106 H 24 H 121/78 H 97 06/09/20 09:12 99.4 F H Medical Necessity - Tobacco Use Smoking Status: Former smoker Assessment/Plan All Active Problems (Last Reviewed 06/03/20 @ 11:[address] Peña Jay MD) COVID-19 (Acute) Septic shock (Resolved) Community acquired pneumonia (Resolved) 1. Sepsis secondary to acute Covid infection with pneumonia with acute hypoxic respiratory failure -Continue with Decadron as well as systemic anticoagulation with Xarelto secondary to previous history of a PE. -Appreciate pulmonology and ID assistance, azithromycin and Rocephin were discontinued and he has been having symptoms for about 2 to 3 weeks therefore he is outside the window of convalescent plasma and remdesivir continue with Decadron -He is back on BiPAP and he will likely transition between high flow and BiPAP 2. HTN/HLD -Blood pressure is stable with systolics in the 120s to 130s -Can resume his home blood pressure medications 3. History of PE -Continue with his home Xarelto 4. DM 2/CKD 3 -We will hold his metformin and place him on a sliding scale insulin -Accu-Cheks AC at bedtime -Creatinine is at baseline 5. Bipolar disorder -Stable -Continue with Seroquel, Lamictal, and SSRI DVT: Xarelto Inpatient E&M: 60331 Subs Hosp L2
[2020-06-09 13:27] LABS: Magnesium 2.6 mg/dL (1.6-2.6); Phosphorus 2.3 mg/dL (2.5-4.9)
--- NOTE | 2020-06-09 14:55 | PCM.PN.PUL ---
Patient Problems: Active and Suspected Problems (Last Reviewed 06/03/20 @ 11:[address] Peña aJy MD) COVID-19 (Acute) Subjective: Patient is doing well. Patient is in good spirits and saturations appear to be improving. Patient states he feels subjectively improved compared to yesterday. No fever was noted overnight. Patient is not reporting any bowel symptoms. - Physical Exam Vitals/I&O's: Vital Signs Temp Pulse Resp BP Pulse Ox 36.8 C 101 H 22 H 131/85 H 95 06/09/20 12:00 06/09/20 12:00 06/09/20 12:00 06/09/20 12:00 06/09/20 12:00 Oxygen Flow Rate (L/min) 15 Oxygen Delivery Method Nasal Cannula Weight: 98.9 kg Body Mass Index (BMI) 31.4 Intake and Output for Last 24 Hours 06/07/20 06/08/20 06/09/20 23:59 23:59 23:59 Intake Total 220 / 220 480 / 580 620 / 620 Output Total 930 / 930 675 / 675 100 / 100 Balance -710 / -710 -195 / -95 520 / 520 General: Alert, Oriented x3, Cooperative, No apparent distress - On BiPAP therapy, - - Mild to moderate conversational dyspnea HEENT: Atraumatic, PERRLA, EOMI, Normocephalic, - - No scleral icterus or injection noted Oral: Moist Mucosa, No Gingival or Mucosal Lesions/ Ulcerations Neck: Supple, No Nodes, Trachea Midline, JVD, Right Lungs: No rhonchi, No wheeze, No rales, Diminished, - - Symmetric expansion Cardiovascular: Normal S1, Normal S2, No murmurs, No rub noted, No Gallop, Tachycardic Abdomen: Bowel Sounds Present, Soft, Non Tender, Non-Distended, Obese Extremities: No cyanosis, Capillary Refill Less than 3 Seconds, Edema Skin: Rash Present - No significant change compared to previous Musculoskeletal: No Tenderness to Palpation of Joints or Extremities Lymphatic: No Cervical, Supraclavicular, or Inguinal Adenopathy Neurological: Cranial nerves II-XII grossly intact, Neuro grossly intact, Motor Exam 5/5 strength throughout Psych/Mental Status: Alert and oriented to time, place, person, mood and affect Microbiology Past 72 Hours 06/03/20 07:40 Blood Culture (Wb) - Left Forearm Blood Culture - Final No growth in 5 days. 06/03/20 07:40 Blood Culture (Wb) - Anticubital Left Blood Culture - Final No growth in 5 days. Laboratory Results 06/08/20 17:13: POC Glucose 208 H 06/08/20 20:02: POC Glucose 168 H 06/09/20 05:16: WBC 13.5 H, RBC 4.06 L, Hgb 11.3 L, Hct 36.4 L, MCV 89.7, MCH 27.8, MCHC 31.0 L, RDW Std Deviation 47.4 H, RDW Coeff of Luca 14.4, Plt Count 191, MPV 9.4, Immature Gran % (Auto) 4.100 H, Neut % (Auto) 71.7 H, Lymph % (Auto) 15.9 L, [place] % (Auto) 7.2, Eos % (Auto) 0.8, Baso % (Auto) 0.3, Absolute Neuts (auto) 9.7 H, Absolute Lymphs (auto) 2.15, Nucleated RBC % 0, Differential Comment SCANNED 06/09/20 05:16: Sodium 139, Potassium 3.4 L, Chloride 98, Carbon Dioxide 28.0, Anion Gap 13, BUN 43 H, Creatinine 1.61 H, Estim Creat Clear Calc 44.18, Est GFR (MDRD) Af Amer 54 L, Est GFR (MDRD) Non-Af 45 L, BUN/Creatinine Ratio 26.7 H, Glucose 114 H, Calcium 8.2 L 06/09/20 05:16: Phosphorus 2.3 L, Magnesium 2.6 06/09/20 06:42: POC Glucose 170 H Current Medications Acetaminophen (Acetaminophen 325 Mg Tablet) 650 mg PO Q4H PRN PRN PRN Reason: Pain Score 1-10/Temp > 100.7 F Last Admin: 06/07/20 14:32 Dose: 650 mg Documented by: Al Hydroxide/Mg Hydroxide (Mag Hydrox/Al Hydrox/Simeth 30 Ml Udc) 30 ml PO Q6H PRN PRN PRN Reason: Gastric Burning Albuterol Sulfate (Albuterol 2.5 Mg/3 Ml Vial.Neb.) 2.5 mg INHALATION Q2H PRN PRN PRN Reason: SOB/Wheezing Allopurinol (Allopurinol 300 Mg Tablet) 300 mg PO DAILY [facility] Last Admin: 06/09/20 09:14 Dose: 300 mg Documented by: Atorvastatin Calcium (Atorvastatin Calcium 20 Mg Tablet) 20 mg PO QHS [facility] Last Admin: 06/08/20 20:04 Dose: 20 mg Documented by: Clonazepam (Clonazepam 0.5 Mg Tablet) 0.5 mg PO BID PRN PRN PRN Reason: ANXIETY Last Admin: 06/08/20 20:04 Dose: 0.5 mg Documented by: Dexamethasone (Dexamethasone 4 Mg Tablet) 6 mg PO DAILY [facility] Stop: 06/12/20 10:01 Last Admin: 06/09/20 09:15 Dose: 6 mg Documented by: Dextrose (Dextrose 50%-Water 25 Gm/50 Ml Disp.Syrin) 0 gm IV X1 PRN; Protocol PRN Reason: Hypoglycemia Folic Acid (Folic Acid 1 Mg Tablet) 1 mg PO DAILY [facility] Last Admin: 06/09/20 09:14 Dose: 1 mg Documented by: Glucagon (Glucagon 1 Mg/Ml Syringe) 1 mg IM .X1 PRN PRN Reason: Hypoglycemia Guaifenesin (Guaifenesin 10 Ml Udc (200mg/10ml)) 20 ml PO Q4H PRN PRN PRN Reason: COUGH Last Admin: 06/05/20 06:21 Dose: 20 ml Documented by: Sodium Chloride () 250 mls @ 15 mls/hr IV .[id number] PRN PRN Reason: Saline Flush Sodium Chloride () 250 mls @ 15 mls/hr IV .[id number] PRN PRN Reason: Additional IVPB Infusion Insulin Glargine (Insulin Glargine 100 Units/Ml Pen) 10 units SC BREAKFAST [facility] Last Admin: 06/09/20 09:13 Dose: Not Given Documented by: Insulin Glargine (Insulin Glargine 100 Units/Ml Pen) 10 units SC QHS [facility] Last Admin: 06/08/20 20:04 Dose: 10 u Documented by: Insulin Human Lispro (Insulin Lispro 100 Unit/Ml Insuln.Pen) 0 unit SC ACHS [facility]; Protocol Last Admin: 06/09/20 12:06 Dose: 4 units Documented by: Lamotrigine (Lamotrigine 100 Mg Tablet) 200 mg PO BID [facility] Last Admin: 06/09/20 09:14 Dose: 200 mg Documented by: Melatonin (Melatonin 3 Mg Tablet) 3 mg PO QHS PRN PRN PRN Reason: INSOMNIA Mirabegron (Mirabegron 25 Mg Tab.Er.24h) 25 mg PO DAILY [facility] Last Admin: 06/09/20 09:16 Dose: 25 mg Documented by: Nitroglycerin (Nitroglycerin (Inpatient Use) 0.4 Mg Tab.Subl) 0.4 mg SUBLINGUAL Q5M PRN PRN Reason: CARDIAC/CHEST PAIN Ondansetron HCl (Ondansetron 4 Mg/2 Ml Vial) 4 mg IV Q8H PRN PRN PRN Reason: NAUSEA/VOMITING Oxycodone HCl (Oxycodone 5 Mg Tablet) 5 mg PO Q4H PRN PRN PRN Reason: Pain Score 4-5 Oxycodone HCl (Oxycodone 5 Mg Tablet) 10 mg PO Q4H PRN PRN PRN Reason: Pain Score 6-10 Pantoprazole Sodium (Pantoprazole Sodium 40 Mg Tablet) 40 mg PO DAILY [facility] Last Admin: 06/09/20 09:14 Dose: 40 mg Documented by: Quetiapine Fumarate (Quetiapine 100 Mg Tablet) 400 mg PO QHS [facility] Last Admin: 06/08/20 20:03 Dose: 400 mg Documented by: Rivaroxaban (Rivaroxaban 20 Mg Tablet) 20 mg PO DAILY [facility] Last Admin: 06/09/20 09:14 Dose: 20 mg Documented by: Sodium Chloride (0.9% Saline Lock 10 Ml Syringe) 10 - 40 ml IV UD PRN PRN Reason: SALINE FLUSH Last Admin: 06/09/20 09:17 Dose: 10 ml Documented by: Tamsulosin HCl (Tamsulosin Hcl 0.4 Mg Capsule) 0.4 mg PO QHS [facility] Last Admin: 06/08/20 20:04 Dose: 0.4 mg Documented by: Tolterodine Tartrate (Tolterodine Tartrate 2 Mg Cap.Sa) 2 mg PO DAILY [facility] Last Admin: 06/09/20 09:14 Dose: 2 mg Documented by: Venlafaxine HCl (Venlafaxine Xr 150 Mg Capsule) 150 mg PO DAILY [facility] Last Admin: 06/09/20 09:14 Dose: 150 mg Documented by: Medical Necessity - Tobacco Use Smoking Status: Former smoker Assessment/Plan All Active Problems (Last Reviewed 06/03/20 @ 11:[address] Peña Jay MD) COVID-19 (Acute) Septic shock (Resolved) Community acquired pneumonia (Resolved) RECOMMENDATIONS: 1. Continue current supportive measures and wean FiO2 to maintain saturations at or above 90%. 2. Continue Xarelto per outpatient regimen. 3. Continue Decadron 6 mg daily x10 days. 4. Antimicrobial management per infectious diseases. 5. Encourage incentive spirometer use and mobilize patient as tolerated. 6. Consider gentle diuresis as kidneys allow. IMPRESSIONS: 1. Acute hypoxemic respiratory failure secondary to COVID-19 pneumonia The patient initially presented to the hospital with Covid-like symptoms of 2 to 3 weeks duration. At this time, I would recommend that we continue current supportive measures with BiPAP therapy to maintain saturations at or above 90%. Continue Decadron 6 mg daily x10 days. The patient was already anticoagulated on Xarelto previously, which will be continued without change. Given the duration of his symptoms, the patient is unlikely to benefit from remdesivir or convalescent plasma. Patient is still with marginal saturations. Patient clear that he does not want to be intubated. Chest x-ray shows improved aeration compared to previous. Patient was able to be weaned to 80% FiO2. Anticipate patient could try Airvo if BiPAP weaned to 70%. This may facilitate improved nutrition. Patient's renal function is not allowing additional diuretics at this time. Continue to monitor BMP to see if further diuresis would be possible. Patient does appear to have decreasing body weight, but it is unclear how much of this is due to lack of nutrition given BiPAP dependence 2. CKD stage III Patient appears to be doing okay from a renal standpoint. Good urine output has been noted, but inaccurate. Daily weights suggest appropriate diuresis. Will need to follow renal function closely. Likely check chemistries every other day. Electrolyte repletion as indicated. 3. Probable acute on chronic diastolic CHF Clinical suspicion for an element of acute on chronic diastolic CHF. Patient's heart rate is better controlled today, which should help. Would recommend continue diuresis as tolerated. We will obtain a BMP as indicated to see if this is an option we will need to check electrolytes closely given patient's history of chronic kidney disease. 4. Advanced age/history of PE/hyperlipidemia/hypertension/AAA status post repair Complicates care, management, recovery and prognosis. Okay to continue with anticoagulation from my perspective. Blood pressure appears to be controlled at this time. Inpatient E&M: 00234 Subs Hosp L3
--- NOTE | 2020-06-09 16:01 | NT.THERAPY_ITS ---
Nutrition Therapy Report - History Current diet / nutrition support order:: regular, 120mL glucerna w/ meals - Anthropometric Measurements Height:: 6 ft Weight:: 98.9 kg Body Mass Index (BMI):: 29.5 - Relevant Labs Relevant Labs:: WBC 13.5 K/mm3 (4.4-11.0) H 06/09/20 05:16 RBC 4.06 M/mm3 (4.6-6.2) L 06/09/20 05:16 Hgb 11.3 g/dL (13.0-16.5) L 06/09/20 05:16 Hct 36.4 % (40-54) L 06/09/20 05:16 MCHC 31.0 g/dL (32-36) L 06/09/20 05:16 RDW Std Deviation 47.4 fl (35.1-43.9) H 06/09/20 05:16 Immature Gran % (Auto) 4.100 % (0.0-0.9) H 06/09/20 05:16 Neut % (Auto) 71.7 % (47-70) H 06/09/20 05:16 Lymph % (Auto) 15.9 % (19-41) L 06/09/20 05:16 [place] % (Auto) 10.8 % (0-10) H 06/07/20 06:18 Absolute Neuts (auto) 9.7 X10^3/uL (2.0-7.7) H 06/09/20 05:16 Absolute Lymphs (auto) 0.78 X10^3/uL (0.83-4.51) L 06/05/20 07:27 APTT 38.5 Seconds (24.1-36.2) H 06/03/20 07:40 Fibrinogen 499 mg/dl (203-444) H 06/03/20 12:46 Sodium 134 mmol/L (136-145) L 06/04/20 07:20 Potassium 3.4 mmol/L (3.5-5.1) L 06/09/20 05:16 BUN 43 mg/dL (7-18) H 06/09/20 05:16 Creatinine 1.61 mg/dL (0.70-1.30) H 06/09/20 05:16 Est GFR (MDRD) Af Amer 54 mL/min (>60) L 06/09/20 05:16 Est GFR (MDRD) Non-Af 45 mL/min (>60) L 06/09/20 05:16 BUN/Creatinine Ratio 26.7 RATIO (10-20) H 06/09/20 05:16 Glucose 114 mg/dL (74-106) H 06/09/20 05:16 Lactic Acid 2.5 mmol/L (0.4-1.9) H* 06/03/20 12:46 Calcium 8.2 mg/dL (8.5-10.1) L 06/09/20 05:16 Phosphorus 2.3 mg/dL (2.5-4.9) L 06/09/20 05:16 AST 60 U/L (15-37) H 06/03/20 07:40 Lactate Dehydrogenase 290 U/L (87-241) H 06/03/20 12:46 Total Creatine Kinase 806 U/L (39-308) H 06/03/20 12:46 Troponin I 0.198 ng/mL (<0.045) H 06/03/20 18:37 C-React Prot Ext Range 97.50 mg/L (0.0-3.0) H 06/03/20 12:46 B-Natriuretic Peptide 116.3 pg/mL (0-100) H 06/07/20 06:18 Albumin 3.1 g/dL (3.2-5.0) L 06/03/20 07:40 Globulin 4.6 g/dL (2.2-4.2) H 06/03/20 07:40 Albumin/Globulin Ratio 0.7 RATIO (0.9-2.4) L 06/03/20 07:40 Procalcitonin 0.35 ng/mL (0.00-0.09) H 06/07/20 06:18 - Assessment Food / Nutrition-Related History:: Spoke w/ RN Cate as pt on bipap. Able to tolerate short breaks from bipap for minor PO intake. Has been accepting of Glucerna and small snacks throughout the day. Wt decrease of 6.4kg since last review (6%) is significant for malnutrition. Was given lasix earlier in admission, but cannot r/o wt loss r/t inadequate PO intake. - Nutrition Diagnosis Problem / Etiology / Signs & Symptoms (PES):: Pt w/ severe, acute malnutrition r/t resp failure, anorexia from COVID-19 as evidenced by 6.4kg/6.9% wt loss, estimated PO intake meeting less than 50% of pt's estimated nutritional needs over past 5 days. Evidence of Malnutrition Exists:: Yes Severe PCM:: Acute Illness - Nutrition Intervention Nutrition Prescription:: [id number] calories/day, 95-105 g protein/day - Food / Nutrient Delivery Interventions Summary of nutrition intervention:: Will increase Glucerna to 8 oz TID. Will continue regular diet. Nutrition support ordered as / adjusted to:: continue regular diet, increase Glucerna to 8 oz/day. - MNT Monitoring Further MNT monitoring and evaluation required?: Yes MNT Follow-up in:: 3-5 days
[2020-06-09 16:11] LABS: Bedside Glucose 253 mg/dL (70-110)
[2020-06-09 17:10] LABS: Bedside Glucose 280 mg/dL (70-110)
[2020-06-09] MEDS: Atorvastatin Calcium 20 MG Tablet PO (20:46)
[2020-06-09] MEDS: Tamsulosin HCl 0.4 MG Capsule PO (20:46)
[2020-06-09] MEDS: QUEtiapine 100 MG Tablet 400 MG PO (20:47)
--- NOTE | 2020-06-09 20:53 | NURSING ---
Bipap removed for pt to take pills. Pt place don 15L high flow O2. In under 3 minutes, pt dropped to 65% on 15L high flow O2. Bipap replaced.
[2020-06-09 22:16] LABS: Bedside Glucose 186 mg/dL (70-110)
[2020-06-10] VITALS (38 sets, daily range): BP systolic 101–146; BP diastolic 68–98; PULSE 73–124; RESP 14–26; TEMP 36.2–37.4; O2SAT 77–97
[2020-06-10 06:30] LABS: Anion Gap 8 (5-15); BUN 52 mg/dL (7-18); BUN/Creat Ratio 33.1 RATIO (10-20); Calcium,Total 8.5 mg/dL (8.5-10.1); Chloride 101 mmol/L (98-107); Creatinine, Serum 1.57 mg/dL (0.70-1.30); EST Glomerular Filtration Rate 46 mL/min (>60); Est Glom Filt Rate - Afr Amer 56 mL/min (>60); Estimated Creatinine Clearance 45.31 ml/min; Glucose 134 mg/dL (74-106); Potassium 3.8 mmol/L (3.5-5.1); Sodium Level 137 mmol/L (136-145)
[2020-06-10] MEDS: Venlafaxine XR 150 MG Capsule PO (08:49)
[2020-06-10] MEDS: dexAMETHasone 4 MG Tablet 6 MG PO (08:49)
[2020-06-10] MEDS: Folic Acid 1 MG Tablet PO (08:49)
[2020-06-10] MEDS: Tolterodine Tartrate 2 MG CAP.SA PO (08:49)
[2020-06-10] MEDS: Mirabegron 25 MG TAB.ER.24H PO (08:50)
[2020-06-10] MEDS: Pantoprazole Sodium 40 MG Tablet PO (08:50)
[2020-06-10] MEDS: lamoTRIgine 100 MG Tablet 200 MG PO ×2 (08:50→20:11)
[2020-06-10] MEDS: Allopurinol 300 MG Tablet PO (08:50)
[2020-06-10] MEDS: Rivaroxaban 20 MG Tablet PO (08:50)
[2020-06-10] MEDS: 0.9% Saline Lock 10 ML Syringe IV (08:51)
[2020-06-10 09:06] LABS: Bedside Glucose 139 mg/dL (70-110)
--- NOTE | 2020-06-10 09:16 | CASEMGMT ---
Addendum entered by Danyel Chambers 06/10/20 10:36: Call to [facility]. They do provide home oxygen for the patient. He has a concentrator, portability and script is for 4L with exertion. Original Note: RN MARCUS Assessment Note Call received from the patient's sister who is only family (along with her Freddie) in contact with patient. they verbalized that patient is estranged from his children and the patient is very reclusive. Sister states she has been DPOA in the past but is unsure if patient has changed this. She does not have a copy available. The patient has been in contact with her while @ hospital. They will not be able to provide transportation home for patient as they have health concerns re: covid exposure. -RN MARCUS attempted numerous times to contact patient via phone, but he is intermittently on bipap. Will continue to follow and speak with the patient when his respiratory status is improved. Presentation: shortness of breath Diagnosis: covid 19 PCP: Dr. Dang Amaya Insurance: [facility]/ [facility] Preferred Pharmacy: [facility] Prescription Benefit: yes LNOK: SisterBrittney. . Updated in file. Living Arrangements: Patient lives in apartment independently. Able to care for self. Tranportation: drives. DME: walker, cane, oxygen HHC: none SNF: [facility] in past DC Plan: undetermined. Will continue to follow oxygen and PT/OT needs for dc planning. CM available for discharge planning coordination. Contact CM for any concerns/needs that may arise. Dede SARAH RN ACM
[2020-06-10] MEDS: Acetaminophen 325 MG Tablet 650 MG PO (10:56)
[2020-06-10] MEDS: clonazePAM 0.5 MG Tablet PO ×2 (10:57→23:31)
--- NOTE | 2020-06-10 11:21 | PCM.PN.HOSP ---
Patient Problems: Active and Suspected Problems (Last Reviewed 06/03/20 @ 11:[address] Peña Jay MD) COVID-19 (Acute) Subjective: About the same as yesterday. He is a little bit confused today and does not know what year it is, and he was agitated overnight all of this could be secondary to his steroids given his bipolar disorder Vitals/I&O's: Vital Signs Temp Pulse Resp BP Pulse Ox 97.1 F L 107 H 23 H 128/87 H 95 06/10/20 04:26 06/10/20 10:00 06/10/20 10:00 06/10/20 10:00 06/10/20 10:00 Oxygen Flow Rate (L/min) 15 Oxygen Delivery Method Bi-pap Weight: 216 lb 11.43 oz Body Mass Index (BMI) 29.5 Intake and Output for Last 24 Hours 06/08/20 06/09/20 06/10/20 23:59 23:59 23:59 Intake Total 480 / 580 1055 / 1055 0 / 0 Output Total 675 / 675 100 / 100 0 / 0 Balance -195 / -95 955 / 955 0 / 0 General: Alert, Oriented x3, Cooperative, No apparent distress HEENT: Atraumatic, PERRLA, EOMI, Normocephalic, - - Slight skin irritation to his forehead he says it has been picking at some scabs there, he does have psoriasis Neck: Supple, No JVD Lungs: Normal air movement, No rhonchi, No wheeze, No rales, Diminished Cardiovascular: Regular rate, Regular Rhythm, Normal S1, Normal S2, No murmurs Abdomen: Soft, Non Tender, Non-Distended, No Hepato-splenomegaly Extremities: No edema, Capillary Refill Less than 3 Seconds Skin: No rashes, No breakdown Neurological: Neuro grossly intact, Sensory exam intact to light touch and pain Psych/Mental Status: Normal Affect, Appropriate Microbiology Past 72 Hours 06/03/20 07:40 Blood Culture (Wb) - Left Forearm Blood Culture - Final No growth in 5 days. 06/03/20 07:40 Blood Culture (Wb) - Anticubital Left Blood Culture - Final No growth in 5 days. Laboratory Results 06/09/20 05:16: Phosphorus 2.3 L, Magnesium 2.6 06/09/20 12:05: POC Glucose 253 H 06/09/20 17:00: POC Glucose 280 H 06/09/20 20:43: POC Glucose 186 H 06/10/20 05:18: Sodium 137, Potassium 3.8, Chloride 101, Carbon Dioxide 28.0, Anion Gap 8, BUN 52 H, Creatinine 1.57 H, Estim Creat Clear Calc 45.31, Est GFR (MDRD) Af Amer 56 L, Est GFR (MDRD) Non-Af 46 L, BUN/Creatinine Ratio 33.1 H, Glucose 134 H, Calcium 8.5 06/10/20 08:34: POC Glucose 139 H Current Medications Acetaminophen (Acetaminophen 325 Mg Tablet) 650 mg PO Q4H PRN PRN PRN Reason: Pain Score 1-10/Temp > 100.7 F Last Admin: 06/10/20 10:56 Dose: 650 mg Documented by: Al Hydroxide/Mg Hydroxide (Mag Hydrox/Al Hydrox/Simeth 30 Ml Udc) 30 ml PO Q6H PRN PRN PRN Reason: Gastric Burning Albuterol Sulfate (Albuterol 2.5 Mg/3 Ml Vial.Neb.) 2.5 mg INHALATION Q2H PRN PRN PRN Reason: SOB/Wheezing Allopurinol (Allopurinol 300 Mg Tablet) 300 mg PO DAILY [facility] Last Admin: 06/10/20 08:50 Dose: 300 mg Documented by: Atorvastatin Calcium (Atorvastatin Calcium 20 Mg Tablet) 20 mg PO QHS [facility] Last Admin: 06/09/20 20:46 Dose: 20 mg Documented by: Clonazepam (Clonazepam 0.5 Mg Tablet) 0.5 mg PO BID PRN PRN PRN Reason: ANXIETY Last Admin: 06/10/20 10:57 Dose: 0.5 mg Documented by: Dexamethasone (Dexamethasone 4 Mg Tablet) 6 mg PO DAILY [facility] Stop: 06/12/20 10:01 Last Admin: 06/10/20 08:49 Dose: 6 mg Documented by: Dextrose (Dextrose 50%-Water 25 Gm/50 Ml Disp.Syrin) 0 gm IV X1 PRN; Protocol PRN Reason: Hypoglycemia Folic Acid (Folic Acid 1 Mg Tablet) 1 mg PO DAILY [facility] Last Admin: 06/10/20 08:49 Dose: 1 mg Documented by: Glucagon (Glucagon 1 Mg/Ml Syringe) 1 mg IM .X1 PRN PRN Reason: Hypoglycemia Guaifenesin (Guaifenesin 10 Ml Udc (200mg/10ml)) 20 ml PO Q4H PRN PRN PRN Reason: COUGH Last Admin: 06/05/20 06:21 Dose: 20 ml Documented by: Sodium Chloride () 250 mls @ 15 mls/hr IV .[id number] PRN PRN Reason: Saline Flush Sodium Chloride () 250 mls @ 15 mls/hr IV .[id number] PRN PRN Reason: Additional IVPB Infusion Insulin Glargine (Insulin Glargine 100 Units/Ml Pen) 10 units SC BREAKFAST [facility] Last Admin: 06/10/20 08:34 Dose: Not Given Documented by: Insulin Glargine (Insulin Glargine 100 Units/Ml Pen) 10 units SC QHS [facility] Last Admin: 06/09/20 20:46 Dose: 10 u Documented by: Insulin Human Lispro (Insulin Lispro 100 Unit/Ml Insuln.Pen) 0 unit SC ACHS [facility]; Protocol Last Admin: 06/10/20 11:02 Dose: Not Given Documented by: Lamotrigine (Lamotrigine 100 Mg Tablet) 200 mg PO BID [facility] Last Admin: 06/10/20 08:50 Dose: 200 mg Documented by: Melatonin (Melatonin 3 Mg Tablet) 3 mg PO QHS PRN PRN PRN Reason: INSOMNIA Mirabegron (Mirabegron 25 Mg Tab.Er.24h) 25 mg PO DAILY [facility] Last Admin: 06/10/20 08:50 Dose: 25 mg Documented by: Nitroglycerin (Nitroglycerin (Inpatient Use) 0.4 Mg Tab.Subl) 0.4 mg SUBLINGUAL Q5M PRN PRN Reason: CARDIAC/CHEST PAIN Ondansetron HCl (Ondansetron 4 Mg/2 Ml Vial) 4 mg IV Q8H PRN PRN PRN Reason: NAUSEA/VOMITING Oxycodone HCl (Oxycodone 5 Mg Tablet) 5 mg PO Q4H PRN PRN PRN Reason: Pain Score 4-5 Oxycodone HCl (Oxycodone 5 Mg Tablet) 10 mg PO Q4H PRN PRN PRN Reason: Pain Score 6-10 Pantoprazole Sodium (Pantoprazole Sodium 40 Mg Tablet) 40 mg PO DAILY [facility] Last Admin: 06/10/20 08:50 Dose: 40 mg Documented by: Quetiapine Fumarate (Quetiapine 100 Mg Tablet) 400 mg PO QHS [facility] Last Admin: 06/09/20 20:47 Dose: 400 mg Documented by: Rivaroxaban (Rivaroxaban 20 Mg Tablet) 20 mg PO DAILY [facility] Last Admin: 06/10/20 08:50 Dose: 20 mg Documented by: Sodium Chloride (0.9% Saline Lock 10 Ml Syringe) 10 - 40 ml IV UD PRN PRN Reason: SALINE FLUSH Last Admin: 06/10/20 08:51 Dose: 10 ml Documented by: Tamsulosin HCl (Tamsulosin Hcl 0.4 Mg Capsule) 0.4 mg PO QHS [facility] Last Admin: 06/09/20 20:46 Dose: 0.4 mg Documented by: Tolterodine Tartrate (Tolterodine Tartrate 2 Mg Cap.Sa) 2 mg PO DAILY [facility] Last Admin: 06/10/20 08:49 Dose: 2 mg Documented by: Venlafaxine HCl (Venlafaxine Xr 150 Mg Capsule) 150 mg PO DAILY [facility] Last Admin: 06/10/20 08:49 Dose: 150 mg Documented by: STROKE Vital Signs/Narrative: Vital Signs Pulse Resp BP Pulse Ox 06/10/20 10:00 107 H 23 H 128/87 H 95 06/10/20 08:41 90 06/10/20 08:00 96 24 H 144/89 H 93 06/10/20 07:40 90 19 H 88 Medical Necessity - Tobacco Use Smoking Status: Former smoker Assessment/Plan All Active Problems (Last Reviewed 06/03/20 @ 11:[address] Peña Jay MD) COVID-19 (Acute) Septic shock (Resolved) Community acquired pneumonia (Resolved) 1. Sepsis secondary to acute Covid infection with pneumonia with acute hypoxic respiratory failure -Continue with Decadron as well as systemic anticoagulation with Xarelto secondary to previous history of a PE. -Appreciate pulmonology and ID assistance, azithromycin and Rocephin were discontinued and he has been having symptoms for about 2 to 3 weeks therefore he is outside the window of convalescent plasma and remdesivir continue with Decadron -He is back on BiPAP and he will likely transition between high flow and BiPAP 2. HTN/HLD -Blood pressure is stable with systolics in the 120s to 130s -Can resume his home blood pressure medications 3. History of PE -Continue with his home Xarelto 4. DM 2/CKD 3 -We will hold his metformin and place him on a sliding scale insulin -Accu-Cheks AC at bedtime -Creatinine is at baseline 5. Bipolar disorder -Stable -Continue with Seroquel, Lamictal, and SSRI DVT: Xarelto Inpatient E&M: 81308 Subs Hosp L2
--- NOTE | 2020-06-10 11:26 | NURSING ---
Pt desat on monitor. This RN into room, observed pt attempting to crawl out of bed and had pulled bipap mask off. SpO2 68% RA. Instructed pt to lay back in bed and bipap mask reapplied. SpO2 90% on bipap after roughly 5 minutes. Advised pt of oxygen dropping dangerously low without mask on. Pt states he will not take mask off by himself. PRN klonopin was given to help with anxiety and tylenol was given for pain (see MAR).
[2020-06-10 12:10] LABS: Bedside Glucose 207 mg/dL (70-110)
--- NOTE | 2020-06-10 15:10 | PN_ITS ---
Patient Problems: Active and Suspected Problems (Last Reviewed 06/03/20 @ 11:[address] Peña Jay MD) COVID-19 (Acute) Subjective: Patient slowly making progress. Patient did desaturate significantly with oral mouth care per the nurse at the bedside. Patient overall feels that he is improving slowly. Patient is not reporting any appetite at this time. - Physical Exam Vitals/I&O's: Vital Signs Temp Pulse Resp BP Pulse Ox 36.9 C 102 H 21 H 146/90 H 96 06/10/20 14:00 06/10/20 15:00 06/10/20 14:00 06/10/20 14:00 06/10/20 14:00 Oxygen Flow Rate (L/min) 15 Oxygen Delivery Method Bi-pap Weight: 98.3 kg Body Mass Index (BMI) 29.5 Intake and Output for Last 24 Hours 06/08/20 06/09/20 06/10/20 23:59 23:59 23:59 Intake Total 480 / 580 1055 / 1055 400 / 400 Output Total 675 / 675 100 / 100 250 / 250 Balance -195 / -95 955 / 955 150 / 150 General: Alert, Cooperative, No apparent distress, - - Obese. Mild conversational dyspnea. HEENT: Atraumatic, PERRLA, EOMI, Normocephalic, - - No scleral icterus or injection noted Oral: No Gingival or Mucosal Lesions/ Ulcerations, Dry Mucosa Neck: Supple, No JVD, No Nodes, Trachea Midline Lungs: No rhonchi, No wheeze, No rales, Diminished - Better air exchange Cardiovascular: Regular rate, Regular Rhythm, Normal S1, Normal S2, No murmurs, No rub noted, No Gallop Abdomen: Bowel Sounds Present, Soft, Non Tender, Non-Distended, Obese Extremities: No clubbing, No cyanosis, Edema Skin: - - No change compared to previous Musculoskeletal: No Tenderness to Palpation of Joints or Extremities Lymphatic: No Cervical, Supraclavicular, or Inguinal Adenopathy Neurological: Cranial nerves II-XII grossly intact, Neuro grossly intact, Motor Exam 5/5 strength throughout Psych/Mental Status: Normal Affect, Appropriate Microbiology Past 72 Hours 06/03/20 07:40 Blood Culture (Wb) - Left Forearm Blood Culture - Final No growth in 5 days. 06/03/20 07:40 Blood Culture (Wb) - Anticubital Left Blood Culture - Final No growth in 5 days. Laboratory Results 06/09/20 12:05: POC Glucose 253 H 06/09/20 17:00: POC Glucose 280 H 06/09/20 20:43: POC Glucose 186 H 06/10/20 05:18: Sodium 137, Potassium 3.8, Chloride 101, Carbon Dioxide 28.0, Anion Gap 8, BUN 52 H, Creatinine 1.57 H, Estim Creat Clear Calc 45.31, Est GFR (MDRD) Af Amer 56 L, Est GFR (MDRD) Non-Af 46 L, BUN/Creatinine Ratio 33.1 H, Glucose 134 H, Calcium 8.5 06/10/20 08:34: POC Glucose 139 H 06/10/20 11:01: POC Glucose 207 H Current Medications Acetaminophen (Acetaminophen 325 Mg Tablet) 650 mg PO Q4H PRN PRN PRN Reason: Pain Score 1-10/Temp > 100.7 F Last Admin: 06/10/20 10:56 Dose: 650 mg Documented by: Al Hydroxide/Mg Hydroxide (Mag Hydrox/Al Hydrox/Simeth 30 Ml Udc) 30 ml PO Q6H PRN PRN PRN Reason: Gastric Burning Albuterol Sulfate (Albuterol 2.5 Mg/3 Ml Vial.Neb.) 2.5 mg INHALATION Q2H PRN PRN PRN Reason: SOB/Wheezing Allopurinol (Allopurinol 300 Mg Tablet) 300 mg PO DAILY [facility] Last Admin: 06/10/20 08:50 Dose: 300 mg Documented by: Atorvastatin Calcium (Atorvastatin Calcium 20 Mg Tablet) 20 mg PO QHS [facility] Last Admin: 06/09/20 20:46 Dose: 20 mg Documented by: Clonazepam (Clonazepam 0.5 Mg Tablet) 0.5 mg PO BID PRN PRN PRN Reason: ANXIETY Last Admin: 06/10/20 10:57 Dose: 0.5 mg Documented by: Dexamethasone (Dexamethasone 4 Mg Tablet) 6 mg PO DAILY [facility] Stop: 06/12/20 10:01 Last Admin: 06/10/20 08:49 Dose: 6 mg Documented by: Dextrose (Dextrose 50%-Water 25 Gm/50 Ml Disp.Syrin) 0 gm IV X1 PRN; Protocol PRN Reason: Hypoglycemia Folic Acid (Folic Acid 1 Mg Tablet) 1 mg PO DAILY [facility] Last Admin: 06/10/20 08:49 Dose: 1 mg Documented by: Glucagon (Glucagon 1 Mg/Ml Syringe) 1 mg IM .X1 PRN PRN Reason: Hypoglycemia Guaifenesin (Guaifenesin 10 Ml Udc (200mg/10ml)) 20 ml PO Q4H PRN PRN PRN Reason: COUGH Last Admin: 06/05/20 06:21 Dose: 20 ml Documented by: Sodium Chloride () 250 mls @ 15 mls/hr IV .[id number] PRN PRN Reason: Saline Flush Sodium Chloride () 250 mls @ 15 mls/hr IV .[id number] PRN PRN Reason: Additional IVPB Infusion Insulin Glargine (Insulin Glargine 100 Units/Ml Pen) 10 units SC BREAKFAST [facility] Last Admin: 06/10/20 08:34 Dose: Not Given Documented by: Insulin Glargine (Insulin Glargine 100 Units/Ml Pen) 10 units SC QHS [facility] Last Admin: 06/09/20 20:46 Dose: 10 u Documented by: Insulin Human Lispro (Insulin Lispro 100 Unit/Ml Insuln.Pen) 0 unit SC ACHS [facility]; Protocol Last Admin: 06/10/20 11:02 Dose: Not Given Documented by: Lamotrigine (Lamotrigine 100 Mg Tablet) 200 mg PO BID [facility] Last Admin: 06/10/20 08:50 Dose: 200 mg Documented by: Melatonin (Melatonin 3 Mg Tablet) 3 mg PO QHS PRN PRN PRN Reason: INSOMNIA Mirabegron (Mirabegron 25 Mg Tab.Er.24h) 25 mg PO DAILY [facility] Last Admin: 06/10/20 08:50 Dose: 25 mg Documented by: Nitroglycerin (Nitroglycerin (Inpatient Use) 0.4 Mg Tab.Subl) 0.4 mg SUBLINGUAL Q5M PRN PRN Reason: CARDIAC/CHEST PAIN Ondansetron HCl (Ondansetron 4 Mg/2 Ml Vial) 4 mg IV Q8H PRN PRN PRN Reason: NAUSEA/VOMITING Oxycodone HCl (Oxycodone 5 Mg Tablet) 5 mg PO Q4H PRN PRN PRN Reason: Pain Score 4-5 Oxycodone HCl (Oxycodone 5 Mg Tablet) 10 mg PO Q4H PRN PRN PRN Reason: Pain Score 6-10 Pantoprazole Sodium (Pantoprazole Sodium 40 Mg Tablet) 40 mg PO DAILY [facility] Last Admin: 06/10/20 08:50 Dose: 40 mg Documented by: Quetiapine Fumarate (Quetiapine 100 Mg Tablet) 400 mg PO QHS [facility] Last Admin: 06/09/20 20:47 Dose: 400 mg Documented by: Rivaroxaban (Rivaroxaban 20 Mg Tablet) 20 mg PO DAILY [facility] Last Admin: 06/10/20 08:50 Dose: 20 mg Documented by: Sodium Chloride (0.9% Saline Lock 10 Ml Syringe) 10 - 40 ml IV UD PRN PRN Reason: SALINE FLUSH Last Admin: 06/10/20 08:51 Dose: 10 ml Documented by: Tamsulosin HCl (Tamsulosin Hcl 0.4 Mg Capsule) 0.4 mg PO QHS [facility] Last Admin: 06/09/20 20:46 Dose: 0.4 mg Documented by: Tolterodine Tartrate (Tolterodine Tartrate 2 Mg Cap.Sa) 2 mg PO DAILY [facility] Last Admin: 06/10/20 08:49 Dose: 2 mg Documented by: Venlafaxine HCl (Venlafaxine Xr 150 Mg Capsule) 150 mg PO DAILY [facility] Last Admin: 06/10/20 08:49 Dose: 150 mg Documented by: Medical Necessity - Tobacco Use Smoking Status: Former smoker Assessment/Plan All Active Problems (Last Reviewed 06/03/20 @ 11:[address] Peña Jay MD) COVID-19 (Acute) Septic shock (Resolved) Community acquired pneumonia (Resolved) RECOMMENDATIONS: 1. Continue current supportive measures and wean FiO2 to maintain saturations at or above 90%. 2. Continue Xarelto per outpatient regimen. 3. Continue Decadron 6 mg daily x10 days. 4. Antimicrobial management per infectious diseases. 5. Encourage incentive spirometer use and mobilize patient as tolerated. 6. Consider gentle diuresis as kidneys allow. IMPRESSIONS: 1. Acute hypoxemic respiratory failure secondary to COVID-19 pneumonia The patient initially presented to the hospital with Covid-like symptoms of 2 to 3 weeks duration. At this time, I would recommend that we continue current supportive measures with BiPAP therapy to maintain saturations at or above 90%. Continue Decadron 6 mg daily x10 days. The patient was already anticoagulated on Xarelto previously, which will be continued without change. Given the duration of his symptoms, the patient is unlikely to benefit from remdesivir or convalescent plasma. Patient is still with marginal saturations. Patient clear that he does not want to be intubated. Chest x-ray shows improved aeration compared to previous. Patient was able to be weaned to 80% FiO2. Anticipate patient could try Airvo if BiPAP weaned to 80%. This may facilitate improved nutrition. Patient's renal function is not allowing additional diuretics at this time, but continue to check intermittently. Continue to monitor BMP to see if further diuresis would be possible. Patient does appear to have decreasing body weight, but it is unclear how much of this is due to lack of nutrition given BiPAP dependence 2. CKD stage III Patient appears to be doing okay from a renal standpoint. Good urine output has been noted, but inaccurate. Daily weights suggest appropriate diuresis. Will need to follow renal function closely. Likely check chemistries every other day. Electrolyte repletion as indicated. 3. Probable acute on chronic diastolic CHF Clinical suspicion for an element of acute on chronic diastolic CHF. Patient's heart rate is better controlled today, which should help. Would recommend continue diuresis as tolerated. We will obtain a BMP as indicated to see if this is an option we will need to check electrolytes closely given patient's history of chronic kidney disease. 4. Advanced age/history of PE/hyperlipidemia/hypertension/AAA status post repair Complicates care, management, recovery and prognosis. Okay to continue with anticoagulation from my perspective. Blood pressure appears to be controlled at this time. Inpatient E&M: [id number] [facility] L3
--- NOTE | 2020-06-10 15:49 | PN.ID_ITS ---
Patient Problems: Active and Suspected Problems (Last Reviewed 06/03/20 @ 11:[address] Peña Jay MD) COVID-19 (Acute) Subjective: No changes overnight, no fever - Physical Exam Vitals/I&O's: Vital Signs Temp Pulse Resp BP Pulse Ox 98.4 F 102 H 21 H 146/90 H 96 06/10/20 14:00 06/10/20 15:00 06/10/20 14:00 06/10/20 14:00 06/10/20 14:00 Oxygen Flow Rate (L/min) 55 Oxygen Delivery Method Bi-pap Weight: 98.3 kg Body Mass Index (BMI) 29.5 Intake and Output for Last 24 Hours 06/08/20 06/09/20 06/10/20 23:59 23:59 23:59 Intake Total 480 / 580 1055 / 1055 400 / 400 Output Total 675 / 675 100 / 100 250 / 250 Balance -195 / -95 955 / 955 150 / 150 General: Cooperative, No apparent distress Lungs: Diminished Cardiovascular: Regular rate, Regular Rhythm Abdomen: Soft, Non Tender, Non-Distended Skin: No rashes Microbiology Past 72 Hours 06/03/20 07:40 Blood Culture (Wb) - Left Forearm Blood Culture - Final No growth in 5 days. 06/03/20 07:40 Blood Culture (Wb) - Anticubital Left Blood Culture - Final No growth in 5 days. Laboratory Results 06/09/20 12:05: POC Glucose 253 H 06/09/20 17:00: POC Glucose 280 H 06/09/20 20:43: POC Glucose 186 H 06/10/20 05:18: Sodium 137, Potassium 3.8, Chloride 101, Carbon Dioxide 28.0, Anion Gap 8, BUN 52 H, Creatinine 1.57 H, Estim Creat Clear Calc 45.31, Est GFR (MDRD) Af Amer 56 L, Est GFR (MDRD) Non-Af 46 L, BUN/Creatinine Ratio 33.1 H, Glucose 134 H, Calcium 8.5 06/10/20 08:34: POC Glucose 139 H 06/10/20 11:01: POC Glucose 207 H Current Medications Acetaminophen (Acetaminophen 325 Mg Tablet) 650 mg PO Q4H PRN PRN PRN Reason: Pain Score 1-10/Temp > 100.7 F Last Admin: 06/10/20 10:56 Dose: 650 mg Documented by: Al Hydroxide/Mg Hydroxide (Mag Hydrox/Al Hydrox/Simeth 30 Ml Udc) 30 ml PO Q6H PRN PRN PRN Reason: Gastric Burning Albuterol Sulfate (Albuterol 2.5 Mg/3 Ml Vial.Neb.) 2.5 mg INHALATION Q2H PRN PRN PRN Reason: SOB/Wheezing Allopurinol (Allopurinol 300 Mg Tablet) 300 mg PO DAILY [facility] Last Admin: 06/10/20 08:50 Dose: 300 mg Documented by: Atorvastatin Calcium (Atorvastatin Calcium 20 Mg Tablet) 20 mg PO QHS [facility] Last Admin: 06/09/20 20:46 Dose: 20 mg Documented by: Clonazepam (Clonazepam 0.5 Mg Tablet) 0.5 mg PO BID PRN PRN PRN Reason: ANXIETY Last Admin: 06/10/20 10:57 Dose: 0.5 mg Documented by: Dexamethasone (Dexamethasone 4 Mg Tablet) 6 mg PO DAILY [facility] Stop: 06/12/20 10:01 Last Admin: 06/10/20 08:49 Dose: 6 mg Documented by: Dextrose (Dextrose 50%-Water 25 Gm/50 Ml Disp.Syrin) 0 gm IV X1 PRN; Protocol PRN Reason: Hypoglycemia Folic Acid (Folic Acid 1 Mg Tablet) 1 mg PO DAILY [facility] Last Admin: 06/10/20 08:49 Dose: 1 mg Documented by: Glucagon (Glucagon 1 Mg/Ml Syringe) 1 mg IM .X1 PRN PRN Reason: Hypoglycemia Guaifenesin (Guaifenesin 10 Ml Udc (200mg/10ml)) 20 ml PO Q4H PRN PRN PRN Reason: COUGH Last Admin: 06/05/20 06:21 Dose: 20 ml Documented by: Sodium Chloride () 250 mls @ 15 mls/hr IV .[id number] PRN PRN Reason: Saline Flush Sodium Chloride () 250 mls @ 15 mls/hr IV .[id number] PRN PRN Reason: Additional IVPB Infusion Insulin Glargine (Insulin Glargine 100 Units/Ml Pen) 10 units SC BREAKFAST [facility] Last Admin: 06/10/20 08:34 Dose: Not Given Documented by: Insulin Glargine (Insulin Glargine 100 Units/Ml Pen) 10 units SC QHS [facility] Last Admin: 06/09/20 20:46 Dose: 10 u Documented by: Insulin Human Lispro (Insulin Lispro 100 Unit/Ml Insuln.Pen) 0 unit SC [facility]; Protocol Last Admin: 06/10/20 11:02 Dose: Not Given Documented by: Lamotrigine (Lamotrigine 100 Mg Tablet) 200 mg PO BID [facility] Last Admin: 06/10/20 08:50 Dose: 200 mg Documented by: Melatonin (Melatonin 3 Mg Tablet) 3 mg PO QHS PRN PRN PRN Reason: INSOMNIA Mirabegron (Mirabegron 25 Mg Tab.Er.24h) 25 mg PO DAILY [facility] Last Admin: 06/10/20 08:50 Dose: 25 mg Documented by: Nitroglycerin (Nitroglycerin (Inpatient Use) 0.4 Mg Tab.Subl) 0.4 mg SUBLINGUAL Q5M PRN PRN Reason: CARDIAC/CHEST PAIN Ondansetron HCl (Ondansetron 4 Mg/2 Ml Vial) 4 mg IV Q8H PRN PRN PRN Reason: NAUSEA/VOMITING Oxycodone HCl (Oxycodone 5 Mg Tablet) 5 mg PO Q4H PRN PRN PRN Reason: Pain Score 4-5 Oxycodone HCl (Oxycodone 5 Mg Tablet) 10 mg PO Q4H PRN PRN PRN Reason: Pain Score 6-10 Pantoprazole Sodium (Pantoprazole Sodium 40 Mg Tablet) 40 mg PO DAILY [facility] Last Admin: 06/10/20 08:50 Dose: 40 mg Documented by: Quetiapine Fumarate (Quetiapine 100 Mg Tablet) 400 mg PO QHS [facility] Last Admin: 06/09/20 20:47 Dose: 400 mg Documented by: Rivaroxaban (Rivaroxaban 20 Mg Tablet) 20 mg PO DAILY [facility] Last Admin: 06/10/20 08:50 Dose: 20 mg Documented by: Sodium Chloride (0.9% Saline Lock 10 Ml Syringe) 10 - 40 ml IV UD PRN PRN Reason: SALINE FLUSH Last Admin: 06/10/20 08:51 Dose: 10 ml Documented by: Tamsulosin HCl (Tamsulosin Hcl 0.4 Mg Capsule) 0.4 mg PO QHS [facility] Last Admin: 06/09/20 20:46 Dose: 0.4 mg Documented by: Tolterodine Tartrate (Tolterodine Tartrate 2 Mg Cap.Sa) 2 mg PO DAILY [facility] Last Admin: 06/10/20 08:49 Dose: 2 mg Documented by: Venlafaxine HCl (Venlafaxine Xr 150 Mg Capsule) 150 mg PO DAILY [facility] Last Admin: 06/10/20 08:49 Dose: 150 mg Documented by: Medical Necessity - Tobacco Use Smoking Status: Former smoker Route of nutrition/ use of supplements: [] Nutritional Intake: [] IV Site: [] Britton Catheter: [] - Assessment/Plan Antibiotics: [] Assessment/Plan: [] Active and Suspected Problems (Last Reviewed 06/03/20 @ 11:[address] Peña Jay MD) COVID-19 (Acute) covid with acute hypoxic resp failure - elevated lactate. On dex. On Xarelto. On 90% fiO2. No fever. Will follow
[2020-06-10 17:06] LABS: Bedside Glucose 236 mg/dL (70-110)
--- NOTE | 2020-06-10 17:29 | NURSING ---
Multiple attempts made to get pt to eat meals today. Offered various types of foods/snacks, Pt refused all. Is drinking water with BiPAP breaks and drank a whole carton of glucerna at lunch time.
--- NOTE | 2020-06-10 18:24 | CPS ---
Trialed Airvo x2 60L 92% FiO2 per Dr. Goodrich and pt did not tolerate. Pt sats stayed in the mid 80s the entire time.
[2020-06-10] MEDS: Tamsulosin HCl 0.4 MG Capsule PO (20:10)
[2020-06-10] MEDS: Atorvastatin Calcium 20 MG Tablet PO (20:11)
[2020-06-10] MEDS: QUEtiapine 100 MG Tablet 400 MG PO (20:11)
[2020-06-10] MEDS: Insulin Lispro 100 UNIT/ML INSULN.PEN SC (20:14)
[2020-06-10 22:10] LABS: Bedside Glucose 239 mg/dL (70-110)
[2020-06-11] VITALS (37 sets, daily range): BP systolic 102–183; BP diastolic 73–112; PULSE 85–111; RESP 15–27; TEMP 36.2–36.9; O2SAT 82–99
[2020-06-11 07:48] LABS: Anion Gap 6 (5-15); BUN 52 mg/dL (7-18); BUN/Creat Ratio 35.9 RATIO (10-20); Calcium,Total 8.6 mg/dL (8.5-10.1); Chloride 105 mmol/L (98-107); Creatinine, Serum 1.45 mg/dL (0.70-1.30); EST Glomerular Filtration Rate 51 mL/min (>60); Est Glom Filt Rate - Afr Amer 61 mL/min (>60); Estimated Creatinine Clearance 49.06 ml/min; Glucose 122 mg/dL (74-106); Phosphorus 3.3 mg/dL (2.5-4.9); Potassium 3.9 mmol/L (3.5-5.1); Sodium Level 138 mmol/L (136-145)
[2020-06-11] MEDS: lamoTRIgine 100 MG Tablet 200 MG PO (08:43)
--- NOTE | 2020-06-11 08:51 | NURSING ---
ATTEMPT TO GIVE PT AM MEDS. PT COUGHING ON WATER & WITH PILL. BIPAP OFF FOR APPROX 1-2 MINUTES WHILE GIVING PO, PT SATS DOWN TO 70% ON NC 10L HIGH FLOW. STOPPED GIVING WATER/PILLS & REPLACED BIPAP.
--- NOTE | 2020-06-11 09:05 | NURSING ---
dr saenz in seeing pt - MD made aware of pt swallowing difficulties, no am meds given
[2020-06-11 09:11] LABS: Bedside Glucose 128 mg/dL (70-110)
--- NOTE | 2020-06-11 11:26 | PN_ITS ---
Patient Problems: Active and Suspected Problems (Last Reviewed 06/03/20 @ 11:[address] Peña Jay MD) COVID-19 (Acute) Subjective: Patient did well overnight. Patient overall feels subjectively improved compared to previous. Patient states he has been able to take short breaks with nasal cannula to maintain saturations. Patient states that he continues to have shortness of breath, but feels like he is developing an appetite. - Physical Exam Vitals/I&O's: Vital Signs Temp Pulse Resp BP Pulse Ox 36.8 C 105 H 27 H 128/82 H 98 06/11/20 08:00 06/11/20 10:43 06/11/20 10:43 06/11/20 08:00 06/11/20 10:43 Oxygen Flow Rate (L/min) 85 Oxygen Delivery Method Bi-pap Weight: 98.3 kg Body Mass Index (BMI) 29.5 Intake and Output for Last 24 Hours 06/09/20 06/10/20 06/11/20 23:59 23:59 23:59 Intake Total 1055 / 1055 650 / 650 0 / 0 Output Total 100 / 100 500 / 500 0 / 0 Balance 955 / 955 150 / 150 0 / 0 General: Alert, Oriented x3, Cooperative, No apparent distress - While on BiPAP HEENT: Atraumatic, PERRLA, EOMI, Normocephalic, - - Slight scleral injection without icterus Oral: No Gingival or Mucosal Lesions/ Ulcerations, Dry Mucosa Neck: Supple, No Nodes, Trachea Midline, JVD, Right Lungs: No rhonchi, No wheeze, No rales, Diminished, - - Symmetric expansion. Cardiovascular: Regular rate, Regular Rhythm, Normal S1, Normal S2, No murmurs, No rub noted, No Gallop Abdomen: Bowel Sounds Present, Soft, Non Tender, Non-Distended Extremities: No clubbing, No cyanosis, Edema - Trace lower extremity Skin: - - No change compared to previous Musculoskeletal: No Tenderness to Palpation of Joints or Extremities Lymphatic: No Cervical, Supraclavicular, or Inguinal Adenopathy Neurological: Cranial nerves II-XII grossly intact, Neuro grossly intact, Motor Exam 5/5 strength throughout Psych/Mental Status: Normal Affect, Appropriate Microbiology Past 72 Hours 06/03/20 07:40 Blood Culture (Wb) - Left Forearm Blood Culture - Final No growth in 5 days. 06/03/20 07:40 Blood Culture (Wb) - Anticubital Left Blood Culture - Final No growth in 5 days. Laboratory Results 06/10/20 11:01: POC Glucose 207 H 06/10/20 16:33: POC Glucose 236 H 06/10/20 20:13: POC Glucose 239 H 06/11/20 07:15: Sodium 138, Potassium 3.9, Chloride 105, Carbon Dioxide 27.0, Anion Gap 6, BUN 52 H, Creatinine 1.45 H, Estim Creat Clear Calc 49.06, Est GFR (MDRD) Af Amer 61, Est GFR (MDRD) Non-Af 51 L, BUN/Creatinine Ratio 35.9 H, Glucose 122 H, Calcium 8.6, Phosphorus 3.3 06/11/20 08:33: POC Glucose 128 H Current Medications Acetaminophen (Acetaminophen 325 Mg Tablet) 650 mg PO Q4H PRN PRN PRN Reason: Pain Score 1-10/Temp > 100.7 F Last Admin: 06/10/20 10:56 Dose: 650 mg Documented by: Al Hydroxide/Mg Hydroxide (Mag Hydrox/Al Hydrox/Simeth 30 Ml Udc) 30 ml PO Q6H PRN PRN PRN Reason: Gastric Burning Albuterol Sulfate (Albuterol 2.5 Mg/3 Ml Vial.Neb.) 2.5 mg INHALATION Q2H PRN PRN PRN Reason: SOB/Wheezing Allopurinol (Allopurinol 300 Mg Tablet) 300 mg PO DAILY [facility] Last Admin: 06/11/20 09:04 Dose: Not Given Documented by: Atorvastatin Calcium (Atorvastatin Calcium 20 Mg Tablet) 20 mg PO QHS [facility] Last Admin: 06/10/20 20:11 Dose: 20 mg Documented by: Clonazepam (Clonazepam 0.5 Mg Tablet) 0.5 mg PO BID PRN PRN PRN Reason: ANXIETY Last Admin: 06/10/20 23:31 Dose: 0.5 mg Documented by: Dexamethasone Sodium Phosphate (Dexamethasone 4 Mg/Ml Vial) 6 mg IV DAILY [facility] Dextrose (Dextrose 50%-Water 25 Gm/50 Ml Disp.Syrin) 0 gm IV X1 PRN; Protocol PRN Reason: Hypoglycemia Folic Acid (Folic Acid 1 Mg Tablet) 1 mg PO DAILY [facility] Last Admin: 06/11/20 09:04 Dose: Not Given Documented by: Glucagon (Glucagon 1 Mg/Ml Syringe) 1 mg IM .X1 PRN PRN Reason: Hypoglycemia Guaifenesin (Guaifenesin 10 Ml Udc (200mg/10ml)) 20 ml PO Q4H PRN PRN PRN Reason: COUGH Last Admin: 06/05/20 06:21 Dose: 20 ml Documented by: Sodium Chloride () 250 mls @ 15 mls/hr IV .[id number] PRN PRN Reason: Saline Flush Sodium Chloride () 250 mls @ 15 mls/hr IV .[id number] PRN PRN Reason: Additional IVPB Infusion Insulin Glargine (Insulin Glargine 100 Units/Ml Pen) 10 units SC BREAKFAST [facility] Last Admin: 06/11/20 10:24 Dose: Not Given Documented by: Insulin Glargine (Insulin Glargine 100 Units/Ml Pen) 10 units SC QHS [facility] Last Admin: 06/10/20 20:15 Dose: 10 u Documented by: Insulin Human Lispro (Insulin Lispro 100 Unit/Ml Insuln.Pen) 0 unit SC ACHS [facility]; Protocol Last Admin: 06/11/20 08:39 Dose: Not Given Documented by: Lamotrigine (Lamotrigine 100 Mg Tablet) 200 mg PO BID [facility] Last Admin: 06/11/20 08:43 Dose: 200 mg Documented by: Melatonin (Melatonin 3 Mg Tablet) 3 mg PO QHS PRN PRN PRN Reason: INSOMNIA Mirabegron (Mirabegron 25 Mg Tab.Er.24h) 25 mg PO DAILY [facility] Last Admin: 06/11/20 09:04 Dose: Not Given Documented by: Nitroglycerin (Nitroglycerin (Inpatient Use) 0.4 Mg Tab.Subl) 0.4 mg SUBLINGUAL Q5M PRN PRN Reason: CARDIAC/CHEST PAIN Ondansetron HCl (Ondansetron 4 Mg/2 Ml Vial) 4 mg IV Q8H PRN PRN PRN Reason: NAUSEA/VOMITING Oxycodone HCl (Oxycodone 5 Mg Tablet) 5 mg PO Q4H PRN PRN PRN Reason: Pain Score 4-5 Oxycodone HCl (Oxycodone 5 Mg Tablet) 10 mg PO Q4H PRN PRN PRN Reason: Pain Score 6-10 Pantoprazole Sodium (Pantoprazole Sodium 40 Mg Tablet) 40 mg PO DAILY [facility] Last Admin: 06/11/20 09:04 Dose: Not Given Documented by: Quetiapine Fumarate (Quetiapine 100 Mg Tablet) 400 mg PO QHS [facility] Last Admin: 06/10/20 20:11 Dose: 400 mg Documented by: Rivaroxaban (Rivaroxaban 20 Mg Tablet) 20 mg PO DAILY [facility] Last Admin: 06/11/20 09:04 Dose: Not Given Documented by: Sodium Chloride (0.9% Saline Lock 10 Ml Syringe) 10 - 40 ml IV UD PRN PRN Reason: SALINE FLUSH Last Admin: 06/10/20 08:51 Dose: 10 ml Documented by: Tamsulosin HCl (Tamsulosin Hcl 0.4 Mg Capsule) 0.4 mg PO QHS [facility] Last Admin: 06/10/20 20:10 Dose: 0.4 mg Documented by: Tolterodine Tartrate (Tolterodine Tartrate 2 Mg Cap.Sa) 2 mg PO DAILY [facility] Last Admin: 06/11/20 09:03 Dose: Not Given Documented by: Venlafaxine HCl (Venlafaxine Xr 150 Mg Capsule) 150 mg PO DAILY [facility] Last Admin: 06/11/20 09:03 Dose: Not Given Documented by: Medical Necessity - Tobacco Use Smoking Status: Former smoker Assessment/Plan All Active Problems (Last Reviewed 06/03/20 @ 11:[address] Peña Jay MD) COVID-19 (Acute) Septic shock (Resolved) Community acquired pneumonia (Resolved) RECOMMENDATIONS: 1. Continue current supportive measures and wean FiO2 to maintain saturations at or above 90%. 2. Continue Xarelto per outpatient regimen. 3. Continue Decadron 6 mg daily (day 9 of 10) 4. Recheck BMP tomorrow 5. Encourage incentive spirometer use and mobilize patient as tolerated. 6. We will dose with Lasix therapy IMPRESSIONS: 1. Acute hypoxemic respiratory failure secondary to COVID-19 pneumonia The patient initially presented to the hospital with Covid-like symptoms of 2 to 3 weeks duration. At this time, I would recommend that we continue current supportive measures with BiPAP therapy to maintain saturations at or above 90%. Continue Decadron 6 mg daily x10 days. The patient was already anticoagulated on Xarelto previously, which will be continued without change. Given the duration of his symptoms, the patient is unlikely to benefit from remdesivir or convalescent plasma. Patient is still with marginal saturations, but this does appear to be improving slowly. Patient clear that he does not want to be intubated. Chest x-ray shows improved aeration compared to previous. Patient was able to be weaned to 80% FiO2. Anticipate patient could try Airvo if BiPAP weaned to 80%. This may facilitate improved nutrition. Will attempt Lasix challenge today. Continue to order intermittently given marginal renal status. Continue to monitor BMP to see if further diuresis would be possible. Patient does appear to have decreasing body weight, but it is unclear how much of this is due to lack of nutrition given BiPAP dependence 2. CKD stage III Patient appears to be doing okay from a renal standpoint. Good urine output has been noted, but inaccurate. Daily weights suggest appropriate diuresis. Will need to follow renal function closely. Likely check chemistries every other day. Electrolyte repletion as indicated. 3. Probable acute on chronic diastolic CHF Clinical suspicion for an element of acute on chronic diastolic CHF. Patient's heart rate is better controlled today, which should help. Would recommend continue diuresis as tolerated. However given renal function this will have to be ordered intermittently 4. Advanced age/history of PE/hyperlipidemia/hypertension/AAA status post repair Complicates care, management, recovery and prognosis. Okay to continue with anticoagulation from my perspective. Blood pressure appears to be controlled at this time. Inpatient E&M: [id number] [facility] L3
--- NOTE | 2020-06-11 11:27 | PCM.PN.HOSP ---
Patient Problems: Active and Suspected Problems (Last Reviewed 06/03/20 @ 11:[address] Peña Jay MD) COVID-19 (Acute) Subjective: On BiPAP. When he is on BiPAP he does maintain his oxygen saturations, FiO2 down to 70% Vitals/I&O's: Vital Signs Temp Pulse Resp BP Pulse Ox 98.3 F 105 H 27 H 128/82 H 98 06/11/20 08:00 06/11/20 10:43 06/11/20 10:43 06/11/20 08:00 06/11/20 10:43 Oxygen Flow Rate (L/min) 85 Oxygen Delivery Method Bi-pap Weight: 216 lb 11.43 oz Body Mass Index (BMI) 29.5 Intake and Output for Last 24 Hours 06/09/20 06/10/20 06/11/20 23:59 23:59 23:59 Intake Total 1055 / 1055 650 / 650 0 / 0 Output Total 100 / 100 500 / 500 0 / 0 Balance 955 / 955 150 / 150 0 / 0 General: Alert, Oriented x3, Cooperative, No apparent distress HEENT: Atraumatic, PERRLA, EOMI, Normocephalic, - - Slight skin irritation to his forehead he says it has been picking at some scabs there, he does have psoriasis Neck: Supple, No JVD Lungs: Normal air movement, No rhonchi, No wheeze, No rales, Diminished Cardiovascular: Regular rate, Regular Rhythm, Normal S1, Normal S2, No murmurs Abdomen: Soft, Non Tender, Non-Distended, No Hepato-splenomegaly Extremities: No edema, Capillary Refill Less than 3 Seconds Skin: No rashes, No breakdown Neurological: Neuro grossly intact, Sensory exam intact to light touch and pain Psych/Mental Status: Normal Affect, Appropriate General: Alert Microbiology Past 72 Hours 06/03/20 07:40 Blood Culture (Wb) - Left Forearm Blood Culture - Final No growth in 5 days. 06/03/20 07:40 Blood Culture (Wb) - Anticubital Left Blood Culture - Final No growth in 5 days. Laboratory Results 06/10/20 11:01: POC Glucose 207 H 06/10/20 16:33: POC Glucose 236 H 06/10/20 20:13: POC Glucose 239 H 06/11/20 07:15: Sodium 138, Potassium 3.9, Chloride 105, Carbon Dioxide 27.0, Anion Gap 6, BUN 52 H, Creatinine 1.45 H, Estim Creat Clear Calc 49.06, Est GFR (MDRD) Af Amer 61, Est GFR (MDRD) Non-Af 51 L, BUN/Creatinine Ratio 35.9 H, Glucose 122 H, Calcium 8.6, Phosphorus 3.3 06/11/20 08:33: POC Glucose 128 H Current Medications Acetaminophen (Acetaminophen 325 Mg Tablet) 650 mg PO Q4H PRN PRN PRN Reason: Pain Score 1-10/Temp > 100.7 F Last Admin: 06/10/20 10:56 Dose: 650 mg Documented by: Al Hydroxide/Mg Hydroxide (Mag Hydrox/Al Hydrox/Simeth 30 Ml Udc) 30 ml PO Q6H PRN PRN PRN Reason: Gastric Burning Albuterol Sulfate (Albuterol 2.5 Mg/3 Ml Vial.Neb.) 2.5 mg INHALATION Q2H PRN PRN PRN Reason: SOB/Wheezing Allopurinol (Allopurinol 300 Mg Tablet) 300 mg PO DAILY [facility] Last Admin: 06/11/20 09:04 Dose: Not Given Documented by: Atorvastatin Calcium (Atorvastatin Calcium 20 Mg Tablet) 20 mg PO QHS [facility] Last Admin: 06/10/20 20:11 Dose: 20 mg Documented by: Clonazepam (Clonazepam 0.5 Mg Tablet) 0.5 mg PO BID PRN PRN PRN Reason: ANXIETY Last Admin: 06/10/20 23:31 Dose: 0.5 mg Documented by: Dexamethasone Sodium Phosphate (Dexamethasone 4 Mg/Ml Vial) 6 mg IV DAILY [facility] Dextrose (Dextrose 50%-Water 25 Gm/50 Ml Disp.Syrin) 0 gm IV X1 PRN; Protocol PRN Reason: Hypoglycemia Folic Acid (Folic Acid 1 Mg Tablet) 1 mg PO DAILY [facility] Last Admin: 06/11/20 09:04 Dose: Not Given Documented by: Glucagon (Glucagon 1 Mg/Ml Syringe) 1 mg IM .X1 PRN PRN Reason: Hypoglycemia Guaifenesin (Guaifenesin 10 Ml Udc (200mg/10ml)) 20 ml PO Q4H PRN PRN PRN Reason: COUGH Last Admin: 06/05/20 06:21 Dose: 20 ml Documented by: Sodium Chloride () 250 mls @ 15 mls/hr IV .[id number] PRN PRN Reason: Saline Flush Sodium Chloride () 250 mls @ 15 mls/hr IV .[id number] PRN PRN Reason: Additional IVPB Infusion Insulin Glargine (Insulin Glargine 100 Units/Ml Pen) 10 units SC BREAKFAST [facility] Last Admin: 06/11/20 10:24 Dose: Not Given Documented by: Insulin Glargine (Insulin Glargine 100 Units/Ml Pen) 10 units SC QHS [facility] Last Admin: 06/10/20 20:15 Dose: 10 u Documented by: Insulin Human Lispro (Insulin Lispro 100 Unit/Ml Insuln.Pen) 0 unit SC ACHS [facility]; Protocol Last Admin: 06/11/20 08:39 Dose: Not Given Documented by: Lamotrigine (Lamotrigine 100 Mg Tablet) 200 mg PO BID [facility] Last Admin: 06/11/20 08:43 Dose: 200 mg Documented by: Melatonin (Melatonin 3 Mg Tablet) 3 mg PO QHS PRN PRN PRN Reason: INSOMNIA Mirabegron (Mirabegron 25 Mg Tab.Er.24h) 25 mg PO DAILY [facility] Last Admin: 06/11/20 09:04 Dose: Not Given Documented by: Nitroglycerin (Nitroglycerin (Inpatient Use) 0.4 Mg Tab.Subl) 0.4 mg SUBLINGUAL Q5M PRN PRN Reason: CARDIAC/CHEST PAIN Ondansetron HCl (Ondansetron 4 Mg/2 Ml Vial) 4 mg IV Q8H PRN PRN PRN Reason: NAUSEA/VOMITING Oxycodone HCl (Oxycodone 5 Mg Tablet) 5 mg PO Q4H PRN PRN PRN Reason: Pain Score 4-5 Oxycodone HCl (Oxycodone 5 Mg Tablet) 10 mg PO Q4H PRN PRN PRN Reason: Pain Score 6-10 Pantoprazole Sodium (Pantoprazole Sodium 40 Mg Tablet) 40 mg PO DAILY [facility] Last Admin: 06/11/20 09:04 Dose: Not Given Documented by: Quetiapine Fumarate (Quetiapine 100 Mg Tablet) 400 mg PO QHS [facility] Last Admin: 06/10/20 20:11 Dose: 400 mg Documented by: Rivaroxaban (Rivaroxaban 20 Mg Tablet) 20 mg PO DAILY [facility] Last Admin: 06/11/20 09:04 Dose: Not Given Documented by: Sodium Chloride (0.9% Saline Lock 10 Ml Syringe) 10 - 40 ml IV UD PRN PRN Reason: SALINE FLUSH Last Admin: 06/10/20 08:51 Dose: 10 ml Documented by: Tamsulosin HCl (Tamsulosin Hcl 0.4 Mg Capsule) 0.4 mg PO QHS [facility] Last Admin: 06/10/20 20:10 Dose: 0.4 mg Documented by: Tolterodine Tartrate (Tolterodine Tartrate 2 Mg Cap.Sa) 2 mg PO DAILY [facility] Last Admin: 06/11/20 09:03 Dose: Not Given Documented by: Venlafaxine HCl (Venlafaxine Xr 150 Mg Capsule) 150 mg PO DAILY [facility] Last Admin: 06/11/20 09:03 Dose: Not Given Documented by: STROKE Vital Signs/Narrative: Vital Signs Temp Pulse Resp BP Pulse Ox 06/11/20 10:43 105 H 27 H 98 06/11/20 08:00 98.3 F 97 26 H 128/82 H 94 Medical Necessity - Tobacco Use Smoking Status: Former smoker Assessment/Plan All Active Problems (Last Reviewed 06/03/20 @ 11:[address] Peña Jay MD) COVID-19 (Acute) Septic shock (Resolved) Community acquired pneumonia (Resolved) 1. Sepsis secondary to acute Covid infection with pneumonia with acute hypoxic respiratory failure -Continue with Decadron as well as systemic anticoagulation with Xarelto secondary to previous history of a PE. -Appreciate pulmonology and ID assistance, azithromycin and Rocephin were discontinued and he has been having symptoms for about 2 to 3 weeks therefore he is outside the window of convalescent plasma and remdesivir continue with Decadron 6 of 10 doses -He is back on BiPAP and he will likely transition between high flow and BiPAP -Had to switch his p.o. Decadron to IV secondary to difficulty swallowing. We will have speech therapy evaluate him. 2. HTN/HLD -Blood pressure is stable with systolics in the 120s to 130s -Can resume his home blood pressure medications 3. History of PE -Continue with his home Xarelto 4. DM 2/CKD 3 -We will hold his metformin and place him on a sliding scale insulin -Accu-Cheks AC at bedtime -Creatinine is at baseline 5. Bipolar disorder -Stable -Continue with Seroquel, Lamictal, and SSRI DVT: Xarelto Inpatient E&M: [id number] [facility]s [facility]osp L2
[2020-06-11] MEDS: dexAMETHasone 4 MG/ML Vial 6 MG IV (11:33)
[2020-06-11] MEDS: 0.9% Saline Lock 10 ML Syringe IV ×3 (11:34→20:21)
[2020-06-11 11:45] LABS: Bedside Glucose 140 mg/dL (70-110)
[2020-06-11] MEDS: Furosemide 20 MG/2 ML VIAL IV (13:23)
[2020-06-11] MEDS: Insulin Lispro 100 UNIT/ML INSULN.PEN SC ×2 (17:18→20:19)
[2020-06-11 17:25] LABS: Bedside Glucose 263 mg/dL (70-110)
[2020-06-11] MEDS: hydrALAZINE 20 MG/ML Vial 10 MG IV (20:20)
[2020-06-11 20:30] LABS: Bedside Glucose 218 mg/dL (70-110)
--- NOTE | 2020-06-11 21:40 | NURSING ---
Pt pulled off BiPAP. O2 dropped to 56% on RA. This RN placed BiPAP back on pt. RT in room with PT also. PT oxygen up to 92% after 5 minutes.
[2020-06-12] VITALS (29 sets, daily range): BP systolic 107–185; BP diastolic 76–121; PULSE 84–118; RESP 12–34; TEMP 36.1–37.4; O2SAT 86–97
[2020-06-12] MEDS: hydrALAZINE 20 MG/ML Vial 10 MG IV ×2 (05:12→15:07)
[2020-06-12] MEDS: 0.9% Saline Lock 10 ML Syringe IV ×4 (05:12→15:07)
[2020-06-12 06:35] LABS: Bedside Glucose 153 mg/dL (70-110)
[2020-06-12 08:15] LABS: Anion Gap 8 (5-15); BUN 55 mg/dL (7-18); BUN/Creat Ratio 36.7 RATIO (10-20); Calcium,Total 8.9 mg/dL (8.5-10.1); Chloride 107 mmol/L (98-107); EST Glomerular Filtration Rate 49 mL/min (>60); Est Glom Filt Rate - Afr Amer 59 mL/min (>60); Estimated Creatinine Clearance 47.42 ml/min; Glucose 158 mg/dL (74-106); Potassium 4.1 mmol/L (3.5-5.1); Sodium Level 142 mmol/L (136-145)
[2020-06-12] MEDS: dexAMETHasone 4 MG/ML Vial 6 MG IV (08:41)
--- NOTE | 2020-06-12 09:45 | PN_ITS ---
Patient Problems: Active and Suspected Problems (Last Reviewed 06/03/20 @ 11:[address] Peña Jay MD) COVID-19 (Acute) Subjective: Doing well on BiPAP however there is significant difficulty in getting him off of BiPAP at this time. He is still requiring 90% FiO2 Vitals/I&O's: Vital Signs Temp Pulse Resp BP Pulse Ox 98.5 F 118 H 34 H 160/99 H 86 06/12/20 08:00 06/12/20 08:00 06/12/20 08:00 06/12/20 08:00 06/12/20 08:00 Oxygen Flow Rate (L/min) 60 Oxygen Delivery Method Airvo Weight: 210 lb 5.136 oz Body Mass Index (BMI) 29.5 Intake and Output for Last 24 Hours 06/10/20 06/11/20 06/12/20 23:59 23:59 22:59 Intake Total 650 / 650 0 / 0 0 / 0 Output Total 500 / 500 200 / 200 Balance 150 / 150 -200 / -200 0 / 0 General: Alert, Oriented x3, Cooperative, No apparent distress HEENT: Atraumatic, PERRLA, EOMI, Normocephalic, - - Slight skin irritation to his forehead he says it has been picking at some scabs there, he does have psoriasis Neck: Supple, No JVD Lungs: Normal air movement, No rhonchi, No wheeze, No rales, Diminished Cardiovascular: Regular rate, Regular Rhythm, Normal S1, Normal S2, No murmurs Abdomen: Soft, Non Tender, Non-Distended, No Hepato-splenomegaly Extremities: No edema, Capillary Refill Less than 3 Seconds Skin: No rashes, No breakdown Neurological: Neuro grossly intact, Sensory exam intact to light touch and pain Psych/Mental Status: Normal Affect, Appropriate Laboratory Results 06/11/20 11:31: POC Glucose 140 H 06/11/20 17:16: POC Glucose 263 H 06/11/20 20:18: POC Glucose 218 H 06/12/20 06:16: POC Glucose 153 H 06/12/20 07:10: Sodium 142, Potassium 4.1, Chloride 107, Carbon Dioxide 27.0, Anion Gap 8, BUN 55 H, Creatinine 1.50 H, Estim Creat Clear Calc 47.42, Est GFR (MDRD) Af Amer 59 L, Est GFR (MDRD) Non-Af 49 L, BUN/Creatinine Ratio 36.7 H, Glucose 158 H, Calcium 8.9 Current Medications Acetaminophen (Acetaminophen 325 Mg Tablet) 650 mg PO Q4H PRN PRN PRN Reason: Pain Score 1-10/Temp > 100.7 F Last Admin: 06/10/20 10:56 Dose: 650 mg Documented by: Al Hydroxide/Mg Hydroxide (Mag Hydrox/Al Hydrox/Simeth 30 Ml Udc) 30 ml PO Q6H PRN PRN PRN Reason: Gastric Burning Albuterol Sulfate (Albuterol 2.5 Mg/3 Ml Vial.Neb.) 2.5 mg INHALATION Q2H PRN PRN PRN Reason: SOB/Wheezing Allopurinol (Allopurinol 300 Mg Tablet) 300 mg PO DAILY [facility] Last Admin: 06/12/20 09:33 Dose: Not Given Documented by: Atorvastatin Calcium (Atorvastatin Calcium 20 Mg Tablet) 20 mg PO QHS [facility] Last Admin: 06/11/20 20:08 Dose: Not Given Documented by: Clonazepam (Clonazepam 0.5 Mg Tablet) 0.5 mg PO BID PRN PRN PRN Reason: ANXIETY Last Admin: 06/10/20 23:31 Dose: 0.5 mg Documented by: Dexamethasone Sodium Phosphate (Dexamethasone 4 Mg/Ml Vial) 6 mg IV DAILY [facility] Last Admin: 06/12/20 08:41 Dose: 6 mg Documented by: Dextrose (Dextrose 50%-Water 25 Gm/50 Ml Disp.Syrin) 0 gm IV X1 PRN; Protocol PRN Reason: Hypoglycemia Folic Acid (Folic Acid 1 Mg Tablet) 1 mg PO DAILY [facility] Last Admin: 06/12/20 09:32 Dose: Not Given Documented by: Glucagon (Glucagon 1 Mg/Ml Syringe) 1 mg IM .X1 PRN PRN Reason: Hypoglycemia Guaifenesin (Guaifenesin 10 Ml Udc (200mg/10ml)) 20 ml PO Q4H PRN PRN PRN Reason: COUGH Last Admin: 06/05/20 06:21 Dose: 20 ml Documented by: Hydralazine HCl (Hydralazine 20 Mg/Ml Vial) 10 mg IV Q6H PRN PRN PRN Reason: for SBP>160 Last Admin: 06/12/20 05:12 Dose: 10 mg Documented by: Sodium Chloride () 250 mls @ 15 mls/hr IV .[id number] PRN PRN Reason: Saline Flush Sodium Chloride () 250 mls @ 15 mls/hr IV .[id number] PRN PRN Reason: Additional IVPB Infusion Insulin Glargine (Insulin Glargine 100 Units/Ml Pen) 10 units SC BREAKFAST [facility] Last Admin: 06/12/20 09:39 Dose: 10 units Documented by: Insulin Glargine (Insulin Glargine 100 Units/Ml Pen) 10 units SC QHS [facility] Last Admin: 06/11/20 20:20 Dose: Not Given Documented by: Insulin Human Lispro (Insulin Lispro 100 Unit/Ml Insuln.Pen) 0 unit SC ACHS [facility]; Protocol Last Admin: 06/12/20 06:32 Dose: Not Given Documented by: Lamotrigine (Lamotrigine 100 Mg Tablet) 200 mg PO BID [facility] Last Admin: 06/12/20 09:32 Dose: Not Given Documented by: Melatonin (Melatonin 3 Mg Tablet) 3 mg PO QHS PRN PRN PRN Reason: INSOMNIA Mirabegron (Mirabegron 25 Mg Tab.Er.24h) 25 mg PO DAILY [facility] Last Admin: 06/12/20 09:32 Dose: Not Given Documented by: Nitroglycerin (Nitroglycerin (Inpatient Use) 0.4 Mg Tab.Subl) 0.4 mg SUBLINGUAL Q5M PRN PRN Reason: CARDIAC/CHEST PAIN Ondansetron HCl (Ondansetron 4 Mg/2 Ml Vial) 4 mg IV Q8H PRN PRN PRN Reason: NAUSEA/VOMITING Oxycodone HCl (Oxycodone 5 Mg Tablet) 5 mg PO Q4H PRN PRN PRN Reason: Pain Score 4-5 Oxycodone HCl (Oxycodone 5 Mg Tablet) 10 mg PO Q4H PRN PRN PRN Reason: Pain Score 6-10 Pantoprazole Sodium (Pantoprazole Sodium 40 Mg Tablet) 40 mg PO DAILY [facility] Last Admin: 06/12/20 09:32 Dose: Not Given Documented by: Quetiapine Fumarate (Quetiapine 100 Mg Tablet) 400 mg PO QHS [facility] Last Admin: 06/11/20 20:08 Dose: Not Given Documented by: Rivaroxaban (Rivaroxaban 20 Mg Tablet) 20 mg PO DAILY [facility] Last Admin: 06/12/20 09:32 Dose: Not Given Documented by: Sodium Chloride (0.9% Saline Lock 10 Ml Syringe) 10 - 40 ml IV UD PRN PRN Reason: SALINE FLUSH Last Admin: 06/12/20 08:44 Dose: 10 ml Documented by: Tamsulosin HCl (Tamsulosin Hcl 0.4 Mg Capsule) 0.4 mg PO QHS [facility] Last Admin: 06/11/20 20:08 Dose: Not Given Documented by: Tolterodine Tartrate (Tolterodine Tartrate 2 Mg Cap.Sa) 2 mg PO DAILY [facility] Last Admin: 06/12/20 09:32 Dose: Not Given Documented by: Venlafaxine HCl (Venlafaxine Xr 150 Mg Capsule) 150 mg PO DAILY [facility] Last Admin: 06/12/20 09:32 Dose: Not Given Documented by: STROKE Vital Signs/Narrative: Vital Signs Temp Pulse Resp BP Pulse Ox 06/12/20 08:00 98.5 F 118 H 34 H 160/99 H 86 06/12/20 07:44 109 H 97 06/12/20 07:00 107 H 26 H 151/99 H 90 06/12/20 06:00 107 H 20 H 149/91 H 93 Medical Necessity - Tobacco Use Smoking Status: Former smoker Assessment/Plan All Active Problems (Last Reviewed 06/03/20 @ 11:[address] Peña Jay MD) COVID-19 (Acute) Septic shock (Resolved) Community acquired pneumonia (Resolved) 1. Sepsis secondary to acute Covid infection with pneumonia with acute hypoxic respiratory failure -Continue with Decadron as well as systemic anticoagulation with therapeutic Lovenox secondary to previous history of a PE. -Appreciate pulmonology and ID assistance, azithromycin and Rocephin were discontinued and he has been having symptoms for about 2 to 3 weeks therefore he is outside the window of convalescent plasma and remdesivir continue with Decadron 6 of 10 doses -He is back on BiPAP and he will likely transition between high flow and BiPAP -Had to switch his p.o. Decadron to IV secondary to difficulty swallowing. We will have speech therapy evaluate him. When she is able to take p.o. can return him to his home Xarelto dose -He was given a dose of Lasix yesterday which has decreased his plate but has not seemed to help his oxygen status much today. 2. HTN/HLD -Blood pressure is stable with systolics in the 120s to 130s -Can resume his home blood pressure medications 3. History of PE -Transition to therapeutic Lovenox secondary to being n.p.o. -When able to take p.o. can transition back to Xarelto 4. DM 2/CKD 3 -We will hold his metformin and place him on a sliding scale insulin -Accu-Cheks AC at bedtime -Creatinine is at baseline 5. Bipolar disorder -Stable -Continue with Seroquel, Lamictal, and SSRI DVT: Lovenox Inpatient E&M: [id number] Subs Hosp L2
[2020-06-12 10:05] LABS: Bedside Glucose 179 mg/dL (70-110)
--- NOTE | 2020-06-12 10:16 | PCM.PN.PUL ---
Patient Problems: Active and Suspected Problems (Last Reviewed 06/03/20 @ 11:[address] Peña Jay MD) COVID-19 (Acute) Subjective: Patient in very good spirits. Patient was able to be transitioned to high flow nasal cannula and maintain saturations on 90 to 95% FiO2. Patient is not reporting any abdominal pain, but states his appetite is still marginal. - Physical Exam Vitals/I&O's: Vital Signs Temp Pulse Resp BP Pulse Ox 36.9 C 118 H 34 H 160/99 H 86 06/12/20 08:00 06/12/20 08:00 06/12/20 08:00 06/12/20 08:00 06/12/20 08:00 Oxygen Flow Rate (L/min) 60 Oxygen Delivery Method Airvo Weight: 95.4 kg Body Mass Index (BMI) 29.5 Intake and Output for Last 24 Hours 06/10/20 06/11/20 06/12/20 23:59 23:59 22:59 Intake Total 650 / 650 0 / 0 0 / 0 Output Total 500 / 500 200 / 200 Balance 150 / 150 -200 / -200 0 / 0 General: Alert, Oriented x3, Cooperative, No apparent distress, - - No breakdown noted on interface site for BiPAP HEENT: Atraumatic, PERRLA, EOMI, - - Continues to have a facial rash without breakdown Oral: Moist Mucosa, No Gingival or Mucosal Lesions/ Ulcerations Neck: Supple, No JVD, No Nodes, Trachea Midline Lungs: No rhonchi, No wheeze, No rales, Diminished, - - Symmetric expansion. No dullness to percussion. Cardiovascular: Normal S1, Normal S2, No murmurs, No rub noted, No Gallop, Tachycardic Abdomen: Bowel Sounds Present, Soft, Non Tender, Non-Distended Extremities: No clubbing, No cyanosis, Edema Skin: - - No change from previous Musculoskeletal: No Tenderness to Palpation of Joints or Extremities Lymphatic: No Cervical, Supraclavicular, or Inguinal Adenopathy Neurological: Cranial nerves II-XII grossly intact, Neuro grossly intact, Motor Exam 5/5 strength throughout Psych/Mental Status: Appropriate Laboratory Results 06/11/20 11:31: POC Glucose 140 H 06/11/20 17:16: POC Glucose 263 H 06/11/20 20:18: POC Glucose 218 H 06/12/20 06:16: POC Glucose 153 H 06/12/20 07:10: Sodium 142, Potassium 4.1, Chloride 107, Carbon Dioxide 27.0, Anion Gap 8, BUN 55 H, Creatinine 1.50 H, Estim Creat Clear Calc 47.42, Est GFR (MDRD) Af Amer 59 L, Est GFR (MDRD) Non-Af 49 L, BUN/Creatinine Ratio 36.7 H, Glucose 158 H, Calcium 8.9 06/12/20 09:37: POC Glucose 179 H Current Medications Acetaminophen (Acetaminophen 325 Mg Tablet) 650 mg PO Q4H PRN PRN PRN Reason: Pain Score 1-10/Temp > 100.7 F Last Admin: 06/10/20 10:56 Dose: 650 mg Documented by: Al Hydroxide/Mg Hydroxide (Mag Hydrox/Al Hydrox/Simeth 30 Ml Udc) 30 ml PO Q6H PRN PRN PRN Reason: Gastric Burning Albuterol Sulfate (Albuterol 2.5 Mg/3 Ml Vial.Neb.) 2.5 mg INHALATION Q2H PRN PRN PRN Reason: SOB/Wheezing Allopurinol (Allopurinol 300 Mg Tablet) 300 mg PO DAILY [facility] Last Admin: 06/12/20 09:33 Dose: Not Given Documented by: Atorvastatin Calcium (Atorvastatin Calcium 20 Mg Tablet) 20 mg PO QHS [facility] Last Admin: 06/11/20 20:08 Dose: Not Given Documented by: Clonazepam (Clonazepam 0.5 Mg Tablet) 0.5 mg PO BID PRN PRN PRN Reason: ANXIETY Last Admin: 06/10/20 23:31 Dose: 0.5 mg Documented by: Dexamethasone Sodium Phosphate (Dexamethasone 4 Mg/Ml Vial) 6 mg IV DAILY [facility] Last Admin: 06/12/20 08:41 Dose: 6 mg Documented by: Dextrose (Dextrose 50%-Water 25 Gm/50 Ml Disp.Syrin) 0 gm IV X1 PRN; Protocol PRN Reason: Hypoglycemia Enoxaparin Sodium (Enoxaparin 100 Mg/Ml Syringe) 90 mg SC Q12 [facility] Folic Acid (Folic Acid 1 Mg Tablet) 1 mg PO DAILY [facility] Last Admin: 06/12/20 09:32 Dose: Not Given Documented by: Glucagon (Glucagon 1 Mg/Ml Syringe) 1 mg IM .X1 PRN PRN Reason: Hypoglycemia Guaifenesin (Guaifenesin 10 Ml Udc (200mg/10ml)) 20 ml PO Q4H PRN PRN PRN Reason: COUGH Last Admin: 06/05/20 06:21 Dose: 20 ml Documented by: Hydralazine HCl (Hydralazine 20 Mg/Ml Vial) 10 mg IV Q6H PRN PRN PRN Reason: for SBP>160 Last Admin: 06/12/20 05:12 Dose: 10 mg Documented by: Sodium Chloride () 250 mls @ 15 mls/hr IV .[id number] PRN PRN Reason: Saline Flush Sodium Chloride () 250 mls @ 15 mls/hr IV .[id number] PRN PRN Reason: Additional IVPB Infusion Insulin Glargine (Insulin Glargine 100 Units/Ml Pen) 10 units SC BREAKFAST [facility] Last Admin: 06/12/20 09:39 Dose: 10 units Documented by: Insulin Glargine (Insulin Glargine 100 Units/Ml Pen) 10 units SC QHS [facility] Last Admin: 06/11/20 20:20 Dose: Not Given Documented by: Insulin Human Lispro (Insulin Lispro 100 Unit/Ml Insuln.Pen) 0 unit SC [facility]; Protocol Last Admin: 06/12/20 06:32 Dose: Not Given Documented by: Lamotrigine (Lamotrigine 100 Mg Tablet) 200 mg PO BID [facility] Last Admin: 06/12/20 09:32 Dose: Not Given Documented by: Melatonin (Melatonin 3 Mg Tablet) 3 mg PO QHS PRN PRN PRN Reason: INSOMNIA Mirabegron (Mirabegron 25 Mg Tab.Er.24h) 25 mg PO DAILY [facility] Last Admin: 06/12/20 09:32 Dose: Not Given Documented by: Nitroglycerin (Nitroglycerin (Inpatient Use) 0.4 Mg Tab.Subl) 0.4 mg SUBLINGUAL Q5M PRN PRN Reason: CARDIAC/CHEST PAIN Ondansetron HCl (Ondansetron 4 Mg/2 Ml Vial) 4 mg IV Q8H PRN PRN PRN Reason: NAUSEA/VOMITING Oxycodone HCl (Oxycodone 5 Mg Tablet) 5 mg PO Q4H PRN PRN PRN Reason: Pain Score 4-5 Oxycodone HCl (Oxycodone 5 Mg Tablet) 10 mg PO Q4H PRN PRN PRN Reason: Pain Score 6-10 Pantoprazole Sodium (Pantoprazole Sodium 40 Mg Tablet) 40 mg PO DAILY [facility] Last Admin: 06/12/20 09:32 Dose: Not Given Documented by: Quetiapine Fumarate (Quetiapine 100 Mg Tablet) 400 mg PO QHS [facility] Last Admin: 06/11/20 20:08 Dose: Not Given Documented by: Rivaroxaban (Rivaroxaban 20 Mg Tablet) 20 mg PO DAILY [facility] Last Admin: 06/12/20 09:32 Dose: Not Given Documented by: Sodium Chloride (0.9% Saline Lock 10 Ml Syringe) 10 - 40 ml IV UD PRN PRN Reason: SALINE FLUSH Last Admin: 06/12/20 08:44 Dose: 10 ml Documented by: Tamsulosin HCl (Tamsulosin Hcl 0.4 Mg Capsule) 0.4 mg PO QHS [facility] Last Admin: 06/11/20 20:08 Dose: Not Given Documented by: Tolterodine Tartrate (Tolterodine Tartrate 2 Mg Cap.Sa) 2 mg PO DAILY [facility] Last Admin: 06/12/20 09:32 Dose: Not Given Documented by: Venlafaxine HCl (Venlafaxine Xr 150 Mg Capsule) 150 mg PO DAILY [facility] Last Admin: 06/12/20 09:32 Dose: Not Given Documented by: Medical Necessity - Tobacco Use Smoking Status: Former smoker Assessment/Plan All Active Problems (Last Reviewed 06/03/20 @ 11:[address] Peña Jay MD) COVID-19 (Acute) Septic shock (Resolved) Community acquired pneumonia (Resolved) RECOMMENDATIONS: 1. Continue current supportive measures and wean FiO2 to maintain saturations at or above 90%. 2. Continue Xarelto per outpatient regimen. 3. Continue Decadron 6 mg daily (day 10 of 10) 4. Recheck BMP tomorrow 5. Encourage incentive spirometer use and mobilize patient as tolerated. 6. We will dose with Lasix therapy IMPRESSIONS: 1. Acute hypoxemic respiratory failure secondary to COVID-19 pneumonia The patient initially presented to the hospital with Covid-like symptoms of 2 to 3 weeks duration. At this time, I would recommend that we continue current supportive measures with BiPAP therapy to maintain saturations at or above 90%. Continue Decadron 6 mg daily x10 days. The patient was already anticoagulated on Xarelto previously, which will be continued without change. Given the duration of his symptoms, the patient is unlikely to benefit from remdesivir or convalescent plasma. Patient is still with marginal saturations, but this does appear to be improving slowly. Patient has been able to be weaned to Airvo today. We will continue with diuresis as patient will tolerate. Patient instructed to focus on nutritional intake with breaks on BiPAP if necessary 2. CKD stage III Patient appears to be doing okay from a renal standpoint. Good urine output has been noted, but inaccurate. Daily weights suggest appropriate diuresis. Will need to follow renal function closely. Likely check chemistries every other day. Electrolyte repletion as indicated. 3. Probable acute on chronic diastolic CHF Clinical suspicion for an element of acute on chronic diastolic CHF. Patient's heart rate is better controlled today, which should help. Would recommend continue diuresis as tolerated. However given renal function, this will have to be ordered intermittently 4. Advanced age/history of PE/hyperlipidemia/hypertension/AAA status post repair Complicates care, management, recovery and prognosis. Okay to continue with anticoagulation from my perspective. Blood pressure appears to be controlled at this time. Inpatient E&M: [id number] [facility] Hosp L3
[2020-06-12] MEDS: Enoxaparin 100 MG/ML Syringe 90 MG SC ×2 (10:46→20:14)
[2020-06-12] MEDS: Furosemide 20 MG/2 ML VIAL IV (10:58)
[2020-06-12] MEDS: Insulin Lispro 100 UNIT/ML INSULN.PEN SC ×3 (11:45→20:13)
[2020-06-12 12:06] LABS: Bedside Glucose 250 mg/dL (70-110)
[2020-06-12] MEDS: Venlafaxine XR 150 MG Capsule PO ×2 (14:42)
[2020-06-12] MEDS: clonazePAM 0.5 MG Tablet PO (14:42)
[2020-06-12 17:26] LABS: Bedside Glucose 197 mg/dL (70-110)
[2020-06-12] MEDS: Atorvastatin Calcium 20 MG Tablet PO (20:13)
[2020-06-12] MEDS: Tamsulosin HCl 0.4 MG Capsule PO (20:13)
[2020-06-12] MEDS: lamoTRIgine 100 MG Tablet 200 MG PO (20:13)
[2020-06-12] MEDS: QUEtiapine 100 MG Tablet 400 MG PO (20:13)
[2020-06-13] VITALS (8 sets, daily range): BP systolic 115–138; BP diastolic 75–83; PULSE 84–110; RESP 12–22; TEMP 36.1–37.5; O2SAT 89–97
[2020-06-13 00:11] LABS: Bedside Glucose 172 mg/dL (70-110)
[2020-06-13 06:35] LABS: Bedside Glucose 139 mg/dL (70-110)
[2020-06-13 06:59] LABS: Absolute Lymphocyte Count 1.24 X10^3/uL (0.83-4.51); Absolute Neutrophil Count 11.8 X10^3/uL (2.0-7.7); Basophil# 0.02 X10^3/uL; Basophil% 0.1 % (0-1); Eosinophil# 0.18 X10^3/uL; Eosinophils% 1.3 % (0-5); Hematocrit 36.9 % (40-54); Hemoglobin 11.1 g/dL (13.0-16.5); Lymphocyte # 1.24 X10^3/ul (4.0); Lymphocyte % 8.8 % (19-41); Mean Corp Hgb Conc 30.1 g/dL (32-36); Mean Corpuscular Hgb 27.2 pg (27.0-32.0); Mean Corpuscular Volume 90.4 fL (80-94); Mean Platelet Vol. 10.2 fl (6.2-12.0); Monocyte# 0.62 X10^3/uL; Monocyte% 4.4 % (0-10); NRBC Flagged by Analyzer 0 % (0-5); Neutrophil # 11.76 X10^3/uL (2.7-7.7); Neutrophil % 83.1 % (47-70); Platelet Count 174 K/mm3 (150-450); RBC Distribution Width SD 49.5 fl (35.1-43.9); Red Blood Count 4.08 M/mm3 (4.6-6.2); White Blood Count 14.1 K/mm3 (4.4-11.0)
[2020-06-13 07:27] LABS: Anion Gap 10 (5-15); BUN 51 mg/dL (7-18); Calcium,Total 8.6 mg/dL (8.5-10.1); Chloride 102 mmol/L (98-107); Creatinine, Serum 1.38 mg/dL (0.70-1.30); EST Glomerular Filtration Rate 54 mL/min (>60); Est Glom Filt Rate - Afr Amer 65 mL/min (>60); Estimated Creatinine Clearance 51.55 ml/min; Glucose 130 mg/dL (74-106); Potassium 3.8 mmol/L (3.5-5.1); Sodium Level 139 mmol/L (136-145)
[2020-06-13] MEDS: Pantoprazole Sodium 40 MG Tablet PO (09:59)
[2020-06-13] MEDS: lamoTRIgine 100 MG Tablet 200 MG PO (09:59)
[2020-06-13] MEDS: Allopurinol 300 MG Tablet PO (09:59)
[2020-06-13] MEDS: Folic Acid 1 MG Tablet PO (09:59)
[2020-06-13] MEDS: Tolterodine Tartrate 2 MG CAP.SA PO (09:59)
[2020-06-13] MEDS: Rivaroxaban 20 MG Tablet PO (10:00)
[2020-06-13] MEDS: Mirabegron 25 MG TAB.ER.24H PO (10:00)
[2020-06-13] MEDS: dexAMETHasone 4 MG/ML Vial 6 MG IV (10:00)
[2020-06-13] MEDS: 0.9% Saline Lock 10 ML Syringe IV (10:02)
[2020-06-13] MEDS: Enoxaparin 100 MG/ML Syringe 90 MG SC (10:06)
--- NOTE | 2020-06-13 12:13 | CASEMGMT ---
Social Work Pt . Sister Brittney Urrutia's phone number provided to physician who plans to notify family of . Phone call to Addis Barksdale CM at [employer] and updated on pt . RIZWAN Carter
--- NOTE | 2020-06-13 12:23 | NURSING ---
spoke with Brittney Urrutia [phone] regarding home arrangements- Brittney states she is not familiar with anything and has no idea about any of it, he was estranged from the family. Brittney indicates pt had meals on wheels so she feels he has a casemanager and to contact them as they may have more insight on his legal affairs. [employer] Cindi aware and going to contact his assurance sourcing manager. Brittney states it is okay to phone her at number listed above for any further questions as needed.
--- NOTE | 2020-06-14 09:14 | EXP.PCM_ITS ---
Preliminary Cause of Hypoxemic respiratory failure secondary to COVID-19 pneumonia Date of Admission: 06/03/20 Date of : 06/13/20 - Principle Diagnosis #1 sepsis secondary to acute COVID-19 pneumonia #2 hypoxic respiratory failure-acute #3 essential hypertension #4 type 2 diabetes #5 chronic kidney disease stage III secondary to type 2 diabetes #6 bipolar disorder Problem List: Active and Suspected Problems (Last Reviewed 06/03/20 @ 11:[address] Peña Jay MD) COVID-19 (Acute) Hospital Course This 75-year-old white male was seen in the emergency room at [facility] with chief complaint of weakness and fever, work-up in the emergency room included a chest x-ray which showed bilateral opacities concerning for coronavirus, lab work revealed a lactic acidosis at 3.4, patient was placed on supplemental oxygen due to a low pulse ox on room air, troponin was indeterminate at 0.2, serology revealed positive COVID-19 result. Patient was admitted to [place] [id number], he was seen in consultation by infectious diseases and pulmonary medicine was not placed on remdesivir but he was placed on Decadron. Patient's respiratory status declined during his hospital stay, according to nursing, his CODE STATUS was DNR CC arrest without intubation. On 06/13/2020, patient was found pulseless, apneic, and pupils midpoint and nonreactive at 11:55 AM, it was noted that he had his oxygen off and it was on the floor of his room as well as his pulse ox which was also on the floor of his room. Patient had been checked approximately an hour previous and there was no issues with the patient at that time-he was on Airvo at the time of his expiration. His [id number] was contacted via phone. Inpatient E&M: [id number] [facility] Hosp
== END 2020-06-13 14:25 | DRG 871 ==
LOC: ED 09:40 → MS2 11:02
PROVIDERS: Family Medicine; Internal Medicine Critical Care Medicine; Internal Medicine Infectious Disease; Admitting Provider Internal Medicine; Emergency Provider Emergency Medicine; PCP Family Medicine; Visit Provider Internal Medicine
DX: A41.89 Other specified sepsis (principal); U07.1 COVID-19; J12.89 Other viral pneumonia; J96.01 Acute respiratory failure with hypoxia; I13.0 Hypertensive heart and chronic kidney disease with heart failure and stage 1 through stage 4 chronic kidney disease, or unspecified chronic kidney disease; E87.2 Acidosis; I50.32 Chronic diastolic (congestive) heart failure; E11.22 Type 2 diabetes mellitus with diabetic chronic kidney disease; N18.30 Chronic kidney disease, stage 3 unspecified; E78.5 Hyperlipidemia, unspecified; F31.9 Bipolar disorder, unspecified; F41.9 Anxiety disorder, unspecified; Z66 Do not resuscitate; Z79.01 Long term (current) use of anticoagulants; Z86.711 Personal history of pulmonary embolism; Z79.84 Long term (current) use of oral hypoglycemic drugs; Z86.79 Personal history of other diseases of the circulatory system; Z79.899 Other long term (current) drug therapy; Z87.891 Personal history of nicotine dependence
CPT/HCPCS: 36415; 71045; 80048; 80053; 81001; 82550; 82962; 83605; 83615; 83735; 83880; 84100; 84145; 84484; 85025; 85384; 85610; 85730; 86140; 87040; 87086; 87449; 87633; 87635; 92507; 92610; 93005; 94002; 94003; 94660; 97110; 97162; 97166; 99251; 99285; J7030; A4216; G0463; J1940; U0002